=== PATIENT | male | born 1955 | race Hispanic/Latino ===

== ENCOUNTER → 2019-10-18 | Outpatient (CLI) | payer OTHER ==
[~2019-10-18] MED LIST: AEC81 PO; FERS325 PO; FOLI1TAB61 PO; INSLAN SQ; PREG100C PO; RANO10003 PO; RANO500T3 PO; ROSU10TA22 PO; SITA50TA PO
== END | disposition home or self-care (01) ==
LOC: SHCH 09:42
PROVIDERS: ATTEND Internal Medicine Cardiovascular Disease
DX: I73.9 Peripheral vascular disease, unspecified (principal)
CPT/HCPCS: 93925

== ENCOUNTER → 2021-04-08 | Outpatient (CLI) | payer MEDICARE | END | disposition home or self-care (01) | LOC: SHCH 08:52 | PROVIDERS: ATTEND Internal Medicine Cardiovascular Disease | DX: I08.3 Combined rheumatic disorders of mitral, aortic and tricuspid valves (principal); R55 Syncope and collapse; I25.10 Atherosclerotic heart disease of native coronary artery without angina pectoris; I10 Essential (primary) hypertension; E78.5 Hyperlipidemia, unspecified; Z83.3 Family history of diabetes mellitus | CPT/HCPCS: 93306; 93356 ==

== ENCOUNTER 2022-09-18 04:52 | Inpatient (IN) | payer MEDICARE, OTHER ==
[~2022-09-18] VITALS: Ht 167.6 cm; Wt 102.5 kg
[2022-09-18] MEDS ORDERED: DEXTROSE 10%-WATER 1,000 ML IV SCH (05:30)
[2022-09-18 05:36] LABS: BASOPHILS % (AUTO) 0.5 % (0.0-5.0); EOSINOPHILS % (AUTO) 4.6 % (0.0-8.0); HEMATOCRIT 35.8 % (42-54); LYMPHOCYTES % (AUTO) 9.2 % (21.0-51.0); MEAN CORPUSCULAR HEMOGLOBIN 32.1 pg (27.0-33.0); MEAN CORPUSCULAR HGB CONC 32.4 g/dL (32.0-36.0); MEAN CORPUSCULAR VOLUME 99.2 fL (79-99); MONOCYTES % (AUTO) 9.4 % (3.0-13.0); NEUTROPHILS % (AUTO) 75.3 % (40.0-77.0); PLATELET COUNT (AUTO) 215 K/uL (130-400); RED BLOOD CELL COUNT(AUTO) 3.61 MIL/uL (4.50-6.20); RED CELL DISTRIBUTION WIDTH 14.6 % (11.0-15.5); WHITE BLOOD COUNT (AUTO) 9.2 K/uL (4.8-10.8)
[2022-09-18 05:46] LABS: CREATININE 4.8 mg/dL (0.5-1.5); POTASSIUM 4.2 mmol/L (3.5-5.1)
[2022-09-18 05:52] LABS: ALBUMIN 3.7 g/dL (3.5-5.0); MAGNESIUM 2.2 mg/dL (1.80-2.40); TOTAL PROTEIN, SERUM 7.5 g/dL (6.0-8.3)
[2022-09-18] MEDS ORDERED: CYCLOBENZAPRINE HCL 10 MG TABLET PO ONE (06:00)
[2022-09-18] MEDS ORDERED: MORPHINE 2 MG SYG IV PRN (07:30)
[2022-09-18] MEDS ORDERED: MORPHINE 4 MG SYG IV PRN (07:30)
[2022-09-18] MEDS ORDERED: CLOPIDOGREL 300MG TAB PO ONE (07:30)
[2022-09-18] MEDS ORDERED: ONDANSETRON 4MG INJ IV PRN (07:42)
[2022-09-18] MEDS: FAMOTIDINE 20MG VIAL IV SCH ×2 (08:15→20:16)
[2022-09-18] MEDS: CLOPIDOGREL 75MG TAB PO SCH (08:16)
[2022-09-18] MEDS: NITROGLYCERIN 1GM OINT 1 INCH/1GM TD SCH ×2 (08:16→15:47)
[2022-09-18] MEDS ORDERED: METOPROLOL TARTRATE 25 MG TAB PO SCH (09:00)
[2022-09-18 10:06] LABS: HEMOGLOBIN A1C 7.5 % (4.0-6.0)
[2022-09-18 10:07] LABS: INR 1.04 (0.85-1.15); PROTHROMBIN TIME 11.3 SEC (9.6-11.6)
[2022-09-18 10:08] LABS: PARTIAL THROMBOPLASTIN TIME 26.3 SEC (26.3-35.5)
[2022-09-18 10:10] LABS: % IRON SATURATION 32.9 % (30-44)
[2022-09-18 10:26] LABS: THYROID STIMULATING HORMONE 1.58 uIU/mL (0.36-3.74)
[2022-09-18 10:32] LABS: RETICULOCYTE % (AUTO) 4.53 % (0.42-2.23)
[2022-09-18 12:58] VITALS: BP 151/72
[2022-09-18] MEDS ORDERED: METO-409 PO (13:14)
[2022-09-18] MEDS ORDERED: FURO40TA5 PO (13:14)
[2022-09-18] MEDS ORDERED: INSLAN SQ ×2 (13:14→17:06)
[2022-09-18] MEDS ORDERED: SITA25TA5 PO (13:14)
[2022-09-18] MEDS ORDERED: FENO145T26 PO (13:14)
[2022-09-18] MEDS ORDERED: LEVO50CA4 PO (13:14)
[2022-09-18 16:32] VITALS: BP 152/49
[2022-09-18 19:55] VITALS: BP 153/73
[2022-09-18] MEDS: METOPROLOL SUCCINATE 50 MG TAB.SR.24H PO SCH (20:16)
[2022-09-18] MEDS: INSULIN GLARGINE 100 UNITS/ML 10 ML VIAL SQ SCH (20:19)
[2022-09-18] MEDS ORDERED: INSULIN GLARGINE 100 UNITS/ML 10 ML VIAL SQ SCH (21:00)
[2022-09-18] MEDS ORDERED: FUROSEMIDE 40 MG TABLET PO SCH (21:00)
[2022-09-18 23:39] VITALS: BP 158/60
[2022-09-19] VITALS (13 sets, daily range): BP systolic 135–191; BP diastolic 48–89
[2022-09-19] MEDS: NITROGLYCERIN 1GM OINT 1 INCH/1GM TD SCH ×4 (00:05→23:14)
[2022-09-19 00:08] LABS: CREATINE KINASE, TOTAL 72 U/L (21-232); MYOGLOBIN 282 ng/mL (10-92)
[2022-09-19] MEDS: LEVOTHYROXINE 50 MCG TABLET PO SCH (06:48)
[2022-09-19] MEDS ORDERED: INSULIN HUMULIN R 100 UNIT/ML 3ML SQ SCH (07:30)
[2022-09-19] MEDS: FENOFIBRATE NANOCRYSTALLIZED 145 MG TAB PO SCH (08:51)
[2022-09-19] MEDS: FAMOTIDINE 20MG VIAL IV SCH ×2 (08:51→20:46)
[2022-09-19] MEDS: Vitamin B Complex/Vit C/Folic Acid PO SCH (08:51)
[2022-09-19] MEDS: CLOPIDOGREL 75MG TAB PO SCH (08:52)
[2022-09-19] MEDS: METOPROLOL SUCCINATE 50 MG TAB.SR.24H PO SCH ×2 (08:52→20:46)
[2022-09-19 10:13] LABS: BASOPHILS % (AUTO) 0.8 % (0.0-5.0); EOSINOPHILS % (AUTO) 9.1 % (0.0-8.0); HEMATOCRIT 33.1 % (42-54); LYMPHOCYTES % (AUTO) 17.2 % (21.0-51.0); MEAN CORPUSCULAR HEMOGLOBIN 32.2 pg (27.0-33.0); MEAN CORPUSCULAR HGB CONC 31.7 g/dL (32.0-36.0); MEAN CORPUSCULAR VOLUME 101.5 fL (79-99); MONOCYTES % (AUTO) 10.2 % (3.0-13.0); NEUTROPHILS % (AUTO) 62.3 % (40.0-77.0); PLATELET COUNT (AUTO) 232 K/uL (130-400); RED BLOOD CELL COUNT(AUTO) 3.26 MIL/uL (4.50-6.20); RED CELL DISTRIBUTION WIDTH 14.6 % (11.0-15.5); WHITE BLOOD COUNT (AUTO) 7.8 K/uL (4.8-10.8)
[2022-09-19 10:23] LABS: CREATININE 5.8 mg/dL (0.5-1.5); POTASSIUM 4.6 mmol/L (3.5-5.1)
[2022-09-19 10:27] LABS: ALBUMIN 3.1 g/dL (3.5-5.0); TOTAL PROTEIN, SERUM 6.6 g/dL (6.0-8.3)
[2022-09-19] MEDS: HEPARIN 5,000 UNIT VIAL SQ SCH ×2 (11:32→23:00)
[2022-09-19] MEDS: INSULIN HUMULIN R 100 UNIT/ML 3ML SQ SCH ×2 (16:10→20:53)
[2022-09-19 20:38] LABS: HEPATITIS B SURFACE ANTIGEN Reactive (Nonreactive)
[2022-09-19] MEDS: INSULIN GLARGINE 100 UNITS/ML 10 ML VIAL SQ SCH (20:53)
[2022-09-20] VITALS (14 sets, daily range): BP systolic 127–166; BP diastolic 49–74
[2022-09-20 03:26] LABS: BASOPHILS % (AUTO) 0.5 % (0.0-5.0); EOSINOPHILS % (AUTO) 9.1 % (0.0-8.0); HEMATOCRIT 30.7 % (42-54); LYMPHOCYTES % (AUTO) 22.3 % (21.0-51.0); MEAN CORPUSCULAR HEMOGLOBIN 32.3 pg (27.0-33.0); MEAN CORPUSCULAR HGB CONC 32.6 g/dL (32.0-36.0); MONOCYTES % (AUTO) 12.2 % (3.0-13.0); NEUTROPHILS % (AUTO) 55.4 % (40.0-77.0); PLATELET COUNT (AUTO) 222 K/uL (130-400); RED CELL DISTRIBUTION WIDTH 14.5 % (11.0-15.5); WHITE BLOOD COUNT (AUTO) 7.5 K/uL (4.8-10.8)
[2022-09-20 03:46] LABS: ALBUMIN 3.1 g/dL (3.5-5.0); CREATININE 4.2 mg/dL (0.5-1.5); MAGNESIUM 1.8 mg/dL (1.80-2.40); PHOSPHORUS 3.2 mg/dL (2.5-4.9); POTASSIUM 3.2 mmol/L (3.5-5.1); TOTAL PROTEIN, SERUM 6.6 g/dL (6.0-8.3)
[2022-09-20] MEDS: LEVOTHYROXINE 50 MCG TABLET PO SCH (05:44)
[2022-09-20] MEDS: INSULIN HUMULIN R 100 UNIT/ML 3ML SQ SCH ×6 (05:45→20:41)
[2022-09-20] MEDS: NITROGLYCERIN 1GM OINT 1 INCH/1GM TD SCH ×3 (05:45→23:38)
[2022-09-20] MEDS: CLOPIDOGREL 75MG TAB PO SCH (07:55)
[2022-09-20] MEDS: METOPROLOL SUCCINATE 50 MG TAB.SR.24H PO SCH ×2 (07:55→20:36)
[2022-09-20] MEDS: Vitamin B Complex/Vit C/Folic Acid PO SCH (07:55)
[2022-09-20] MEDS: FAMOTIDINE 20MG VIAL IV SCH ×2 (07:56→20:35)
[2022-09-20] MEDS: FENOFIBRATE NANOCRYSTALLIZED 145 MG TAB PO SCH (07:56)
[2022-09-20] MEDS: HEPARIN 5,000 UNIT VIAL SQ SCH ×2 (12:07→20:38)
[2022-09-20] MEDS ORDERED: HYDRALAZINE 25MG TABLET PO PRN (16:30)
[2022-09-20] MEDS ORDERED: INSULIN GLARGINE 100 UNITS/ML 10 ML VIAL SQ SCH (21:00)
[2022-09-21 03:16] VITALS: BP 146/58
[2022-09-21 03:43] LABS: HEMATOCRIT 30.6 % (42-54); MEAN CORPUSCULAR HEMOGLOBIN 32.4 pg (27.0-33.0); MEAN CORPUSCULAR VOLUME 98.1 fL (79-99); RED BLOOD CELL COUNT(AUTO) 3.12 MIL/uL (4.50-6.20); RED CELL DISTRIBUTION WIDTH 14.6 % (11.0-15.5); WHITE BLOOD COUNT (AUTO) 6.9 K/uL (4.8-10.8)
[2022-09-21 04:04] LABS: ALBUMIN 3.1 g/dL (3.5-5.0); CREATININE 5.5 mg/dL (0.5-1.5); MAGNESIUM 2.1 mg/dL (1.80-2.40); POTASSIUM 3.6 mmol/L (3.5-5.1); TOTAL PROTEIN, SERUM 6.5 g/dL (6.0-8.3)
[2022-09-21] MEDS: INSULIN HUMULIN R 100 UNIT/ML 3ML SQ SCH (05:18)
[2022-09-21] MEDS: LEVOTHYROXINE 50 MCG TABLET PO SCH (06:10)
[2022-09-21] MEDS: NITROGLYCERIN 1GM OINT 1 INCH/1GM TD SCH (06:11)
[2022-09-21] MEDS ORDERED: INSULIN HUMULIN R 100 UNIT/ML 3ML SQ SCH (07:30)
[2022-09-21 08:33] VITALS: BP 144/76
[2022-09-21] MEDS: FENOFIBRATE NANOCRYSTALLIZED 145 MG TAB PO SCH (08:40)
[2022-09-21] MEDS: METOPROLOL SUCCINATE 50 MG TAB.SR.24H PO SCH (08:40)
[2022-09-21] MEDS: CLOPIDOGREL 75MG TAB PO SCH (08:41)
[2022-09-21] MEDS: FAMOTIDINE 20MG VIAL IV SCH (08:41)
[2022-09-21] MEDS: Vitamin B Complex/Vit C/Folic Acid PO SCH (08:41)
[2022-09-21] MEDS ORDERED: INSLAN SQ (10:36)
== END 2022-09-21 11:38 | disposition home or self-care (01) | DRG 637 ==
LOC: EDH 04:52 → EDHIP 07:23 → 2AH 12:40
PROVIDERS: ADMIT Internal Medicine; ATTEND Internal Medicine
PROC: 5A1D70Z Performance of Urinary Filtration, Intermittent, Less than 6 Hours Per Day (ICD-10-PCS; principal; 2022-09-19)
DX: E11.649 Type 2 diabetes mellitus with hypoglycemia without coma (principal); I21.A1 Myocardial infarction type 2; I50.31 Acute diastolic (congestive) heart failure; Z68.41 Body mass index [BMI] 40.0-44.9, adult; E87.1 Hypo-osmolality and hyponatremia; I13.2 Hypertensive heart and chronic kidney disease with heart failure and with stage 5 chronic kidney disease, or end stage renal disease; E66.01 Morbid (severe) obesity due to excess calories; N18.6 End stage renal disease; E78.5 Hyperlipidemia, unspecified; E11.22 Type 2 diabetes mellitus with diabetic chronic kidney disease; D64.9 Anemia, unspecified; E03.9 Hypothyroidism, unspecified; I25.10 Atherosclerotic heart disease of native coronary artery without angina pectoris; I48.91 Unspecified atrial fibrillation; T38.3X5A Adverse effect of insulin and oral hypoglycemic [antidiabetic] drugs, initial encounter; Z79.02 Long term (current) use of antithrombotics/antiplatelets; Z79.84 Long term (current) use of oral hypoglycemic drugs; Z82.49 Family history of ischemic heart disease and other diseases of the circulatory system; Z79.4 Long term (current) use of insulin; Z83.3 Family history of diabetes mellitus; Z95.1 Presence of aortocoronary bypass graft; Z99.2 Dependence on renal dialysis; Y92.009 Unspecified place in unspecified non-institutional (private) residence as the place of occurrence of the external cause
CPT/HCPCS: 36415; 71045; 80053; 82550; 82728; 82746; 82948; 83036; 83540; 83550; 83690; 83735; 83874; 83880; 84100; 84443; 84484; 85025; 85027; 85045; 85610; 85730; 86704; 86706; 87340; 90935; 93005; 93306; 93356; 94760; 96360; 99291; G0378; J1644; J1815; J3490

== ENCOUNTER → 2022-11-04 | Outpatient (CLI) | payer OTHER ==
[~2022-11-04] MED LIST changes: +FENO145T26 PO; +FURO40TA5 PO; +LEVO50CA4 PO; +METO-409 PO; -PREG100C PO; -RANO10003 PO; -RANO500T3 PO; +REGADENOSON 0.4 MG/5 ML PF SYG IVP SCH; -SITA50TA PO
== END | disposition home or self-care (01) ==
LOC: SHCH 09:22
PROVIDERS: ATTEND Internal Medicine Cardiovascular Disease
DX: I25.10 Atherosclerotic heart disease of native coronary artery without angina pectoris (principal); Z95.1 Presence of aortocoronary bypass graft
CPT/HCPCS: 78452; 96374; 93017; J2785; A9500 ×2

== ENCOUNTER 2023-01-27 08:50 | Day surgery (SDC) | payer OTHER ==
[2023-01-22 09:11] LABS: BASOPHILS % (AUTO) 0.6 % (0.0-5.0); EOSINOPHILS % (AUTO) 9.2 % (0.0-8.0); HEMATOCRIT 35.7 % (42-54); LYMPHOCYTES % (AUTO) 19.8 % (21.0-51.0); MEAN CORPUSCULAR HEMOGLOBIN 32.5 pg (27.0-33.0); MEAN CORPUSCULAR HGB CONC 31.9 g/dL (32.0-36.0); MEAN CORPUSCULAR VOLUME 101.7 fL (79-99); MONOCYTES % (AUTO) 9.3 % (3.0-13.0); NEUTROPHILS % (AUTO) 60.9 % (40.0-77.0); PLATELET COUNT (AUTO) 256 K/uL (130-400); RED BLOOD CELL COUNT(AUTO) 3.51 MIL/uL (4.50-6.20); RED CELL DISTRIBUTION WIDTH 13.2 % (11.0-15.5); WHITE BLOOD COUNT (AUTO) 8.8 K/uL (4.8-10.8)
[2023-01-22 09:24] LABS: INR 1.03 (0.85-1.15); PROTHROMBIN TIME 11.2 SEC (9.6-11.6)
[2023-01-22 09:25] LABS: PARTIAL THROMBOPLASTIN TIME 28.7 SEC (26.3-35.5)
[2023-01-22 09:34] LABS: CREATININE 5.3 mg/dL (0.5-1.5); POTASSIUM 4.7 mmol/L (3.5-5.1)
[2023-01-22 09:41] LABS: B-TYPE NATRIURETIC PEPTIDE 1000 pg/mL (0-100)
[2023-01-22 09:52] VITALS: BP 200/87
[~2023-01-27] VITALS: Ht 167.6 cm; Wt 102.6 kg
[2023-01-27] VITALS (10 sets, daily range): BP systolic 155–179; BP diastolic 61–78
[~2023-01-27 08:50] MED LIST changes: +CHOL100046 PO; -FERS325 PO; -FOLI1TAB61 PO; +FURO80TA3 PO; +LINA5TAB PO; -REGADENOSON 0.4 MG/5 ML PF SYG IVP SCH; -ROSU10TA22 PO; +SEMA0.258 SQ; +VITA-395 PO
[2023-01-27] MEDS ORDERED: 0.9%NACL 1000ML 1,000 ML IV ONE (09:11)
[2023-01-27] MEDS ORDERED: LIDOCAINE HCL 1% MDV 50ML VIAL ONE (09:56)
[2023-01-27] MEDS ORDERED: IOHEXOL-350 75 ML VIAL IV ONE ×2 (09:57→10:40)
[2023-01-27] MEDS ORDERED: MIDAZOLAM HCL 1 MG/ML 2ML VIAL ONE (09:57)
[2023-01-27] MEDS ORDERED: IOHEXOL-350 50ML VIAL IV ONE (10:26)
[2023-01-27] MEDS ORDERED: DEXTROSE 50%-WATER 50 ML DISP.SYRIN IV PRN (11:30)
[2023-01-27] MEDS ORDERED: GLUCAGON 1MG KIT 1 MG ML IM PRN (11:30)
== END 2023-01-27 14:20 | disposition home or self-care (01) ==
LOC: DAH 08:50
PROVIDERS: ATTEND Internal Medicine Cardiovascular Disease
DX: I25.119 Atherosclerotic heart disease of native coronary artery with unspecified angina pectoris (principal); I25.82 Chronic total occlusion of coronary artery; E11.22 Type 2 diabetes mellitus with diabetic chronic kidney disease; I13.2 Hypertensive heart and chronic kidney disease with heart failure and with stage 5 chronic kidney disease, or end stage renal disease; N18.6 End stage renal disease; I50.22 Chronic systolic (congestive) heart failure; E78.5 Hyperlipidemia, unspecified; E66.9 Obesity, unspecified; D64.9 Anemia, unspecified; Z79.01 Long term (current) use of anticoagulants; Z79.899 Other long term (current) drug therapy; Z95.1 Presence of aortocoronary bypass graft; Z86.010 Personal history of colon polyps; Z82.49 Family history of ischemic heart disease and other diseases of the circulatory system; Z79.4 Long term (current) use of insulin; Z79.82 Long term (current) use of aspirin; Z99.2 Dependence on renal dialysis; Z68.34 Body mass index [BMI] 34.0-34.9, adult
CPT/HCPCS: 80048; 83880; 85025; 85610; 85730; 71045; 93005; 93459; 82948 ×2; C1894; C1760; J7030; J2250; J1644; J3490; Q9967 ×2; A4215; A4222; A4221; A4663; A4216; A4606; Q9965; A4223 ×3; 99156; 99157

== ENCOUNTER 2023-06-01 04:39 | Inpatient (IN) | payer OTHER ==
[2023-06-01] VITALS (15 sets, daily range): BP systolic 133–158; BP diastolic 40–76; PULSE 72–76; RESP 15–20; TEMP 97.9–98
[~2023-06-01] VITALS: Ht 167.6 cm; Wt 100.6 kg
[2023-06-01 05:20] LABS: BASOPHILS # (AUTO) 0.05 K/uL (0.00-0.20); BASOPHILS % (AUTO) 0.6 % (0.0-5.0); EOSINOPHILS # (AUTO) 0.46 K/uL (0.00-0.70); EOSINOPHILS % (AUTO) 5.4 % (0.0-8.0); HEMATOCRIT 31.5 % (42-54); IMMATURE GRANULOCYTE ABSOLUTE 0.06 K/uL (0-1); LYMPHOCYTES # (AUTO) 1.4 K/uL (1.0-4.8); LYMPHOCYTES % (AUTO) 16.6 % (21.0-51.0); MEAN CORPUSCULAR HEMOGLOBIN 33.4 pg (27.0-33.0); MEAN CORPUSCULAR HGB CONC 32.7 g/dL (32.0-36.0); MEAN CORPUSCULAR VOLUME 102.3 fL (79-99); MONOCYTES # (AUTO) 0.8 K/uL (0.1-1.0); MONOCYTES % (AUTO) 9.2 % (3.0-13.0); NEUTROPHILS # (AUTO) 5.7 K/uL (1.8-7.7); NEUTROPHILS % (AUTO) 67.5 % (40.0-77.0); PLATELET COUNT (AUTO) 223 K/uL (130-400); RED BLOOD CELL COUNT(AUTO) 3.08 MIL/uL (4.50-6.20); RED CELL DISTRIBUTION WIDTH 13.5 % (11.0-15.5); WHITE BLOOD COUNT (AUTO) 8.5 K/uL (4.8-10.8)
[2023-06-01 05:38] LABS: ALBUMIN 3.7 g/dL (3.5-5.0); BILIRUBIN,TOTAL 0.7 mg/dL (0.2-1.0); POTASSIUM 5.4 mmol/L (3.5-5.1); TOTAL PROTEIN, SERUM 7.4 g/dL (6.0-8.3)
[2023-06-01 05:43] LABS: CREATININE 8.8 mg/dL (0.5-1.5)
[2023-06-01 05:50] LABS: APPEARANCE,URINE CLEAR (CLEAR); BILIRUBIN,URINE NEGATIVE (NEGATIVE); COLOR,URINE LIGHT-YELLOW (YELLOW); GLUCOSE, URINE (UA) 70 mg/dL (NEGATIVE); KETONES,URINE NEGATIVE (NEGATIVE); LEUKOCYTE ESTERASE ,URINE NEGATIVE Leu/uL (NEGATIVE); NITRATE,URINE NEGATIVE (NEGATIVE); OCCULT BLOOD,URINE SMALL (NEGATIVE); PROTEIN,URINE 300 mg/dL (NEGATIVE); UROBILINOGEN,URINE 0.2 mg/dL (0.2-1.0)
[2023-06-01 05:55] LABS: ADD UA MICROSCOPIC YES
[2023-06-01 05:56] LABS: BACTERIA,URINE RARE /HPF (None Seen); RBC,URINE 0-1 /HPF (0-1); SQUAMOUS EPITHELIAL CELL,UR RARE /HPF (0-2); WBC,URINE 0-1 /HPF (0-1)
[2023-06-01] MEDS ORDERED: ONDANSETRON 4MG INJ IVP ONE (06:00)
[2023-06-01] MEDS ORDERED: MORPHINE 4 MG SYG IVP ONE (06:00)
[2023-06-01] MEDS ORDERED: ZOSYN 3.375GM+NS 50ML 50 ML IVPB ONE (06:16)
[2023-06-01] MEDS ORDERED: ZOSYN 3.375GM +NS 50ML IVPB ONE (06:30)
[2023-06-01] MEDS ORDERED: ACETAMINOPHEN 325 MG TAB PO PRN ×2 (07:00)
[2023-06-01] MEDS ORDERED: ONDANSETRON 4MG INJ IV PRN (07:00)
[2023-06-01] MEDS: FAMOTIDINE 20MG VIAL IV SCH (08:49)
[2023-06-01] MEDS ORDERED: MAGNESIUM 2GM PREMIX 50ML 50 ML IV PRN (09:00)
[2023-06-01] MEDS ORDERED: GLUCAGON 1MG KIT 1 MG ML IM PRN ×2 (09:00→14:00)
[2023-06-01] MEDS: INSULIN HUMULIN R 100 UNIT/ML 3ML SQ SCH ×3 (11:30→23:00)
[2023-06-01] MEDS: DEXTROSE 50%-WATER 50 ML DISP.SYRIN IV PRN ×2 (11:39→16:26)
[2023-06-01] MEDS ORDERED: ZOSYN 3.375GM+NS 50ML 50 ML IV SCH (13:00)
[2023-06-01 13:25] LABS: ALBUMIN 3.5 g/dL (3.5-5.0); BILIRUBIN,DIRECT 0.3 mg/dL (0.0-0.3); BILIRUBIN,TOTAL 0.7 mg/dL (0.2-1.0)
[2023-06-01] MEDS ORDERED: DEXTROSE 50%-WATER 50 ML DISP.SYRIN IV PRN (14:00)
[2023-06-01] MEDS ORDERED: HYDROMORPHONE 0.5 MG SYG (0.5MG/0.5ML) IVP PRN (14:30)
[2023-06-01] MEDS ORDERED: INSULIN HUMULIN R 100 UNIT/ML 3ML SQ SCH (16:30)
[2023-06-01] MEDS: ZOSYN 3.375GM+NS 50ML 50 ML IVPB SCH (23:00)
[2023-06-01 23:12] LABS: HEPATITIS B SURFACE ANTIGEN Non-Reactive (Nonreactive)
[2023-06-01] MEDS ORDERED: LOPERAMIDE HCL 2 MG CAP PO ONE (23:58)
[2023-06-01] MEDS ORDERED: LOPERAMIDE 1 MG/7.5 ML UDCUP PO STA (23:59)
[2023-06-02] VITALS (8 sets, daily range): BP systolic 132–151; BP diastolic 40–76; PULSE 66–82; RESP 18–20; O2SAT 94–96
[2023-06-02] MEDS ORDERED: ASPI-1197 PO (04:51)
[2023-06-02] MEDS ORDERED: METO-409 PO (04:51)
[2023-06-02] MEDS ORDERED: ROSU40TA21 PO (04:51)
[2023-06-02] MEDS ORDERED: LISI2.5T13 PO (04:51)
[2023-06-02] MEDS ORDERED: FURO40SO PO (04:51)
[2023-06-02] MEDS ORDERED: SEMA0.258 SQ (04:51)
[2023-06-02] MEDS ORDERED: INSLAN SQ (04:51)
[2023-06-02] MEDS ORDERED: FURO80TA3 PO (04:51)
[2023-06-02] MEDS ORDERED: FENO145T26 PO (04:51)
[2023-06-02] MEDS ORDERED: [UNRECOGNIZED DRUG - CODE] PO (04:51)
[2023-06-02] MEDS ORDERED: SUCR500T PO (04:51)
[2023-06-02] MEDS ORDERED: MONT-39 PO (04:51)
[2023-06-02] MEDS ORDERED: CINA30TA5 PO (04:51)
[2023-06-02] MEDS ORDERED: CHOL200012 PO (04:51)
[2023-06-02] MEDS ORDERED: LEVO50CA4 PO (04:51)
[2023-06-02] MEDS: ZOSYN 3.375GM+NS 50ML 50 ML IVPB SCH ×2 (05:44→19:20)
[2023-06-02] MEDS: INSULIN HUMULIN R 100 UNIT/ML 3ML SQ SCH ×4 (05:45→20:22)
[2023-06-02 06:18] LABS: BASOPHILS # (AUTO) 0.04 K/uL (0.00-0.20); BASOPHILS % (AUTO) 0.7 % (0.0-5.0); EOSINOPHILS # (AUTO) 0.29 K/uL (0.00-0.70); EOSINOPHILS % (AUTO) 5.2 % (0.0-8.0); HEMATOCRIT 28.3 % (42-54); IMMATURE GRANULOCYTE ABSOLUTE 0.02 K/uL (0-1); LYMPHOCYTES # (AUTO) 0.7 K/uL (1.0-4.8); LYMPHOCYTES % (AUTO) 12.6 % (21.0-51.0); MEAN CORPUSCULAR HEMOGLOBIN 33.8 pg (27.0-33.0); MEAN CORPUSCULAR HGB CONC 33.2 g/dL (32.0-36.0); MEAN CORPUSCULAR VOLUME 101.8 fL (79-99); MONOCYTES # (AUTO) 0.6 K/uL (0.1-1.0); MONOCYTES % (AUTO) 10.2 % (3.0-13.0); NEUTROPHILS % (AUTO) 70.9 % (40.0-77.0); PLATELET COUNT (AUTO) 195 K/uL (130-400); RED BLOOD CELL COUNT(AUTO) 2.78 MIL/uL (4.50-6.20); RED CELL DISTRIBUTION WIDTH 13.4 % (11.0-15.5); WHITE BLOOD COUNT (AUTO) 5.6 K/uL (4.8-10.8)
[2023-06-02 06:31] LABS: ALBUMIN 3.2 g/dL (3.5-5.0); BILIRUBIN,TOTAL 0.8 mg/dL (0.2-1.0); CREATININE 6.3 mg/dL (0.5-1.5); MAGNESIUM 1.9 mg/dL (1.80-2.40); PHOSPHORUS 5.5 mg/dL (2.5-4.9); POTASSIUM 3.9 mmol/L (3.5-5.1); TOTAL PROTEIN, SERUM 6.5 g/dL (6.0-8.3)
[2023-06-03] VITALS (20 sets, daily range): BP systolic 118–170; BP diastolic 56–98; PULSE 73–85; RESP 16–20; TEMP 97.8–97.9; O2SAT 95
[2023-06-03 05:07] LABS: BASOPHILS # (AUTO) 0.03 K/uL (0.00-0.20); BASOPHILS % (AUTO) 0.6 % (0.0-5.0); EOSINOPHILS # (AUTO) 0.44 K/uL (0.00-0.70); EOSINOPHILS % (AUTO) 8.1 % (0.0-8.0); HEMATOCRIT 28.7 % (42-54); IMMATURE GRANULOCYTE ABSOLUTE 0.03 K/uL (0-1); LYMPHOCYTES # (AUTO) 1.1 K/uL (1.0-4.8); LYMPHOCYTES % (AUTO) 19.9 % (21.0-51.0); MEAN CORPUSCULAR HEMOGLOBIN 33.6 pg (27.0-33.0); MEAN CORPUSCULAR HGB CONC 32.8 g/dL (32.0-36.0); MEAN CORPUSCULAR VOLUME 102.5 fL (79-99); MONOCYTES # (AUTO) 0.7 K/uL (0.1-1.0); MONOCYTES % (AUTO) 12.9 % (3.0-13.0); NEUTROPHILS # (AUTO) 3.2 K/uL (1.8-7.7); NEUTROPHILS % (AUTO) 57.9 % (40.0-77.0); PLATELET COUNT (AUTO) 186 K/uL (130-400); RED CELL DISTRIBUTION WIDTH 13.2 % (11.0-15.5); WHITE BLOOD COUNT (AUTO) 5.4 K/uL (4.8-10.8)
[2023-06-03] MEDS: INSULIN HUMULIN R 100 UNIT/ML 3ML SQ SCH ×3 (05:20→16:30)
[2023-06-03 05:27] LABS: BILIRUBIN,TOTAL 0.7 mg/dL (0.2-1.0); CREATININE 7.7 mg/dL (0.5-1.5); POTASSIUM 4.1 mmol/L (3.5-5.1); TOTAL PROTEIN, SERUM 6.4 g/dL (6.0-8.3)
[2023-06-03] MEDS: ZOSYN 3.375GM+NS 50ML 50 ML IVPB SCH (06:03)
[2023-06-03] MEDS: FAMOTIDINE 20MG VIAL IV SCH (08:17)
[2023-06-03] MEDS ORDERED: CHOL200012 PO (11:30)
[2023-06-03] MEDS ORDERED: LISINOPRIL 2.5 MG TABLET PO STA (17:06)
[2023-06-03] MEDS ORDERED: METOPROLOL SUCCINATE 50 MG TAB.SR.24H PO STA (17:06)
[2023-06-03] MEDS ORDERED: MONTELUKAST SODIUM 10 MG TAB PO SCH (21:00)
[2023-06-03] MEDS ORDERED: NON-FORMULARY MEDICATION 1 EACH (Rosuvastatin Calcium 40 MG) PO SCH (21:00)
[2023-06-03] MEDS ORDERED: ATORVASTATIN 40 MG TABLET PO SCH (21:00)
[2023-06-04] MEDS ORDERED: CHOLECALCIFEROL 25 MCG PO SCH (09:00)
[2023-06-04] MEDS ORDERED: CINACALCET 30 MG TAB PO SCH (09:00)
[2023-06-04] MEDS ORDERED: METOPROLOL SUCCINATE 50 MG TAB.SR.24H PO SCH (09:00)
[2023-06-04] MEDS ORDERED: LISINOPRIL 2.5 MG TABLET PO SCH (09:00)
[2023-06-04] MEDS ORDERED: FENOFIBRATE NANOCRYSTALLIZED 145 MG TAB PO SCH (09:00)
[2023-06-04] MEDS ORDERED: VITAMIN E 180 MG PO SCH (09:00)
[2023-06-04] MEDS ORDERED: NON-FORMULARY MEDICATION 1 EACH (Metoprolol Succinate 100 MG) PO SCH (09:00)
[2023-06-04] MEDS ORDERED: FUROSEMIDE 80 MG TABLET PO SCH (09:00)
[2023-06-04] MEDS ORDERED: ASPIRIN 81MG CHEW TAB PO SCH (09:00)
== END 2023-06-03 19:00 | disposition home or self-care (01) | DRG 444 ==
LOC: EDH 04:39 → EDHIP 06:43 → 3DH 06-02 03:45
PROVIDERS: ADMIT Hospitalist; ATTEND Hospitalist
PROC: 5A1D70Z Performance of Urinary Filtration, Intermittent, Less than 6 Hours Per Day (ICD-10-PCS; principal; 2023-06-01)
PROC: 5A1D70Z Performance of Urinary Filtration, Intermittent, Less than 6 Hours Per Day (ICD-10-PCS; 2023-06-03)
DX: K80.18 Calculus of gallbladder with other cholecystitis without obstruction (principal); K85.90 Acute pancreatitis without necrosis or infection, unspecified; N18.6 End stage renal disease; I12.0 Hypertensive chronic kidney disease with stage 5 chronic kidney disease or end stage renal disease; E11.22 Type 2 diabetes mellitus with diabetic chronic kidney disease; D64.9 Anemia, unspecified; E87.5 Hyperkalemia; I25.10 Atherosclerotic heart disease of native coronary artery without angina pectoris; E78.00 Pure hypercholesterolemia, unspecified; E87.8 Other disorders of electrolyte and fluid balance, not elsewhere classified; Z82.49 Family history of ischemic heart disease and other diseases of the circulatory system; Z83.3 Family history of diabetes mellitus; Z89.022 Acquired absence of left finger(s); Z95.1 Presence of aortocoronary bypass graft; Z99.2 Dependence on renal dialysis
CPT/HCPCS: 36415; 74150; 76705; 78226; 80053; 80076; 81001; 82550; 82948; 83690; 83735; 83874; 84100; 84484; 85025; 86704; 86706; 87340; 90935; 93005; 96365; 96366; A9537; G0378; J1610; J2270; J2405; J2543; J3490; J7070

== ENCOUNTER 2023-07-16 12:41 | Emergency (ER) | payer OTHER ==
[~2023-07-16] VITALS: Ht 167.6 cm; Wt 103.4 kg
[~2023-07-16 12:41] MED LIST changes: -AEC81 PO; +ASPI-1197 PO; -CHOL100046 PO; +CINA30TA5 PO; +FURO40SO PO; -FURO40TA5 PO; -LINA5TAB PO; +LISI2.5T13 PO; +MONT-39 PO; +ROSU40TA21 PO; +SUCR500T PO; -VITA-395 PO; +[UNRECOGNIZED DRUG - CODE] PO
[2023-07-16 13:24] VITALS: BP 144/74; PULSE 79; RESP 16
[2023-07-16] MEDS ORDERED: CEPH500B PO (14:35)
== END 2023-07-16 15:11 | disposition home or self-care (01) ==
LOC: EDH 12:41
DX: S61.303A Unspecified open wound of left middle finger with damage to nail, initial encounter (principal); E11.9 Type 2 diabetes mellitus without complications; E78.00 Pure hypercholesterolemia, unspecified; I10 Essential (primary) hypertension; Z79.82 Long term (current) use of aspirin; Z79.890 Hormone replacement therapy; Z79.899 Other long term (current) drug therapy; W18.31XA Fall on same level due to stepping on an object, initial encounter; Y93.89 Activity, other specified; Y92.89 Other specified places as the place of occurrence of the external cause; Y99.8 Other external cause status

== ENCOUNTER 2024-06-23 07:23 | Emergency (ER) | payer OTHER ==
[~2024-06-23] VITALS: Ht 167.6 cm; Wt 95.3 kg
[2024-06-23 07:25] VITALS: TEMP 97.8
[2024-06-23] MEDS: acetaMINOPHEN 325 MG/10.15ML UDCUP PO ONE (08:52)
[2024-06-23 09:42] VITALS: BP 124/32; PULSE 66; RESP 17; O2SAT 100
== END 2024-06-23 09:43 | disposition home or self-care (01) ==
LOC: EDH 07:23
DX: S40.011A Contusion of right shoulder, initial encounter (principal); E11.9 Type 2 diabetes mellitus without complications; E78.00 Pure hypercholesterolemia, unspecified; I10 Essential (primary) hypertension; Z98.890 Other specified postprocedural states; Z89.022 Acquired absence of left finger(s); W01.0XXA Fall on same level from slipping, tripping and stumbling without subsequent striking against object, initial encounter; Y93.89 Activity, other specified; Y92.89 Other specified places as the place of occurrence of the external cause; Y99.8 Other external cause status
CPT/HCPCS: 73030; 73060

== ENCOUNTER 2024-09-12 09:00 | Inpatient (IN) | payer OTHER ==
[~2024-09-12] VITALS: Ht 172.7 cm; Wt 92.2 kg
--- NOTE | 2024-09-12 09:28 | EKG ---
[facility] Test Date: 2024-09-12 Test Time: 09:25:09 Pat Name: BEN LUQUE Department: EDH Room: ED Gender: M Medical Practice Assistant: [id number] : 1955 Requested By: MICHAEL SAHU Order Number: [id number] Reading MD: Maximilian Peck Measurements Intervals [place] Rate: 104 P: 41 ID: [id number] QRS: 101 QRSD: 100 T: -88 QT: 310 QTc: 407 Interpretive Statements Sinus tachycardia Right axis deviation Repol abnrm suggests ischemia, lateral leads Compared to ECG 09/01/2023 23:05:52 Right-axis deviation now present Early repolarization now present Possible ischemia now present Sinus rhythm no longer present Right bundle-branch block no longer present Electronically Signed On 09-12-2024 22:03:12 SWIMMING [employer]OL SERVIC[employer] by Maximilian Peck Please click the below link to view image of tracing.
--- NOTE | 2024-09-12 09:32 | ERN ---
General Chief Complaint: Abdominal Pain Stated Complaint: ABD PAIN, CHILLS Time Seen by MD: 09:02 Time Seen by Midlevel: 09:02 Source: patient History of Present Illness Initial Comments This is a 69-year-old male with a past medical history of end-stage renal disease on hemodialysis presenting to the emergency department with diffuse abdominal pain that started prior to arrival. Patient is on a Thursday dialysis schedule and is followed by [facility]. He has a Lava in place. He reports having 3 hours of his dialysis performed today. He normally gets 3 hours and 45 minutes. Denies any nausea, vomiting, or any other symptoms at this time. Allergies: Coded Allergies: No Known Drug Allergies (Unverified Allergy, Unknown, 06/01/15) Home Meds No Active Prescriptions or Reported Meds Past Medical History Past Medical History: Diabetes-Type II, High Cholesterol, Hypertension, Renal Failure Past Surgical History: LAVA Surgical History Other: , KNEE SX, LEFT 2ND FINGER PARTIAL AMPUTATIO Family History Family History: DM, HTN Social History Social History: Negative, Lives with family ROS Dictation CONSTITUTIONAL: Negative except for HPI HEAD/FACE: Negative except for HPI EENT: Negative except for HPI RESPIRATORY: Negative except for HPI GASTROINTESTINAL/ABDOMINAL: Negative except for HPI GENITOURINARY: Negative except for HPI MUSCULOSKELETAL: Negative except for HPI INTEGUMENTARY: Negative except for HPI NEUROLOGICAL/PSYCH: Negative except for HPI HEMATOLOGIC/LYMPHATIC: Negative except for HPI All Systems Negative, Except as noted above. 13 point review of systems assessed and all negative except for above. Physical Exam Physical Exam Dictation Vital Signs reviewed General Appearance: Alert, oriented x 3, ill-appearing Head and Face: non-traumatic. Eyes: PERRL, pink conjunctivas, eyelid no trauma, anterior chamber with arcus senilis. Ears: Pinnas intact and no signs of trauma or erythema ear canals clear and no discharge TM no erythema Nose: No discharge, no bleeding. Oropharynx: Mouth normal, tongue pink, pharynx clear,no erythema, tonsils no exudates, no abscesses noted, mucous m embrane moist Neck: Supple, non-tender, no thyromegaly, no masses, no JVD, no bruits Breast:Deferred Chest:No tenderness, no crepitus, no paradoxical movement, no retractions Lungs:Clear, well-ventilated, symmetric, no rales, no wheezing, no rhonchi, no stridor, good breath sounds bilaterally Heart: Regular rate, regular rhythm, no murmur, no gallops Vascular: no peripheral edema, Abdomen: Soft, positive bowel sounds, nondistended, no guarding, Diffuse abdominal tenderness, no rebound, no masses no hepatomegaly, no splenomegaly, no Caputo's sign, no hernias. Rectal: Deferred Genital: Deferred Neurological: Normal speech, motor function intact, sensory function intact Musculoskeletal: Neck nontender, full range of motion, back nontender, full range of motion, Extremities: nontender, full range of motion Skin: Color pink, dry, no turgor, no rash, no lacerations, no abrasions, no contusions. Lymphatic: Deferred Results Laboratory and Microbiology Lab and Micro Result Laboratory Tests Test 09/12/24 09:30 White Blood Count 6.1 K/uL (4.8-10.8) Red Blood Count 3.72 MIL/uL (4.50-6.20) L Hemoglobin 12.1 g/dL (14.0-18.0) L Hematocrit 36.8 % (42-54) L Mean Corpuscular Volume 98.9 fL (79-99) Mean Corpuscular Hemoglobin 32.5 pg (27.0-33.0) Mean Corpuscular Hemoglobin Concent 32.9 g/dL (32.0-36.0) Red Cell Distribution Width 14.7 % (11.0-15.5) Platelet Count 333 K/uL (130-400) Mean Platelet Volume 10.0 fL (7.5-10.5) Immature Granulocyte % (Auto) 0.3 % (0-1) Neutrophils (%) (Auto) 67.8 % (40.0-77.0) Lymphocytes (%) (Auto) 24.3 % (21.0-51.0) Monocytes (%) (Auto) 6.5 % (3.0-13.0) Eosinophils (%) (Auto) 0.8 % (0.0-8.0) Basophils (%) (Auto) 0.3 % (0.0-5.0) Neutrophils # (Auto) 4.1 K/uL (1.8-7.7) Lymphocytes # (Auto) 1.5 K/uL (1.0-4.8) Monocytes # (Auto) 0.4 K/uL (0.1-1.0) Eosinophils # (Auto) 0.05 K/uL (0.00-0.70) Basophils # (Auto) 0.02 K/uL (0.00-0.20) Absolute Immature Granulocyte (auto 0.02 K/uL (0-1) Nucleated Red Blood Cells 0.0 % (0.0-0.19) Prothrombin Time 13.2 SEC (9.6-11.6) H Prothromb Time International Ratio 1.20 (0.85-1.15) H Activated Partial Thromboplast Time 28.6 SEC (26.3-35.5) Sodium Level 138 mmol/L (136-145) Potassium Level 4.7 mmol/L (3.5-5.1) Chloride Level 97 mmol/L (101-111) L Carbon Dioxide Level 31 mmol/L (21-32) Blood Urea Nitrogen 41 mg/dL (7-18) H Creatinine 6.3 mg/dL (0.5-1.3) H Glomerular Filtration Rate Calc 9 mL/min (>90) Random Glucose 55 mg/dL (70-105) L Lactic Acid Level 4.6 mmol/L (0.8-2.5) H Total Calcium 10.1 mg/dL (8.5-10.1) Total Bilirubin 1.9 mg/dL (0.2-1.0) H Direct Bilirubin 0.9 mg/dL (0.0-0.3) H Aspartate Amino Transf (AST/SGOT) 132 U/L (10-37) H Alanine Aminotransferase (ALT/SGPT) 71 U/L (12-78) Alkaline Phosphatase 104 U/L (50-136) Troponin I High Sensitivity 110 ng/L (4-75) *H Total Protein 8.3 g/dL (6.0-8.3) Albumin 3.1 g/dL (3.5-5.0) L Lipase 41 U/L (16-77) Procalcitonin 1.62 ng/mL (0.05-0.5) H Labs Reviewed?: Yes MDM MDM: Differential diagnosis: Acute cholecystitis, pancreatitis, small-bowel obstruction, ileus Rationale: Tests considered and ordered secondary to shared decision making include: Previous outside records reviewed: Old ER visits. Risk of complication and/or morbidity or mortality of patient management: None Medications-Per medication reconciliation Need for hospitalization: Patient does meet criteria for hospitalization. Need for emergency major/minor surgery: No There are no social concerns with this patient. Prescription drug management Prescriptions will include symptomatic care Patient's prior external medical records from other ER visits were reviewed by me as indicated. Prior testing and results from previous visits were reviewed. Prior tests were taken into account with medical decision making and resource utilization, independent historian/historians were used to obtain complete medical history. I independently interpreted the test that were performed, results were reviewed by me and considered findings on radiology if ordered. Medical management and examination interpretation discussions were had by me with other qualified healthcare professionals as indicated for the patient's care. ED Course Orders Procedure Category Date Status Time 12 Lead Ekg Tracing- EKG 09/12/24 Complete Technical 09:14 Cbc With Differential LAB 09/12/24 Complete 09:14 Basic Metabolic Panel LAB 09/12/24 Complete 09:14 Hepatic Function Panel LAB 09/12/24 Complete 09:14 Lipase LAB 09/12/24 Complete 09:14 Lactic Acid LAB 09/12/24 Complete 09:14 Procalcitonin LAB 09/12/24 Complete 09:14 Pt And Ptt LAB 09/12/24 Complete 09:14 Troponin I High LAB 09/12/24 Complete Sensitivity 09:14 Urinalysis LAB 09/12/24 Logged W/Microscopic 09:14 Chest 1vw RAD 09/12/24 Resulted 09:14 Ondansetron 4mg Inj PHA 09/12/24 Complete (Zofran 4mg Inj) 09:30 Morphine 2mg Syg PHA 09/12/24 Complete (Morphine 2mg Syg) 09:30 Famotidine 20mg Vial PHA 09/12/24 Complete (Pepcid 20mg Vial) 09:30 Ct Abdomen/Pelvis W/O CT 09/12/24 Resulted Contrast 09:22 0.9% Nacl 500ml PHA 09/12/24 Complete Iv.Soln (Ns 500ml 10:30 12 Lead Ekg Tracing- EKG 09/12/24 Complete Technical 10:41 Troponin I High LAB 09/12/24 Complete Sensitivity 10:41 Zosyn 3.375gm+Ns 50ml PHA 09/12/24 Complete (Zosyn 3.375gm+Ns 11:00 Arterial Blood Gas RT 09/12/24 Transmitted 12:00 Ammonia LAB 09/12/24 Complete 12:01 Arterial Blood Gas + RT 09/12/24 Transmitted 12:03 Ct Head/Brain W/O CT 09/12/24 Resulted Contrast 12:05 Initiate DERIK 09/12/24 In Process Hyperglycemia Protoco 12:16 Insulin Regular, PHA 09/12/24 In Process Human 3ml (Humulin R 16:30 Initiate Hypoglycemia DERIK 09/12/24 In Process Protocol 12:16 Dextrose 50%-Water PHA 09/12/24 In Process (D50w) 12:30 Glucagon 1mg Kit PHA 09/12/24 In Process (Glucagon 1mg Kit) 12:30 Magnesium 2gm Premix PHA 09/12/24 In Process 50ml (Magnesium 2gm 12:30 Ammonia LAB 09/13/24 Verified 04:00 B-Type Natriuretic LAB 09/13/24 Verified Peptide 04:00 Cbc With Differential LAB 09/13/24 Verified 04:00 Comprehensive LAB 09/13/24 Verified Metabolic Panel 04:00 Creatine Kinase, Total LAB 09/13/24 Verified 04:00 Hemoglobin A1c LAB 09/13/24 Verified 04:00 Hepatic Function Panel LAB 09/13/24 Verified 04:00 Influenza Type A & B, LAB 09/12/24 Complete Rapid 12:16 Lactic Acid LAB 09/13/24 Verified 04:00 Magnesium LAB 09/13/24 Verified 02:00 Procalcitonin LAB 09/13/24 Verified 04:00 Current Medications Medications (Trade) Dose Ordered Sig/Elver Route PRN Reason Start Time Stop Time Status Last Admin Dose Admin Famotidine (Pepcid 20mg Vial) 20 mg ONCE ONCE IV 09/12/24 09:30 09/12/24 09:31 DC 09/12/24 09:44 Morphine Sulfate (morPHINE 2MG SYG) 2 mg ONCE ONCE IVP 09/12/24 09:30 09/12/24 09:31 DC 09/12/24 09:45 Ondansetron HCl (zoFRAN 4MG INJ) 4 mg ONCE ONCE IVP 09/12/24 09:30 09/12/24 09:31 DC 09/12/24 09:44 Piperacillin Sod/ Tazobactam Sod (Zosyn 3.375gm+NS 50ml) 3.375 gm ONCE ONCE IV 09/12/24 11:00 09/12/24 11:04 DC 09/12/24 11:33 Sodium Chloride 500 ml @ 0 mls/hr ONCE ONCE IV 09/12/24 10:30 09/12/24 10:31 DC 09/12/24 10:26 Vital Signs Date Time Temp Pulse Resp B/P (MAP) Pulse Ox O2 Delivery O2 Flow Rate FiO2 09/12/24 11:30 94 20 120/54 94 Room Air* 0 21 09/12/24 10:00 98.1 104 20 138/57 96 Room Air* 0 21 09/12/24 09:10 98.1 104 20 134/71 96 Room Air* 0 21 09/12/24 09:02 98.1 104 18 134/71 96 Room Air 0 DX & DISP Disposition: Inpatient Departure Impression: Primary Impression: Small bowel obstruction Additional Impressions: Elevated troponin, Hypoglycemia, End-stage renal disease on hemodialysis Condition: Stable Scripts No Active Prescriptions or Reported Meds Referrals: LARRY MORENO (PCP) I have reviewed the case, and I agree with, Diagnosis and Plan I performed the substantive portion of the visit. I have reviewed and personally made and approve the management plan that is documented in the note by myself or the CARLI. I acknowledge for responsibility for the patient's management plan. MARK PARHAM Sep 12, 2024 09:32
[2024-09-12] MEDS: FAMOTIDINE 20MG VIAL IV ONE (09:44)
[2024-09-12] MEDS: ondanSETRON 4MG INJ IVP ONE (09:44)
[2024-09-12] MEDS: morPHINE 2 MG SYG IVP ONE ×3 (09:45→15:23)
[2024-09-12 10:00] LABS: BASOPHILS # (AUTO) 0.02 K/uL (0.00-0.20); BASOPHILS % (AUTO) 0.3 % (0.0-5.0); EOSINOPHILS # (AUTO) 0.05 K/uL (0.00-0.70); EOSINOPHILS % (AUTO) 0.8 % (0.0-8.0); HEMATOCRIT 36.8 % (42-54); IMMATURE GRANULOCYTE ABSOLUTE 0.02 K/uL (0-1); LYMPHOCYTES # (AUTO) 1.5 K/uL (1.0-4.8); LYMPHOCYTES % (AUTO) 24.3 % (21.0-51.0); MEAN CORPUSCULAR HEMOGLOBIN 32.5 pg (27.0-33.0); MEAN CORPUSCULAR HGB CONC 32.9 g/dL (32.0-36.0); MEAN CORPUSCULAR VOLUME 98.9 fL (79-99); MONOCYTES # (AUTO) 0.4 K/uL (0.1-1.0); MONOCYTES % (AUTO) 6.5 % (3.0-13.0); NEUTROPHILS # (AUTO) 4.1 K/uL (1.8-7.7); NEUTROPHILS % (AUTO) 67.8 % (40.0-77.0); PLATELET COUNT (AUTO) 333 K/uL (130-400); RED BLOOD CELL COUNT(AUTO) 3.72 MIL/uL (4.50-6.20); RED CELL DISTRIBUTION WIDTH 14.7 % (11.0-15.5); WHITE BLOOD COUNT (AUTO) 6.1 K/uL (4.8-10.8)
--- NOTE | 2024-09-12 10:00 | HMCIMG ---
CHEST 1VW HISTORY: Shortness of breath COMPARISON: 09/01/2023 FINDINGS: A frontal projection of the chest was obtained. Prominent interstitial markings are seen with possible superimposed infiltrates. Poststernotomy changes are seen. The heart is enlarged. Degenerative changes of the thoracolumbar spine are present. Degenerative changes are seen. No evidence of aortic calcification is seen. IMPRESSION: 1. Prominent interstitial markings are seen with possible superimposed infiltrates.
[2024-09-12 10:15] LABS: INR 1.2 (0.85-1.15); PROTHROMBIN TIME 13.2 SEC (9.6-11.6)
[2024-09-12 10:17] LABS: PARTIAL THROMBOPLASTIN TIME 28.6 SEC (26.3-35.5)
[2024-09-12 10:19] LABS: ALBUMIN 3.1 g/dL (3.5-5.0); BILIRUBIN,DIRECT 0.9 mg/dL (0.0-0.3); BILIRUBIN,TOTAL 1.9 mg/dL (0.2-1.0); CREATININE 6.3 mg/dL (0.5-1.3); POTASSIUM 4.7 mmol/L (3.5-5.1); TOTAL PROTEIN, SERUM 8.3 g/dL (6.0-8.3)
[2024-09-12] MEDS: 0.9% NACL 500ML IV.SOLN 500 ML IV ONE (10:26)
--- NOTE | 2024-09-12 10:32 | HMCIMG ---
CT ABDOMEN/PELVIS W/O CONTRAST HISTORY: Diffuse abdominal pain COMPARISON: 09/05/2023 TECHNIQUE: Multiple sequential axial images of the abdomen and pelvis were obtained from the dome of the diaphragm through symphysis pubis. Patient was not given contrast through intravenous route. Oral contrast was not given. FINDINGS: No pleural effusion is seen bilaterally. There is no evidence of parenchymal disease or pulmonary nodule of the visualized lower lungs. Degenerative changes of the thoracolumbar spine are present. The heart is borderline enlarged. Coronary arterial calcifications are seen. Liver measures 19 cm. Spleen measures 11 cm. Stomach is poorly distended. There is small bowel dilatation with fluid-filled may be related to enteritis. The liver, spleen, adrenal glands and pancreas are unremarkable. There is no evidence of hydronephrosis bilaterally. There are bilateral renal vascular calcifications with possible small renal pelvic stones. Bilateral renal atrophy is seen. Fecal material is seen in the colon. There is diverticulosis. There are normal size retroperitoneal and mesenteric lymph nodes. Tiny ascites is seen. Atherosclerotic changes are present. Pelvic sidewalls are symmetric bilaterally. Bladder is poorly distended. IMPRESSION: 1. Mild bowel dilatation with fluid-filled may be related to small bowel obstruction. Tiny ascites. Diverticulosis. CT was performed with one or more following dose reduction techniques: automated exposure control, adjustment of the mA and kv according to patient's size, or use of a iterative reconstruction technique.
[2024-09-12] MEDS: ZOSYN 3.375GM +NS 50ML IV ONE (11:33)
--- NOTE | 2024-09-12 11:59 | EKG ---
[facility] Test Date: 2024-09-12 Test Time: 11:55:46 Pat Name: BEN LUQUE Department: EDH Room: ED Gender: M Wound/Ostomy Clinical Nurse Specialist: [id number] : 1955 Requested By: MARK PARHAM Order Number: [id number] Reading MD: Maximilian Peck Measurements Intervals [place] Rate: 97 P: 37 DE: 209 QRS: 100 QRSD: 107 T: 263 QT: 393 QTc: 499 Interpretive Statements Sinus rhythm Borderline prolonged [place] interval Right axis deviation Repol abnrm, severe global ischemia (LM/MVD) Compared to ECG 09/12/2024 09:25:09 Sinus tachycardia no longer present Possible ischemia still present Electronically Signed On 09-12-2024 22:04:30 MC KAY STITCHER by Maximilian Peck Please click the below link to view image of tracing.
--- NOTE | 2024-09-12 12:00 | NUR ---
MARK AMADOR SPOKE TO IRV[facility] FOR GENERAL SURGERY CONSULT THEY WILL SEE PT
--- NOTE | 2024-09-12 12:04 | NUR ---
ARTEM GRAY CALLED FOR AN ABG
--- NOTE | 2024-09-12 12:27 | NUR ---
GLUCOSE 38MG/DL VIA ABG 50ML D50 12.5GMS IVP JUST GIVEN
[2024-09-12] MEDS ORDERED: guaiFENesin-DM 200/20MG 10ML PO PRN (12:30)
[2024-09-12] MEDS ORDERED: ZOLPidem TARTrate 5 MG TAB PO PRN (12:30)
[2024-09-12] MEDS ORDERED: ondanSETRON 4MG INJ IV PRN (12:30)
[2024-09-12] MEDS ORDERED: NITROGLYCERIN 0.4 MG SL TAB SL PRN (12:30)
[2024-09-12] MEDS ORDERED: GLUCAGON 1MG KIT 1 MG ML IM PRN (12:30)
[2024-09-12] MEDS ORDERED: MAGNESIUM 2GM PREMIX 50ML 50 ML IV PRN (12:30)
[2024-09-12] MEDS ORDERED: MAG/ALUM/SIMETH 30 ML UDCUP PO PRN (12:30)
[2024-09-12] MEDS ORDERED: hydrALAZine 20MG/ML VIAL IV PRN (12:30)
[2024-09-12] MEDS ORDERED: LACTULOSE 20 GM/30 ML UDCUP PO PRN (12:30)
[2024-09-12] MEDS ORDERED: FAMOTIDINE 20MG VIAL IV PRN (12:30)
--- NOTE | 2024-09-12 12:34 | HP ---
[facility] HISTORY AND PHYSICAL Date of Service: Sep 12, 2024 Time of Service: 12:25 PCP:Ruddy Mathews Admitting: Dr Chopra, Allergies: No Allergy Information Available, No Known Drug Allergies HISTORY OF PRESENT ILLNESS: [ Patient is 69 years old male with a past medical history of ESRD on dialysis, diabetes, hyperlipidemia, Coronary Artery Disease, hypertension, cholelit hiasis, CABG, appendectomy, who came to emergency department with the abdominal pain that is starting during dialysis. Patient is undergoing dialysis on Thursday and Thursday at [facility]. He had Lava in place. Patient was able to undergo 3 hours of dialysis were usually is about 3 hours and 45 minutes. But then patient is started to experience extreme abdominal pain and decided to come to emergency department for further evaluation.] Chest x-ray showed prominent interstitial markings with a possible superimposed infiltrate. CT abdomen/pelvis showed mild bowel dilation with fluid filled may be related to small bowel obstruction. Tiny ascites, diverticulosis. Surgeon was consulted as well we consulted senior datastage developer for ESRD dialysis. Per surgeon no NG tube at this moment. Patient received 500 cc bolus of fluids. Most recent vital signs temperature 98.1 pulse 94 respiration 20 blood pressure 120/54. Patient is on room air satting 94%. WBC 6.1 hemoglobin 12.1 hematocrit 36.8 platelets 333. Sodium 138 potassium 4.7 chloride 97 CO2 31 BUN 41 creatinine 6.3 GFR nine random glucose 55 lactic 4.6 bilirubin 1.9 direct bilirubin 0.9 troponin 110 positive procalcitonin 1.62 lipase 41 albumin 3.1. Patient will be admitted under hospitalist care for further evaluation and care. REVIEW OF SYSTEMS CONSTITUTIONAL: Denies fevers, chills, or night sweats. No unintentional weight loss reported. NEUROLOGICAL: Denies headache, amaurosis fugax, motor weakness, sensory deficit, vertigo/spinning sensation, gait abnormalities, or tremors. ENT: No hearing loss, otalgia, otorrhea, rhinitis, rhinorrhea, hoarseness, or sore throat. CARDIOVASCULAR: Denies any exertional angina, dyspnea on exertion, orthopnea, paroxysmal nocturnal dyspnea, palpitations, life-threatening arrhythmias, claudication. PULMONARY: Denies any shortness of breath, cough, phlegm/sputum, hemoptysis, pleuritic chest pain. SLEEP: Denies morning headaches, daytime somnolence or napping. Denies difficulty falling asleep, staying asleep, waking from sleep. Denies knowledge of snoring. GASTROINTESTINAL: Denies any type of dysphagia to either liquids or solids. Denies nausea, vomiting, pyrosis, early satiety, diarrhea, constipation, or changes in stool consistency or caliber. Denies coffee-ground emesis, hematemesis, hematochezia, or melanotic stools. Complains of persistent abdominal pain GENITOURINARY: Denies frequency, urgency, nocturia, hematuria or incontinence (Storage/Irritative symptoms.) Low urinary stream, straining to void, urinary intermittency or hesitancy, splitting of the voiding stream, terminal dribbling. ENDOCRINOLOGIC: Denies polyuria, polydipsia, polyphagia or heat/cold intolerances. HEMATOLOGIC: Denies thrombophilia/previous clots, or coagulopathy/bleeding disorders. ONCOLOGIC: Denies personal history of malignancy. DERMATOLOGIC: Denies rashes or pruritus. PSYCHIATRIC: Denies any suicidal or homicidal ideation. Denies hallucinations. PAST MEDICAL HISTORY: [ , hyperlipidemia, Coronary Artery Disease, hypertension, ESRD dialysis Thursday, cholelithiasis] PAST SURGICAL HISTORY: [ CABG six years ago, right knee cartilage replacement, appendicitis, cholecystectomy, left hand pointing finger amputation ] PAST SOCIAL HISTORY: [ Patient denies smoking. Patient denies drug illicit. Patient drinks occasi onally. ] FAMILY HISTORY: [ Patient lives at home with the family. Patient is independent. ] Coded Allergies: No Known Drug Allergies (Unverified Allergy, Unknown, 06/01/15) PHYSICAL EXAM GENERAL APPEARANCE: The patient is awake, alert, and oriented, in no acute cardiopulmonary distress. NEUROLOGICAL: Cranial nerves II-XII grossly intact. Motor is 5/5 in bilateral upper and lower extremities proximal to distal. No sensory deficits. HEENT: Face is symmetric. Pupils are equal and reactive. Extraocular movements are intact. NECK: Supple. No JVD. No thyromegaly. No submental, submandibular, pre- /postauricular, occipital or supraclavicular lymphadenopathy. CHEST: Normal chest expansion. No Telemetry. LUNGS: Absence of any rales, rhonchi or any wheezing. CARDIOVASCULAR: Regular. S1 and S2 normal. No appreciable rubs, murmurs or gallops. ABDOMEN: Soft, nontender, and nondistended. There is no rebound, voluntary guarding, or rigidity. : Deferred. No Palomares. EXTREMITIES: Non-edematous and not cyanotic. No clubbing. Good capillary refill. SKIN: No skin breakdown. Vital Sign (Last 24 Hours) 09/12/24 09/12/24 10:00 11:30 Temp 98.1 Pulse 94 Resp 20 B/P (MAP) 120/54 Pulse Ox 94 O2 Delivery Room Air* O2 Flow Rate 0 FiO2 21 LABS: Laboratory: Test 09/12/24 12:20 09/12/24 09:30 Range/Units Blood Gas Specimen Type Arterial Arterial Blood pH 7.466 H 7.350-7.450 Arterial Blood Partial Pressure CO2 37 35-48 mmHg Arterial Blood Partial Pressure O2 < 45.0 *L 83.0-108.0 mmHg Arterial Blood HCO3 25.8 21.0-28.0 mmol/L Arterial Blood Oxygen Saturation 72.1 L 94.0-98.0 % Arterial Blood Base Excess 2.2 -2.0-3.0 mmol/L Hemoglobin (Blood Gas) 11.7 L 13.5-17.5 g/dL Sodium (Blood Gas) 135 L 136-145 MMOL/L Bedside Potassium (Blood Gas) 3.5 3.4-4.5 MMOL/L Bedside Chloride (Blood Gas) 98 98-107 MMOL/L Bedside Glucose (Blood Gas) 36 *L 65-95 MG/DL Bedside Ionized Calcium (Blood Gas) 1.12 L 1.15-1.33 MMOL/L Bedside Lactic Acid (Blood Gas) 1.47 H 0.36-0.75 MMOL/L Blood Gas Temperature 37.0 35.5-37.0 CELSIUS Blood Gas Vent Mode RA ROOM AIR FiO2 21.0 % Blood Gas Specimen Comment RB,DIONE,ORGAN TEACHER White Blood Count 6.1 4.8-10.8 K/uL Red Blood Count 3.72 L 4.50-6.20 MIL/uL Hemoglobin 12.1 L 14.0-18.0 g/dL Hematocrit 36.8 L 42-54 % Mean Corpuscular Volume 98.9 79-99 fL Mean Corpuscular Hemoglobin 32.5 27.0-33.0 pg Mean Corpuscular Hemoglobin Concent 32.9 32.0-36.0 g/dL Red Cell Distribution Width 14.7 11.0-15.5 % Platelet Count 333 130-400 K/uL Mean Platelet Volume 10.0 7.5-10.5 fL Immature Granulocyte % (Auto) 0.3 0-1 % Neutrophils (%) (Auto) 67.8 40.0-77.0 % Lymphocytes (%) (Auto) 24.3 21.0-51.0 % Monocytes (%) (Auto) 6.5 3.0-13.0 % Eosinophils (%) (Auto) 0.8 0.0-8.0 % Basophils (%) (Auto) 0.3 0.0-5.0 % Neutrophils # (Auto) 4.1 1.8-7.7 K/uL Lymphocytes # (Auto) 1.5 1.0-4.8 K/uL Monocytes # (Auto) 0.4 0.1-1.0 K/uL Eosinophils # (Auto) 0.05 0.00-0.70 K/uL Basophils # (Auto) 0.02 0.00-0.20 K/uL Absolute Immature Granulocyte (auto 0.02 0-1 K/uL Nucleated Red Blood Cells 0.0 0.0-0.19 % Prothrombin Time 13.2 H 9.6-11.6 SEC Prothromb Time International Ratio 1.20 H 0.85-1.15 Activated Partial Thromboplast Time 28.6 26.3-35.5 SEC Sodium Level 138 136-145 mmol/L Potassium Level 4.7 3.5-5.1 mmol/L Chloride Level 97 L 101-111 mmol/L Carbon Dioxide Level 31 21-32 mmol/L Blood Urea Nitrogen 41 H 7-18 mg/dL Creatinine 6.3 H 0.5-1.3 mg/dL Glomerular Filtration Rate Calc 9 >90 mL/min Random Glucose 55 L 70-105 mg/dL Lactic Acid Level 4.6 H 0.8-2.5 mmol/L Total Calcium 10.1 8.5-10.1 mg/dL Total Bilirubin 1.9 H 0.2-1.0 mg/dL Direct Bilirubin 0.9 H 0.0-0.3 mg/dL Aspartate Amino Transf (AST/SGOT) 132 H 10-37 U/L Alanine Aminotransferase (ALT/SGPT) 71 12-78 U/L Alkaline Phosphatase 104 50-136 U/L Troponin I High Sensitivity 110 *H 4-75 ng/L Total Protein 8.3 6.0-8.3 g/dL Albumin 3.1 L 3.5-5.0 g/dL Lipase 41 16-77 U/L Procalcitonin 1.62 H 0.05-0.5 ng/mL DIAGNOSTICS / RADIOLOGY: [ ] ASSESSMENT: [ Small-bowel obstruction versus ileus per CT abdomen/pelvis 09/12/2024 POA ESRD on dialysis Thursday needing dialysis POA Uncontrolled diabetes mellitus type 2 with hyper and hypoglycemia POA Hyperlipidemia POA Coronary artery disease s/p CABG six years ago POA Uncontrolled hypertension POA Multifactorial anemia POA Lactic acidosis 4.6 POA Hyperbilirubinemia 1.9 POA Hyper troponinemia 110 POA History of cholelithiasis POA History of appendectomy ] History of appendectomy History of right knee cartilage surgery History of left hand pointing finger amputation Current alcohol drinking occasionally PLAN: [Admit to: Medical-surgical floor Consults: Surgeon, senior datastage developer Antibiotics: Zosyn Tests: NEURO: Minimize central acting medications as possible. Fall Precautions. Well lighted room through the day and minimize interruptions through the night to prevent acute delirium. PULMONARY: Supplemental 02 as needed BiPAP as necessary, for respiratory distress Titrate Fio2 to keep Spo2 > or = 90% DuoNebs and CPT as needed IS hourly while awake for pulmonary hygiene Out of bed to chair as tolerated VAP Bundle Maintain aspiration precautions at all times CARDIOVASCULAR: Follow hemodynamics. Vital signs per facility protocol GI & NUTRITION: Continue nutritional support Aspirations precautions Prokinetic agents and laxatives as needed KIDNEYS & ELECTROLYTES: Strict monitoring of intake and output Daily weights Avoid nephrotoxic agents Monitor electrolytes and replace as needed Goal urine output of 30mL/hr or 0.5mL/kg/hr Medications to be dosed according to renal function. Avoid contrast if possible ENDOCRINE: Maintain blood glucose between 100-180 at all times. Insulin sliding scale for blood glucose management Hypoglycemia and hyperglycemia protocol in place INFECTIOUS DISEASE: Trend temperature, WBC and procalcitonin level Follow cultures, deescalate antibiotics as soon as possible. Panculture if new onset fever HEMATOLOGY & COAGULATION: Monitor H&H. Keep Hgb > 7 Transfuse 1 unit of PRBC for Hgb < 7 Transfuse 1 pack of platelets of platelets < 20, 000 Watch for any signs and symptoms of bleeding SKIN: Pressure ulcer prevention per facility protocol Specialty mattress as needed Treatment plan discussed with patient and family at the bedside Medications to be reconciled once obtained by patient and/or family and available to be reconciled in computer p.r.n. medication for pain nausea and vomiting Questions were answered We will continue to monitor the patient closely [employer] for disposition Rehab: PT/OT GI: PPI DVT: SCD's Code Status: Full Resuscitation Disposition: TBD Prognosis: Guarded ] ADVANCED CARE PLANNING 1. Which of the following were discussed? Hospice Care - Yes / No Therapeutic options - Yes / No Advance Directives - Yes / No Other discussions - 2. Discussed with who? Patient 3. Voluntary nature of this service was explained to the patient? Yes / No 4. Amount of time spent - __ more than 35 minutes 5. Reviewed by Physician? (if this service was performed by NPP) Yes / No ATTESTATION BY PHYSICIAN I have seen and examined the patient. I reviewed the documentation, medical decision making, and treatment plan as noted by the mid-level provider above. I agree with the findings and plan of care. JOSE CHOPRA MD, [facility] Sep 12, 2024 12:34
[2024-09-12] MEDS: DEXTROSE 50%-WATER 50 ML DISP.SYRIN IV ONE ×3 (12:44→12:45)
[2024-09-12 12:54] LABS: ABG BASE EXCESS 2.4 mmol/L (-2.0-3.0); ABG HCO3 26.5 mmol/L (21.0-28.0); ABG OXYGEN SATURATION 90.3 % (94.0-98.0); ABG PCO2 39 mmHg (35-48); ABG PH 7.446 (7.350-7.450); CARBON MONOXIDE 0.8 % (0.5-1.5); HHb 9.6; PO2, ARTERIAL BG 61.2 mmHg (83.0-108.0); VENT MODE, BG RA (ROOM AIR)
--- NOTE | 2024-09-12 12:54 | HMCIMG ---
CT HEAD/BRAIN W/O CONTRAST HISTORY: Altered mental status COMPARISON: None TECHNIQUE: Multiple sequential axial images of the head were obtained from the base of the skull through vertex. Patient was not given contrast through intravenous route. FINDINGS: The ventricles and extraventricular CSF spaces are dilated consistent with cerebral atrophy. Nonspecific white matter changes seen. There is atherosclerosis. There is no midline shift, mass effect or herniation. No acute intracranial bleed is seen. Visualized portion of the paranasal sinuses are grossly within normal limits. IMPRESSION: 1. No acute intracranial bleed is seen. CT was performed with one or more following dose reduction techniques: automated exposure control, adjustment of the mA and kv according to patient's size, or use of a iterative reconstruction technique.
[2024-09-12] MEDS ORDERED: ZOSYN 3.375GM+NS 50ML 50 ML IV SCH (13:00)
[2024-09-12 13:48] LABS: INFLUENZA TYPE A Negative For Type A (NEGATIVE); INFLUENZA TYPE B Negative For Type B (NEGATIVE)
--- NOTE | 2024-09-12 14:20 | NUR ---
DR CHOPRA AT BEDSIDE
--- NOTE | 2024-09-12 14:40 | NUR ---
DR MUNSON AT BEDSIDE NEW ORDERS RECIEVED. DIALYSIS THURSDAY
--- NOTE | 2024-09-12 15:04 | CONS ---
NEPHROLOGY CONSULTATION NOTE Date/Time Patient Seen: Sep 12, 2024 1440 Reason for Consultation: Abdominal pain, end-stage renal disease, small-bowel obstruction HISTORY OF PRESENT ILLNESS: This is a 68-year-old male with a past medical history of end-stage renal disease on hemodialysis Thursday, diabetes mellitus type 2, hypertension, hyperlipidemia, coronary artery disease, anemia. Patient presented to emergency room with complaints of abdominal pain Chest x-ray showed prominent interstitial markings with a possible superimposed infiltrate CT of the abdomen/pelvis showed mild bowel dilation with fluid filled may be related to small-bowel obstruction. Surgery has been consulted, pending recommendations Dialysis was done earlier this morning. He was seen in the emergency room, in no acute distress Family at the bedside Prognosis remains guarded REVIEW OF SYSTEMS: GENERAL: Positive for abdominal pain NEUROLOGIC: Negative for any blurry vision, blind spots, double vision, facial asymmetry, dysphagia, dysarthria, hemiparesis, hemisensory deficits, vertigo, ataxia. HEENT: Negative for any head trauma, neck trauma, neck stiffness, photophobia, phonophobia, sinusitis, rhinitis. CARDIAC: Negative for any chest pain, dyspnea on exertion, paroxysmal nocturnal dyspnea, peripheral edema. PULMONARY: Negative for any shortness of breath, wheezing, COPD, or TB exposure. GASTROINTESTINAL: Negative for any abdominal pain, nausea, vomiting, bright red blood per rectum, melena. GENITOURINARY: Negative for any dysuria, hematuria, incontinence. INTEGUMENTARY: Negative for any rashes, cuts, insect bites. RHEUMATOLOGIC: Negative for any joint pains, photosensitive rashes, history of vasculitis or kidney problems. HEMATOLOGIC: Negative for any abnormal bruising, frequent infections or bleeding. PAST MEDICAL HISTORY: End-stage renal disease Diabetes mellitus type 2 Hypertension Hyperlipidemia Coronary artery disease Anemia PAST SURGICAL HISTORY: CABG Left knee surgery Left upper AV access Left second toe finger partial amputation PAST SOCIAL HISTORY: Denies the use of alcohol, tobacco, or illicit drugs PHYSICAL EXAM: GENERAL: Alert and oriented x 3. No acute distress. Well-nourished. EYES: EOMI. Anicteric. HENT: Moist mucous membranes. No scleral icterus. No cervical lymphadenopathy. LUNGS: Clear to auscultation bilaterally. No accessory muscle use. CARDIOVASCULAR: Regular rate and rhythm. No murmur. No JVD. ABDOMEN: Soft, non-tender and non-distended. No palpable masses. EXTREMITIES: No edema. Non-tender. SKIN: No rashes or lesions. Warm. NEUROLOGIC: No focal neurological deficits. CN II-XII grossly intact, but not individually tested. PSYCHIATRIC: Cooperative. Appropriate mood and affect. MEDICATIONS: [ ] Current Medications Medications (Trade) Dose Ordered Sig/Elver Route PRN Reason Start Time Stop Time Status Last Admin Dose Admin Acetaminophen (TYLenol 325MG TAB) 650 mg Q4H PRN PO MILD PAIN (1-3) 09/12/24 12:30 10/12/24 12:29 Acetaminophen (TYLenol 325MG TAB) 650 mg Q6H PRN PO TEMPERATURE GREATER THAN 101.5 09/12/24 12:30 10/12/24 12:29 Al Hydroxide/Mg Hydroxide (MAALox PLUS 30ML) 30 ml Q6H PRN PO INDIGESTION 09/12/24 12:30 10/12/24 12:29 Dextrose (D50w) 50 ml AD PRN IV HYPOGLYCEMIA PROTOCOL 09/12/24 12:30 10/12/24 12:29 Diphenhydramine HCl (BENAdryl INJ) 25 mg Q6H PRN IV SEVERE ITCHING/RASH 09/12/24 12:30 10/12/24 12:29 Famotidine (Pepcid 20mg Vial) 20 mg BID PRN IV NAUSEA/VOMITING 09/12/24 12:30 09/12/24 12:44 DC Famotidine (Pepcid 20mg Vial) 20 mg Q48H IV 09/12/24 21:00 10/12/24 20:59 Glucagon (Glucagon 1mg Kit) 1 mg AD PRN IM HYPOGLYCEMIA PROTOCOL 09/12/24 12:30 10/12/24 12:29 Guaifenesin/ Dextromethorphan (RobiTUSSin DM 200/20MG 10ML) 10 ml Q4H PRN PO COUGH 09/12/24 12:30 10/12/24 12:29 Heparin Sodium (Porcine) (HEParin 5,000 UNIT VIAL) 5,000 unit BID SQ 09/12/24 21:00 10/12/24 20:59 Hydralazine HCl (APRESOLine 20MG INJ) 10 mg Q6H PRN IV For:SBP above 160;DBP above 90 09/12/24 12:30 10/12/24 12:29 Insulin Human Regular (humuLIN R 100 UNIT/ML 3ML) INSULIN SLIDING SCAL... ACHS SQ 09/12/24 16:30 10/12/24 16:29 Lactulose (Constulose 20gm/ 30ml Udcup) 20 gm BID PRN PO CONSTIPATION 09/12/24 12:30 10/12/24 12:29 Magnesium Sulfate 50 ml @ 0 mls/hr PROTOCOL PRN IV other 09/12/24 12:30 10/12/24 12:29 Nitroglycerin (Nitrostat) 0.4 mg PROTOCOL PRN SL CHEST PAIN 09/12/24 12:30 10/12/24 12:29 Ondansetron HCl (zoFRAN 4MG INJ) 4 mg Q6H PRN IV NAUSEA/VOMITING 09/12/24 12:30 10/12/24 12:29 Piperacillin Sod/ Tazobactam Sod 50 ml @ 12.5 mls/hr Q12H IV 09/12/24 13:00 09/12/24 12:48 DC Piperacillin Sod/ Tazobactam Sod 50 ml @ 12.5 mls/hr Q12H IV 09/12/24 23:30 09/22/24 23:29 Zolpidem Tartrate (AmbIEN) 5 mg HS PRN PO INSOMNIA 09/12/24 12:30 10/12/24 12:29 Vital Signs (last 8hr) Date Time Temp Pulse Resp B/P (MAP) Pulse Ox O2 Delivery O2 Flow Rate FiO2 09/12/24 11:30 94 20 120/54 94 Room Air* 0 21 09/12/24 10:00 98.1 104 20 138/57 96 Room Air* 0 21 09/12/24 09:10 98.1 104 20 134/71 96 Room Air* 0 21 09/12/24 09:02 98.1 104 18 134/71 96 Room Air 0 DIAGNOSTICS / RADIOLOGY: REASON: Altered mental status ORDERING PHYSICIAN: MICHAEL SAHU MD PROCEDURE: HEAD WO - CT HEAD/BRAIN W/O CONTRAST CT HEAD/BRAIN W/O CONTRAST HISTORY: Altered mental status COMPARISON: None TECHNIQUE: Multiple sequential axial images of the head were obtained from the base of the skull through vertex. Patient was not given contrast through intravenous route. FINDINGS: The ventricles and extraventricular CSF spaces are dilated consistent with cerebral atrophy. Nonspecific white matter changes seen. There is atherosclerosis. There is no midline shift, mass effect or herniation. No acute intracranial bleed is seen. Visualized portion of the paranasal sinuses are grossly within normal limits. IMPRESSION: 1. No acute intracranial bleed is seen. CT was performed with one or more following dose reduction techniques: automated exposure control, adjustment of the mA and kv according to patient's size, or use of a iterative reconstruction technique. DICTATED BY: LUIS ROBERTS MD DATE: 09/12/24 1251 REASON: diffused abd pain ORDERING PHYSICIAN: MARK PARHAM PROCEDURE: ABD PEL WO - CT ABDOMEN/PELVIS W/O CONTRAST CT ABDOMEN/PELVIS W/O CONTRAST HISTORY: Diffuse abdominal pain COMPARISON: 09/05/2023 TECHNIQUE: Multiple sequential axial images of the abdomen and pelvis were obtained from the dome of the diaphragm through symphysis pubis. Patient was not given contrast through intravenous route. Oral contrast was not given. FINDINGS: No pleural effusion is seen bilaterally. There is no evidence of parenchymal disease or pulmonary nodule of the visualized lower lungs. Degenerative changes of the thoracolumbar spine are present. The heart is borderline enlarged. Coronary arterial calcifications are seen. Liver measures 19 cm. Spleen measures 11 cm. Stomach is poorly distended. There is small bowel dilatation with fluid-filled may be related to enteritis. The liver, spleen, adrenal glands and pancreas are unremarkable. There is no evidence of hydronephrosis bilaterally. There are bilateral renal vascular calcifications with possible small renal pelvic stones. Bilateral renal atrophy is seen. Fecal material is seen in the colon. There is diverticulosis. There are normal size retroperitoneal and mesenteric lymph nodes. Tiny ascites is seen. Atherosclerotic changes are present. Pelvic sidewalls are symmetric bilaterally. Bladder is poorly distended. IMPRESSION: 1. Mild bowel dilatation with fluid-filled may be related to small bowel obstruction. Tiny ascites. Diverticulosis. CT was performed with one or more following dose reduction techniques: automated exposure control, adjustment of the mA and kv according to patient's size, or use of a iterative reconstruction technique. DICTATED BY: LUIS ROBERTS MD DATE: 09/12/24 1026 REASON: Shortness of breath ORDERING PHYSICIAN: MICHAEL SAHU MD PROCEDURE: CXR1VW - CHEST 1VW CHEST 1VW HISTORY: Shortness of breath COMPARISON: 09/01/2023 FINDINGS: A frontal projection of the chest was obtained. Prominent interstitial markings are seen with possible superimposed infiltrates. Poststernotomy changes are seen. The heart is enlarged. Degenerative changes of the thoracolumbar spine are present. Degenerative changes are seen. No evidence of aortic calcification is seen. IMPRESSION: 1. Prominent interstitial markings are seen with possible superimposed infiltrates. DICTATED BY: LUIS ROBERTS MD DATE: 09/12/24 0957 LABORATORY: [ ] Hematology Labs: Test 09/12/24 09:30 Range/Units White Blood Count 6.1 4.8-10.8 K/uL Red Blood Count 3.72 L 4.50-6.20 MIL/uL Hemoglobin 12.1 L 14.0-18.0 g/dL Hematocrit 36.8 L 42-54 % Mean Corpuscular Volume 98.9 79-99 fL Mean Corpuscular Hemoglobin 32.5 27.0-33.0 pg Mean Corpuscular Hemoglobin Concent 32.9 32.0-36.0 g/dL Red Cell Distribution Width 14.7 11.0-15.5 % Platelet Count 333 130-400 K/uL Mean Platelet Volume 10.0 7.5-10.5 fL Immature Granulocyte % (Auto) 0.3 0-1 % Neutrophils (%) (Auto) 67.8 40.0-77.0 % Lymphocytes (%) (Auto) 24.3 21.0-51.0 % Monocytes (%) (Auto) 6.5 3.0-13.0 % Eosinophils (%) (Auto) 0.8 0.0-8.0 % Basophils (%) (Auto) 0.3 0.0-5.0 % Neutrophils # (Auto) 4.1 1.8-7.7 K/uL Lymphocytes # (Auto) 1.5 1.0-4.8 K/uL Monocytes # (Auto) 0.4 0.1-1.0 K/uL Eosinophils # (Auto) 0.05 0.00-0.70 K/uL Basophils # (Auto) 0.02 0.00-0.20 K/uL Absolute Immature Granulocyte (auto 0.02 0-1 K/uL Nucleated Red Blood Cells 0.0 0.0-0.19 % Chemistry Labs: Test 09/12/24 12:54 09/12/24 12:30 09/12/24 09:30 Range/Units Whole Blood Glucose 104 70-110 MG/DL Ammonia 26 11-32 umol/L Troponin I High Sensitivity 138 *H 4-75 ng/L Sodium Level 138 136-145 mmol/L Potassium Level 4.7 3.5-5.1 mmol/L Chloride Level 97 L 101-111 mmol/L Carbon Dioxide Level 31 21-32 mmol/L Blood Urea Nitrogen 41 H 7-18 mg/dL Creatinine 6.3 H 0.5-1.3 mg/dL Glomerular Filtration Rate Calc 9 >90 mL/min Random Glucose 55 L 70-105 mg/dL Lactic Acid Level 4.6 H 0.8-2.5 mmol/L Total Calcium 10.1 8.5-10.1 mg/dL Total Bilirubin 1.9 H 0.2-1.0 mg/dL Direct Bilirubin 0.9 H 0.0-0.3 mg/dL Aspartate Amino Transf (AST/SGOT) 132 H 10-37 U/L Alanine Aminotransferase (ALT/SGPT) 71 12-78 U/L Alkaline Phosphatase 104 50-136 U/L Total Protein 8.3 6.0-8.3 g/dL Albumin 3.1 L 3.5-5.0 g/dL Lipase 41 16-77 U/L Procalcitonin 1.62 H 0.05-0.5 ng/mL Coagulation Labs: Test 09/12/24 09:30 Range/Units Prothrombin Time 13.2 H 9.6-11.6 SEC Prothromb Time International Ratio 1.20 H 0.85-1.15 Activated Partial Thromboplast Time 28.6 26.3-35.5 SEC ASSESSMENT: End-stage renal disease Anemia Abdominal pain Small-bowel obstruction versus ileus HFpEF LVEF 45 to 50% Uncontrolled Diabetes mellitus Hyperlipidemia Coronary artery disease Anemia PLAN: Labs and Diagnostics/ Radiology personally reviewed and interpreted by myself and supervising physician We have reviewed dialysis and external records in detail Continue dialysis schedule Thursday Please list home medications Pending further surgery recommendations Do not give IV fluids 1.5 L fluid restriction Continue to monitor H&H Epogen on dialysis days, as needed Continue with frequent monitoring of renal function, anemia, and electrolytes Order CBC, BMP, and electrolytes in the morning May use Dilaudid 0.5 mg IV every 6 hours as needed for severe pain Monitor blood pressure adjust medication doses as needed Maintain normotensive state Strict intake, output, and daily weight should be monitored Please renally adjust medications. Avoid nephrotoxics and nonsteroidal drugs. We will continue to monitor the patient closely We have discussed with the other team physicians in detail about the care plan Thank you for allowing us to participate in the care of this patient ATTESTATION BY PHYSICIAN I have seen and examined the patient. I reviewed the documentation, medical decision making, and treatment plan as noted by the mid-level provider above. I agree with the findings and plan of care. MICHELLE MUNSON MD, [facility] Sep 12, 2024 15:04
--- NOTE | 2024-09-12 15:12 | HMCIMG ---
CHEST 1VW HISTORY: Flu symptoms COMPARISON: None FINDINGS: A frontal projection of the chest was obtained. Mild bilateral pulmonary infiltrates are seen may be related to mild pulmonary vascular congestion with possible superimposed pneumonitis. Poststernotomy changes are seen. The heart is enlarged. Degenerative changes of the thoracolumbar spine are present. Aortic calcifications are seen. IMPRESSION: 1. Mild bilateral pulmonary infiltrates are seen may be related to mild pulmonary vascular congestion with possible superimposed pneumonitis.
--- NOTE | 2024-09-12 15:24 | NUR ---
EMMANUEL FROM GENERAL SURGERY AT BEDSIDE
--- NOTE | 2024-09-12 15:29 | NUR ---
EMMANUEL SENIOR ADMINISTRATIVE SUPPORT KEEP PT NPO NO SURGERY NEEDED AT THIS TIME
[2024-09-12] MEDS ORDERED: ketOROlac 15MG/ML VIAL (15MG/ML) IV PRN (15:30)
--- NOTE | 2024-09-12 15:45 | NUR ---
ARCENIO BIANCHI DENTISTRY TEACHER AT BEDSIDE CARDIOLOGY CONSULT
--- NOTE | 2024-09-12 16:14 | CONS ---
CONSULT NOTE: Consulting physician: Dr. Harden Consulting service: General surgery Reason for consultation: sbo vs ileus History of present illness: This is a 69-year-old male with a medical history listed below that has been consulted to surgery after presenting to the hospital with the abdominal pain that began hours before presentation to the hospital. Patient with significant surgical history most notably open heart surgery as well as cholecystectomy. Patient's however reporting significant episodes of diarrhea. Patient reports multiple months with on and off diarrhea bouts. Patient's abdomen nontender today nondistended and soft. WBCs initial imaging performed noting mid bowel dilatation with fluid-filled bowel which could be related to small bowel obstruction. Patient otherwise stable. No nausea or vomiting reported. Medical history: , hyperlipidemia, Coronary Artery Disease, hypertension, ESRD dialysis Thursday, cholelithiasis PAST SURGICAL HISTORY: CABG six years ago, right knee cartilage replacement, appendicitis, cholecystectomy, left hand pointing finger amputation PAST SOCIAL HISTORY: Patient denies smoking. Patient denies drug illicit. Patient drinks occasionally. FAMILY HISTORY: Patient lives at home with the family. Patient is independent. Coded Allergies: No Known Drug Allergies (Unverified Allergy, Unknown, 06/01/15) Review of systems: General: No Fever, No Chills, No Night Sweats, No Fatigue, No Malaise, No Appetite, No Other HEENT: No Head Aches, No Visual Changes, No Eye Pain, No Ear Pain, No Dysphasia, No Sinus Congestion, No Post Nasal Drip, No Sore Throat, No Other Pulmonary: No Dyspnea, No Cough, No Pleuritic Chest Pain, No Other Cardiovascular: No: Chest Pain, Palpitations, Orthopnea, Paroxysmal No Dyspnea, Edema, Lt Headedness, Other Gastrointestinal: No: Nausea, Vomiting, Diarrhea, Constipation, Melena, Hematochezia, Other Genitourinary: No Dysuria, No Frequency, No Incontinence, No Hematuria, No Retention, No Other Musculoskeletal: No: other, neck pain, shoulder pain, arm pain, back pain, hand pain, leg pain, foot pain Skin: No Urticaria, No Rash, No Other Neurological: No: Weakness, Numbness, Incoordination, Change in speech, Confusion, Seizures, Other Physical exam: General: Awake alert and oriented Heart: Regular rate and rhythm} Lungs: Clear to auscultation no distress Abdomen: [Soft, nontender, nondistended Assessment: This is a 69-year-old male with concerns of small bowel obstruction versus ileus Plan:\ Patient to remain NPO Plan will be for KUB today and one in the morning Continue with conservative management If patient continues to have diarrhea consider possible C diff cultures Doctor Omayra to be updated in patient's status and surgical team to follow patient closely. Thank you EMMANUEL DODSON Jr. Sep 12, 2024 16:14
--- NOTE | 2024-09-12 16:24 | HMCSR ---
APPROVED REPORT EXAM: Two-dimensional and M-mode echocardiogram with Doppler and color Doppler. INDICATION ICD: Congestive heart failure 2D Dimensions RVDd6.1 cmLVEF(%)52.4 (>50%)LVED Vol(simp.)238.0 mL IVSd1.0 (0.7-1.1cm)FS(%)27 %LVES Vol(simp.)165.0 mL LVDd6.2 (3.8-5.6cm)LA (2D)5.7 (1.6-4.0cm)LVEF(%, simp.)31 % PWd1.1 (0.7-1.1cm)Ao Root(2D)3.4 (2.0-3.7cm)LA ESV INDEX (4CH)79.50 mL/m2 IVSs1.3 cmLVOT diam2.9 (1.8-2.4cm)LA ESV INDEX (2CH)53.70 mL/m2 LVDs4.5 (2.5-4.0cm)LA ESV INDEX (BP)68.80 mL/m2 PWs2.1 cm M-Mode Dimensions EPSS1.7 cm LA (MM)5.5 (1.6-4.0cm) Ao Root(MM)3.5 (2.0-3.7cm) Aortic Valve AoV VTI0.6 mAo Mean GR19.0 mmHgLVOT VTI0.15 m YESENIA (VMAX)1.6 cm2AVA (VTI) 1.6 cm2 Mitral Valve MV E Uzll239.3 cm/sDECEL Tfsr813 ms MV A Vmax64.0 cm/sP 1/2 T72 ms E/A ratio1.6MVA (PHT)3.1 cm2 MR Max PG103 mmHg TDI E/E' Skfqil44.5E/E' Lateral9.5 Medial E' Peak V5.10 cm/sLateral E' Peak V11.00 cm/s Tricuspid Valve TR Vmax3.2 m/sRAP (EST) 8 obUkDIIK98.9 mmHg TR Peak GR40.9 mmHg Left Ventricle The left ventricle is moderately dilated. Global hypokinesia. Mild concentric left ventricular hypert rophy.. LVEF is 31%. The left ventricular diastolic function is indeterminate. Right Ventricle The right ventricle is severely dilated. Right ventricular systolic function is severely reduced. Atria The left atrium is severely dilated. The right atrium is severely dilated. Aortic Valve Aortic valve is trileaflet.The aortic valve is mildly thickened. No aortic regurgitation is present. There is mild aortic valvular stenosis. Calculated aortic valve area is 1.6 cm2 with maximum pressure gradient of 30 mmHg and mean pressure gradient of 19 mmHg. Mitral Valve The mitral valve is mildly thickened. There is mild mitral valve regurgitation noted. There is no devyn ral valve stenosis. Tricuspid Valve The tricuspid valve is normal in structure. There is mild tricuspid valve regurgitation noted. RVSP 4 9mmHg. Pulmonic Valve The pulmonary valve is normal in structure. There is no pulmonic valvular regurgitation. Great Vessels The aortic root is normal in size. IVC is not visualized. Pericardium There is no pericardial effusion. Other Information Quality : Adequate Conclusion LVEF is 31%. Global hypokinesia. The left ventricle is moderately dilated. The right ventricle is severely dilated. Right ventricular systolic function is severely reduced. The left atrium is severely dilated. The right atrium is severely dilated. There is mild aortic valvular stenosis. Calculated aortic valve area is 1.6 cm2 with maximum pressure gradient of 30 mmHg and mean pressure g radient of 19 mmHg. There is mild tricuspid valve regurgitation noted. RVSP 49mmHg.
[2024-09-12] MEDS: INSULIN humuLIN R 100 UNIT/ML 3ML SQ SCH (16:30)
--- NOTE | 2024-09-12 16:38 | HMCIMG ---
ABD 1VW HISTORY: Small bowel obstruction COMPARISON: None FINDINGS: A frontal projection of the abdomen was obtained. Small bowel dilatation is seen. Fecal material is seen in the colon. Degenerative changes of the thoracolumbar spine are noted. IMPRESSION: 1. Small bowel dilatation is seen.
--- NOTE | 2024-09-12 17:02 | CONS ---
[facility] CARDIOLOGY CONSULTATION REPORT Cardiology consultation note dictated for Chapin Lee MD Primary laborer syrup machine: Desire Madison MD Date Patient Seen: Sep 12, 2024 Requesting Physician: Hussain Harden MD Reason for Consultation: Elevated troponin History of Present Illness: This is a 69-year-old male with a past medical history of hypertension, hyperlipidemia, diabetes mellitus type 2, end-stage renal disease on chronic HD on MWF, anemia of chronic disease, CAD s/p CABG x 4 (SCHULZ-LAD, SVG-D1, SVG-OM2, and SVG-PDA) 07/13/[address] Ojeda, 2D echo on 09/02/2023 with an EF 45- 50%, grade II diastolic dysfunction, severely dilated right and left atrium, moderate aortic stenosis, peak gradient of 42 mmHg, mean pressure gradient of 20 mmHg, Lexiscan stress test 11/04/2022 demonstrated global hypokinesis, fixed infero-apical defect, partially reversible anterior wall defect, with an EF of 35%, LHC/coronary angiogram on 01/27/2023 demonstrated a patent SCHULZ graft to the LAD, patent SVG-D1, patent SVG-OM2, occluded SVG- to the distal RCA with 70% proximal stenosis and a total occlusion of the distal vessel and the left main coronary artery was totally occluded in the distal portion which was medically managed who presented to the ED with complaints of severe abdominal discomfort during dialysis which ended [address] of the abdomen demonstrated a small bowel obstruction. Per nursing staff, no plans for surgery at this time, pending surgical consult note to verify. Cardiology has been consulted for elevated troponin. Troponin of 110 and 130. EKG on admission demonstrated sinus tachycardia with a heart rate of 104bpm, with ST depressions in the lateral leads, artifact noted. Follow up EKG demonstrating normal sinus rhythm with a heart rate of 97 beats per minute, and severe global ischemia. Echocardiogram is pending. The patient denies chest pain, chest pressure, palpitations, dizziness, shortness of breath, or diaphoresis. The patient admits to abdominal bloating, vomiting, dyspnea on exertion, PND and BLE edema for 3 days. Past Medical History: As per HPI and summarized below Past Surgical History: CAD s/p CABG x 4 (SCHULZ-LAD, SVG-D1, SVG-OM2, and SVG-PDA) 07/13/[address] Ojeda Left upper arm AV fistula Family History: The patient's father had a history of heart disease. Social History: The patient lives with his . Habits: The patient denies alcohol, tobacco, or illicit drug use. Home Meds: Medication reconciliation is pending. Current Meds: Current Medications Medications Dose Ordered Sig/Elver Start Time Stop Time Status Last Admin Insulin Human Regular INSULIN SLIDING SCAL... ACHS 09/12/24 16:30 10/12/24 16:29 Dextrose 50 ml AD PRN 09/12/24 12:30 10/12/24 12:29 Glucagon 1 mg AD PRN 09/12/24 12:30 10/12/24 12:29 Magnesium Sulfate 50 ml @ 0 mls/hr PROTOCOL PRN 09/12/24 12:30 10/12/24 12:29 Diphenhydramine HCl 25 mg Q6H PRN 09/12/24 12:30 10/12/24 12:29 Acetaminophen 650 mg Q6H PRN 09/12/24 12:30 10/12/24 12:29 Acetaminophen 650 mg Q4H PRN 09/12/24 12:30 10/12/24 12:29 Ondansetron HCl 4 mg Q6H PRN 09/12/24 12:30 10/12/24 12:29 Zolpidem Tartrate 5 mg HS PRN 09/12/24 12:30 10/12/24 12:29 Al Hydroxide/Mg Hydroxide 30 ml Q6H PRN 09/12/24 12:30 10/12/24 12:29 Lactulose 20 gm BID PRN 09/12/24 12:30 10/12/24 12:29 Nitroglycerin 0.4 mg PROTOCOL PRN 09/12/24 12:30 10/12/24 12:29 Guaifenesin/ Dextromethorphan 10 ml Q4H PRN 09/12/24 12:30 10/12/24 12:29 Heparin Sodium (Porcine) 5,000 unit BID 09/12/24 21:00 10/12/24 20:59 Hydralazine HCl 10 mg Q6H PRN 09/12/24 12:30 10/12/24 12:29 Famotidine 20 mg Q48H 09/12/24 21:00 10/12/24 20:59 Piperacillin Sod/ Tazobactam Sod 50 ml @ 12.5 mls/hr Q12H 09/12/24 23:30 09/22/24 23:29 Ketorolac Tromethamine 15 mg Q8H PRN 09/12/24 15:30 09/17/24 15:29 Acetaminophen/ Hydrocodone Bitart 1 tab Q6H PRN 09/12/24 15:30 09/17/24 15:29 Morphine Sulfate 1 mg Q6H PRN 09/12/24 15:30 09/19/24 15:29 Review of Systems: CONST: No fever, fatigue, or weight changes. EYES: No recent vision problems. ENT: No congestion, ear pain, or sore throat. C/V: No chest pain, palpitations, or edema. RESP: No cough, congestion or wheezing. Admits to dyspnea on exertion. GI: Admits to vomiting, abdominal distention, and abdominal pain. : No incontinence or dysuria. SKIN: No rash. NEURO: No headache, focal numbness or weakness, dizziness, or seizures. PSYCH: No depression or anxiety. HEME: No abnormal bruising or bleeding. LYMPH: No swollen glands. Physical Examination: GENERAL: No acute distress. HEAD: Normal with no signs of head trauma. EYES: PERRLA, EOMI, conjunctiva and sclera normal. ENT: Hearing grossly intact, normal oropharynx. NECK: Supple without JVD. There is no tenderness, lymphadenopathy, or masses. No thyromegaly. Normal carotid upstrokes without bruits. LUNGS: Clear breath sounds bilaterally. No wheezes, or rhonchi. HEART: Normal rate and rhythm. Normal S1 and S2 without murmurs, gallop or rub. VASC: Bilateral lower extremities with 3+ pitting edema. ABD: Bowel sounds normal, soft, nontender, no masses, no organomegaly. No audible bruits. : Not examined LYMPH: No lymphadenopathy noted. EXT: No clubbing, cyanosis or edema. The upper AV fistula positive for bruit and thrill. SKIN: No rashes or lesions noted. NEURO: Awake, alert, and oriented x3. No focal sensory or strength deficits noted. Vital Signs (last 8hr) Date Time Temp Pulse Resp B/P (MAP) Pulse Ox O2 Delivery O2 Flow Rate FiO2 09/12/24 11:30 94 20 120/54 94 Room Air* 0 21 09/12/24 10:00 98.1 104 20 138/57 96 Room Air* 0 21 09/12/24 09:10 98.1 104 20 134/71 96 Room Air* 0 21 09/12/24 09:02 98.1 104 18 134/71 96 Room Air 0 Laboratory: Hematology Labs: Test 09/12/24 09:30 Range/Units White Blood Count 6.1 4.8-10.8 K/uL Red Blood Count 3.72 L 4.50-6.20 MIL/uL Hemoglobin 12.1 L 14.0-18.0 g/dL Hematocrit 36.8 L 42-54 % Mean Corpuscular Volume 98.9 79-99 fL Mean Corpuscular Hemoglobin 32.5 27.0-33.0 pg Mean Corpuscular Hemoglobin Concent 32.9 32.0-36.0 g/dL Red Cell Distribution Width 14.7 11.0-15.5 % Platelet Count 333 130-400 K/uL Mean Platelet Volume 10.0 7.5-10.5 fL Immature Granulocyte % (Auto) 0.3 0-1 % Neutrophils (%) (Auto) 67.8 40.0-77.0 % Lymphocytes (%) (Auto) 24.3 21.0-51.0 % Monocytes (%) (Auto) 6.5 3.0-13.0 % Eosinophils (%) (Auto) 0.8 0.0-8.0 % Basophils (%) (Auto) 0.3 0.0-5.0 % Neutrophils # (Auto) 4.1 1.8-7.7 K/uL Lymphocytes # (Auto) 1.5 1.0-4.8 K/uL Monocytes # (Auto) 0.4 0.1-1.0 K/uL Eosinophils # (Auto) 0.05 0.00-0.70 K/uL Basophils # (Auto) 0.02 0.00-0.20 K/uL Absolute Immature Granulocyte (auto 0.02 0-1 K/uL Nucleated Red Blood Cells 0.0 0.0-0.19 % Chemistry Labs: Test 09/12/24 15:09 09/12/24 12:54 09/12/24 12:30 09/12/24 09:30 Range/Units Lactic Acid Level 1.7 0.8-2.5 mmol/L Whole Blood Glucose 104 70-110 MG/DL Ammonia 26 11-32 umol/L Troponin I High Sensitivity 138 *H 4-75 ng/L Sodium Level 138 136-145 mmol/L Potassium Level 4.7 3.5-5.1 mmol/L Chloride Level 97 L 101-111 mmol/L Carbon Dioxide Level 31 21-32 mmol/L Blood Urea Nitrogen 41 H 7-18 mg/dL Creatinine 6.3 H 0.5-1.3 mg/dL Glomerular Filtration Rate Calc 9 >90 mL/min Random Glucose 55 L 70-105 mg/dL Total Calcium 10.1 8.5-10.1 mg/dL Total Bilirubin 1.9 H 0.2-1.0 mg/dL Direct Bilirubin 0.9 H 0.0-0.3 mg/dL Aspartate Amino Transf (AST/SGOT) 132 H 10-37 U/L Alanine Aminotransferase (ALT/SGPT) 71 12-78 U/L Alkaline Phosphatase 104 50-136 U/L Total Protein 8.3 6.0-8.3 g/dL Albumin 3.1 L 3.5-5.0 g/dL Lipase 41 16-77 U/L Procalcitonin 1.62 H 0.05-0.5 ng/mL Coagulation Labs: Test 09/12/24 09:30 Range/Units Prothrombin Time 13.2 H 9.6-11.6 SEC Prothromb Time International Ratio 1.20 H 0.85-1.15 Activated Partial Thromboplast Time 28.6 26.3-35.5 SEC Diagnostics / Radiology: Echocardiogram on 09/12/2024 Conclusion LVEF is 31%. Global hypokinesia. The left ventricle is moderately dilated. The right ventricle is severely dilated. Right ventricular systolic function is severely reduced. The left atrium is severely dilated. The right atrium is severely dilated. There is mild aortic valvular stenosis. Calculated aortic valve area is 1.6 cm2 with maximum pressure gradient of 30 mmHg and mean pressure gradient of 19 mmHg. There is mild tricuspid valve regurgitation noted. RVSP 49mmHg. Impression and Plan: Elevated troponin Small bowel obstruction Hypertension Hyperlipidemia Diabetes mellitus type 2 End-stage renal disease on chronic HD on MWF Anemia of chronic disease CAD s/p CABG x 4 (SCHULZ-LAD, SVG-D1, SVG-OM2, and SVG-PDA) 07/13/[address] Ojeda 2D echo on 09/02/2023 with an EF 45-50%, grade II diastolic dysfunction, severely dilated right and left atrium, moderate aortic stenosis, peak gradient of 42 mmHg, mean pressure gradient of 20 mmHg Lexiscan stress test 11/04/2022 demonstrated global hypokinesis, fixed infero- apical defect, partially reversible anterior wall defect, with an EF of 35% LHC/coronary angiogram on 01/27/2023 demonstrated a patent SCHULZ graft to the LAD, patent SVG-D1, patent SVG-OM2, occluded SVG- to the distal RCA with 70% proximal stenosis and a total occlusion of the distal vessel and the left main coronary artery was totally occluded in the distal portion Elevated troponin Troponin of 110 and 130 EKG on admission demonstrated sinus tachycardia with a heart rate of 104bpm, with ST depressions in the lateral leads, artifact noted Follow up EKG demonstrated normal sinus rhythm with a heart rate of 97 bpm with and severe global ischemia The patient denies chest pain, chest pressure, palpitations, dizziness, shortness of breath, or diaphoresis 2D Echocardiogram on 09/12/2024 demonstrated an LVEF of 31% with global hypokinesia, four chamber dilatation, mild aortic stenosis, aortic valve area is 1.6 cm2 with maximum pressure gradient of 30 mmHg and mean pressure gradient of 19 mmHg with a RVSP of 49mmHg. -The patient has moderate to severe chronic combined systolic and diastolic congestive heart failure. -There is evidence of new ischemia to the lateral and inferior leads likely from ischemia in the distribution of a collateralized occluded right coronary artery under conditions of biological stress. The best way to manage this is to control the patient's heart rate and blood pressure perioperative. If the patient will have surgery for his a small bowel obstruction, he is a high risk candidate for an intermediate non-cardiac procedure. We will defer to general surgery of when the patient would need to undergo surgery. ATTESTATION BY PHYSICIAN I have seen and examined the patient, reviewed the above documentation, participated in medical decision making, made necessary modifications, and agree with the treatment plan as documented by my mid-level provider above. MD ARIAS Costa [facility] Sep 12, 2024 17:02 MARQUEZ LEE MD Sep 12, 2024 21:59
[2024-09-12] MEDS: DEXTROSE 50%-WATER 50 ML DISP.SYRIN IV PRN (17:13)
--- NOTE | 2024-09-12 17:13 | NUR ---
BGL 50 HYPOGLYCEMIC PROTOCOL INITIATED
[2024-09-12 17:25] LABS: RAPID GROUP A STREP negative (NEGATIVE)
--- NOTE | 2024-09-12 17:53 | NUR ---
RECHECK BGL 121 PT IS AOX4
[2024-09-12 18:15] LABS: COVID19 (SARS ANTIGEN RAPID) PRESUMPTIVE NEGATIVE (NEGATIVE)
--- NOTE | 2024-09-12 18:56 | CONS ---
[facility] CONSULTATION NOTE Date Patient Seen: Sep 12, 2024 Time of Visit: 1999 Supervising Physician: [Dr. Josafat Weston ] Reason for Consultation: [Pulmo consult for PNA ] Primary Care Physician: [Dr. Ruddy Magana] Outpatient Specialists: [ ] Inpatient Consults: [Dr. Banuelos: nephro, Dr. Peck:cardio, Dr. Moore: surgery, BIS team: pulmo] PROBLEM LIST: Suspected sepsis 2/2 CAP-POA Community-acquired pneumonia-POA Acute hypoxic respiratory insufficiency requiring oxygen via NC-POA Ileus vs. SBO-POA NSTEMI, demand ischemia vs. cardiac etiology-POA Lactic acidosis-POA Hyperbilirubinemia-POA Hepatic transaminitis-POA Acute hypoglycemia-POA Systolic CHF, EF 31% per recent echo 09/12/2024, possible [id number]-[id number] ESRD with HD MWF CAD s/p CABG x4 Primary HTN HLD Diabetes mellitus Hypothyroidism GERD PLAN: -Titrate oxygen to keep sats >92% -PRN Duoneb for SOB/wheeze -Obtain baseline ABG -IV Zosyn and Doxycycline for antibiotic coverage -Pending blood CX -Obtain pneumo studies -IS q1H x 10 while awake -Obtain d-dimer, if significant, will obtain VQ scan to rule-out P.E. -Manage cough PRN -The rest of medical management per primary HPI: [Per hospitalist's H&P: "Patient is 69 years old male with a past medical history of ESRD on dialysis, diabetes, hyperlipidemia, Coronary Artery Disease, hypertension, cholelithiasis, CABG, appendectomy, who came to emergency department with the abdominal pain that is starting during dialysis. Patient is undergoing dialysis on Thursday and Thursday at [facility]. He had Lava in place. Patient was able to undergo 3 hours of dialysis were usually is about 3 hours and 45 minutes. But then patient is started to experience extreme abdominal pain and decided to come to emergency department for further evaluation. Chest x-ray showed prominent interstitial markings with a possible superimposed infiltrate. CT abdomen/pelvis showed mild bowel dilation with fluid filled may be related to small bowel obstruction. Tiny ascites, diverticulosis. Surgeon was consulted as well we consulted taxi driver for ESRD dialysis. Per surgeon no NG tube at this moment. Patient received 500 cc bolus of fluids." BIS team was consulted for pneumonia management. At the time of my assessment, patient is resting comfortably on the bed, A/Ox4 without resp distress and denies fever, cough, sore throat, dyspnea or N/V. According to the daughter, patient was "shaky" after his dialysis but without respiratory symptoms. Patient claims he was more concerned about the abdominal pain. Physical assessment reveals diminsihed lung sounds and tender abdomen on all 4 quadrants with hypoactive bowel sounds and without signs of ischemia or peritonitis. We will continue to follow along patient's response to treatment. On behalf of BIS team, thank you for the opportunity to participate on Mr. Nguyen's care. ] PAST MEDICAL HX: see above PAST SURGICAL HX: noncontributory SOCIAL HISTORY: No tobacco, ETOH, or illicit drug use Coded Allergies: No Known Drug Allergies (Unverified Allergy, Unknown, 06/01/15) REVIEW OF SYSTEMS: 12 point ROS reviewed with patient. Pertinent positives mentioned above. Otherwise negative. PHYSICAL EXAM: GENERAL: alert, weak, awake oriented x 3 HEENT: EOMI, Sclera non icteric, moist mucosa NECK: Supple, no JVD, trachea midline LUNGS: Diminished breath sounds bilaterally. No wheezes, rales or rhonchi HEART: Regular rate and rhythm. Normal S1 and S2, without murmurs ABD: Abdomen soft, diffuse tenderness, no signs of ischemia or peritonitis. Bowel sounds hypoactive EXT: No clubbing cyanosis or edema NEURO: Alert and oriented to person, follows commands Vital Signs (last 8hr) Date Time Temp Pulse Resp B/P (MAP) Pulse Ox O2 Delivery O2 Flow Rate FiO2 09/12/24 18:44 98.1 82 20 111/47 98 Nasal Cannula* 3 32 09/12/24 17:00 98.1 85 20 102/49 96 Nasal Cannula* 3 32 09/12/24 16:00 98.1 85 20 106/46 96 Nasal Cannula* 3 32 09/12/24 14:00 98.1 83 20 115/58 96 Nasal Cannula* 3 32 09/12/24 13:00 98.1 88 20 116/65 94 Nasal Cannula* 3 32 09/12/24 12:00 98.1 96 20 120/54 93 Nasal Cannula* 3 32 09/12/24 11:30 94 20 120/54 94 Room Air* 0 21 LABS: Hematology Labs: Test 09/12/24 09:30 Range/Units White Blood Count 6.1 4.8-10.8 K/uL Red Blood Count 3.72 L 4.50-6.20 MIL/uL Hemoglobin 12.1 L 14.0-18.0 g/dL Hematocrit 36.8 L 42-54 % Mean Corpuscular Volume 98.9 79-99 fL Mean Corpuscular Hemoglobin 32.5 27.0-33.0 pg Mean Corpuscular Hemoglobin Concent 32.9 32.0-36.0 g/dL Red Cell Distribution Width 14.7 11.0-15.5 % Platelet Count 333 130-400 K/uL Mean Platelet Volume 10.0 7.5-10.5 fL Immature Granulocyte % (Auto) 0.3 0-1 % Neutrophils (%) (Auto) 67.8 40.0-77.0 % Lymphocytes (%) (Auto) 24.3 21.0-51.0 % Monocytes (%) (Auto) 6.5 3.0-13.0 % Eosinophils (%) (Auto) 0.8 0.0-8.0 % Basophils (%) (Auto) 0.3 0.0-5.0 % Neutrophils # (Auto) 4.1 1.8-7.7 K/uL Lymphocytes # (Auto) 1.5 1.0-4.8 K/uL Monocytes # (Auto) 0.4 0.1-1.0 K/uL Eosinophils # (Auto) 0.05 0.00-0.70 K/uL Basophils # (Auto) 0.02 0.00-0.20 K/uL Absolute Immature Granulocyte (auto 0.02 0-1 K/uL Nucleated Red Blood Cells 0.0 0.0-0.19 % Chemistry Labs: Test 09/12/24 17:51 09/12/24 17:07 09/12/24 15:09 09/12/24 12:30 Range/Units Whole Blood Glucose 121 #H 70-110 MG/DL Bedside Glucose Comment Protocol Initiated Lactic Acid Level 1.7 0.8-2.5 mmol/L Ammonia 26 11-32 umol/L Troponin I High Sensitivity 138 *H 4-75 ng/L Test 09/12/24 09:30 Range/Units Sodium Level 138 136-145 mmol/L Potassium Level 4.7 3.5-5.1 mmol/L Chloride Level 97 L 101-111 mmol/L Carbon Dioxide Level 31 21-32 mmol/L Blood Urea Nitrogen 41 H 7-18 mg/dL Creatinine 6.3 H 0.5-1.3 mg/dL Glomerular Filtration Rate Calc 9 >90 mL/min Random Glucose 55 L 70-105 mg/dL Total Calcium 10.1 8.5-10.1 mg/dL Total Bilirubin 1.9 H 0.2-1.0 mg/dL Direct Bilirubin 0.9 H 0.0-0.3 mg/dL Aspartate Amino Transf (AST/SGOT) 132 H 10-37 U/L Alanine Aminotransferase (ALT/SGPT) 71 12-78 U/L Alkaline Phosphatase 104 50-136 U/L Total Protein 8.3 6.0-8.3 g/dL Albumin 3.1 L 3.5-5.0 g/dL Lipase 41 16-77 U/L Procalcitonin 1.62 H 0.05-0.5 ng/mL Coagulation Labs: Test 09/12/24 09:30 Range/Units Prothrombin Time 13.2 H 9.6-11.6 SEC Prothromb Time International Ratio 1.20 H 0.85-1.15 Activated Partial Thromboplast Time 28.6 26.3-35.5 SEC DIAGNOSTICS / RADIOLOGY RESULTS: [ ] PLAN NEURO: Minimize central acting medications as possible. Maintain fall precautions, adequate lighting during the day PULMONARY: Supplemental 02 as needed. Maintain aspiration precautions at all times CARDIOVASCULAR: Follow hemodynamics. Vital signs per facility protocol GI & NUTRITION: Continue with nutritional support. Continue stool softeners and laxatives as needed. KIDNEYS & ELECTROLYTES: Strict monitoring of intake, output and overall fluid balance. Avoid nephrotoxic medications to the extent possible. Medications to be dosed according to renal function. Monitor electrolytes and replace as needed ENDOCRINE: Maintain blood glucose between 100-180 at all times. Hypoglycemia protocol in place INFECTIOUS DISEASE: Trend temperature, WBC and procalcitonin level Follow cultures, deescalate antibiotics as soon as possible. Panculture if new onset fever ONCOLOGY/HEMATOLOGY/COAGULATION: Monitor for s/s of bleeding Monitor hemoglobin, coagulation studies as needed SKIN: Pressure ulcer prevention per facility protocol Specialty mattress ORTHO/REHAB: Continue PT/OT Prophylaxis: Continue GI and DVT prophylaxis Code Status: Full Resuscitation Disposition: TBD Other: Total patient care time: 35 minutes VLAD REBOLLAR Sep 12, 2024 18:56
--- NOTE | 2024-09-12 19:29 | NUR ---
HOSPITALIST PAGED FOR ELEVATED TROPONIN SUMMER HERNANDEZ NP MADE AWARE.
--- NOTE | 2024-09-12 20:00 | NUR ---
YONAS Arciniega BUSINESS CONTROL SPECIALIST AT BEDSIDE FOR PULMONOLOGY CONSULT
[2024-09-12] MEDS ORDERED: LEVO50CA4 PO (20:02)
[2024-09-12] MEDS ORDERED: FURO40TA5 PO ×2 (20:02)
[2024-09-12] MEDS ORDERED: ROSU40TA88 PO (20:02)
[2024-09-12] MEDS ORDERED: SACU1TAB PO (20:02)
[2024-09-12] MEDS ORDERED: FENO150C4 PO (20:02)
[2024-09-12] MEDS ORDERED: MONT-39 PO (20:02)
[2024-09-12] MEDS ORDERED: METO-409 PO (20:02)
[2024-09-12] MEDS ORDERED: FOLI0.8T22 PO (20:02)
--- NOTE | 2024-09-12 20:09 | NUR ---
DR LEE MADE AWARE OF TROPONIN TRENDING UP 1119, NO NEW ORDERS AT THIS TIME CALL IF ANY CLINICAL CHANGES.
[2024-09-12] MEDS: DOXYCYCLINE 100MG+NS 250ML 250 ML IV SCH (20:21)
[2024-09-12] MEDS: FAMOTIDINE 20MG VIAL IV SCH (20:22)
[2024-09-12] MEDS: HEParin 5,000 UNIT VIAL SQ SCH (20:23)
[2024-09-12] MEDS: acetaMINOPHEN 325 MG TAB PO PRN (20:28)
[2024-09-12] MEDS: morPHINE 2 MG SYG IVP PRN (20:46)
--- NOTE | 2024-09-12 21:47 | NUR ---
ASSUMING PATIENT CARE AT THIS TIME FROM NADEEN DOOLEY/ISIDRO
--- NOTE | 2024-09-12 21:52 | NUR ---
SPOKE WITH SUMMER JOHNSON FROM [facility], INFORMED PATIENT IS NPO AND UNABLE TO ADMINISTER PO MEDS SHE RECENTLY ORDERED. STATED TO ONLY GIVE THE [facility]IRIN SUPPOSITORY. NO NEW ORDERS GIVEN AT THIS TIME./ISIDRO
[2024-09-12] MEDS: ASPIRIN 300 MG SUPPOSITORY PR ONE (23:05)
--- NOTE | 2024-09-13 01:22 | NUR ---
REPORT GIVEN TO ALAYNA DECKER AT THIS TIME./ISIDRO
[2024-09-13 01:30] VITALS: PULSE 80; RESP 16; O2SAT 99
[2024-09-13] MEDS: ZOSYN 3.375GM+NS 50ML 50 ML IV SCH (02:10)
--- NOTE | 2024-09-13 02:15 | NUR ---
RT placing patient on cpap
--- NOTE | 2024-09-13 02:50 | NUR ---
Patient given Tylenol for abdominal pain 03/09
--- NOTE | 2024-09-13 03:08 | NUR ---
Marine Gould NP nofied of patient having abdominal pain. Medications ordered.
[2024-09-13] MEDS: DICYCLOMINE 20MG (10MG/ML) AMP IM ONE (03:18)
--- NOTE | 2024-09-13 03:25 | NUR ---
Patient removed cpap on his own, stated it drys him out too much. RT notified.
--- NOTE | 2024-09-13 04:00 | NUR ---
Abdominal pain has decreased
[2024-09-13 04:14] LABS: BASOPHILS # (AUTO) 0.04 K/uL (0.00-0.20); BASOPHILS % (AUTO) 0.3 % (0.0-5.0); EOSINOPHILS # (AUTO) 0.05 K/uL (0.00-0.70); EOSINOPHILS % (AUTO) 0.4 % (0.0-8.0); HEMATOCRIT 32.6 % (42-54); IMMATURE GRANULOCYTE ABSOLUTE 0.15 K/uL (0-1); LYMPHOCYTES # (AUTO) 0.5 K/uL (1.0-4.8); MEAN CORPUSCULAR HEMOGLOBIN 33.4 pg (27.0-33.0); MEAN CORPUSCULAR HGB CONC 33.4 g/dL (32.0-36.0); MONOCYTES # (AUTO) 0.9 K/uL (0.1-1.0); MONOCYTES % (AUTO) 7.4 % (3.0-13.0); NEUTROPHILS % (AUTO) 86.7 % (40.0-77.0); PLATELET COUNT (AUTO) 238 K/uL (130-400); RED BLOOD CELL COUNT(AUTO) 3.26 MIL/uL (4.50-6.20); RED CELL DISTRIBUTION WIDTH 14.8 % (11.0-15.5); WHITE BLOOD COUNT (AUTO) 12.6 K/uL (4.8-10.8)
[2024-09-13 04:37] LABS: WBC MORPHOLOGY CONSISTENT W/DIFF
[2024-09-13 04:40] LABS: ALANINE AMINOTRANSFERASE 50 U/L (12-78); ALBUMIN 2.3 g/dL (3.5-5.0); ASPARTATE AMINOTRANSFERASE 84 U/L (10-37); BILIRUBIN,DIRECT 1.3 mg/dL (0.0-0.3); BILIRUBIN,TOTAL 1.8 mg/dL (0.2-1.0); CARBON DIOXIDE 31 mmol/L (21-32); CHLORIDE 97 mmol/L (101-111); CREATINE KINASE, TOTAL 322 U/L (21-232); CREATININE 7.5 mg/dL (0.5-1.3); GLOMERULAR FILTR. RATE CALC 7 mL/min (>90); GLUCOSE,RANDOM 71 mg/dL (70-105); PHOSPHORUS 6.6 mg/dL (2.5-4.9); POTASSIUM 4.6 mmol/L (3.5-5.1); SODIUM SERUM 137 mmol/L (136-145); TOTAL PROTEIN, SERUM 6.9 g/dL (6.0-8.3); UREA NITROGEN, BLOOD 52 mg/dL (7-18)
[2024-09-13 04:48] LABS: AMMONIA < 10 umol/L (11-32)
[2024-09-13 05:11] LABS: HEMOGLOBIN A1C 5.1 % (4.0-6.0)
--- NOTE | 2024-09-13 06:34 | NUR ---
RAD NUCLEAR MEDICINE SPOKE TO NURSE ERWIN @ [id number] V/Q SCAN WILL BE DONE TODAY, AWAITING XENON DOSES FOR VENTILATION PORTION OF THE STUDY.
--- NOTE | 2024-09-13 07:14 | NUR ---
report given to Sola CATALAN
[2024-09-13 07:20] VITALS: PULSE 87; RESP 20; O2SAT 97
--- NOTE | 2024-09-13 08:14 | NUR ---
DCP: HOME Sw met with pt and daughter Citlali Nguyen [phone]. Daughter states that pt lives in duplex on her property. Pt lives independently at home alone. Pt able to complete ADLS, home management and meal prep on his own. Pt drives himself to dialysis treatments at [facility]. Pt has no in home care service. PCP is A Kevin and uses [facility] for rx. Daughter and pt deny dc needs and pt will return home at dc Addendum: 09/13/24 at 0817 by ISRAEL MACIAS Amended: Links added.
[2024-09-13] MEDS ORDERED: PoTASSium chloRIDE 20MEQ/100ML 100 ML IV PRN (08:30)
[2024-09-13] MEDS ORDERED: MAGNESIUM 2GM PREMIX 50ML 50 ML IV PRN (08:30)
--- NOTE | 2024-09-13 08:34 | PN ---
[facility] PROGRESS NOTE Date of Service: Sep 13, 2024 Time of Service: 08:20 SUBJECTIVE: [ ] PCP: Admission date: 09/12/24 chief complaints: abd pain This is a 69-year-old male was admitted on 09/12/2024 with chief complaints of abdominal pain ER workup was consistent with small-bowel obstruction. Patient remains bowel rest surgeon following at this time conservative management. Patient is seen and examined with attending reviewed chart. Primary nurse reports patient is running low blood sugars patient will be started on D10 slow rate. REVIEW OF SYSTEMS CONSTITUTIONAL: Denies fevers, chills, or night sweats. No unintentional weight loss reported. NEUROLOGICAL: Denies headache, amaurosis fugax, motor weakness, sensory deficit, vertigo/spinning sensation, gait abnormalities, or tremors. ENT: No hearing loss, otalgia, otorrhea, rhinitis, rhinorrhea, hoarseness, or sore throat. CARDIOVASCULAR: Denies any exertional angina, dyspnea on exertion, orthopnea, paroxysmal nocturnal dyspnea, palpitations, life-threatening arrhythmias, claudication. PULMONARY: Denies any shortness of breath, cough, phlegm/sputum, hemoptysis, pleuritic chest pain. SLEEP: Denies morning headaches, daytime somnolence or napping. Denies d ifficulty falling asleep, staying asleep, waking from sleep. Denies knowledge of snoring. GASTROINTESTINAL: Denies any type of dysphagia to either liquids or solids. Denies nausea, vomiting, pyrosis, early satiety, diarrhea, constipation, or changes in stool consistency or caliber. Denies coffee-ground emesis, hematemesis, hematochezia, or melanotic stools. Complains of persistent abdominal pain GENITOURINARY: Denies frequency, urgency, nocturia, hematuria or incontinence (Storage/Irritative symptoms.) Low urinary stream, straining to void, urinary intermittency or hesitancy, splitting of the voiding stream, terminal dribbling. ENDOCRINOLOGIC: Denies polyuria, polydipsia, polyphagia or heat/cold intolerances. HEMATOLOGIC: Denies thrombophilia/previous clots, or coagulopathy/bleeding disorders. ONCOLOGIC: Denies personal history of malignancy. DERMATOLOGIC: Denies rashes or pruritus. PSYCHIATRIC: Denies any suicidal or homicidal ideation. Denies hallucinations. PHYSICAL EXAM GENERAL APPEARANCE: The patient is awake, alert, and oriented, in no acute cardiopulmonary distress. NEUROLOGICAL: Cranial nerves II-XII grossly intact. Motor is 5/5 in bilateral upper and lower extremities proximal to distal. No sensory deficits. HEENT: Face is symmetric. Pupils are equal and reactive. Extraocular movements are intact. NECK: Supple. No JVD. No thyromegaly. No submental, submandibular, pre-/p ostauricular, occipital or supraclavicular lymphadenopathy. CHEST: Normal chest expansion. No Telemetry. LUNGS: Absence of any rales, rhonchi or any wheezing. CARDIOVASCULAR: Regular. S1 and S2 normal. No appreciable rubs, murmurs or gallops. ABDOMEN: Soft, nontender, and nondistended. There is no rebound, voluntary guarding, or rigidity. : Deferred. No Palomares. EXTREMITIES: Non-edematous and not cyanotic. No clubbing. Good capillary refill. SKIN: No skin breakdown. Vital Signs (last 8hr) Date Time Temp Pulse Resp B/P (MAP) Pulse Ox O2 Delivery O2 Flow Rate FiO2 09/13/24 07:20 87 20 N/Cannula Low lpm 2.0 09/13/24 04:14 98.4 73 20 107/46 93 Nasal Cannula* 2 28 09/13/24 01:30 80 16 40 LABS: Laboratory: Test 09/13/24 04:00 09/12/24 20:37 09/12/24 18:20 09/12/24 17:09 Range/Units White Blood Count 12.6 #H 4.8-10.8 K/uL Red Blood Count 3.26 L 4.50-6.20 MIL/uL Hemoglobin 10.9 L 14.0-18.0 g/dL Hematocrit 32.6 L 42-54 % Mean Corpuscular Volume 100.0 H 79-99 fL Mean Corpuscular Hemoglobin 33.4 H 27.0-33.0 pg Mean Corpuscular Hemoglobin Concent 33.4 32.0-36.0 g/dL Red Cell Distribution Width 14.8 11.0-15.5 % Platelet Count 238 # 130-400 K/uL Mean Platelet Volume 9.7 7.5-10.5 fL Immature Granulocyte % (Auto) 1.2 H 0-1 % Neutrophils (%) (Auto) 86.7 H 40.0-77.0 % Lymphocytes (%) (Auto) 4.0 L 21.0-51.0 % Monocytes (%) (Auto) 7.4 3.0-13.0 % Eosinophils (%) (Auto) 0.4 0.0-8.0 % Basophils (%) (Auto) 0.3 0.0-5.0 % Neutrophils # (Auto) 11.0 H 1.8-7.7 K/uL Lymphocytes # (Auto) 0.5 L 1.0-4.8 K/uL Monocytes # (Auto) 0.9 0.1-1.0 K/uL Eosinophils # (Auto) 0.05 0.00-0.70 K/uL Basophils # (Auto) 0.04 0.00-0.20 K/uL Absolute Immature Granulocyte (auto 0.15 0-1 K/uL Nucleated Red Blood Cells 0.0 0.0-0.19 % White Cell Morphology Comment CONSISTENT W/DIFF Sodium Level 137 136-145 mmol/L Potassium Level 4.6 3.5-5.1 mmol/L Chloride Level 97 L 101-111 mmol/L Carbon Dioxide Level 31 21-32 mmol/L Blood Urea Nitrogen 52 H 7-18 mg/dL Creatinine 7.5 H 0.5-1.3 mg/dL Glomerular Filtration Rate Calc 7 >90 mL/min Random Glucose 71 70-105 mg/dL Hemoglobin A1c 5.1 4.0-6.0 % Estimated Average Glucose (eAG) 100 70-126 mg/dL Lactic Acid Level 1.7 0.8-2.5 mmol/L Total Calcium 9.6 8.5-10.1 mg/dL Phosphorus Level 6.6 H 2.5-4.9 mg/dL Magnesium Level 1.90 1.80-2.40 mg/dL Total Bilirubin 1.8 H 0.2-1.0 mg/dL Direct Bilirubin 1.3 #H 0.0-0.3 mg/dL Aspartate Amino Transf (AST/SGOT) 84 H 10-37 U/L Alanine Aminotransferase (ALT/SGPT) 50 # 12-78 U/L Alkaline Phosphatase 59 # 50-136 U/L Ammonia < 10 #L 11-32 umol/L Total Creatine Kinase 322 H 21-232 U/L B-Type Natriuretic Peptide > 5000 H 0-100 pg/mL Total Protein 6.9 6.0-8.3 g/dL Albumin 2.3 #L 3.5-5.0 g/dL Procalcitonin 25.10 H 0.05-0.5 ng/mL D-Dimer Quantitative (PE/DVT) 6282 *H 0-500 ng/mL Whole Blood Glucose 77 70-110 MG/DL Troponin I High Sensitivity 1119.9 *H 4-75 ng/L SARS-CoV-2 Antigen (Rapid) PRESUMPTIVE NEGATIVE NEGATIVE Group A Streptococcus Rapid negative NEGATIVE Test 09/12/24 17:07 09/12/24 13:25 09/12/24 12:53 09/12/24 09:30 Range/Units Bedside Glucose Comment Protocol Initiated Influenza Type A Antigen Negative For Type A NEGATIVE Influenza Type B Antigen Negative For Type B NEGATIVE Blood Gas Specimen Type Arterial Arterial Blood pH 7.446 7.350-7.450 Arterial Blood Partial Pressure CO2 39 35-48 mmHg Arterial Blood Partial Pressure O2 61.2 L 83.0-108.0 mmHg Arterial Blood HCO3 26.5 21.0-28.0 mmol/L Arterial Blood Oxygen Saturation 90.3 L 94.0-98.0 % Arterial Blood Base Excess 2.4 -2.0-3.0 mmol/L Hemoglobin (Blood Gas) 11.3 L 13.5-17.5 g/dL Sodium (Blood Gas) 133 L 136-145 MMOL/L Bedside Potassium (Blood Gas) 3.5 3.4-4.5 MMOL/L Bedside Chloride (Blood Gas) 96 L 98-107 MMOL/L Bedside Glucose (Blood Gas) 107 H 65-95 MG/DL Bedside Ionized Calcium (Blood Gas) 1.17 1.15-1.33 MMOL/L Bedside Lactic Acid (Blood Gas) 1.60 H 0.36-0.75 MMOL/L Blood Gas Temperature 37.0 35.5-37.0 CELSIUS Blood Gas Vent Mode RA ROOM AIR FiO2 21.0 % Blood Gas Specimen Comment EDWARD CARRANZA RN Prothrombin Time 13.2 H 9.6-11.6 SEC Prothromb Time International Ratio 1.20 H 0.85-1.15 Activated Partial Thromboplast Time 28.6 26.3-35.5 SEC Lipase 41 16-77 U/L Current Medications Medications (Trade) Dose Ordered Sig/Elver Route PRN Reason Start Time Stop Time Status Last Admin Dose Admin Acetaminophen (TYLenol 325MG TAB) 650 mg Q4H PRN PO MILD PAIN (1-3) 09/12/24 12:30 10/12/24 12:29 09/13/24 02:50 650 MG Acetaminophen (TYLenol 325MG TAB) 650 mg Q6H PRN PO TEMPERATURE GREATER THAN 101.5 09/12/24 12:30 10/12/24 12:29 Acetaminophen/ Hydrocodone Bitart (NORco 5/325MG) 1 tab Q6H PRN PO MODERATE PAIN (4-6) 09/12/24 15:30 09/17/24 15:29 Al Hydroxide/Mg Hydroxide (MAALox PLUS 30ML) 30 ml Q6H PRN PO INDIGESTION 09/12/24 12:30 10/12/24 12:29 Benzonatate (Tessalon 100mg Caps) 100 mg Q8H PRN PO cough 09/12/24 19:00 10/12/24 18:59 Dextrose (D50w) 50 ml AD PRN IV HYPOGLYCEMIA PROTOCOL 09/12/24 12:30 10/12/24 12:29 09/12/24 17:13 50 ML Diphenhydramine HCl (BENAdryl INJ) 25 mg Q6H PRN IV SEVERE ITCHING/RASH 09/12/24 12:30 10/12/24 12:29 Doxycycline Hyclate 250 ml @ 125 mls/hr Q12H IV 09/12/24 19:00 09/22/24 18:59 09/12/24 20:21 125 MLS/HR Famotidine (Pepcid 20mg Vial) 20 mg BID PRN IV NAUSEA/VOMITING 09/12/24 12:30 09/12/24 12:44 DC Famotidine (Pepcid 20mg Vial) 20 mg Q48H IV 09/12/24 21:00 10/12/24 20:59 Glucagon (Glucagon 1mg Kit) 1 mg AD PRN IM HYPOGLYCEMIA PROTOCOL 09/12/24 12:30 10/12/24 12:29 Guaifenesin/ Dextromethorphan (RobiTUSSin DM 200/20MG 10ML) 10 ml Q4H PRN PO COUGH 09/12/24 12:30 10/12/24 12:29 Heparin Sodium (Porcine) (HEParin 5,000 UNIT VIAL) 5,000 unit BID SQ 09/12/24 21:00 10/12/24 20:59 09/12/24 20:23 5,000 UNIT Hydralazine HCl (APRESOLine 20MG INJ) 10 mg Q6H PRN IV For:SBP above 160;DBP above 90 09/12/24 12:30 10/12/24 12:29 Insulin Human Regular (humuLIN R 100 UNIT/ML 3ML) INSULIN SLIDING SCAL... ACHS SQ 09/12/24 16:30 10/12/24 16:29 Ketorolac Tromethamine (toRADol) 15 mg Q8H PRN IV MODERATE PAIN (4-6) 09/12/24 15:30 09/12/24 21:58 DC Lactulose (Constulose 20gm/ 30ml Udcup) 20 gm BID PRN PO CONSTIPATION 09/12/24 12:30 10/12/24 12:29 Magnesium Sulfate 50 ml @ 0 mls/hr PROTOCOL PRN IV other 09/12/24 12:30 10/12/24 12:29 Morphine Sulfate (morPHINE 2MG SYG) 1 mg Q6H PRN IVP SEVERE PAIN (7-10) 09/12/24 15:30 09/19/24 15:29 09/12/24 20:46 1 MG Nitroglycerin (Nitrostat) 0.4 mg PROTOCOL PRN SL CHEST PAIN 09/12/24 12:30 10/12/24 12:29 Ondansetron HCl (zoFRAN 4MG INJ) 4 mg Q6H PRN IV NAUSEA/VOMITING 09/12/24 12:30 10/12/24 12:29 Piperacillin Sod/ Tazobactam Sod 50 ml @ 12.5 mls/hr Q12H IV 09/12/24 13:00 09/12/24 12:48 DC Piperacillin Sod/ Tazobactam Sod 50 ml @ 12.5 mls/hr Q12H IV 09/12/24 23:30 09/22/24 23:29 09/13/24 02:10 12.5 MLS/HR Zolpidem Tartrate (AmbIEN) 5 mg HS PRN PO INSOMNIA 09/12/24 12:30 10/12/24 12:29 DIAGNOSTICS / RADIOLOGY: [ ] ASSESSMENT: [ Small-bowel obstruction versus ileus per CT abdomen/pelvis 09/12/2024 POA ESRD on dialysis Thursday needing dialysis POA Uncontrolled diabetes mellitus type 2 with hyper and hypoglycemia POA Hyperlipidemia POA Coronary artery disease s/p CABG six years ago POA Uncontrolled hypertension POA Multifactorial anemia POA Lactic acidosis 4.6 POA Hyperbilirubinemia 1.9 POA Hyper troponinemia POA acute on chroniic CHF EF 45/50% chronic combined systolic and diastolic congestive heart failure. History of cholelithiasis POA History of appendectomy ] History of appendectomy History of right knee cartilage surgery History of left hand pointing finger amputation Current alcohol drinking occasionally PLAN: [Admit to: Medical-surgical floor Consults: Surgeon, lamination assembler, lower in supervisor, and critical team Antibiotics: Zosyn IV every 12 hrs Remain NPO: bowel rest: KUB: noted ; continue with conservative management will follow surgery recommendations. IVF: heplock replace electrolytes to keep K+ 4.0 mag: > 2.0 ongoing surviallance continue with BINDER CASER 3x weekly: fluid restriction, strict I/O and daily weight Labs in am; cbc, cmp and Mag. further orders as per response to treatment. Code Status: Full Resuscitation Supervised emptying Dr. Chopra case discussed ATTESTATION BY PHYSICIAN I have seen and examined the patient. I reviewed the documentation, medical decision making, and treatment plan as noted by the mid-level provider above. I agree with the findings and plan of care. JOSE CHOPRA MD, ELIZABETH NP Sep 13, 2024 08:34
[2024-09-13] MEDS ORDERED: SODIUM CL 4MEQ/ML 30ML 154 MEQ in DEXTROSE 10%-WATER 961.5 ML IV SCH (11:00)
--- NOTE | 2024-09-13 11:14 | NUR ---
bedside bg [id number]
--- NOTE | 2024-09-13 11:17 | HMCIMG ---
US VENOUS DOPPLER BILATERAL REASON: RO DVT COMPARISON: None Technique: Bilateral venous doppler ultrasound was performed with spectral analysis and color flow imaging technique. FINDINGS: There is a normal appearance of the common femoral, deep femoral, the profunda femoris and popliteal veins. Proximal calf veins appear normal as well. There is normal response to compression and augmentation. There is no evidence of deep venous thrombosis. IMPRESSION: 1. No evidence of deep venous fibrosis in either lower extremity. 2. 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 ultrasound.
--- NOTE | 2024-09-13 11:19 | HMCIMG ---
ABD 1VW REASON: sbo FINDINGS: Single image of the abdomen was obtained. There are a few moderately dilated small bowel loops in the right upper quadrant. The small bowel loops in the mid abdomen and left lower quadrant are nearly gasless. The colon appears decompressed as well. IMPRESSION: 1. Moderately distended small bowel loops in the right upper quadrant which could represent obstruction.
[2024-09-13 11:56] LABS: MYCOPLASMA AB IGM NEGATIVE (NEGATIVE)
[2024-09-13] MEDS: DEXTROSE 10%-WATER 1,000 ML IV SCH (12:01)
--- NOTE | 2024-09-13 13:17 | PN ---
[facility] PROGRESS NOTE Date Patient Seen: Sep 13, 2024 Time of Visit: 13:17 Supervising Physician: Dr. Beba Grimaldo Primary Care Physician: [Dr. Ruddy Magana] Outpatient Specialists: [ ] Inpatient Consults: [Dr. Banuelos: nephro, Dr. Peck:cardio, Dr. Moore: surgery, [facility] team: pulmo] PROBLEM LIST: Suspected sepsis 2/2 CAP-POA Community-acquired pneumonia-POA Acute hypoxic respiratory insufficiency requiring oxygen via NC-POA Ileus vs. SBO-POA NSTEMI, demand ischemia vs. cardiac etiology-POA Lactic acidosis-POA Hyperbilirubinemia-POA Hepatic transaminitis-POA Acute hypoglycemia-POA Systolic CHF, EF 31% per recent echo 09/12/2024, possible pvb-[id number]-ALI ESRD with HD MWF CAD s/p CABG x4 Primary HTN HLD Diabetes mellitus Hypothyroidism GERD PLAN: -Titrate oxygen to keep sats >92% -PRN Duoneb for SOB/wheeze -Obtain baseline ABG -IV Zosyn and Doxycycline for antibiotic coverage -Pending blood CX -Obtain pneumo studies -IS q1H x 10 while awake -Obtain d-dimer, if significant, will obtain VQ scan to rule-out P.E. -Manage cough PRN -The rest of medical management per primary INTERVAL HISTORY: Patient evaluated at bedside in the ED, currently on Zosyn and doxycycline for suspected community-acquired pneumonia. Patient at this time is on 2 L nasal cannula, continuing with nebulizer treatments and pending blood cultures at this time. He is scheduled to receive hemodialysis tomorrow. Patient was requesting discontinuation of the breathing treatments as he states there what is actually causing his cough at this time, nursing staff advised that we will discontinue these for the time being. Patient endorses improvement from the time of his admission. Patient's white count is slightly increased at 12.6 today. Plan Continue Zosyn and doxycycline Plan for hemodialysis tomorrow Remain NPO for possible SBO versus ileus Follow blood cultures Discontinue nebulizer treatments Follow morning ABG REVIEW OF SYSTEMS: 12 point ROS reviewed with patient. Pertinent positives mentioned above. Otherwise negative. PHYSICAL EXAM: GENERAL: alert, weak, awake oriented x 3 HEENT: EOMI, Sclera non icteric, moist mucosa NECK: Supple, no JVD, trachea midline LUNGS: Diminished breath sounds bilaterally. No wheezes, rales or rhonchi HEART: Regular rate and rhythm. Normal S1 and S2, without murmurs ABD: Abdomen soft, diffuse tenderness, no signs of ischemia or peritonitis. Bowel sounds hypoactive EXT: No clubbing cyanosis or edema NEURO: Alert and oriented to person, follows commands Vital Signs (last 8hr) Date Time Temp Pulse Resp B/P (MAP) Pulse Ox O2 Delivery O2 Flow Rate FiO2 09/13/24 12:11 97.7 87 18 118/61 98 Nasal Cannula* 2 28 09/13/24 07:20 87 20 N/Cannula Low lpm 2.0 09/13/24 07:15 97.9 82 20 103/39 97 Nasal Cannula* 2 28 LABS: Hematology Labs: Test 09/13/24 04:00 Range/Units White Blood Count 12.6 #H 4.8-10.8 K/uL Red Blood Count 3.26 L 4.50-6.20 MIL/uL Hemoglobin 10.9 L 14.0-18.0 g/dL Hematocrit 32.6 L 42-54 % Mean Corpuscular Volume 100.0 H 79-99 fL Mean Corpuscular Hemoglobin 33.4 H 27.0-33.0 pg Mean Corpuscular Hemoglobin Concent 33.4 32.0-36.0 g/dL Red Cell Distribution Width 14.8 11.0-15.5 % Platelet Count 238 # 130-400 K/uL Mean Platelet Volume 9.7 7.5-10.5 fL Immature Granulocyte % (Auto) 1.2 H 0-1 % Neutrophils (%) (Auto) 86.7 H 40.0-77.0 % Lymphocytes (%) (Auto) 4.0 L 21.0-51.0 % Monocytes (%) (Auto) 7.4 3.0-13.0 % Eosinophils (%) (Auto) 0.4 0.0-8.0 % Basophils (%) (Auto) 0.3 0.0-5.0 % Neutrophils # (Auto) 11.0 H 1.8-7.7 K/uL Lymphocytes # (Auto) 0.5 L 1.0-4.8 K/uL Monocytes # (Auto) 0.9 0.1-1.0 K/uL Eosinophils # (Auto) 0.05 0.00-0.70 K/uL Basophils # (Auto) 0.04 0.00-0.20 K/uL Absolute Immature Granulocyte (auto 0.15 0-1 K/uL Nucleated Red Blood Cells 0.0 0.0-0.19 % White Cell Morphology Comment CONSISTENT W/DIFF Chemistry Labs: Test 09/13/24 11:12 09/13/24 04:00 09/12/24 18:20 09/12/24 17:07 Range/Units Whole Blood Glucose 89 70-110 MG/DL Sodium Level 137 136-145 mmol/L Potassium Level 4.6 3.5-5.1 mmol/L Chloride Level 97 L 101-111 mmol/L Carbon Dioxide Level 31 21-32 mmol/L Blood Urea Nitrogen 52 H 7-18 mg/dL Creatinine 7.5 H 0.5-1.3 mg/dL Glomerular Filtration Rate Calc 7 >90 mL/min Random Glucose 71 70-105 mg/dL Hemoglobin A1c 5.1 4.0-6.0 % Estimated Average Glucose (eAG) 100 70-126 mg/dL Lactic Acid Level 1.7 0.8-2.5 mmol/L Total Calcium 9.6 8.5-10.1 mg/dL Phosphorus Level 6.6 H 2.5-4.9 mg/dL Magnesium Level 1.90 1.80-2.40 mg/dL Total Bilirubin 1.8 H 0.2-1.0 mg/dL Direct Bilirubin 1.3 #H 0.0-0.3 mg/dL Aspartate Amino Transf (AST/SGOT) 84 H 10-37 U/L Alanine Aminotransferase (ALT/SGPT) 50 # 12-78 U/L Alkaline Phosphatase 59 # 50-136 U/L Ammonia < 10 #L 11-32 umol/L Total Creatine Kinase 322 H 21-232 U/L B-Type Natriuretic Peptide > 5000 H 0-100 pg/mL Total Protein 6.9 6.0-8.3 g/dL Albumin 2.3 #L 3.5-5.0 g/dL Procalcitonin 25.10 H 0.05-0.5 ng/mL Troponin I High Sensitivity 1119.9 *H 4-75 ng/L Bedside Glucose Comment Protocol Initiated Test 09/12/24 09:30 Range/Units Lipase 41 16-77 U/L Coagulation Labs: Test 1/13/25 20:37 09/12/24 09:30 Range/Units D-Dimer Quantitative (PE/DVT) 6282 *H 0-500 ng/mL Prothrombin Time 13.2 H 9.6-11.6 SEC Prothromb Time International Ratio 1.20 H 0.85-1.15 Activated Partial Thromboplast Time 28.6 26.3-35.5 SEC DIAGNOSTICS / RADIOLOGY RESULTS: [ ] PLAN NEURO: Minimize central acting medications as possible. Maintain fall precautions, adequate lighting during the day PULMONARY: Supplemental 02 as needed. Maintain aspiration precautions at all times CARDIOVASCULAR: Follow hemodynamics. Vital signs per facility protocol GI & NUTRITION: Continue with nutritional support. Continue stool softeners and laxatives as needed. KIDNEYS & ELECTROLYTES: Strict monitoring of intake, output and overall fluid balance. Avoid nephrotoxic medications to the extent possible. Medications to be dosed according to renal function. Monitor electrolytes and replace as needed ENDOCRINE: Maintain blood glucose between 100-180 at all times. Hypoglycemia protocol in place INFECTIOUS DISEASE: Trend temperature, WBC and procalcitonin level Follow cultures, deescalate antibiotics as soon as possible. Panculture if new onset fever ONCOLOGY/HEMATOLOGY/COAGULATION: Monitor for s/s of bleeding Monitor hemoglobin, coagulation studies as needed SKIN: Pressure ulcer prevention per facility protocol Specialty mattress ORTHO/REHAB: Continue PT/OT Prophylaxis: Continue GI and DVT prophylaxis Code Status: Full Resuscitation Disposition: TBD Other: Total patient care time: 35 minutes ALEXANDR CONCEPCION Sep 13, 2024 13:17
--- NOTE | 2024-09-13 13:44 | NUR ---
TANNA FERNANDEZ AT BEDSIDE
--- NOTE | 2024-09-13 14:26 | NUR ---
DR. LINN AT PTS BEDSIDE
--- NOTE | 2024-09-13 14:30 | PN ---
GENERAL SURGERY PROGRESS NOTE Date/Time Patient Seen: 09/13/2024 4118 Problem List: Enteritis Ileus Chronic renal failure Abdominal pain Interval History: Patient reports that he continues to have lower abdominal pain. He has not had any bowel movements since yesterday. He is also not passing any flatus. He was given a suppository last night which did not help. He has had no nausea or vomiting. Current Medications Medications (Trade) Dose Ordered Sig/Elver Route Start Time Stop Time Status Last Admin Dose Admin Dextrose 1,000 ml @ 20 mls/hr Q24H IV 09/13/24 11:30 10/13/24 11:29 09/13/24 12:01 20 MLS/HR Doxycycline Hyclate 250 ml @ 125 mls/hr Q12H IV 09/12/24 19:00 09/22/24 18:59 09/13/24 09:27 125 MLS/HR Famotidine (Pepcid 20mg Vial) 20 mg Q48H IV 09/12/24 21:00 10/12/24 20:59 Heparin Sodium (Porcine) (HEParin 5,000 UNIT VIAL) 5,000 unit BID SQ 09/12/24 21:00 10/12/24 20:59 09/13/24 09:28 5,000 UNIT Insulin Human Regular (humuLIN R 100 UNIT/ML 3ML) INSULIN SLIDING SCAL... ACHS SQ 09/12/24 16:30 10/12/24 16:29 Magnesium Sulfate 50 ml @ 0 mls/hr PROTOCOL IV 09/13/24 08:30 10/13/24 08:29 Piperacillin Sod/ Tazobactam Sod 50 ml @ 12.5 mls/hr Q12H IV 09/12/24 13:00 09/12/24 12:48 DC Piperacillin Sod/ Tazobactam Sod 50 ml @ 12.5 mls/hr Q12H IV 09/12/24 23:30 09/22/24 23:29 09/13/24 13:50 12.5 MLS/HR Sodium Chloride 154 meq/Dextrose 1,000 ml @ 20 mls/hr Q24H IV 09/13/24 11:00 09/13/24 10:44 DC Physical Examination: GENERAL: No acute distress. HEAD: Normal with no signs of head trauma. LUNGS: Respirations nonlabored HEART: Regular rate and rhythm ABD: Soft, distended, mildly tender worse in the lower quadrants, no rebound, no guarding : Not examined EXT: No clubbing, cyanosis or edema. SKIN: No rashes or lesions noted. NEURO: Awake, alert, and oriented x3. No focal sensory or strength deficits noted. Vital Signs (last 8hr) Date Time Temp Pulse Resp B/P (MAP) Pulse Ox O2 Delivery O2 Flow Rate FiO2 09/13/24 12:11 97.7 87 18 118/61 98 Nasal Cannula* 2 28 09/13/24 07:20 87 20 N/Cannula Low lpm 2.0 09/13/24 07:15 97.9 82 20 103/39 97 Nasal Cannula* 2 28 Laboratory: Hematology Labs: Test 09/13/24 04:00 Range/Units White Blood Count 12.6 #H 4.8-10.8 K/uL Red Blood Count 3.26 L 4.50-6.20 MIL/uL Hemoglobin 10.9 L 14.0-18.0 g/dL Hematocrit 32.6 L 42-54 % Mean Corpuscular Volume 100.0 H 79-99 fL Mean Corpuscular Hemoglobin 33.4 H 27.0-33.0 pg Mean Corpuscular Hemoglobin Concent 33.4 32.0-36.0 g/dL Red Cell Distribution Width 14.8 11.0-15.5 % Platelet Count 238 # 130-400 K/uL Mean Platelet Volume 9.7 7.5-10.5 fL Immature Granulocyte % (Auto) 1.2 H 0-1 % Neutrophils (%) (Auto) 86.7 H 40.0-77.0 % Lymphocytes (%) (Auto) 4.0 L 21.0-51.0 % Monocytes (%) (Auto) 7.4 3.0-13.0 % Eosinophils (%) (Auto) 0.4 0.0-8.0 % Basophils (%) (Auto) 0.3 0.0-5.0 % Neutrophils # (Auto) 11.0 H 1.8-7.7 K/uL Lymphocytes # (Auto) 0.5 L 1.0-4.8 K/uL Monocytes # (Auto) 0.9 0.1-1.0 K/uL Eosinophils # (Auto) 0.05 0.00-0.70 K/uL Basophils # (Auto) 0.04 0.00-0.20 K/uL Absolute Immature Granulocyte (auto 0.15 0-1 K/uL Nucleated Red Blood Cells 0.0 0.0-0.19 % White Cell Morphology Comment CONSISTENT W/DIFF Chemistry Labs: Test 09/13/24 13:41 09/13/24 04:00 09/12/24 18:20 09/12/24 17:07 Range/Units Whole Blood Glucose 87 70-110 MG/DL Sodium Level 137 136-145 mmol/L Potassium Level 4.6 3.5-5.1 mmol/L Chloride Level 97 L 101-111 mmol/L Carbon Dioxide Level 31 21-32 mmol/L Blood Urea Nitrogen 52 H 7-18 mg/dL Creatinine 7.5 H 0.5-1.3 mg/dL Glomerular Filtration Rate Calc 7 >90 mL/min Random Glucose 71 70-105 mg/dL Hemoglobin A1c 5.1 4.0-6.0 % Estimated Average Glucose (eAG) 100 70-126 mg/dL Lactic Acid Level 1.7 0.8-2.5 mmol/L Total Calcium 9.6 8.5-10.1 mg/dL Phosphorus Level 6.6 H 2.5-4.9 mg/dL Magnesium Level 1.90 1.80-2.40 mg/dL Total Bilirubin 1.8 H 0.2-1.0 mg/dL Direct Bilirubin 1.3 #H 0.0-0.3 mg/dL Aspartate Amino Transf (AST/SGOT) 84 H 10-37 U/L Alanine Aminotransferase (ALT/SGPT) 50 # 12-78 U/L Alkaline Phosphatase 59 # 50-136 U/L Ammonia < 10 #L 11-32 umol/L Total Creatine Kinase 322 H 21-232 U/L B-Type Natriuretic Peptide > 5000 H 0-100 pg/mL Total Protein 6.9 6.0-8.3 g/dL Albumin 2.3 #L 3.5-5.0 g/dL Procalcitonin 25.10 H 0.05-0.5 ng/mL Troponin I High Sensitivity 1119.9 *H 4-75 ng/L Bedside Glucose Comment Protocol Initiated Test 09/12/24 09:30 Range/Units Lipase 41 16-77 U/L Coagulation Labs: Test 09/12/24 20:37 09/12/24 09:30 Range/Units D-Dimer Quantitative (PE/DVT) 6282 *H 0-500 ng/mL Prothrombin Time 13.2 H 9.6-11.6 SEC Prothromb Time International Ratio 1.20 H 0.85-1.15 Activated Partial Thromboplast Time 28.6 26.3-35.5 SEC Diagnostics / Radiology: PATIENT: BEN LUQUE MR#: [id number] : 1955 SEX: M AGE: 69 LOCATION: [facility] ORDER 2300 STATUS: ADM IN REPORT#: [id number] SERVICE 0600 REASON: sbo ORDERING PHYSICIAN: EMMANUEL DODSON Jr. PROCEDURE: ABD 1VW - ABD 1VW ABD 1VW REASON: sbo FINDINGS: Single image of the abdomen was obtained. There are a few moderately dilated small bowel loops in the right upper quadrant. The small bowel loops in the mid abdomen and left lower quadrant are nearly gasless. The colon appears decompressed as well. IMPRESSION: 1. Moderately distended small bowel loops in the right upper quadrant which could represent obstruction. DICTATED BY: FELIPA DAI MD DATE: 09/13/241114 ELECTRONICALLY SIGNED BY: FELIPA DAI MD DATE: 09/13/241118 Impression and Plan: This is a 69-year-old male with diffuse abdominal pain most likely due to enteritis or ileus. I recommend continued nonoperative management with bowel rest. I recommend NG tube placement as this may give patient has some symptomatic relief. Continue with IV fluid resuscitation as possible given patient's renal failure status. Encourage ambulation. Encourage incentive spirometry. Surgery will follow up. VLAD BRYAN DO Sep 13, 2024 14:30
--- NOTE | 2024-09-13 15:30 | HMCIMG ---
NM PULMONARY/LUNG VQ SCAN REASON: DDIMER COMPARISON: None TECHNIQUE: Ventilation images are obtained with inhalation 6.6 degrees seen on 133, perfusion images are obtained with injection of 5 mCi technetium 99m AA. FINDINGS: There is normal-appearing pulmonary perfusion. There are no focal or wedge shaped defects to suggest pulmonary embolism. Ablation images appear unremarkable as well without focal defect and no evidence of air trapping. IMPRESSION: 1. Normal ventilation/perfusion lung scan, no evidence of pulmonary embolism.
--- NOTE | 2024-09-13 18:08 | NUR ---
DR. LEE AT BEDSIDE
--- NOTE | 2024-09-13 18:12 | PN ---
Non-STEMI Acute on chronic systolic and diastolic heart failure exacerbated by non-STEMI Small bowel obstruction Hypertension Hyperlipidemia Diabetes mellitus type 2 End-stage renal disease on chronic HD on MWF Anemia of chronic disease CAD s/p CABG x 4 (SCHULZ-LAD, SVG-D1, SVG-OM2, and SVG-PDA) 07/13/[address] Ojeda 2D echo on 09/02/2023 with an EF 45-50%, grade II diastolic dysfunction, severely dilated right and left atrium, moderate aortic stenosis, peak gradient of 42 mmHg, mean pressure gradient of 20 mmHg Lexiscan stress test 11/04/2022 demonstrated global hypokinesis, fixed infero- apical defect, partially reversible anterior wall defect, with an EF of 35% LHC/coronary angiogram on 01/27/2023 demonstrated a patent SCHULZ graft to the LAD, patent SVG-D1, patent SVG-OM2, occluded SVG- to the distal RCA with 70% proximal stenosis and a total occlusion of the distal vessel and the left main coronary artery was totally occluded in the distal portion Patient offers no symptomatic complaints today. He denies shortness of breath or chest pain or chest pressure. His back pain is gone. His abdominal pain has also passed and his abdomen is soft. No rales, normal S1 and S2, nondistended abdomen with no abdominal tenderness and normal bowel sounds. Impression: Patient has suffered a myocardial infarct complicated by heart failure and does require careful evaluation and follow up when stable, but for now thankfully both cardiac and GI issues are stabilizing. Plan: Careful observation. He may eventually require catheterization. Vitals/Labs Vital Signs Date Time Temp Pulse Resp B/P (MAP) Pulse Ox O2 Delivery O2 Flow Rate FiO2 09/13/24 15:00 97.7 87 18 132/65 96 Nasal Cannula* 2.0 N/A Laboratory Tests 09/13/24 04:00 Medications Current Medications Ondansetron HCl 4 mg ONCE ONCE IVP Last administered on 09/12/24at 09:44; Start 09/12/24 at 09:30; Stop 09/12/24 at 09:31; Status DC Morphine Sulfate 2 mg ONCE ONCE IVP Last administered on 09/12/24at 09:45; Start 09/12/24 at 09:30; Stop 09/12/24 at 09:31; Status DC Famotidine 20 mg ONCE ONCE IV Last administered on 09/12/24at 09:44; Start 09/12/24 at 09:30; Stop 09/12/24 at 09:31; Status DC Sodium Chloride 500 ml @ 0 mls/hr ONCE ONCE IV Last administered on 09/12/24at 10:26; Start 09/12/24 at 10:30; Stop 09/12/24 at 10:31; Status DC Piperacillin Sod/ Tazobactam Sod 3.375 gm ONCE ONCE IV Last administered on 09/12/24at 11:33; Start 09/12/24 at 11:00; Stop 09/12/24 at 11:04; Status DC Insulin Human Regular INSULIN SLIDING SCAL... ACHS SQ; Start 09/12/24 at 16:30; Stop 10/12/24 at 16:29 Dextrose 50 ml AD PRN IV Last administered on 09/13/24at 10:29; Start 09/12/24 at 12:30; Stop 10/12/24 at 12:29 Glucagon 1 mg AD PRN IM; Start 09/12/24 at 12:30; Stop 10/12/24 at 12:29 Magnesium Sulfate 50 ml @ 0 mls/hr PROTOCOL PRN IV; Start 09/12/24 at 12:30; Stop 09/13/24 at 08:36; Status DC Diphenhydramine HCl 25 mg Q6H PRN IV; Start 09/12/24 at 12:30; Stop 10/12/24 at 12:29 Acetaminophen 650 mg Q6H PRN PO; Start 09/12/24 at 12:30; Stop 10/12/24 at 12:29 Acetaminophen 650 mg Q4H PRN PO Last administered on 09/13/24at 02:50; Start 09/12/24 at 12:30; Stop 10/12/24 at 12:29 Ondansetron HCl 4 mg Q6H PRN IV; Start 09/12/24 at 12:30; Stop 10/12/24 at 12:29 Zolpidem Tartrate 5 mg HS PRN PO; Start 09/12/24 at 12:30; Stop 10/12/24 at 12:29 Al Hydroxide/Mg Hydroxide 30 ml Q6H PRN PO; Start 09/12/24 at 12:30; Stop 10/12/24 at 12:29 Lactulose 20 gm BID PRN PO; Start 09/12/24 at 12:30; Stop 10/12/24 at 12:29 Nitroglycerin 0.4 mg PROTOCOL PRN SL; Start 09/12/24 at 12:30; Stop 10/12/24 at 12:29 Guaifenesin/ Dextromethorphan 10 ml Q4H PRN PO; Start 09/12/24 at 12:30; Stop 10/12/24 at 12:29 Famotidine 20 mg BID PRN IV; Start 09/12/24 at 12:30; Stop 09/12/24 at 12:44; Status DC Heparin Sodium (Porcine) 5,000 unit BID SQ Last administered on 09/13/24at 09:28; Start 09/12/24 at 21:00; Stop 10/12/24 at 20:59 Piperacillin Sod/ Tazobactam Sod 50 ml @ 12.5 mls/hr Q12H IV; Start 09/12/24 at 13:00; Stop 09/12/24 at 12:48; Status DC Hydralazine HCl 10 mg Q6H PRN IV; Start 09/12/24 at 12:30; Stop 10/12/24 at 12:29 Famotidine 20 mg Q48H IV; Start 09/12/24 at 21:00; Stop 10/12/24 at 20:59 Dextrose 50 ml ONCE ONCE IV Last administered on 09/12/24at 12:44; Start 09/12/24 at 12:30; Stop 09/12/24 at 12:42; Status DC Dextrose 50 ml STK-MED ONCE IV; Start 09/12/24 at 12:25; Stop 09/12/24 at 12:25; Status DC Dextrose 50 ml ONCE ONCE IV; Start 09/12/24 at 13:00; Stop 09/12/24 at 13:01; Status DC Piperacillin Sod/ Tazobactam Sod 50 ml @ 12.5 mls/hr Q12H IV Last administered on 09/13/24at 13:50; Start 09/12/24 at 23:30; Stop 09/22/24 at 23:29 Morphine Sulfate 2 mg ONCE ONCE IVP Last administered on 09/12/24at 14:06; Start 09/12/24 at 14:00; Stop 09/12/24 at 14:01; Status DC Morphine Sulfate 2 mg ONCE ONCE IVP Last administered on 09/12/24at 15:23; Start 09/12/24 at 14:00; Stop 09/12/24 at 14:01; Status DC Ketorolac Tromethamine 15 mg Q8H PRN IV; Start 09/12/24 at 15:30; Stop 09/12/24 at 21:58; Status DC Acetaminophen/ Hydrocodone Bitart 1 tab Q6H PRN PO; Start 09/12/24 at 15:30; Stop 09/17/24 at 15:29 Morphine Sulfate 1 mg Q6H PRN IVP Last administered on 09/13/24at 11:57; Start 09/12/24 at 15:30; Stop 09/19/24 at 15:29 Doxycycline Hyclate 250 ml @ 125 mls/hr Q12H IV Last administered on 09/13/24at 09:27; Start 09/12/24 at 19:00; Stop 09/22/24 at 18:59 Benzonatate 100 mg Q8H PRN PO; Start 09/12/24 at 19:00; Stop 10/12/24 at 18:59 Aspirin 300 mg ONCE ONCE MD Last administered on 09/12/24at 23:05; Start 09/12/24 at 22:00; Stop 09/12/24 at 22:01; Status DC Dicyclomine HCl 20 mg ONCE ONCE IM Last administered on 09/13/24at 03:18; Start 09/13/24 at 03:30; Stop 09/13/24 at 03:31; Status DC Magnesium Sulfate 50 ml @ 0 mls/hr PROTOCOL IV; Start 09/13/24 at 08:30; Stop 10/13/24 at 08:29 Potassium Chloride 100 ml @ 50 mls/hr AD PRN IV; Start 09/13/24 at 08:30; Stop 10/13/24 at 08:29 Magnesium Sulfate 50 ml @ 0 mls/hr PROTOCOL PRN IV; Start 09/13/24 at 08:30; Stop 09/13/24 at 08:37; Status DC Sodium Chloride 154 meq/Dextrose 1,000 ml @ 20 mls/hr Q24H IV; Start 09/13/24 at 11:00; Stop 09/13/24 at 10:44; Status DC Dextrose 1,000 ml @ 20 mls/hr Q24H IV Last administered on 09/13/24at 12:01; Start 09/13/24 at 11:30; Stop 10/13/24 at 11:29 MARQUEZ LEE MD Sep 13, 2024 18:12
[2024-09-13] MEDS ORDERED: PHARMACY COMMUNICATION MISC SCH (20:30)
[2024-09-13 20:40] VITALS: PULSE 89; RESP 20; O2SAT 96
[2024-09-13 20:41] VITALS: PULSE 89; RESP 18; O2SAT 96
--- NOTE | 2024-09-13 20:53 | NUR ---
DUDLEY LUQUE (DAUGHTER) [facility] [phone]
--- NOTE | 2024-09-13 21:21 | PN ---
SUBJECTIVE: This patient has renal failure, anemia, small-bowel obstruction versus ileus in a patient who has underlying multiple other comorbidities. The patient continues to do poorly. He is planned for dialysis. He has been short of breath. He has underlying diastolic and systolic heart failure, previous MO. The patient has hyperlipidemia, diabetes, end-stage renal disease, hypertension, peripheral vascular disease, coronary artery disease, previous CABG and low ejection fraction. All the other systemic review is unchanged. No other associated finding. No other aggravating or relieving factors. All the other systemic review is unchanged. REVIEW OF SYSTEMS: GENERAL: Short of breath. No fever, chills or rigors. No abdominal distention. HEENT: With no headache, oral ulcers, sore throat or difficulty swallowing. RESPIRATORY: With no cough, expectoration, hemoptysis, or pleuritic pain. CARDIOVASCULAR: No orthopnea or PND. GASTROINTESTINAL: As above with small-bowel obstruction. GENITOURINARY: Negative for dysuria or hematuria. DERMATOLOGICAL: No rashes, pruritus or skin lesion. PHYSICAL EXAMINATION: VITAL SIGNS: Blood pressure 132/65, pulse 87, respiratory rate is 18, afebrile. HEENT: Head is atraumatic, normocephalic. Pupils are round and reactive. Sclerae anicteric. Conjunctivae not pale. Oral mucosa is not dry. NECK: Without masses or bruits. Thyroid is palpable. Neck has no bruits. CHEST: Shows equal to thoracic percussion note being resonant in all areas. CARDIAC: Regular rhythm. No rub. No S3 or S4. No parasternal heave. ABDOMEN: No guarding or tenderness. Bowel sounds are normoactive. No free fluid. LABORATORY DATA: Labs have been reviewed. Hemoglobin is 10.9, white cell count 12.6. BUN of 52, creatinine 7.5. Old records reviewed. Imaging studies and serologies reviewed. PROBLEMS: Renal failure, anemia, small-bowel obstruction, coronary artery disease, cardiomyopathy, coronary artery bypass graft before. The patient has end-stage renal disease, ascites, ileus, possible obstruction. PLAN: * Follow up by the surgical team. * Continue followup on electrolytes. * Dialysis planned for tomorrow. * IV Dilaudid for pain 0.5 every 6 hours. * X-rays, labs and imaging studies are personally reviewed and interpreted. * The patient is on broad-spectrum antibiotic coverage and doses to be adjusted. Oxygen level to keep oxygen saturation high, as needed midodrine. * Intake, output, weight, electrolytes will be monitored. * Anemia will be monitored. * Old records, dialysis records and external records were reviewed in detail. Condition is critical and guarded. I have discussed with other team members. Thank you for this patient. TID: [id number] RECEIPT: [id number]
[2024-09-13 23:00] VITALS: O2SAT 92
[2024-09-13 23:05] VITALS: BP 132/69; PULSE 75; RESP 18; TEMP 98.4
--- NOTE | 2024-09-13 23:47 | CONS ---
INFECTIOUS DISEASE CONSULTATION DATE OF SERVICE: 09/13/2024 REQUESTING PHYSICIAN: Hussain Harden MD REASON FOR CONSULTATION: Sepsis. HISTORY OF PRESENT ILLNESS: This is a 69-year-old male with history of morbid obesity, hypertension, ESRD on dialysis, who presented to hospital with abdominal pain. The patient's pain localized to the periumbilical area. The patient also complained of some chills, some cough. X-ray has been done, which showed the patient to have bilateral infiltrates. Also, CT of the abdomen shows small bowel dilatation. The patient states that he has not had bowel movement in about 4 days. NG tube has been placed for small bowel obstruction. Troponin also found to be elevated. The patient is tachycardic, bradycardic with elevated WBC. Procalcitonin came back positive of 25,000. The patient has been started on Zosyn. PAST MEDICAL HISTORY: * ESRD, on dialysis. * Diabetes mellitus. * Dyslipidemia. * CAD. PAST SURGICAL HISTORY: * CABG. * Appendectomy. * AV fistula surgery. * Cardiac catheterization. * Left second finger partial amputation. ALLERGIES: No known drug allergy. CURRENT MEDICATIONS: Reviewed. SOCIAL HISTORY: Lives with . No alcohol, tobacco or illicit drug use. FAMILY HISTORY: Positive for diabetes mellitus. REVIEW OF SYSTEMS: CONSTITUTIONAL: Positive for fever and chills and weakness. No weight loss. EYES: No eye pain, no photophobia or diplopia. HENT: No sore throat, no rhinorrhea or earache. NECK: No neck pain. RESPIRATORY: Positive for cough. No hemoptysis or pleuritic pain. CARDIOVASCULAR: . GASTROINTESTINAL: Positive for abdominal pain and constipation. GENITOURINARY: The patient is on dialysis. No hematuria. CENTRAL NERVOUS SYSTEM: No headache, dyspnea, or slurred speech. PSYCHIATRY: No depression. No suicidal ideation. MUSCULOSKELETAL: No joint pain or joint swelling. PHYSICAL EXAMINATION: GENERAL: Elderly male, awake. VITAL SIGNS: Temperature 37.7, pulse 87, respiratory rate 18, BP 118/61. EYES: No icterus. Pupils equal and reactive. HENT: No oral thrush seen. Moist oral mucosa. NECK: Supple, no JVD or thyromegaly. LUNGS: Good air entry. No rales, no rhonchi. CARDIOVASCULAR: S1, S2 regular. No murmurs heard. ABDOMEN: Obese, soft, . Bowel sound is hypoactive. CENTRAL NERVOUS SYSTEM: Awake, alert and oriented x 3. No focal deficits. SKIN: No rashes, no itchiness. LYMPHATIC: No peripheral lymphadenopathy. BACK: No deformity, no pressure ulcer. LABORATORY DATA: Troponin 1119. Procalcitonin 25.10. Sodium 137, potassium 4.6. BUN 53, creatinine 7.5. WBC 12.6, hemoglobin 10.9, platelet count 138. Influenza antigen negative. COVID PCR is negative. RADIOLOGY: CT of the abdomen shows small bowel dilatation, possible small bowel obstruction. Chest x-ray showed bilateral infiltrates. A 2D echocardiogram shows EF of 30% with global hypokinesis. ASSESSMENT: A 69-year-old male presented with fever, chills and weakness. CURRENT PROBLEMS: Include: * Gram-negative sepsis. * Multifocal pneumonia. * Elevated troponin, possible NSTEMI. * Small bowel obstruction. * End-stage renal disease, on dialysis. * Anemia. * Obesity. PLAN: * Continue NG tube . * Follow up cultures. * Continue with Zosyn. * Continue pain management. * Continue doxycycline. * Continue dialysis. * Monitor electrolytes. * The patient will be followed up closely. Thank you for allowing me to participate in the care of this patient. TID: [id number] RECEIPT: [id number]
[2024-09-14] VITALS (24 sets, daily range): BP systolic 99–128; BP diastolic 46–66; PULSE 80–95; RESP 16–20; TEMP 97.5–98.8; O2SAT 93–99
[2024-09-14 04:03] LABS: BASOPHILS # (AUTO) 0.04 K/uL (0.00-0.20); BASOPHILS % (AUTO) 0.3 % (0.0-5.0); EOSINOPHILS # (AUTO) 0.16 K/uL (0.00-0.70); EOSINOPHILS % (AUTO) 1.1 % (0.0-8.0); HEMATOCRIT 32.6 % (42-54); LYMPHOCYTES # (AUTO) 0.6 K/uL (1.0-4.8); LYMPHOCYTES % (AUTO) 4.1 % (21.0-51.0); MEAN CORPUSCULAR HEMOGLOBIN 33.1 pg (27.0-33.0); MEAN CORPUSCULAR HGB CONC 32.8 g/dL (32.0-36.0); MEAN CORPUSCULAR VOLUME 100.9 fL (79-99); MONOCYTES # (AUTO) 0.9 K/uL (0.1-1.0); MONOCYTES % (AUTO) 6.3 % (3.0-13.0); NEUTROPHILS # (AUTO) 12.5 K/uL (1.8-7.7); NEUTROPHILS % (AUTO) 87.5 % (40.0-77.0); PLATELET COUNT (AUTO) 264 K/uL (130-400); RED BLOOD CELL COUNT(AUTO) 3.23 MIL/uL (4.50-6.20); RED CELL DISTRIBUTION WIDTH 14.9 % (11.0-15.5); WHITE BLOOD COUNT (AUTO) 14.2 K/uL (4.8-10.8)
[2024-09-14 04:32] LABS: ALBUMIN 1.9 g/dL (3.5-5.0); BILIRUBIN,TOTAL 1.5 mg/dL (0.2-1.0); MAGNESIUM 2.1 mg/dL (1.80-2.40); PHOSPHORUS 8.3 mg/dL (2.5-4.9); TOTAL PROTEIN, SERUM 6.3 g/dL (6.0-8.3)
[2024-09-14 04:35] LABS: CREATININE 8.6 mg/dL (0.5-1.3)
[2024-09-14 04:36] LABS: ABG BASE EXCESS 2.2 mmol/L (-2.0-3.0); ABG HCO3 27.4 mmol/L (21.0-28.0); ABG OXYGEN SATURATION 95.6 % (94.0-98.0); ABG PCO2 45 mmHg (35-48); ABG PH 7.406 (7.350-7.450); PO2, ARTERIAL BG 78.3 mmHg (83.0-108.0)
--- NOTE | 2024-09-14 08:14 | PN ---
[facility] CARDIOLOGY PROGRESS NOTE Date Patient Seen: Sep 14, 2024 Time of Visit: 07:58 Problem List: Non-STEMI Acute on chronic systolic and diastolic heart failure exacerbated by non-STEMI Small bowel obstruction Hypertension Hyperlipidemia Diabetes mellitus type 2 End-stage renal disease on chronic HD on MWF Anemia of chronic disease CAD s/p CABG x 4 (SCHULZ-LAD, SVG-D1, SVG-OM2, and SVG-PDA) 07/13/[address] Ojeda 2D echo on 09/02/2023 with an EF 45-50%, grade II diastolic dysfunction, severely dilated right and left atrium, moderate aortic stenosis, peak gradient of 42 mmHg, mean pressure gradient of 20 mmHg Lexiscan stress test 11/04/2022 demonstrated global hypokinesis, fixed infero- apical defect, partially reversible anterior wall defect, with an EF of 35% LHC/coronary angiogram on 01/27/2023 demonstrated a patent SCHULZ graft to the LAD, patent SVG-D1, patent SVG-OM2, occluded SVG- to the distal RCA with 70% proximal stenosis and a total occlusion of the distal vessel and the left main coronary artery was totally occluded in the distal portion Interval History: Pt is evaluated in his room, complains of continued hiccups, lower abd pain, some clear phlegm production and denies chest pain, pressure or epigastric discomfort. Pt's edema is improved per his report. He states that he developed the severe lower abd pain with HD and they had to stop early. He was transferred to the hospital and found to have a bump in the troponin levels and some ST depression consistent with NSTEMI likely secondary to hypoperfusion and underlying disease. Pt has NGT in place, minimal output. He reports passing gas but no BM. He states the surgeon is planning on management with the tube not invasive intervention at this time. Pt has no fever but WBC was increased to 14 this morning from 12 yesterday. h/h stable, bili mildly elevated at 1.5. He is able to converse alert, no distress. He states that his blood sugar was dysregulated yesterday and made him feel very weak. Pt remains NPO with NGT to LI suction. Physical Examination: GENERAL: [No acute distress.] HEAD: [Normal with no signs of head trauma.] EYES: [PERRLA, EOMI, conjunctiva and sclera normal.] ENT: [Hearing grossly intact, normal oropharynx.] NECK: [Supple without JVD. There is no tenderness, lymphadenopathy, or masses. No thyromegaly. Normal carotid upstrokes without bruits.] LUNGS: [Clear breath sounds bilaterally. Diminished to bases. HEART: [Normal rate and rhythm. Normal S1 and pronounced S2 with 2/6 LSB murmur, gallop or rub.] VASC: [Peripheral pulses +2 bilaterally.] ABD:, obese, soft, tender to lower abd, hypoactive bowel sounds, no masses, no organomegaly. No audible bruits.] : [Not examined] LYMPH: [No lymphadenopathy noted.] EXT: [No clubbing, cyanosis or edema.] SKIN: Redness to heels, No rashes or lesions noted.] NEURO: [Awake, alert, and oriented x3. No focal sensory or strength deficits noted.] Laboratory: [ ] Hematology Labs: Test 09/14/24 03:36 09/13/24 04:00 Range/Units White Blood Count 14.2 H 4.8-10.8 K/uL Red Blood Count 3.23 L 4.50-6.20 MIL/uL Hemoglobin 10.7 L 14.0-18.0 g/dL Hematocrit 32.6 L 42-54 % Mean Corpuscular Volume 100.9 H 79-99 fL Mean Corpuscular Hemoglobin 33.1 H 27.0-33.0 pg Mean Corpuscular Hemoglobin Concent 32.8 32.0-36.0 g/dL Red Cell Distribution Width 14.9 11.0-15.5 % Platelet Count 264 130-400 K/uL Mean Platelet Volume 9.8 7.5-10.5 fL Immature Granulocyte % (Auto) 0.7 0-1 % Neutrophils (%) (Auto) 87.5 H 40.0-77.0 % Lymphocytes (%) (Auto) 4.1 L 21.0-51.0 % Monocytes (%) (Auto) 6.3 3.0-13.0 % Eosinophils (%) (Auto) 1.1 0.0-8.0 % Basophils (%) (Auto) 0.3 0.0-5.0 % Neutrophils # (Auto) 12.5 H 1.8-7.7 K/uL Lymphocytes # (Auto) 0.6 L 1.0-4.8 K/uL Monocytes # (Auto) 0.9 0.1-1.0 K/uL Eosinophils # (Auto) 0.16 0.00-0.70 K/uL Basophils # (Auto) 0.04 0.00-0.20 K/uL Absolute Immature Granulocyte (auto 0.10 0-1 K/uL Nucleated Red Blood Cells 0.0 0.0-0.19 % White Cell Morphology Comment CONSISTENT W/DIFF Chemistry Labs: Test 09/14/24 03:36 09/13/24 20:24 09/13/24 04:00 09/12/24 18:20 Range/Units Sodium Level 137 136-145 mmol/L Potassium Level 5.0 3.5-5.1 mmol/L Chloride Level 98 L 101-111 mmol/L Carbon Dioxide Level 25 21-32 mmol/L Blood Urea Nitrogen 68 H 7-18 mg/dL Creatinine 8.6 *H 0.5-1.3 mg/dL Glomerular Filtration Rate Calc 6 >90 mL/min Random Glucose 85 70-105 mg/dL Total Calcium 10.1 8.5-10.1 mg/dL Phosphorus Level 8.3 H 2.5-4.9 mg/dL Magnesium Level 2.10 1.80-2.40 mg/dL Total Bilirubin 1.5 H 0.2-1.0 mg/dL Aspartate Amino Transf (AST/SGOT) 81 H 10-37 U/L Alanine Aminotransferase (ALT/SGPT) 50 12-78 U/L Alkaline Phosphatase 56 50-136 U/L Total Protein 6.3 6.0-8.3 g/dL Albumin 1.9 L 3.5-5.0 g/dL Whole Blood Glucose 99 70-110 MG/DL Hemoglobin A1c 5.1 4.0-6.0 % Estimated Average Glucose (eAG) 100 70-126 mg/dL Lactic Acid Level 1.7 0.8-2.5 mmol/L Direct Bilirubin 1.3 #H 0.0-0.3 mg/dL Ammonia < 10 #L 11-32 umol/L Total Creatine Kinase 322 H 21-232 U/L B-Type Natriuretic Peptide > 5000 H 0-100 pg/mL Procalcitonin 25.10 H 0.05-0.5 ng/mL Troponin I High Sensitivity 1119.9 *H 4-75 ng/L Test 09/12/24 17:07 09/12/24 09:30 Range/Units Bedside Glucose Comment Protocol Initiated Lipase 41 16-77 U/L Coagulation Labs: Test 09/12/24 20:37 09/12/24 09:30 Range/Units D-Dimer Quantitative (PE/DVT) 6282 *H 0-500 ng/mL Prothrombin Time 13.2 H 9.6-11.6 SEC Prothromb Time International Ratio 1.20 H 0.85-1.15 Activated Partial Thromboplast Time 28.6 26.3-35.5 SEC Diagnostics / Radiology: PATIENT: BEN LUQUE MR#: [id number] : 1955 SEX: M AGE: 69 LOCATION: [facility] ORDER [id number] STATUS: ADM IN REPORT#: [id number] SERVICE [id number] REASON: chf ORDERING PHYSICIAN: PRAKASH HAMPTON PROCEDURE: ECHO CMP - ECHO 2-D COMPLETE APPROVED REPORT EXAM: Two-dimensional and M-mode echocardiogram with Doppler and color Doppler. INDICATION ICD: Congestive heart failure 2D Dimensions RVDd 6.1 cm LVEF(%) 52.4 (>50%) LVED Vol(simp.) 238.0 mL IVSd 1.0 (0.7-1.1cm) FS(%) 27 % LVES Vol(simp.) 165.0 mL LVDd 6.2 (3.8-5.6cm) LA (2D) 5.7 (1.6-4.0cm) LVEF(%, simp.) 31 % PWd 1.1 (0.7-1.1cm) Ao Root(2D) 3.4 (2.0-3.7cm) LA ESV INDEX (4CH) 79.50 mL/m2 IVSs 1.3 cm LVOT diam 2.9 (1.8-2.4cm) LA ESV INDEX (2CH) 53.70 mL/m2 LVDs 4.5 (2.5-4.0cm) LA ESV INDEX (BP) 68.80 mL/m2 PWs 2.1 cm M-Mode Dimensions EPSS 1.7 cm LA (MM) 5.5 (1.6-4.0cm) Ao Root(MM) 3.5 (2.0-3.7cm) Aortic Valve AoV VTI 0.6 m Ao Mean GR 19.0 mmHg LVOT VTI 0.15 m YESENIA (VMAX) 1.6 cm2 YESENIA (VTI) 1.6 cm2 Mitral Valve MV E Vmax 104.3 cm/s DECEL Time 137 ms MV A Vmax 64.0 cm/s P 1/2 T 72 ms E/A ratio 1.6 MVA (PHT) 3.1 cm2 MR Max PG 103 mmHg TDI E/E' Medial 20.5 E/E' Lateral 9.5 Medial E' Peak V 5.10 cm/s Lateral E' Peak V 11.00 cm/s Tricuspid Valve TR Vmax 3.2 m/s RAP (EST) 8 mmHg RVSP 48.9 mmHg TR Peak GR 40.9 mmHg Left Ventricle The left ventricle is moderately dilated. Global hypokinesia. Mild concentric left ventricular hypertrophy.. LVEF is 31%. The left ventricular diastolic function is indeterminate. Right Ventricle The right ventricle is severely dilated. Right ventricular systolic function is severely reduced. Atria The left atrium is severely dilated. The right atrium is severely dilated. Aortic Valve Aortic valve is trileaflet.The aortic valve is mildly thickened. No aortic regur gitation is present. There is mild aortic valvular stenosis. Calculated aortic valve area is 1.6 cm2 with maximum pressure gradient of 30 mmHg and mean pressure gradient of 19 mmHg. Mitral Valve The mitral valve is mildly thickened. There is mild mitral valve regurgitation noted. There is no mitral valve stenosis. Tricuspid Valve The tricuspid valve is normal in structure. There is mild tricuspid valve regurgitation noted. RVSP 49mmHg. Pulmonic Valve The pulmonary valve is normal in structure. There is no pulmonic valvular regurgitation. Great Vessels The aortic root is normal in size. IVC is not visualized. Pericardium There is no pericardial effusion. Other Information Quality : Adequate Conclusion LVEF is 31%. Global hypokinesia. The left ventricle is moderately dilated. The right ventricle is severely dilated. Right ventricular systolic function is severely reduced. The left atrium is severely dilated. The right atrium is severely dilated. There is mild aortic valvular stenosis. Calculated aortic valve area is 1.6 cm2 with maximum pressure gradient of 30 mmHg and mean pressure gradient of 19 mmHg. There is mild tricuspid valve regurgitation noted. RVSP 49mmHg. DICTATED BY: MARQUEZ LEE MD DATE: 09/12/24 133 ELECTRONICALLY SIGNED BY: MARQUEZ LEE MD DATE: 09/12/24 9066 Impression and Plan: Continue with conservative management for now, no plans for invasive intervention from cardiac standpoint Pt remains NPO initiate asa CT daily until able to take po, continue heparin sq If BP requires, use metoprolol IV 2.5 mg q6hr Stop hydralazine DALLAS LEWIS AGACNCora Sep 14, 2024 08:14
[2024-09-14] MEDS ORDERED: metoPROLOL tartRATE 1 MG/ML 5ML VIAL IV PRN (08:30)
[2024-09-14] MEDS: ASPIRIN 300 MG SUPPOSITORY PR SCH (10:00)
--- NOTE | 2024-09-14 10:17 | PN ---
[facility] PROGRESS NOTE Date of Service: Sep 14, 2024 Time of Service: 10:13 SUBJECTIVE: [ ] PCP: Admission date: 09/12/24 chief complaints: abd pain This is a 69-year-old male was admitted on 09/12/2024 with chief complaints of abdominal pain ER workup was consistent with small-bowel obstruction. Patient remains bowel rest surgeon following at this time conservative management. Patient is seen and examined with attending reviewed chart. Primary nurse reports patient is running low blood sugars patient will be started on D10 slow rate. 09/14 the patient has been seen and examined, no acute events overnight, patient comfortably in bed, alert oriented x3, following commands, BP 134/66, afebrile, saturating 99% on 1 L via nasal cannula, patient with the NG tube connected to intermittent suction, feels less abdominal distention, getting good pain control with current medical management, he is passing gas. V/Q scan negative for PE, Doppler of the lower extremities negative for DVT, discussed with the patient, last KUB 09/13/2024 moderately distended small bowel loops in the right upper quadrant which could represent obstruction. Patient will remain NPO, continue broad-spectrum IV antibiotics, continue to follow surgical input and recommendations. The patient also with Gram-negative sepsis, continue to follow results of septic workup, infectious disease consultation requested, input noted and appreciated. Echocardiogram with LVEF 31% with a global hypokinesia, cardiology input noted and appreciated, continue medical management, patient may eventually require cardiac catheterization. REVIEW OF SYSTEMS CONSTITUTIONAL: Denies fevers, chills, or night sweats. No unintentional weight loss reported. NEUROLOGICAL: Denies headache, amaurosis fugax, motor weakness, sensory deficit, vertigo/spinning sensation, gait abnormalities, or tremors. ENT: No hearing loss, otalgia, otorrhea, rhinitis, rhinorrhea, hoarseness, or sore throat. CARDIOVASCULAR: Denies any exertional angina, dyspnea on exertion, orthopnea, paroxysmal nocturnal dyspnea, palpitations, life-threatening arrhythmias, claudication. PULMONARY: Denies any shortness of breath, cough, phlegm/sputum, hemoptysis, pleuritic chest pain. SLEEP: Denies morning headaches, daytime somnolence or napping. Denies difficulty falling asleep, staying asleep, waking from sleep. Denies knowledge of snoring. GASTROINTESTINAL: Denies any type of dysphagia to either liquids or solids. Denies nausea, vomiting, pyrosis, early satiety, diarrhea, constipation, or changes in stool consistency or caliber. Denies coffee-ground emesis, hematemesis, hematochezia, or melanotic stools. Complains of persistent abdominal pain GENITOURINARY: Denies frequency, urgency, nocturia, hematuria or incontinence (Storage/Irritative symptoms.) Low urinary stream, straining to void, urinary intermittency or hesitancy, splitting of the voiding stream, terminal dribbling. ENDOCRINOLOGIC: Denies polyuria, polydipsia, polyphagia or heat/cold intolerances. HEMATOLOGIC: Denies thrombophilia/previous clots, or coagulopathy/bleeding disorders. ONCOLOGIC: Denies personal history of malignancy. DERMATOLOGIC: Denies rashes or pruritus. PSYCHIATRIC: Denies any suicidal or homicidal ideation. Denies hallucinations. PHYSICAL EXAM GENERAL APPEARANCE: The patient is awake, alert, and oriented, in no acute cardiopulmonary distress. NEUROLOGICAL: Cranial nerves II-XII grossly intact. Motor is 5/5 in bilateral upper and lower extremities proximal to distal. No sensory deficits. HEENT: Face is symmetric. Pupils are equal and reactive. Extraocular movements are intact. NECK: Supple. No JVD. No thyromegaly. No submental, submandibular, pre- /postauricular, occipital or supraclavicular lymphadenopathy. CHEST: Normal chest expansion. No Telemetry. LUNGS: Absence of any rales, rhonchi or any wheezing. CARDIOVASCULAR: Regular. S1 and S2 normal. No appreciable rubs, murmurs or gallops. ABDOMEN: Soft, nontender, and nondistended. There is no rebound, voluntary guarding, or rigidity. : Deferred. No Palomares. EXTREMITIES: Non-edematous and not cyanotic. No clubbing. Good capillary refill. SKIN: No skin breakdown. Vital Signs (last 8hr) Date Time Temp Pulse Resp B/P (MAP) Pulse Ox O2 Delivery O2 Flow Rate FiO2 09/14/24 08:15 97.5 82 16 124/66 99 Nasal Cannula 1.0 09/14/24 08:06 82 20 N/Cannula Low lpm 2.0 28 09/14/24 04:30 98.4 82 18 116/62 99 Nasal Cannula LABS: Laboratory: Test 09/14/24 04:34 09/14/24 03:36 09/13/24 20:24 09/13/24 04:00 Range/Units Blood Gas Specimen Type Arterial Arterial Blood pH 7.406 7.350-7.450 Arterial Blood Partial Pressure CO2 45 35-48 mmHg Arterial Blood Partial Pressure O2 78.3 L 83.0-108.0 mmHg Arterial Blood HCO3 27.4 21.0-28.0 mmol/L Arterial Blood Oxygen Saturation 95.6 94.0-98.0 % Arterial Blood Base Excess 2.2 -2.0-3.0 mmol/L Blood Gas Temperature 37.0 35.5-37.0 CELSIUS Blood Gas Flow-by 1.00 0.00-15.00 L/min Blood Gas Vent Mode NC,24 ROOM AIR FiO2 24.0 % Blood Gas Specimen Comment JUNG,ALAYNA COREA White Blood Count 14.2 H 4.8-10.8 K/uL Red Blood Count 3.23 L 4.50-6.20 MIL/uL Hemoglobin 10.7 L 14.0-18.0 g/dL Hematocrit 32.6 L 42-54 % Mean Corpuscular Volume 100.9 H 79-99 fL Mean Corpuscular Hemoglobin 33.1 H 27.0-33.0 pg Mean Corpuscular Hemoglobin Concent 32.8 32.0-36.0 g/dL Red Cell Distribution Width 14.9 11.0-15.5 % Platelet Count 264 130-400 K/uL Mean Platelet Volume 9.8 7.5-10.5 fL Immature Granulocyte % (Auto) 0.7 0-1 % Neutrophils (%) (Auto) 87.5 H 40.0-77.0 % Lymphocytes (%) (Auto) 4.1 L 21.0-51.0 % Monocytes (%) (Auto) 6.3 3.0-13.0 % Eosinophils (%) (Auto) 1.1 0.0-8.0 % Basophils (%) (Auto) 0.3 0.0-5.0 % Neutrophils # (Auto) 12.5 H 1.8-7.7 K/uL Lymphocytes # (Auto) 0.6 L 1.0-4.8 K/uL Monocytes # (Auto) 0.9 0.1-1.0 K/uL Eosinophils # (Auto) 0.16 0.00-0.70 K/uL Basophils # (Auto) 0.04 0.00-0.20 K/uL Absolute Immature Granulocyte (auto 0.10 0-1 K/uL Nucleated Red Blood Cells 0.0 0.0-0.19 % Sodium Level 137 136-145 mmol/L Potassium Level 5.0 3.5-5.1 mmol/L Chloride Level 98 L 101-111 mmol/L Carbon Dioxide Level 25 21-32 mmol/L Blood Urea Nitrogen 68 H 7-18 mg/dL Creatinine 8.6 *H 0.5-1.3 mg/dL Glomerular Filtration Rate Calc 6 >90 mL/min Random Glucose 85 70-105 mg/dL Total Calcium 10.1 8.5-10.1 mg/dL Phosphorus Level 8.3 H 2.5-4.9 mg/dL Magnesium Level 2.10 1.80-2.40 mg/dL Total Bilirubin 1.5 H 0.2-1.0 mg/dL Aspartate Amino Transf (AST/SGOT) 81 H 10-37 U/L Alanine Aminotransferase (ALT/SGPT) 50 12-78 U/L Alkaline Phosphatase 56 50-136 U/L Total Protein 6.3 6.0-8.3 g/dL Albumin 1.9 L 3.5-5.0 g/dL Whole Blood Glucose 99 70-110 MG/DL White Cell Morphology Comment CONSISTENT W/DIFF Hemoglobin A1c 5.1 4.0-6.0 % Estimated Average Glucose (eAG) 100 70-126 mg/dL Lactic Acid Level 1.7 0.8-2.5 mmol/L Direct Bilirubin 1.3 #H 0.0-0.3 mg/dL Ammonia < 10 #L 11-32 umol/L Total Creatine Kinase 322 H 21-232 U/L B-Type Natriuretic Peptide > 5000 H 0-100 pg/mL Procalcitonin 25.10 H 0.05-0.5 ng/mL Test 09/12/24 20:37 09/12/24 18:20 09/12/24 17:09 09/12/24 17:07 Range/Units D-Dimer Quantitative (PE/DVT) 6282 *H 0-500 ng/mL Mycoplasma pneumoniae IgM Antibody NEGATIVE NEGATIVE Troponin I High Sensitivity 1119.9 *H 4-75 ng/L SARS-CoV-2 Antigen (Rapid) PRESUMPTIVE NEGATIVE NEGATIVE Group A Streptococcus Rapid negative NEGATIVE Bedside Glucose Comment Protocol Initiated Test 09/12/24 13:25 09/12/24 12:53 Range/Units Influenza Type A Antigen Negative For Type A NEGATIVE Influenza Type B Antigen Negative For Type B NEGATIVE Hemoglobin (Blood Gas) 11.3 L 13.5-17.5 g/dL Sodium (Blood Gas) 133 L 136-145 MMOL/L Bedside Potassium (Blood Gas) 3.5 3.4-4.5 MMOL/L Bedside Chloride (Blood Gas) 96 L 98-107 MMOL/L Bedside Glucose (Blood Gas) 107 H 65-95 MG/DL Bedside Ionized Calcium (Blood Gas) 1.17 1.15-1.33 MMOL/L Bedside Lactic Acid (Blood Gas) 1.60 H 0.36-0.75 MMOL/L Current Medications Medications (Trade) Dose Ordered Sig/Elver Route PRN Reason Start Time Stop Time Status Last Admin Dose Admin Acetaminophen (TYLenol 325MG TAB) 650 mg Q4H PRN PO MILD PAIN (1-3) 09/12/24 12:30 10/12/24 12:29 09/13/24 02:50 650 MG Acetaminophen (TYLenol 325MG TAB) 650 mg Q6H PRN PO TEMPERATURE GREATER THAN 101.5 09/12/24 12:30 10/12/24 12:29 Acetaminophen/ Hydrocodone Bitart (NORco 5/325MG) 1 tab Q6H PRN PO MODERATE PAIN (4-6) 09/12/24 15:30 09/17/24 15:29 Al Hydroxide/Mg Hydroxide (MAALox PLUS 30ML) 30 ml Q6H PRN PO INDIGESTION 09/12/24 12:30 10/12/24 12:29 Aspirin (Aspirin 300mg Supp) 150 mg DAILY CO 09/14/24 09:00 10/14/24 08:59 09/14/24 10:00 150 MG Benzonatate (Tessalon 100mg Caps) 100 mg Q8H PRN PO cough 09/12/24 19:00 10/12/24 18:59 Dextrose 1,000 ml @ 20 mls/hr Q24H IV 09/13/24 11:30 10/13/24 11:29 09/13/24 12:01 20 MLS/HR Dextrose (D50w) 50 ml AD PRN IV HYPOGLYCEMIA PROTOCOL 09/12/24 12:30 10/12/24 12:29 09/13/24 10:29 50 ML Diphenhydramine HCl (BENAdryl INJ) 25 mg Q6H PRN IV SEVERE ITCHING/RASH 09/12/24 12:30 10/12/24 12:29 Doxycycline Hyclate 250 ml @ 125 mls/hr Q12H IV 09/12/24 19:00 09/22/24 18:59 09/14/24 06:12 125 MLS/HR Famotidine (Pepcid 20mg Vial) 20 mg BID PRN IV NAUSEA/VOMITING 09/12/24 12:30 09/12/24 12:44 DC Famotidine (Pepcid 20mg Vial) 20 mg Q48H IV 09/12/24 21:00 10/12/24 20:59 Glucagon (Glucagon 1mg Kit) 1 mg AD PRN IM HYPOGLYCEMIA PROTOCOL 09/12/24 12:30 10/12/24 12:29 Guaifenesin/ Dextromethorphan (RobiTUSSin DM 200/20MG 10ML) 10 ml Q4H PRN PO COUGH 09/12/24 12:30 10/12/24 12:29 Heparin Sodium (Porcine) (HEParin 5,000 UNIT VIAL) 5,000 unit BID SQ 09/12/24 21:00 10/12/24 20:59 09/14/24 10:00 5,000 UNIT Hydralazine HCl (APRESOLine 20MG INJ) 10 mg Q6H PRN IV For:SBP above 160;DBP above 90 09/12/24 12:30 09/14/24 08:11 DC Insulin Human Regular (humuLIN R 100 UNIT/ML 3ML) INSULIN SLIDING SCAL... ACHS SQ 09/12/24 16:30 10/12/24 16:29 Ketorolac Tromethamine (toRADol) 15 mg Q8H PRN IV MODERATE PAIN (4-6) 09/12/24 15:30 09/12/24 21:58 DC Lactulose (Constulose 20gm/ 30ml Udcup) 20 gm BID PRN PO CONSTIPATION 09/12/24 12:30 10/12/24 12:29 Magnesium Sulfate 50 ml @ 0 mls/hr PROTOCOL IV 09/13/24 08:30 10/13/24 08:29 Magnesium Sulfate 50 ml @ 0 mls/hr PROTOCOL PRN IV other 09/12/24 12:30 09/13/24 08:36 DC Magnesium Sulfate 50 ml @ 0 mls/hr PROTOCOL PRN IV low mag levl 09/13/24 08:30 09/13/24 08:37 DC Metoprolol Tartrate (loprESSOR) 2.5 mg Q6H PRN IV blood pressure 09/14/24 08:30 10/14/24 08:29 Morphine Sulfate (morPHINE 2MG SYG) 1 mg Q6H PRN IVP SEVERE PAIN (7-10) 09/12/24 15:30 09/19/24 15:29 09/13/24 20:16 1 MG Nitroglycerin (Nitrostat) 0.4 mg PROTOCOL PRN SL CHEST PAIN 09/12/24 12:30 10/12/24 12:29 Ondansetron HCl (zoFRAN 4MG INJ) 4 mg Q6H PRN IV NAUSEA/VOMITING 09/12/24 12:30 10/12/24 12:29 Pharmacy Profile Note (Pharmacy Communication) 1 each AD MISC 09/13/24 20:30 09/20/24 20:29 Piperacillin Sod/ Tazobactam Sod 50 ml @ 12.5 mls/hr Q12H IV 09/12/24 13:00 09/12/24 12:48 DC Piperacillin Sod/ Tazobactam Sod 50 ml @ 12.5 mls/hr Q12H IV 09/12/24 23:30 09/22/24 23:29 09/13/24 23:20 12.5 MLS/HR Potassium Chloride 100 ml @ 50 mls/hr AD PRN IV POTASSIUM PROTOCOL 09/13/24 08:30 10/13/24 08:29 Sodium Chloride 154 meq/Dextrose 1,000 ml @ 20 mls/hr Q24H IV 09/13/24 11:00 09/13/24 10:44 DC Zolpidem Tartrate (AmbIEN) 5 mg HS PRN PO INSOMNIA 09/12/24 12:30 10/12/24 12:29 DIAGNOSTICS / RADIOLOGY: [ ] ABD 1VW REASON: sbo FINDINGS: Single image of the abdomen was obtained. There are a few moderately dilated small bowel loops in the right upper quadrant. The small bowel loops in the mid abdomen and left lower quadrant are nearly gasless. The colon appears decompressed as well. IMPRESSION: 1. Moderately distended small bowel loops in the right upper quadrant which could represent obstruction. ASSESSMENT: [ Small-bowel obstruction versus ileus per CT abdomen/pelvis 09/12/2024 POA ESRD on dialysis Thursday needing dialysis POA Uncontrolled diabetes mellitus type 2 with hyper and hypoglycemia POA Hyperlipidemia POA Coronary artery disease s/p CABG six years ago POA Uncontrolled hypertension POA Multifactorial anemia POA Lactic acidosis 4.6 POA Hyperbilirubinemia 1.9 POA Hyper troponinemia POA acute on chroniic CHF EF 45/50% chronic combined systolic and diastolic congestive heart failure. History of cholelithiasis POA History of appendectomy ] History of appendectomy History of right knee cartilage surgery History of left hand pointing finger amputation Current alcohol drinking occasionally PLAN: Patient remains admitted to the PCU Patient remains NPO Continue the patient with the NG tube connected to intermittent suction Continue broad-spectrum IV antibiotics Continue to follow results of septic workup Continue to follow infectious disease input recommendation Continue to follow surgical input recommendation Continue hemodialysis per medical health researcher recommendations Replace electrolytes IV per protocol CBC in a.m. transfuse as needed Follow a.m. labs GI and DVT prophylaxis Disposition: Pending improvement in clinical condition. Plan of action discussed, all questions answered, agreed and understood the information provided. Total PCU time spent greater than 30 minutes. JOSE CHOPRA MD Sep 14, 2024 10:17
--- NOTE | 2024-09-14 11:30 | NUR ---
Order received and spoke to nurse, Lissy. Patient is still in significant pain with SBO and NG tube in place. Hold PT today due to medical instability.
[2024-09-14] MEDS: 0.9%NACL 1000ML 1,000 ML IV SCH (11:56)
--- NOTE | 2024-09-14 12:25 | PN ---
INFECTIOUS DISEASE PROGRESS NOTE Date of Service: Sep 14, 2024 SUBJECTIVE: This is a 69-year-old male patient who was admitted to the hospital with chief complaint of abdominal pain. A CT of the abdomen and pelvis done on admission showed Mild bowel dilatation with fluid-filled may be related to small bowel obstruction and a done yesterday Moderately distended small bowel loops in the right upper quadrant which could represent obstruction. General surgery has been consulted and following patient. Patient was started on an NG tube to to low intermittent suction to decompress. A chest x-ray showed mild bilateral pulmonary infiltrates. Patient was seen and examined at bedside in room 230. Patient was being dialyzed during our visit. WBC is still slightly elevated at 14.2 but patient is afebrile, temperature is 98.1. We will continue to follow up on the culture results. Patient continues on vancomycin, Zosyn and doxycycline. We will continue to follow patient's care. PHYSICAL EXAM EYES: Anicteric. Pupils equal and reactive. HENT: No oral thrush seen, moist Oral mucosa. NG tube to low intermittent suction. NECK: Supple, no JVD or thyromegaly. LUNGS: Good air entry. No rales, no rhonchi. CARDIOVASCULAR: S1, S2 regular. No murmur heard. ABDOMEN: Soft, bowel sounds present, no organomegaly. Tender CENTRAL NERVOUS SYSTEM: Awake, alert, oriented x 3. SKIN: No rashes, no swelling. LYMPHATICS: No peripheral lymphadenopathy MUSCULOSKELETAL: No joint swelling, erythema or tenderness. EXTREMITIES: No cyanosis or clubbing BACK: No deformity, no pressure ulcer. GENITOURINARY: No dysuria or hematuria. Vital Sign (Last 12 Hours) 09/14/24 09/14/24 09/14/24 09/14/24 04:30 08:00 08:06 08:15 Temp 98.4 97.5 Pulse 82 82 82 Resp 18 20 16 B/P (MAP) 116/62 124/66 Pulse Ox 99 99 99 O2 Delivery Nasal Cannula Nasal Cannula* N/Cannula Low lpm Nasal Cannula O2 Flow Rate 1 2.0 1.0 FiO2 24 28 09/14/24 12:17 Temp 98.1 Pulse 80 Resp 16 B/P (MAP) 128/56 Pulse Ox 98 O2 Delivery Nasal Cannula O2 Flow Rate 1.0 Intake & Output (last 24hrs) 1/14/25 1/14/25 1/15/25 15:00 23:00 07:00 Intake Total 32.5 ml 302.5 ml Balance 32.5 ml 302.5 ml LABS: Laboratory: Test 09/14/24 11:55 09/14/24 04:34 09/14/24 03:36 09/13/24 04:00 Range/Units Whole Blood Glucose 86 70-110 MG/DL Blood Gas Specimen Type Arterial Arterial Blood pH 7.406 7.350-7.450 Arterial Blood Partial Pressure CO2 45 35-48 mmHg Arterial Blood Partial Pressure O2 78.3 L 83.0-108.0 mmHg Arterial Blood HCO3 27.4 21.0-28.0 mmol/L Arterial Blood Oxygen Saturation 95.6 94.0-98.0 % Arterial Blood Base Excess 2.2 -2.0-3.0 mmol/L Blood Gas Temperature 37.0 35.5-37.0 CELSIUS Blood Gas Flow-by 1.00 0.00-15.00 L/min Blood Gas Vent Mode NC,24 ROOM AIR FiO2 24.0 % Blood Gas Specimen Comment JUNG,RN NAHOMY White Blood Count 14.2 H 4.8-10.8 K/uL Red Blood Count 3.23 L 4.50-6.20 MIL/uL Hemoglobin 10.7 L 14.0-18.0 g/dL Hematocrit 32.6 L 42-54 % Mean Corpuscular Volume 100.9 H 79-99 fL Mean Corpuscular Hemoglobin 33.1 H 27.0-33.0 pg Mean Corpuscular Hemoglobin Concent 32.8 32.0-36.0 g/dL Red Cell Distribution Width 14.9 11.0-15.5 % Platelet Count 264 130-400 K/uL Mean Platelet Volume 9.8 7.5-10.5 fL Immature Granulocyte % (Auto) 0.7 0-1 % Neutrophils (%) (Auto) 87.5 H 40.0-77.0 % Lymphocytes (%) (Auto) 4.1 L 21.0-51.0 % Monocytes (%) (Auto) 6.3 3.0-13.0 % Eosinophils (%) (Auto) 1.1 0.0-8.0 % Basophils (%) (Auto) 0.3 0.0-5.0 % Neutrophils # (Auto) 12.5 H 1.8-7.7 K/uL Lymphocytes # (Auto) 0.6 L 1.0-4.8 K/uL Monocytes # (Auto) 0.9 0.1-1.0 K/uL Eosinophils # (Auto) 0.16 0.00-0.70 K/uL Basophils # (Auto) 0.04 0.00-0.20 K/uL Absolute Immature Granulocyte (auto 0.10 0-1 K/uL Nucleated Red Blood Cells 0.0 0.0-0.19 % Sodium Level 137 136-145 mmol/L Potassium Level 5.0 3.5-5.1 mmol/L Chloride Level 98 L 101-111 mmol/L Carbon Dioxide Level 25 21-32 mmol/L Blood Urea Nitrogen 68 H 7-18 mg/dL Creatinine 8.6 *H 0.5-1.3 mg/dL Glomerular Filtration Rate Calc 6 >90 mL/min Random Glucose 85 70-105 mg/dL Total Calcium 10.1 8.5-10.1 mg/dL Phosphorus Level 8.3 H 2.5-4.9 mg/dL Magnesium Level 2.10 1.80-2.40 mg/dL Total Bilirubin 1.5 H 0.2-1.0 mg/dL Aspartate Amino Transf (AST/SGOT) 81 H 10-37 U/L Alanine Aminotransferase (ALT/SGPT) 50 12-78 U/L Alkaline Phosphatase 56 50-136 U/L Total Protein 6.3 6.0-8.3 g/dL Albumin 1.9 L 3.5-5.0 g/dL White Cell Morphology Comment CONSISTENT W/DIFF Hemoglobin A1c 5.1 4.0-6.0 % Estimated Average Glucose (eAG) 100 70-126 mg/dL Lactic Acid Level 1.7 0.8-2.5 mmol/L Direct Bilirubin 1.3 #H 0.0-0.3 mg/dL Ammonia < 10 #L 11-32 umol/L Total Creatine Kinase 322 H 21-232 U/L B-Type Natriuretic Peptide > 5000 H 0-100 pg/mL Procalcitonin 25.10 H 0.05-0.5 ng/mL Test 09/12/24 20:37 09/12/24 18:20 09/12/24 17:09 09/12/24 17:07 Range/Units D-Dimer Quantitative (PE/DVT) 6282 *H 0-500 ng/mL Mycoplasma pneumoniae IgM Antibody NEGATIVE NEGATIVE Troponin I High Sensitivity 1119.9 *H 4-75 ng/L SARS-CoV-2 Antigen (Rapid) PRESUMPTIVE NEGATIVE NEGATIVE Group A Streptococcus Rapid negative NEGATIVE Bedside Glucose Comment Protocol Initiated Test 09/12/24 13:25 09/12/24 12:53 Range/Units Influenza Type A Antigen Negative For Type A NEGATIVE Influenza Type B Antigen Negative For Type B NEGATIVE Hemoglobin (Blood Gas) 11.3 L 13.5-17.5 g/dL Sodium (Blood Gas) 133 L 136-145 MMOL/L Bedside Potassium (Blood Gas) 3.5 3.4-4.5 MMOL/L Bedside Chloride (Blood Gas) 96 L 98-107 MMOL/L Bedside Glucose (Blood Gas) 107 H 65-95 MG/DL Bedside Ionized Calcium (Blood Gas) 1.17 1.15-1.33 MMOL/L Bedside Lactic Acid (Blood Gas) 1.60 H 0.36-0.75 MMOL/L ASSESSMENT: Multifocal pneumonia. Gram-negative sepsis. Abdominal pain. Leukocytosis. Small bowel obstruction versus ileus. Diabetes mellitus. End-stage renal disease. PLAN: Continue vancomycin per pharmacy protocol. Continue Zosyn IV. Continue doxycycline IV. Continue NG tube to low intermittent suction. Continue GI prophylaxis. Continue dialysis as recommended by electronic assembly. Continue monitoring glucose levels. We will follow up on the culture results. We will monitor electrolytes. This case was reviewed and discussed with my supervising physician and the above assessment and plan was formulated and agreed upon. ATTESTATION BY PHYSICIAN I have seen and examined the patient. I reviewed the documentation, medical decision making, and treatment plan as noted by the mid-level provider above. I agree with the findings and plan of care. YUMIKO LINN MD, MIRTA L [employer] Sep 14, 2024 12:25
--- NOTE | 2024-09-14 14:29 | PN ---
NEPHROLOGY PROGRESS NOTE Date/Time Patient Seen: Sep 14, 2024 Reason for Consultation: 14:19 SUBJECTIVE: 69 year old male patient with history of ESRD , hyperlipidemia, diabetes, hypertension, peripheral vascular disease, coronary artery disease, previous CABG and low ejection fraction, presented to hospital with small-bowel obstruction versus ileus . He has been short of breath, hemodynamically stable . Creatinine at 8.6 and BUN 68- Patient is due for hemodialysis today .He remains NPO with NGtube in place. REVIEW OF SYSTEMS: GENERAL: Positive for abdominal pain NEUROLOGIC: Negative for any blurry vision, blind spots, double vision, facial asymmetry, dysphagia, dysarthria, hemiparesis, hemisensory deficits, vertigo, ataxia. HEENT: Negative for any head trauma, neck trauma, neck stiffness, photophobia, phonophobia, sinusitis, rhinitis. CARDIAC: Negative for any chest pain, dyspnea on exertion, paroxysmal nocturnal dyspnea, peripheral edema. PULMONARY: Negative for any shortness of breath, wheezing, COPD, or TB exposure. GASTROINTESTINAL: Negative for any abdominal pain, nausea, vomiting, bright red blood per rectum, melena. GENITOURINARY: Negative for any dysuria, hematuria, incontinence. INTEGUMENTARY: Negative for any rashes, cuts, insect bites. RHEUMATOLOGIC: Negative for any joint pains, photosensitive rashes, history of vasculitis or kidney problems. HEMATOLOGIC: Negative for any abnormal bruising, frequent infections or bleeding. PHYSICAL EXAM: GENERAL: Alert and oriented x 3. No acute distress. Well-nourished. EYES: EOMI. Anicteric. HENT: Moist mucous membranes. No scleral icterus. No cervical lymphadenopathy. LUNGS: Clear to auscultation bilaterally. No accessory muscle use. CARDIOVASCULAR: Regular rate and rhythm. 2/6 LSB murmur. No JVD. ABDOMEN: obese, soft, tender to lower abd, hypoactive bowel sounds, no masses, no organomegaly EXTREMITIES: No edema. Non-tender. SKIN: No rashes or lesions. Warm. NEUROLOGIC: No focal neurological deficits. CN II-XII grossly intact, but not individually tested. PSYCHIATRIC: Cooperative. Appropriate mood and affect. LABORATORY: [ ] Hematology Labs: Test 09/14/24 03:36 09/13/24 04:00 Range/Units White Blood Count 14.2 H 4.8-10.8 K/uL Red Blood Count 3.23 L 4.50-6.20 MIL/uL Hemoglobin 10.7 L 14.0-18.0 g/dL Hematocrit 32.6 L 42-54 % Mean Corpuscular Volume 100.9 H 79-99 fL Mean Corpuscular Hemoglobin 33.1 H 27.0-33.0 pg Mean Corpuscular Hemoglobin Concent 32.8 32.0-36.0 g/dL Red Cell Distribution Width 14.9 11.0-15.5 % Platelet Count 264 130-400 K/uL Mean Platelet Volume 9.8 7.5-10.5 fL Immature Granulocyte % (Auto) 0.7 0-1 % Neutrophils (%) (Auto) 87.5 H 40.0-77.0 % Lymphocytes (%) (Auto) 4.1 L 21.0-51.0 % Monocytes (%) (Auto) 6.3 3.0-13.0 % Eosinophils (%) (Auto) 1.1 0.0-8.0 % Basophils (%) (Auto) 0.3 0.0-5.0 % Neutrophils # (Auto) 12.5 H 1.8-7.7 K/uL Lymphocytes # (Auto) 0.6 L 1.0-4.8 K/uL Monocytes # (Auto) 0.9 0.1-1.0 K/uL Eosinophils # (Auto) 0.16 0.00-0.70 K/uL Basophils # (Auto) 0.04 0.00-0.20 K/uL Absolute Immature Granulocyte (auto 0.10 0-1 K/uL Nucleated Red Blood Cells 0.0 0.0-0.19 % White Cell Morphology Comment CONSISTENT W/DIFF Chemistry Labs: Test 09/14/24 11:55 09/14/24 03:36 09/13/24 04:00 09/12/24 18:20 Range/Units Whole Blood Glucose 86 70-110 MG/DL Sodium Level 137 136-145 mmol/L Potassium Level 5.0 3.5-5.1 mmol/L Chloride Level 98 L 101-111 mmol/L Carbon Dioxide Level 25 21-32 mmol/L Blood Urea Nitrogen 68 H 7-18 mg/dL Creatinine 8.6 *H 0.5-1.3 mg/dL Glomerular Filtration Rate Calc 6 >90 mL/min Random Glucose 85 70-105 mg/dL Total Calcium 10.1 8.5-10.1 mg/dL Phosphorus Level 8.3 H 2.5-4.9 mg/dL Magnesium Level 2.10 1.80-2.40 mg/dL Total Bilirubin 1.5 H 0.2-1.0 mg/dL Aspartate Amino Transf (AST/SGOT) 81 H 10-37 U/L Alanine Aminotransferase (ALT/SGPT) 50 12-78 U/L Alkaline Phosphatase 56 50-136 U/L Total Protein 6.3 6.0-8.3 g/dL Albumin 1.9 L 3.5-5.0 g/dL Hemoglobin A1c 5.1 4.0-6.0 % Estimated Average Glucose (eAG) 100 70-126 mg/dL Lactic Acid Level 1.7 0.8-2.5 mmol/L Direct Bilirubin 1.3 #H 0.0-0.3 mg/dL Ammonia < 10 #L 11-32 umol/L Total Creatine Kinase 322 H 21-232 U/L B-Type Natriuretic Peptide > 5000 H 0-100 pg/mL Procalcitonin 25.10 H 0.05-0.5 ng/mL Troponin I High Sensitivity 1119.9 *H 4-75 ng/L Test 09/12/24 17:07 Range/Units Bedside Glucose Comment Protocol Initiated Coagulation Labs: Test 09/12/24 20:37 Range/Units D-Dimer Quantitative (PE/DVT) 6282 *H 0-500 ng/mL DIAGNOSTICS / RADIOLOGY: REASON: Altered mental status ORDERING PHYSICIAN: MICHAEL SAHU MD PROCEDURE: HEAD WO - CT HEAD/BRAIN W/O CONTRAST CT HEAD/BRAIN W/O CONTRAST HISTORY: Altered mental status COMPARISON: None TECHNIQUE: Multiple sequential axial images of the head were obtained from the base of the skull through vertex. Patient was not given contrast through intravenous route. FINDINGS: The ventricles and extraventricular CSF spaces are dilated consistent with cerebral atrophy. Nonspecific white matter changes seen. There is atherosclerosis. There is no midline shift, mass effect or herniation. No acute intracranial bleed is seen. Visualized portion of the paranasal sinuses are grossly within normal limits. IMPRESSION: 1. No acute intracranial bleed is seen. CT was performed with one or more following dose reduction techniques: automated exposure control, adjustment of the mA and kv according to patient's size, or use of a iterative reconstruction technique. DICTATED BY: LUIS ROBERTS MD DATE: 09/12/24 1251 REASON: diffused abd pain ORDERING PHYSICIAN: MARK PARHAM PROCEDURE: ABD PEL WO - CT ABDOMEN/PELVIS W/O CONTRAST CT ABDOMEN/PELVIS W/O CONTRAST HISTORY: Diffuse abdominal pain COMPARISON: 09/05/2023 TECHNIQUE: Multiple sequential axial images of the abdomen and pelvis were obtained from the dome of the diaphragm through symphysis pubis. Patient was not given contrast through intravenous route. Oral contrast was not given. FINDINGS: No pleural effusion is seen bilaterally. There is no evidence of parenchymal disease or pulmonary nodule of the visualized lower lungs. Degenerative changes of the thoracolumbar spine are present. The heart is borderline enlarged. Coronary arterial calcifications are seen. Liver measures 19 cm. Spleen measures 11 cm. Stomach is poorly distended. There is small bowel dilatation with fluid-filled may be related to enteritis. The liver, spleen, adrenal glands and pancreas are unremarkable. There is no evidence of hydronephrosis bilaterally. There are bilateral renal vascular calcifications with possible small renal pelvic stones. Bilateral renal atrophy is seen. Fecal material is seen in the colon. There is diverticulosis. There are normal size retroperitoneal and mesenteric lymph nodes. Tiny ascites is seen. Atherosclerotic changes are present. Pelvic sidewalls are symmetric bilaterally. Bladder is poorly distended. IMPRESSION: 1. Mild bowel dilatation with fluid-filled may be related to small bowel obstruction. Tiny ascites. Diverticulosis. CT was performed with one or more following dose reduction techniques: automated exposure control, adjustment of the mA and kv according to patient's size, or use of a iterative reconstruction technique. DICTATED BY: LUIS ROBERTS MD DATE: 09/12/24 1026 REASON: Shortness of breath ORDERING PHYSICIAN: MICHAEL SAHU MD PROCEDURE: CXR1VW - CHEST 1VW CHEST 1VW HISTORY: Shortness of breath COMPARISON: 09/01/2023 FINDINGS: A frontal projection of the chest was obtained. Prominent interstitial markings are seen with possible superimposed infiltrates. Poststernotomy changes are seen. The heart is enlarged. Degenerative changes of the thoracolumbar spine are present. Degenerative changes are seen. No evidence of aortic calcification is seen. IMPRESSION: 1. Prominent interstitial markings are seen with possible superimposed infiltrates. DICTATED BY: LUIS ROBERTS MD DATE: 09/12/24 0957 PROCEDURE: ECHO CMP - ECHO 2-D COMPLETE APPROVED REPORT EXAM: Two-dimensional and M-mode echocardiogram with Doppler and color Doppler. INDICATION ICD: Congestive heart failure 2D Dimensions RVDd 6.1 cm LVEF(%) 52.4 (>50%) LVED Vol(simp.) 238.0 mL IVSd 1.0 (0.7-1.1cm) FS(%) 27 % LVES Vol(simp.) 165.0 mL LVDd 6.2 (3.8-5.6cm) LA (2D) 5.7 (1.6-4.0cm) LVEF(%, simp.) 31 % PWd 1.1 (0.7-1.1cm) Ao Root(2D) 3.4 (2.0-3.7cm) LA ESV INDEX (4CH) 79.50 mL/m2 IVSs 1.3 cm LVOT diam 2.9 (1.8-2.4cm) LA ESV INDEX (2CH) 53.70 mL /m2 LVDs 4.5 (2.5-4.0cm) LA ESV INDEX (BP) 68.80 mL/m2 PWs 2.1 cm M-Mode Dimensions EPSS 1.7 cm LA (MM) 5.5 (1.6-4.0cm) Ao Root(MM) 3.5 (2.0-3.7cm) Aortic Valve AoV VTI 0.6 m Ao Mean GR 19.0 mmHg LVOT VTI 0.15 m YESENIA (VMAX) 1.6 cm2 YESENIA (VTI) 1.6 cm2 Mitral Valve MV E Vmax 104.3 cm/s DECEL Time 137 ms MV A Vmax 64.0 cm/s P 1/2 T 72 ms E/A ratio 1.6 MVA (PHT) 3.1 cm2 MR Max PG 103 mmHg TDI E/E' Medial 20.5 E/E' Lateral 9.5 Medial E' Peak V 5.10 cm/s Lateral E' Peak V 11.00 cm/s Tricuspid Valve TR Vmax 3.2 m/s RAP (EST) 8 mmHg RVSP 48.9 mmHg TR Peak GR 40.9 mmHg Left Ventricle The left ventricle is moderately dilated. Global hypokinesia. Mild concentric left ventricular hypertrophy.. LVEF is 31%. The left ventricular diastolic function is indeterminate. Right Ventricle The right ventricle is severely dilated. Right ventricular systolic function is severely reduced. Atria The left atrium is severely dilated. The right atrium is severely dilated. Aortic Valve Aortic valve is trileaflet.The aortic valve is mildly thickened. No aortic regurgitation is present. There is mild aortic valvular stenosis. Calculated aortic valve area is 1.6 cm2 with maximum pressure gradient of 30 mmHg and mean pressure gradient of 19 mmHg. Mitral Valve The mitral valve is mildly thickened. There is mild mitral valve regurgitation noted. There is no mitral valve stenosis. Tricuspid Valve The tricuspid valve is normal in structure. There is mild tricuspid valve regurgitation noted. RVSP 49mmHg. Pulmonic Valve The pulmonary valve is normal in structure. There is no pulmonic valvular regurgitation. Great Vessels The aortic root is normal in size. IVC is not visualized. Pericardium There is no pericardial effusion. Other Information Quality : Adequate Conclusion LVEF is 31%. Global hypokinesia. The left ventricle is moderately dilated. The right ventricle is severely dilated. Right ventricular systolic function is severely reduced. The left atrium is severely dilated. The right atrium is severely dilated. There is mild aortic valvular stenosis. Calculated aortic valve area is 1.6 cm2 with maximum pressure gradient of 30 mmHg and mean pressure gradient of 19 mmHg. There is mild tricuspid valve regurgitation noted. RVSP 49mmHg. DICTATED BY: MARQUEZ LEE MD DATE: 09/12/24 1332 ELECTRONICALLY SIGNED BY: MARQUEZ LEE MD DATE: 09/12/24 1628 ASSESSMENT: End-stage renal disease Anemia Abdominal pain Small-bowel obstruction versus ileus HFpEF LVEF 45 to 50% Uncontrolled Diabetes mellitus Hyperlipidemia Coronary artery disease Anemia PLAN: Labs and Diagnostics/ Radiology personally reviewed and interpreted by myself and supervising physician We have reviewed dialysis and external records in detail Continue dialysis schedule Thursday- due for Hemodialysis today . No invasive intervention as per Cardiology Do not give IV fluids 1.5 L fluid restriction Continue to monitor H&H Epogen on dialysis days, as needed Continue with frequent monitoring of renal function, anemia, and electrolytes Order CBC, BMP, and electrolytes in the morning May use Dilaudid 0.5 mg IV every 6 hours as needed for severe pain Monitor blood pressure adjust medication doses as needed Maintain normotensive state Strict intake, output, and daily weight should be monitored Please renally adjust medications. Avoid nephrotoxics and nonsteroidal drugs. We will continue to monitor the patient closely We have discussed with the other team physicians in detail about the care plan Thank you for allowing us to participate in the care of this patient ATTESTATION BY PHYSICIAN I have seen and examined the patient. I reviewed the documentation, medical decision making, and treatment plan as noted by the resident provider above. I agree with the findings and plan of care. MICHELLE MUNSON MD, ANCHU A MD Sep 14, 2024 14:29
--- NOTE | 2024-09-14 16:46 | PN ---
pt w SBO. reports pain has improved. He started passing gas this afternoon. No bowel movement. NG tube in place with minimal output Denies any nausea or vomiting. Exam Patient alert and oriented NG tube with only 50 mL of bilious output. Abdomen is distended soft minimally tender in the right lower quadrant and left lower quadrant. No rebound no peritonitis Assessment and plan. Small bowel obstruction in the seems to be resolving. We will repeat KUB in the morning okay for ice chips. No surgical intervention for now. Vitals/Labs Vital Signs Date Time Temp Pulse Resp B/P (MAP) Pulse Ox O2 Delivery O2 Flow Rate FiO2 09/14/24 16:27 97.5 91 16 110/52 97 Nasal Cannula 1.0 09/14/24 08:06 28 Laboratory Tests 09/14/24 03:36 Medications Current Medications Ondansetron HCl 4 mg ONCE ONCE IVP Last administered on 09/12/24at 09:44; Start 09/12/24 at 09:30; Stop 09/12/24 at 09:31; Status DC Morphine Sulfate 2 mg ONCE ONCE IVP Last administered on 09/12/24at 09:45; Start 09/12/24 at 09:30; Stop 09/12/24 at 09:31; Status DC Famotidine 20 mg ONCE ONCE IV Last administered on 09/12/24at 09:44; Start 09/12/24 at 09:30; Stop 09/12/24 at 09:31; Status DC Sodium Chloride 500 ml @ 0 mls/hr ONCE ONCE IV Last administered on 09/12/24at 10:26; Start 09/12/24 at 10:30; Stop 09/12/24 at 10:31; Status DC Piperacillin Sod/ Tazobactam Sod 3.375 gm ONCE ONCE IV Last administered on 09/12/24at 11:33; Start 09/12/24 at 11:00; Stop 09/12/24 at 11:04; Status DC Insulin Human Regular INSULIN SLIDING SCAL... ACHS SQ; Start 09/12/24 at 16:30; Stop 10/12/24 at 16:29 Dextrose 50 ml AD PRN IV Last administered on 09/13/24at 10:29; Start 09/12/24 at 12:30; Stop 10/12/24 at 12:29 Glucagon 1 mg AD PRN IM; Start 09/12/24 at 12:30; Stop 10/12/24 at 12:29 Magnesium Sulfate 50 ml @ 0 mls/hr PROTOCOL PRN IV; Start 09/12/24 at 12:30; Stop 09/13/24 at 08:36; Status DC Diphenhydramine HCl 25 mg Q6H PRN IV; Start 09/12/24 at 12:30; Stop 10/12/24 at 12:29 Acetaminophen 650 mg Q6H PRN PO; Start 09/12/24 at 12:30; Stop 10/12/24 at 12:29 Acetaminophen 650 mg Q4H PRN PO Last administered on 09/13/24at 02:50; Start 09/12/24 at 12:30; Stop 10/12/24 at 12:29 Ondansetron HCl 4 mg Q6H PRN IV; Start 09/12/24 at 12:30; Stop 10/12/24 at 12:29 Zolpidem Tartrate 5 mg HS PRN PO; Start 09/12/24 at 12:30; Stop 10/12/24 at 12:29 Al Hydroxide/Mg Hydroxide 30 ml Q6H PRN PO; Start 09/12/24 at 12:30; Stop 10/12/24 at 12:29 Lactulose 20 gm BID PRN PO; Start 09/12/24 at 12:30; Stop 10/12/24 at 12:29 Nitroglycerin 0.4 mg PROTOCOL PRN SL; Start 09/12/24 at 12:30; Stop 10/12/24 at 12:29 Guaifenesin/ Dextromethorphan 10 ml Q4H PRN PO; Start 09/12/24 at 12:30; Stop 10/12/24 at 12:29 Famotidine 20 mg BID PRN IV; Start 09/12/24 at 12:30; Stop 09/12/24 at 12:44; Status DC Heparin Sodium (Porcine) 5,000 unit BID SQ Last administered on 09/14/24at 10:00; Start 09/12/24 at 21:00; Stop 10/12/24 at 20:59 Piperacillin Sod/ Tazobactam Sod 50 ml @ 12.5 mls/hr Q12H IV; Start 09/12/24 at 13:00; Stop 09/12/24 at 12:48; Status DC Hydralazine HCl 10 mg Q6H PRN IV; Start 09/12/24 at 12:30; Stop 09/14/24 at 08:11; Status DC Famotidine 20 mg Q48H IV; Start 09/12/24 at 21:00; Stop 10/12/24 at 20:59 Dextrose 50 ml ONCE ONCE IV Last administered on 09/12/24at 12:44; Start 09/12/24 at 12:30; Stop 09/12/24 at 12:42; Status DC Dextrose 50 ml STK-MED ONCE IV; Start 09/12/24 at 12:25; Stop 09/12/24 at 12:25; Status DC Dextrose 50 ml ONCE ONCE IV; Start 09/12/24 at 13:00; Stop 09/12/24 at 13:01; Status DC Piperacillin Sod/ Tazobactam Sod 50 ml @ 12.5 mls/hr Q12H IV Last administered on 09/14/24at 12:48; Start 09/12/24 at 23:30; Stop 09/22/24 at 23:29 Morphine Sulfate 2 mg ONCE ONCE IVP Last administered on 09/12/24at 14:06; Start 09/12/24 at 14:00; Stop 09/12/24 at 14:01; Status DC Morphine Sulfate 2 mg ONCE ONCE IVP Last administered on 09/12/24at 15:23; Start 09/12/24 at 14:00; Stop 09/12/24 at 14:01; Status DC Ketorolac Tromethamine 15 mg Q8H PRN IV; Start 09/12/24 at 15:30; Stop 09/12/24 at 21:58; Status DC Acetaminophen/ Hydrocodone Bitart 1 tab Q6H PRN PO; Start 09/12/24 at 15:30; Stop 09/17/24 at 15:29 Morphine Sulfate 1 mg Q6H PRN IVP Last administered on 09/13/24at 20:16; Start 09/12/24 at 15:30; Stop 09/19/24 at 15:29 Doxycycline Hyclate 250 ml @ 125 mls/hr Q12H IV Last administered on 09/14/24at 06:12; Start 09/12/24 at 19:00; Stop 09/22/24 at 18:59 Benzonatate 100 mg Q8H PRN PO; Start 09/12/24 at 19:00; Stop 10/12/24 at 18:59 Aspirin 300 mg ONCE ONCE KS Last administered on 09/12/24at 23:05; Start 09/12/24 at 22:00; Stop 09/12/24 at 22:01; Status DC Dicyclomine HCl 20 mg ONCE ONCE IM Last administered on 09/13/24at 03:18; Start 09/13/24 at 03:30; Stop 09/13/24 at 03:31; Status DC Magnesium Sulfate 50 ml @ 0 mls/hr PROTOCOL IV; Start 09/13/24 at 08:30; Stop 10/13/24 at 08:29 Potassium Chloride 100 ml @ 50 mls/hr AD PRN IV; Start 09/13/24 at 08:30; Stop 10/13/24 at 08:29 Magnesium Sulfate 50 ml @ 0 mls/hr PROTOCOL PRN IV; Start 09/13/24 at 08:30; Stop 09/13/24 at 08:37; Status DC Sodium Chloride 154 meq/Dextrose 1,000 ml @ 20 mls/hr Q24H IV; Start 09/13/24 at 11:00; Stop 09/13/24 at 10:44; Status DC Dextrose 1,000 ml @ 20 mls/hr Q24H IV Last administered on 09/13/24at 12:01; Start 09/13/24 at 11:30; Stop 10/13/24 at 11:29 Pharmacy Profile Note 1 each [place] [facility] [place] Start 09/13/24 at 20:30; Stop 09/20/24 at 20:29 Aspirin 150 mg DAILY [place] Last administered on 09/14/24at 10:00; Start 09/14/24 at 09:00; Stop 10/14/24 at 08:59 Metoprolol Tartrate 2.5 mg Q6H PRN IV; Start 09/14/24 at 08:30; Stop 10/14/24 at 08:29 Sodium Chloride 1,000 ml @ 0 mls/hr ONCE IV Last administered on 09/14/24at 11:56; Start 09/14/24 at 12:00; Stop 10/14/24 at 11:59 ALEJANDRO HARP MD Sep 14, 2024 16:46
[2024-09-14] MEDS ORDERED: VANCOMYCIN PROTOCOL PER PHARMACY IV SCH (17:30)
--- NOTE | 2024-09-14 17:34 | PN ---
[facility] PROGRESS NOTE Date Patient Seen: Sep 14, 2024 Time of Visit: 17:31 Supervising Physician: Beba Grimaldo MD Supervising Physician: Dr. Beba Grimaldo Primary Care Physician: [Dr. Ruddy Magana] Outpatient Specialists: [ ] Inpatient Consults: [Dr. Banuelos: nephro, Dr. Peck:cardio, Dr. Moore: surgery, [facility] team: pulmo] PROBLEM LIST: Suspected sepsis 2/2 CAP-POA Community-acquired pneumonia-POA on 1 L Acute hypoxic respiratory insufficiency requiring oxygen via NC-POA Ileus vs. SBO-POA NSTEMI, demand ischemia vs. cardiac etiology-POA Lactic acidosis-POA Hyperbilirubinemia-POA Hepatic transaminitis-POA Acute hypoglycemia-POA Systolic CHF, EF 31% per recent echo 09/12/2024, possible [id number] ESRD with HD MWF CAD s/p CABG x4 Primary HTN HLD Diabetes mellitus Hypothyroidism GERD PLAN: -Titrate oxygen to keep sats >92% -PRN Duoneb for SOB/wheeze -Obtain baseline ABG -Pending blood CX -Obtain pneumo studies -IS q1H x 10 while awake -Obtain d-dimer, if significant, will obtain VQ scan to rule-out P.E. -Manage cough PRN -The rest of medical management per primary -empiric coverage for healthcare associated pneumonia with vanco and Zosyn, cover for community-acquired pneumonia with doxycycline. INTERVAL HISTORY: 09/13/24- Patient evaluated at bedside in the ED, currently on Zosyn and doxycycline for suspected community-acquired pneumonia. Patient at this time is on 2 L nasal cannula, continuing with nebulizer treatments and pending blood cultures at this time. He is scheduled to receive hemodialysis tomorrow. Patient was requesting discontinuation of the breathing treatments as he states there what is actually causing his cough at this time, nursing staff advised that we will discontinue these for the time being. Patient endorses improvement from the time of his admission. Patient's white count is slightly increased at 12.6 today. 07/15/25- patient assessed in bed awake alert and oriented x3. With family at bedside. He is hemodynamically stable saturating 97% with 1 L via nasal cannula and afebrile. Currently receiving hemodialysis. Patient continues with the NG tube at low intermittent suction with 50 mL of bilious output. Per General surgery no surgical Intervention for now. Lung V/Q scan no evidence of PE. KUB moderate distended small bowel loops in the right upper quadrant with could represent obstruction. On venous Doppler no evidence of DVT. From pulmonary standpoint patient to continue empiric IV antibiotics to cover for healthcare associated pneumonia, HD per Nephrology, and follow General surgery recommendations in regards to SBO. Continue to wean O2 as tolerated. And patient will need a 6 minute walk prior to discharge to assess for home O2. From pulmonary standpoint patient is stable at this time. We will sign off. Patient will need to follow-up with pulmonary service of choice 2 weeks postdischarge. Please reach to us should the need arise. On behalf of [facility] we are thankful for your team to let us participate in the care of this patient. We will be available if assistance in pulmonary critical care needed. REVIEW OF SYSTEMS: General: No malaise or fever. Neurological: No fainting episodes or seizures. HEENT: No nasal congestion or nasal secretion. Respiratory: No cough, shortness of breath, or wheezing Cardiac: No chest pain or palpitations. Gastrointestinal: Abdominal pain, no nausea vomiting or diarrhea. Yes to having constipation. Genitourinary: No dysuria hematuria. Skin: No rashes or lesions. Hematological: No bruises or bleeding. Musculoskeletal: No joint pains or arthralgias. Psychiatric: No depression or panic attacks. PHYSICAL EXAM: GENERAL: alert, weak, awake oriented x 3 HEENT: EOMI, Sclera non icteric, moist mucosa NECK: Supple, no JVD, trachea midline LUNGS: Diminished breath sounds bilaterally. No wheezes, rales or rhonchi HEART: Regular rate and rhythm. Normal S1 and S2, without murmurs ABD: Abdomen soft, left lower quadrant tenderness, no signs of ischemia or peritonitis. Bowel sounds hypoactive EXT: No clubbing cyanosis or edema NEURO: Alert and oriented to person, follows commands Vital Signs (last 8hr) Date Time Temp Pulse Resp B/P (MAP) Pulse Ox O2 Delivery O2 Flow Rate FiO2 09/14/24 16:27 97.5 91 16 110/52 97 Nasal Cannula 1.0 09/14/24 14:45 97.7 93 16 109/63 Nasal Cannula 1.0 09/14/24 14:30 86 16 99/56 Nasal Cannula 1.0 09/14/24 14:15 85 16 103/52 Nasal Cannula 1.0 09/14/24 14:00 84 16 118/58 Nasal Cannula 1.0 09/14/24 13:45 83 16 113/59 Nasal Cannula 1.0 09/14/24 13:30 83 16 109/56 Nasal Cannula 1.0 09/14/24 13:15 80 16 127/61 Nasal Cannula 1.0 09/14/24 13:00 84 16 107/58 Nasal Cannula 1.0 09/14/24 12:45 87 16 107/58 Nasal Cannula 1.0 09/14/24 12:30 82 16 116/58 Nasal Cannula 1.0 09/14/24 12:17 98.1 80 16 128/56 98 Nasal Cannula 1.0 09/14/24 12:15 83 16 123/64 Nasal Cannula 1.0 09/14/24 12:00 80 16 120/56 Nasal Cannula 1.0 09/14/24 11:45 98.1 80 16 128/58 Nasal Cannula 1.0 09/14/24 11:25 98.1 84 16 126/58 Nasal Cannula 1.0 LABS: Hematology Labs: Test 09/14/24 03:36 09/13/24 04:00 Range/Units White Blood Count 14.2 H 4.8-10.8 K/uL Red Blood Count 3.23 L 4.50-6.20 MIL/uL Hemoglobin 10.7 L 14.0-18.0 g/dL Hematocrit 32.6 L 42-54 % Mean Corpuscular Volume 100.9 H 79-99 fL Mean Corpuscular Hemoglobin 33.1 H 27.0-33.0 pg Mean Corpuscular Hemoglobin Concent 32.8 32.0-36.0 g/dL Red Cell Distribution Width 14.9 11.0-15.5 % Platelet Count 264 130-400 K/uL Mean Platelet Volume 9.8 7.5-10.5 fL Immature Granulocyte % (Auto) 0.7 0-1 % Neutrophils (%) (Auto) 87.5 H 40.0-77.0 % Lymphocytes (%) (Auto) 4.1 L 21.0-51.0 % Monocytes (%) (Auto) 6.3 3.0-13.0 % Eosinophils (%) (Auto) 1.1 0.0-8.0 % Basophils (%) (Auto) 0.3 0.0-5.0 % Neutrophils # (Auto) 12.5 H 1.8-7.7 K/uL Lymphocytes # (Auto) 0.6 L 1.0-4.8 K/uL Monocytes # (Auto) 0.9 0.1-1.0 K/uL Eosinophils # (Auto) 0.16 0.00-0.70 K/uL Basophils # (Auto) 0.04 0.00-0.20 K/uL Absolute Immature Granulocyte (auto 0.10 0-1 K/uL Nucleated Red Blood Cells 0.0 0.0-0.19 % White Cell Morphology Comment CONSISTENT W/DIFF Chemistry Labs: Test 09/14/24 16:09 09/14/24 03:36 09/13/24 04:00 09/12/24 18:20 Range/Units Whole Blood Glucose 86 70-110 MG/DL Sodium Level 137 136-145 mmol/L Potassium Level 5.0 3.5-5.1 mmol/L Chloride Level 98 L 101-111 mmol/L Carbon Dioxide Level 25 21-32 mmol/L Blood Urea Nitrogen 68 H 7-18 mg/dL Creatinine 8.6 *H 0.5-1.3 mg/dL Glomerular Filtration Rate Calc 6 >90 mL/min Random Glucose 85 70-105 mg/dL Total Calcium 10.1 8.5-10.1 mg/dL Phosphorus Level 8.3 H 2.5-4.9 mg/dL Magnesium Level 2.10 1.80-2.40 mg/dL Total Bilirubin 1.5 H 0.2-1.0 mg/dL Aspartate Amino Transf (AST/SGOT) 81 H 10-37 U/L Alanine Aminotransferase (ALT/SGPT) 50 12-78 U/L Alkaline Phosphatase 56 50-136 U/L Total Protein 6.3 6.0-8.3 g/dL Albumin 1.9 L 3.5-5.0 g/dL Hemoglobin A1c 5.1 4.0-6.0 % Estimated Average Glucose (eAG) 100 70-126 mg/dL Lactic Acid Level 1.7 0.8-2.5 mmol/L Direct Bilirubin 1.3 #H 0.0-0.3 mg/dL Ammonia < 10 #L 11-32 umol/L Total Creatine Kinase 322 H 21-232 U/L B-Type Natriuretic Peptide > 5000 H 0-100 pg/mL Procalcitonin 25.10 H 0.05-0.5 ng/mL Troponin I High Sensitivity 1119.9 *H 4-75 ng/L Coagulation Labs: Test 09/12/24 20:37 Range/Units D-Dimer Quantitative (PE/DVT) 6282 *H 0-500 ng/mL DIAGNOSTICS / RADIOLOGY RESULTS: IMAGING REPORT Signed PATIENT: BEN LUQUE MR#: [id number] : 1955 SEX: M AGE: 69 LOCATION: [facility] ORDER 51 STATUS: ADM IN REPORT#: [id number] SERVICE [id number] REASON: DDIMER ORDERING PHYSICIAN: ISRA CAIN PIPE FITTER AMMONIA PROCEDURE: PULM VQ - NM PULMONARY/LUNG VQ SCAN NM PULMONARY/LUNG VQ SCAN REASON: DDIMER COMPARISON: None TECHNIQUE: Ventilation images are obtained with inhalation 6.6 degrees seen on 133, perfusion images are obtained with injection of 5 mCi technetium 99m AA. FINDINGS: There is normal-appearing pulmonary perfusion. There are no focal or wedge shaped defects to suggest pulmonary embolism. Ablation images appear unremarkable as well without focal defect and no evidence of air trapping. IMPRESSION: 1. Normal ventilation/perfusion lung scan, no evidence of pulmonary embolism. DICTATED BY: FELIPA DAI MD DATE: 09/13/24 1526 ELECTRONICALLY SIGNED BY: FELIPA DAI MD DATE: 09/13/24 1532 PLAN NEURO: Minimize central acting medications as possible. Maintain fall precautions, adequate lighting during the day PULMONARY: Supplemental 02 as needed. Maintain aspiration precautions at all times CARDIOVASCULAR: Follow hemodynamics. Vital signs per facility protocol GI & NUTRITION: Continue with nutritional support. Continue stool softeners and laxatives as needed. KIDNEYS & ELECTROLYTES: Strict monitoring of intake, output and overall fluid balance. Avoid nephrotoxic medications to the extent possible. Medications to be dosed according to renal function. Monitor electrolytes and replace as needed ENDOCRINE: Maintain blood glucose between 100-180 at all times. Hypoglycemia protocol in place INFECTIOUS DISEASE: Trend temperature, WBC and procalcitonin level Follow cultures, deescalate antibiotics as soon as possible. Panculture if new onset fever ONCOLOGY/HEMATOLOGY/COAGULATION: Monitor for s/s of bleeding Monitor hemoglobin, coagulation studies as needed SKIN: Pressure ulcer prevention per facility protocol Specialty mattress ORTHO/REHAB: Continue PT/OT Prophylaxis: Continue GI and DVT prophylaxis Code Status: Full Resuscitation Disposition: TBD Other: Total patient care time: 35 minutes LUCHO SHIELDS [facility] Sep 14, 2024 17:34
--- NOTE | 2024-09-14 17:36 | NUR ---
BLOOD IN NGT PT'S INFORMED THAT THERE WAS SOME BLOOD IN THE NGT. SUCTION STOPPED. [facility] CALLED AND MESSAGE LEFT ON ANSWERING SERVICE. Addendum: 09/14/24 at 1745 by ADRIANA BRITT RN RN AMA RETURNED CALL. INFORMED OF BLOOD IN NGT AND WILL HOLD HEPARIN SUBQ
[2024-09-14] MEDS: VANCOMYCIN 1.75 GM/250 ML BAG 250 ML IV ONE (20:40)
--- NOTE | 2024-09-14 20:48 | PN ---
NEPHROLOGY NOTE SUBJECTIVE: The patient has renal failure, anemia, multiple other comorbidities. The patient has small-bowel obstruction and underlying diabetes. The patient has intermittent hyperkalemia. No other associated symptoms. No other aggravating or relieving factors. PHYSICAL EXAMINATION: VITAL SIGNS: Blood pressure is 111/57, pulse is 93, respiratory rate 18. HEENT: Head is atraumatic. Pupils are round and reactive. Sclerae are anicteric. Conjunctivae not pale. Oral mucosa is not dry. NECK: Supple. No masses or bruits. Thyroid is palpable. Neck has no bruits. CHEST: Shows diminished at both bases, percussion note being resonant in all areas. CARDIAC: Regular rhythm, no rub, no S3, S4. No parasternal heave. ABDOMEN: No guarding or tenderness. Bowel sounds are normoactive. No free fluid. LYMPHATIC: With no lymph node swelling in neck. LABORATORY DATA: Labs have been reviewed and old records reviewed. Imaging studies are personally reviewed. Labs have been reviewed. Hemoglobin is low and creatinine is low. The patient's problems are renal failure, anemia, multiple other comorbidities. PLAN: To continue dialysis support. Continue monitoring of electrolytes. Continue monitoring of overall status. The patient was evaluated and seen for dialysis and seen multiple times. Thank you for this patient. TID: [id number] RECEIPT: [id number]
--- NOTE | 2024-09-14 21:17 | PN ---
SUBJECTIVE: This patient has been evaluated and seen several times today. The patient is seen for dialysis multiple times. He remains quite sick with no fever, chills or rigors. No cough, expectoration, or hemoptysis. No other associated finding. No other aggravating or relieving factors. PHYSICAL EXAMINATION: GENERAL: Pale, no other distress. VITAL SIGNS: Blood pressure is around 110/52, pulse 91, respiratory rate is 16. HEENT: Head is atraumatic, normocephalic. Pupils are round and reactive. Sclerae anicteric. Conjunctivae not pale. Oral mucosa is not dry. NECK: Supple. No masses or bruits. Thyroid is palpable. Neck has no bruits. CHEST: Shows equal to thoracic percussion note being resonant in all areas. CARDIAC: Regular rhythm. No rub. No S3, S4. No parasternal heave. LABORATORY DATA: Have been reviewed. Old records reviewed. PROBLEMS: Renal failure and anemia. PLAN: To continue dialysis support. Continue monitoring of renal function. Continue monitoring of electrolytes. Intake, output, and weight will be monitored. The patient was evaluated and seen for dialysis and seen multiple times. I have discussed with other team members. Total time spent was 45 minutes today. TID: [id number] RECEIPT: [id number]
[2024-09-15] VITALS (8 sets, daily range): BP systolic 104–142; BP diastolic 45–60; PULSE 84–91; RESP 18–20; TEMP 97.4–98.7; O2SAT 92–97
[2024-09-15] MEDS: HYDROcodone/APAP 5/325 1 TAB TABLET PO PRN (00:59)
[2024-09-15 03:49] LABS: HEMATOCRIT 32.7 % (42-54); MEAN CORPUSCULAR HEMOGLOBIN 32.9 pg (27.0-33.0); MEAN CORPUSCULAR HGB CONC 33.6 g/dL (32.0-36.0); MEAN CORPUSCULAR VOLUME 97.9 fL (79-99); RED BLOOD CELL COUNT(AUTO) 3.34 MIL/uL (4.50-6.20); RED CELL DISTRIBUTION WIDTH 14.7 % (11.0-15.5); WHITE BLOOD COUNT (AUTO) 14.5 K/uL (4.8-10.8)
[2024-09-15 04:17] LABS: ALBUMIN 1.8 g/dL (3.5-5.0); BILIRUBIN,TOTAL 1.6 mg/dL (0.2-1.0); CREATININE 6.5 mg/dL (0.5-1.3); PHOSPHORUS 6.1 mg/dL (2.5-4.9); TOTAL PROTEIN, SERUM 6.2 g/dL (6.0-8.3)
--- NOTE | 2024-09-15 08:54 | PN ---
[facility] PROGRESS NOTE Date of Service: Sep 15, 2024 Time of Service: 08:53 SUBJECTIVE: [ ] PCP: Admission date: 09/12/24 chief complaints: abd pain This is a 69-year-old male was admitted on 09/12/2024 with chief complaints of abdominal pain ER workup was consistent with small-bowel obstruction. Patient remains bowel rest surgeon following at this time conservative management. Patient is seen and examined with attending reviewed chart. Primary nurse reports patient is running low blood sugars patient will be started on D10 slow rate. 09/14 the patient has been seen and examined, no acute events overnight, patient comfortably in bed, alert oriented x3, following commands, BP 134/66, afebrile, saturating 99% on 1 L via nasal cannula, patient with the NG tube connected to intermittent suction, feels less abdominal distention, getting good pain control with current medical management, he is passing gas. V/Q scan negative for PE, Doppler of the lower extremities negative for DVT, discussed with the patient, last KUB 09/13/2024 moderately distended small bowel loops in the right upper quadrant which could represent obstruction. Patient will remain NPO, continue broad-spectrum IV antibiotics, continue to follow surgical input and recommendations. The patient also with Gram-negative sepsis, continue to follow results of septic workup, infectious disease consultation requested, input noted and appreciated. Echocardiogram with LVEF 31% with a global hypokinesia, cardiology input noted and appreciated, continue medical management, patient may eventually require cardiac catheterization. 09/15 patient is seen and examined at bedside, no acute events overnight, he feels comfortable, less abdominal discomfort, he is passing gas, he remains with the NG tube connected to intermittent suction, BP 104/56, afebrile, saturating 96% on 1 L via nasal cannula. Denied chest pain, no shortness a breath, no cough. The patient had hemodialysis done yesterday, tolerated well. is at bedside, updated. Continue to follow surgical input and recommendations. Continue broad-spectrum antibiotics, to follow white blood cell count in a.m., today at 14.5, higher compared to yesterday at 14.2. Infectious disease input noted and appreciated, continue to follow recommendations. REVIEW OF SYSTEMS CONSTITUTIONAL: Denies fevers, chills, or night sweats. No unintentional weight loss reported. NEUROLOGICAL: Denies headache, amaurosis fugax, motor weakness, sensory def icit, vertigo/spinning sensation, gait abnormalities, or tremors. ENT: No hearing loss, otalgia, otorrhea, rhinitis, rhinorrhea, hoarseness, or sore throat. CARDIOVASCULAR: Denies any exertional angina, dyspnea on exertion, orthopnea, paroxysmal nocturnal dyspnea, palpitations, life-threatening arrhythmias, claudication. PULMONARY: Denies any shortness of breath, cough, phlegm/sputum, hemoptysis, pleuritic chest pain. SLEEP: Denies morning headaches, daytime somnolence or napping. Denies difficulty falling asleep, staying asleep, waking from sleep. Denies knowledge of snoring. GASTROINTESTINAL: Denies any type of dysphagia to either liquids or solids. Denies nausea, vomiting, pyrosis, early satiety, diarrhea, constipation, or changes in stool consistency or caliber. Denies coffee-ground emesis, hematemesis, hematochezia, or melanotic stools. Complains of persistent abdominal pain GENITOURINARY: Denies frequency, urgency, nocturia, hematuria or incontinence (Storage/Irritative symptoms.) Low urinary stream, straining to void, urinary intermittency or hesitancy, splitting of the voiding stream, terminal dribbling. ENDOCRINOLOGIC: Denies polyuria, polydipsia, polyphagia or heat/cold intolerances. HEMATOLOGIC: Denies thrombophilia/previous clots, or coagulopathy/bleeding disorders. ONCOLOGIC: Denies personal history of malignancy. DERMATOLOGIC: Denies rashes or pruritus. PSYCHIATRIC: Denies any suicidal or homicidal ideation. Denies hallucinations. PHYSICAL EXAM GENERAL APPEARANCE: The patient is awake, alert, and oriented, in no acute cardiopulmonary distress. NEUROLOGICAL: Cranial nerves II-XII grossly intact. Motor is 5/5 in bilateral upper and lower extremities proximal to distal. No sensory deficits. HEENT: Face is symmetric. Pupils are equal and reactive. Extraocular movements are intact. NECK: Supple. No JVD. No thyromegaly. No submental, submandibular, pre- /postauricular, occipital or supraclavicular lymphadenopathy. CHEST: Normal chest expansion. No Telemetry. LUNGS: Absence of any rales, rhonchi or any wheezing. CARDIOVASCULAR: Regular. S1 and S2 normal. No appreciable rubs, murmurs or gallops. ABDOMEN: Soft, nontender, and nondistended. There is no rebound, voluntary guarding, or rigidity. : Deferred. No Palomares. EXTREMITIES: Non-edematous and not cyanotic. No clubbing. Good capillary refill. SKIN: No skin breakdown. Vital Signs (last 8hr) Date Time Temp Pulse Resp B/P (MAP) Pulse Ox O2 Delivery O2 Flow Rate FiO2 09/15/24 08:21 98.8 89 20 104/56 89 Nasal Cannula 09/15/24 07:03 20 N/Cannula Low lpm 1.0 24 09/15/24 03:25 97.9 91 18 125/58 96 Nasal Cannula 1.0 LABS: Laboratory: Test 09/15/24 05:15 09/15/24 03:39 09/14/24 04:34 09/14/24 03:36 Range/Units Whole Blood Glucose 73 70-110 MG/DL White Blood Count 14.5 H 4.8-10.8 K/uL Red Blood Count 3.34 L 4.50-6.20 MIL/uL Hemoglobin 11.0 L 14.0-18.0 g/dL Hematocrit 32.7 L 42-54 % Mean Corpuscular Volume 97.9 79-99 fL Mean Corpuscular Hemoglobin 32.9 27.0-33.0 pg Mean Corpuscular Hemoglobin Concent 33.6 32.0-36.0 g/dL Red Cell Distribution Width 14.7 11.0-15.5 % Platelet Count 241 130-400 K/uL Mean Platelet Volume 9.4 7.5-10.5 fL Nucleated Red Blood Cells 0.0 0.0-0.19 % Sodium Level 139 136-145 mmol/L Potassium Level 4.0 3.5-5.1 mmol/L Chloride Level 100 L 101-111 mmol/L Carbon Dioxide Level 31 21-32 mmol/L Blood Urea Nitrogen 50 H 7-18 mg/dL Creatinine 6.5 H 0.5-1.3 mg/dL Glomerular Filtration Rate Calc 9 >90 mL/min Random Glucose 77 70-105 mg/dL Total Calcium 9.9 8.5-10.1 mg/dL Phosphorus Level 6.1 H 2.5-4.9 mg/dL Magnesium Level 2.00 1.80-2.40 mg/dL Total Bilirubin 1.6 H 0.2-1.0 mg/dL Aspartate Amino Transf (AST/SGOT) 83 H 10-37 U/L Alanine Aminotransferase (ALT/SGPT) 52 12-78 U/L Alkaline Phosphatase 62 50-136 U/L Total Protein 6.2 6.0-8.3 g/dL Albumin 1.8 L 3.5-5.0 g/dL Blood Gas Specimen Type Arterial Arterial Blood pH 7.406 7.350-7.450 Arterial Blood Partial Pressure CO2 45 35-48 mmHg Arterial Blood Partial Pressure O2 78.3 L 83.0-108.0 mmHg Arterial Blood HCO3 27.4 21.0-28.0 mmol/L Arterial Blood Oxygen Saturation 95.6 94.0-98.0 % Arterial Blood Base Excess 2.2 -2.0-3.0 mmol/L Blood Gas Temperature 37.0 35.5-37.0 CELSIUS Blood Gas Flow-by 1.00 0.00-15.00 L/min Blood Gas Vent Mode NC,24 ROOM AIR FiO2 24.0 % Blood Gas Specimen Comment LR,RN NAHOMY Immature Granulocyte % (Auto) 0.7 0-1 % Neutrophils (%) (Auto) 87.5 H 40.0-77.0 % Lymphocytes (%) (Auto) 4.1 L 21.0-51.0 % Monocytes (%) (Auto) 6.3 3.0-13.0 % Eosinophils (%) (Auto) 1.1 0.0-8.0 % Basophils (%) (Auto) 0.3 0.0-5.0 % Neutrophils # (Auto) 12.5 H 1.8-7.7 K/uL Lymphocytes # (Auto) 0.6 L 1.0-4.8 K/uL Monocytes # (Auto) 0.9 0.1-1.0 K/uL Eosinophils # (Auto) 0.16 0.00-0.70 K/uL Basophils # (Auto) 0.04 0.00-0.20 K/uL Absolute Immature Granulocyte (auto 0.10 0-1 K/uL Current Medications Medications (Trade) Dose Ordered Sig/Elver Route PRN Reason Start Time Stop Time Status Last Admin Dose Admin Acetaminophen (TYLenol 325MG TAB) 650 mg Q4H PRN PO MILD PAIN (1-3) 09/12/24 12:30 10/12/24 12:29 09/13/24 02:50 650 MG Acetaminophen (TYLenol 325MG TAB) 650 mg Q6H PRN PO TEMPERATURE GREATER THAN 101.5 09/12/24 12:30 10/12/24 12:29 Acetaminophen/ Hydrocodone Bitart (NORco 5/325MG) 1 tab Q6H PRN PO MODERATE PAIN (4-6) 09/12/24 15:30 09/17/24 15:29 09/15/24 00:59 1 TAB Al Hydroxide/Mg Hydroxide (MAALox PLUS 30ML) 30 ml Q6H PRN PO INDIGESTION 09/12/24 12:30 10/12/24 12:29 Aspirin (Aspirin 300mg Supp) 150 mg DAILY AL 09/14/24 09:00 10/14/24 08:59 09/14/24 10:00 150 MG Benzonatate (Tessalon 100mg Caps) 100 mg Q8H PRN PO cough 09/12/24 19:00 10/12/24 18:59 Dextrose 1,000 ml @ 20 mls/hr Q24H IV 09/13/24 11:30 10/13/24 11:29 09/13/24 12:01 20 MLS/HR Dextrose (D50w) 50 ml AD PRN IV HYPOGLYCEMIA PROTOCOL 09/12/24 12:30 10/12/24 12:29 09/13/24 10:29 50 ML Diphenhydramine HCl (BENAdryl INJ) 25 mg Q6H PRN IV SEVERE ITCHING/RASH 09/12/24 12:30 10/12/24 12:29 Doxycycline Hyclate 250 ml @ 125 mls/hr Q12H IV 09/12/24 19:00 09/22/24 18:59 09/15/24 06:04 125 MLS/HR Famotidine (Pepcid 20mg Vial) 20 mg BID PRN IV NAUSEA/VOMITING 09/12/24 12:30 09/12/24 12:44 DC Famotidine (Pepcid 20mg Vial) 20 mg Q48H IV 09/12/24 21:00 10/12/24 20:59 09/14/24 20:40 20 MG Glucagon (Glucagon 1mg Kit) 1 mg AD PRN IM HYPOGLYCEMIA PROTOCOL 09/12/24 12:30 10/12/24 12:29 Guaifenesin/ Dextromethorphan (RobiTUSSin DM 200/20MG 10ML) 10 ml Q4H PRN PO COUGH 09/12/24 12:30 10/12/24 12:29 Heparin Sodium (Porcine) (HEParin 5,000 UNIT VIAL) 5,000 unit BID SQ 09/12/24 21:00 10/12/24 20:59 09/15/24 08:40 5,000 UNIT Hydralazine HCl (APRESOLine 20MG INJ) 10 mg Q6H PRN IV For:SBP above 160;DBP above 90 09/12/24 12:30 09/14/24 08:11 DC Insulin Human Regular (humuLIN R 100 UNIT/ML 3ML) INSULIN SLIDING SCAL... ACHS SQ 09/12/24 16:30 10/12/24 16:29 Ketorolac Tromethamine (toRADol) 15 mg Q8H PRN IV MODERATE PAIN (4-6) 09/12/24 15:30 09/12/24 21:58 DC Lactulose (Constulose 20gm/ 30ml Udcup) 20 gm BID PRN PO CONSTIPATION 09/12/24 12:30 10/12/24 12:29 Magnesium Sulfate 50 ml @ 0 mls/hr PROTOCOL IV 09/13/24 08:30 10/13/24 08:29 Magnesium Sulfate 50 ml @ 0 mls/hr PROTOCOL PRN IV other 09/12/24 12:30 09/13/24 08:36 DC Magnesium Sulfate 50 ml @ 0 mls/hr PROTOCOL PRN IV low mag levl 09/13/24 08:30 09/13/24 08:37 DC Metoprolol Tartrate (loprESSOR) 2.5 mg Q6H PRN IV blood pressure 09/14/24 08:30 10/14/24 08:29 Morphine Sulfate (morPHINE 2MG SYG) 1 mg Q6H PRN IVP SEVERE PAIN (7-10) 09/12/24 15:30 09/19/24 15:29 09/15/24 08:38 1 MG Nitroglycerin (Nitrostat) 0.4 mg PROTOCOL PRN SL CHEST PAIN 09/12/24 12:30 10/12/24 12:29 Ondansetron HCl (zoFRAN 4MG INJ) 4 mg Q6H PRN IV NAUSEA/VOMITING 09/12/24 12:30 10/12/24 12:29 Pharmacy Profile Note (Pharmacy Communication) 1 each AD MISC 09/13/24 20:30 09/20/24 20:29 Piperacillin Sod/ Tazobactam Sod 50 ml @ 12.5 mls/hr Q12H IV 09/12/24 13:00 09/12/24 12:48 DC Piperacillin Sod/ Tazobactam Sod 50 ml @ 12.5 mls/hr Q12H IV 09/12/24 23:30 09/22/24 23:29 09/14/24 23:20 12.5 MLS/HR Potassium Chloride 100 ml @ 50 mls/hr AD PRN IV POTASSIUM PROTOCOL 09/13/24 08:30 10/13/24 08:29 Sodium Chloride 1,000 ml @ 0 mls/hr ONCE IV 09/14/24 12:00 10/14/24 11:59 09/14/24 11:56 1,000 MLS/HR Sodium Chloride 154 meq/Dextrose 1,000 ml @ 20 mls/hr Q24H IV 09/13/24 11:00 09/13/24 10:44 DC Vancomycin HCl (Vancomycin 750mg) 750 mg [id number][DIALYSIS] IVPB 09/16/24 16:00 09/26/24 15:59 Vancomycin HCl (Vancomycin Protocol) 1 each AD IV 09/14/24 17:30 09/24/24 17:29 Zolpidem Tartrate (AmbIEN) 5 mg HS PRN PO INSOMNIA 09/12/24 12:30 10/12/24 12:29 DIAGNOSTICS / RADIOLOGY: [ ] ASSESSMENT: [ Small-bowel obstruction versus ileus per CT abdomen/pelvis 09/12/2024 POA ESRD on dialysis Thursday needing dialysis POA Uncontrolled diabetes mellitus type 2 with hyper and hypoglycemia POA Hyperlipidemia POA Coronary artery disease s/p CABG six years ago POA Uncontrolled hypertension POA Multifactorial anemia POA Lactic acidosis 4.6 POA Hyperbilirubinemia 1.9 POA Hyper troponinemia POA acute on chroniic CHF EF 45/50% chronic combined systolic and diastolic congestive heart failure. History of cholelithiasis POA History of appendectomy ] History of appendectomy History of right knee cartilage surgery History of left hand pointing finger amputation Current alcohol drinking occasionally PLAN: Patient remains admitted to the PCU Patient remains NPO Continue the patient with the NG tube connected to intermittent suction Continue broad-spectrum IV antibiotics Continue to follow results of septic workup Continue to follow infectious disease input recommendation Continue to follow surgical input recommendation Continue hemodialysis per belt puncher recommendations Replace electrolytes IV per protocol CBC in a.m. transfuse as needed Follow a.m. labs GI and DVT prophylaxis Disposition: Pending improvement in clinical condition. Plan of action discussed, all questions answered, agreed and understood the information provided. Total PCU time spent greater than 30 minutes. JOSE CHOPRA MD Sep 15, 2024 08:54
--- NOTE | 2024-09-15 10:00 | HMCIMG ---
ABD 1VW REASON: sbo FINDINGS: Single image of the abdomen was obtained. There is an NG tube with tip just entering the stomach, sidehole remains in the region of the distal esophagus. There are a few dilated bowel loops in the left upper quadrant, these appear improved in appearance compared to prior exam. Remainder of exam appears unremarkable. IMPRESSION: 1. NG tube tip just entering the stomach, sidehole remains in the distal esophagus.
--- NOTE | 2024-09-15 10:48 | PN ---
PROBLEM LIST: * Nontransmural myocardial infarction on presentation. * Small-bowel obstruction versus ileus, being managed by conservative measures by Surgery. * Acute on chronic systolic and diastolic congestive heart failure in the setting of nontransmural myocardial infarction. * Hypertension. * Hyperlipoproteinemia. * Diabetes mellitus, stage II. * End-stage renal disease, on hemodialysis Thursday, Thursday and Thursday. * Anemia of chronic disease. * Known history of coronary artery disease with remote coronary artery bypass graft surgery x 4 with SCHULZ to the LAD, saphenous vein graft to the first diagonal, saphenous vein graft to the obtuse marginal 2 and saphenous vein graft to the PDA by Dr. Ojeda 07/13/2015. * Advanced LV dysfunction by echocardiography and by Lexiscan Cardiolite with documentation of a fixed inferior apical defects and partially reversible anterior defects by nuclear imaging in 10/2022. * Cardiac catheterization in 12/2022 demonstrating a patent SCHULZ to the LAD, patent saphenous vein graft to the diagonal, patent saphenous vein graft to the OM2, and occluded saphenous vein graft to the distal RCA with 70% proximal stenosis of the RCA with total occlusion of the distal vessels and the left main with continued medical management. * Advanced LV dysfunction with ejection fraction of 30% with global hypokinesis and moderately dilated left ventricle and severely dilated right ventricle with markedly reduced right ventricular systolic function and a severely dilated left and right atrium with mild aortic stenosis with a calculated aortic valve area of 1.6 mmHg and a peak pressure gradient of 30 mmHg with a mean gradient of 19 mmHg with mild tricuspid valve regurgitation and moderate pulmonary hypertension by echocardiography on this admission. This patient has been hospitalized predominantly because of intestinal obstruction versus ileus. He has been evaluated by multiple disciplines including Nephrology, primary care, Surgery, Infectious Disease, and Cardiology. The patient has been hemodynamically stable. His heart rate has been in the 80-90 per minute range. He is afebrile. His respiratory rate has been 18-20. He is currently saturating at 95-96% on 1 liter of nasal cannula. The patient's blood pressures have been somewhat marginal and now up to 104/56. On questioning the patient today, he states that he feels okay. He is not having any acute complaints except for the discomfort in his abdomen. He is still on nasogastric low Gomco suction. The patient has no jugular venous distention. His lungs are remarkable for slight crackles at the bases. The cardiac exam is remarkable for prominent left parasternal heave and a displaced PMI. S1 is soft. S2 is mildly reduced. The patient has 2-3/6 systolic ejection murmur at the left sternal border. I am unable to appreciate any diastolic murmurs, rubs or gallops. The abdomen is distended and soft, without guarding, but has diffuse mild tenderness. The patient has no edema. This patient has not had any bowel movements; however, he has had some gas passed, which he states is increasing. The patient's laboratory studies this morning reveal a white count of 14.5, which is up from 6.1 on admission 09/12/2024. His H and H are 11.0 and 32.7 respectively, the platelet count is currently 241,000. H and H has been stable. The patient's chemistries have revealed a sodium of 139, potassium 4.0, chloride 100, CO2 is 31, BUN is 50, creatinine 6.5 with a GFR of 9. The patient's phosphorus 6.1 and bilirubin is mildly elevated at 1.6 with a slightly elevated AST of 83. The patient has an albumin of 1.8 consistent with significant protein malnutrition. The patient is currently maintained on vancomycin, aspirin, metoprolol on a p.r.n. basis, Zosyn, famotidine, subcutaneous heparin, Tessalon Perles, doxycycline, insulin, and additional p.r.n. medications. The patient's hydralazine was held yesterday because of his marginal pressures. At this point, we will continue conservative management with the patient's cardiac status given his acute intestinal obstruction and/or ileus. We will await for that to improve significantly before any additional recommendations. The patient will be managed with beta blockers and afterload reducing agents if his blood pressure stabilizes and improves. He will require additional assessment with potential future interventions. TID: [id number] RECEIPT: [id number]
--- NOTE | 2024-09-15 11:04 | NUR ---
PAGED DR. HARP THAT RESULTS ARE UP FOR ABD XRAY
--- NOTE | 2024-09-15 11:19 | PN ---
INFECTIOUS DISEASE PROGRESS NOTE Date of Service: Sep 15, 2024 SUBJECTIVE: This is a 69-year-old male patient who was admitted to the hospital with chief complaint of abdominal pain. A CT of the abdomen and pelvis done on admission showed Mild bowel dilatation with fluid-filled may be related to small bowel obstruction and a KUB done yesterday showed Moderately distended small bowel loops in the right upper quadrant which could represent obstruction. General surgery has been consulted and following patient. Patient was started on an NG tube to to low intermittent suction to decompress. A chest x-ray showed mild bilateral pulmonary infiltrates. Patient was seen and examined at bedside in room 230. Patient continues on the NG tube to low intermittent suction. Patient reported he is already passing gases but no bowel movement. Patient has been approved ice chips by General surgery. Will give patient a tap water enema. The WBC is still remains slightly high at 14.5 but no fever, temperature is 98.8. Patient continues on vancomycin, Zosyn and doxycycline. Patient was dialyzed yesterday and 2.4 L were removed. We will continue to follow patient's care. PHYSICAL EXAM EYES: Anicteric. Pupils equal and reactive. HENT: No oral thrush seen, moist Oral mucosa. NG tube to low intermittent suction. NECK: Supple, no JVD or thyromegaly. LUNGS: Good air entry. No rales, no rhonchi. CARDIOVASCULAR: S1, S2 regular. No murmur heard. ABDOMEN: Soft, bowel sounds present, no organomegaly. Tender CENTRAL NERVOUS SYSTEM: Awake, alert, oriented x 3. SKIN: No rashes, no swelling. LYMPHATICS: No peripheral lymphadenopathy MUSCULOSKELETAL: No joint swelling, erythema or tenderness. EXTREMITIES: No cyanosis or clubbing BACK: No deformity, no pressure ulcer. GENITOURINARY: No dysuria or hematuria. Vital Sign (Last 12 Hours) 09/14/24 09/15/24 09/15/24 09/15/24 23:26 03:25 07:03 08:21 Temp 98.8 97.9 98.8 Pulse 95 91 89 Resp 18 18 20 20 B/P (MAP) 108/46 125/58 104/56 Pulse Ox 96 96 89 O2 Delivery Nasal Cannula Nasal Cannula N/Cannula Low lpm Nasal Cannula O2 Flow Rate 1.0 1.0 1.0 FiO2 24 Intake & Output (last 24hrs) 09/14/24 09/14/24 09/15/24 15:00 23:00 07:00 Intake Total 20.0 ml 672.5 ml 302.5 ml Output Total 2400 ml 150 ml 150 ml Balance -2380.0 ml 522.5 ml 152.5 ml LABS: Laboratory: Test 09/15/24 05:15 09/15/24 03:39 09/14/24 04:34 09/14/24 03:36 Range/Units Whole Blood Glucose 73 70-110 MG/DL White Blood Count 14.5 H 4.8-10.8 K/uL Red Blood Count 3.34 L 4.50-6.20 MIL/uL Hemoglobin 11.0 L 14.0-18.0 g/dL Hematocrit 32.7 L 42-54 % Mean Corpuscular Volume 97.9 79-99 fL Mean Corpuscular Hemoglobin 32.9 27.0-33.0 pg Mean Corpuscular Hemoglobin Concent 33.6 32.0-36.0 g/dL Red Cell Distribution Width 14.7 11.0-15.5 % Platelet Count 241 130-400 K/uL Mean Platelet Volume 9.4 7.5-10.5 fL Nucleated Red Blood Cells 0.0 0.0-0.19 % Sodium Level 139 136-145 mmol/L Potassium Level 4.0 3.5-5.1 mmol/L Chloride Level 100 L 101-111 mmol/L Carbon Dioxide Level 31 21-32 mmol/L Blood Urea Nitrogen 50 H 7-18 mg/dL Creatinine 6.5 H 0.5-1.3 mg/dL Glomerular Filtration Rate Calc 9 >90 mL/min Random Glucose 77 70-105 mg/dL Total Calcium 9.9 8.5-10.1 mg/dL Phosphorus Level 6.1 H 2.5-4.9 mg/dL Magnesium Level 2.00 1.80-2.40 mg/dL Total Bilirubin 1.6 H 0.2-1.0 mg/dL Aspartate Amino Transf (AST/SGOT) 83 H 10-37 U/L Alanine Aminotransferase (ALT/SGPT) 52 12-78 U/L Alkaline Phosphatase 62 50-136 U/L Total Protein 6.2 6.0-8.3 g/dL Albumin 1.8 L 3.5-5.0 g/dL Blood Gas Specimen Type Arterial Arterial Blood pH 7.406 7.350-7.450 Arterial Blood Partial Pressure CO2 45 35-48 mmHg Arterial Blood Partial Pressure O2 78.3 L 83.0-108.0 mmHg Arterial Blood HCO3 27.4 21.0-28.0 mmol/L Arterial Blood Oxygen Saturation 95.6 94.0-98.0 % Arterial Blood Base Excess 2.2 -2.0-3.0 mmol/L Blood Gas Temperature 37.0 35.5-37.0 CELSIUS Blood Gas Flow-by 1.00 0.00-15.00 L/min Blood Gas Vent Mode NC,24 ROOM AIR FiO2 24.0 % Blood Gas Specimen Comment LR,RN NAHOMY Immature Granulocyte % (Auto) 0.7 0-1 % Neutrophils (%) (Auto) 87.5 H 40.0-77.0 % Lymphocytes (%) (Auto) 4.1 L 21.0-51.0 % Monocytes (%) (Auto) 6.3 3.0-13.0 % Eosinophils (%) (Auto) 1.1 0.0-8.0 % Basophils (%) (Auto) 0.3 0.0-5.0 % Neutrophils # (Auto) 12.5 H 1.8-7.7 K/uL Lymphocytes # (Auto) 0.6 L 1.0-4.8 K/uL Monocytes # (Auto) 0.9 0.1-1.0 K/uL Eosinophils # (Auto) 0.16 0.00-0.70 K/uL Basophils # (Auto) 0.04 0.00-0.20 K/uL Absolute Immature Granulocyte (auto 0.10 0-1 K/uL ASSESSMENT: Multifocal pneumonia. Gram-negative sepsis. Abdominal pain. Leukocytosis. Small bowel obstruction versus ileus. Diabetes mellitus. End-stage renal disease. PLAN: Continue vancomycin per pharmacy protocol. Continue Zosyn IV. Continue doxycycline IV. Continue NG tube to low intermittent suction. Continue GI prophylaxis. Continue dialysis as recommended by potato peeling machine operator. Continue monitoring glucose levels. We will give a tap water enema today. We will monitor electrolytes. This case was reviewed and discussed with my supervising physician and the above assessment and plan was formulated and agreed upon. ATTESTATION BY PHYSICIAN I have seen and examined the patient. I reviewed the documentation, medical decision making, and treatment plan as noted by the mid-level provider above. I agree with the findings and plan of care. YUMIKO LINN MD, [facility] Sep 15, 2024 11:19
--- NOTE | 2024-09-15 12:00 | NUR ---
DR. HARP CALLED BACK AND UPDATED ON RESULTS. WAS ADVISED TO ADVANCE NG TUBE 10CM MORE.
--- NOTE | 2024-09-15 14:55 | PN ---
NEPHROLOGY PROGRESS NOTE Date/Time Patient Seen: Sep 15, 2024 SUBJECTIVE: This is a 69-year-old male with a past medical history of end-stage renal disease on hemodialysis Thursday, diabetes mellitus type 2, hypertension, hyperlipidemia, coronary artery disease, anemia. Patient presented to emergency room with complaints of abdominal pain Chest x-ray showed prominent interstitial markings with a possible superimposed infiltrate CT of the abdomen/pelvis showed mild bowel dilation with fluid filled may be related to small-bowel obstruction. Surgery has been consulted, pending recommendations Dialysis was done earlier this morning. He remains NPO with NG tube in place connected to intermittent suction. He continues on antibiotics as per ID Continues to be followed by surgery, no surgical interventions planned He was seen in the medical floor, in no acute distress Family at the bedside Prognosis remains guarded REVIEW OF SYSTEMS: GENERAL: Positive for abdominal pain NEUROLOGIC: Negative for any blurry vision, blind spots, double vision, facial asymmetry, dysphagia, dysarthria, hemiparesis, hemisensory deficits, vertigo, ataxia. HEENT: Negative for any head trauma, neck trauma, neck stiffness, photophobia, phonophobia, sinusitis, rhinitis. CARDIAC: Negative for any chest pain, dyspnea on exertion, paroxysmal nocturnal dyspnea, peripheral edema. PULMONARY: Negative for any shortness of breath, wheezing, COPD, or TB exposure. GASTROINTESTINAL: Negative for any abdominal pain, nausea, vomiting, bright red blood per rectum, melena. GENITOURINARY: Negative for any dysuria, hematuria, incontinence. INTEGUMENTARY: Negative for any rashes, cuts, insect bites. RHEUMATOLOGIC: Negative for any joint pains, photosensitive rashes, history of vasculitis or kidney problems. HEMATOLOGIC: Negative for any abnormal bruising, frequent infections or bleeding. PHYSICAL EXAM: GENERAL: Alert and oriented x 3. No acute distress. Well-nourished. EYES: EOMI. Anicteric. HENT: Moist mucous membranes. No scleral icterus. No cervical lymphadenopathy. LUNGS: Clear to auscultation bilaterally. No accessory muscle use. CARDIOVASCULAR: Regular rate and rhythm. 2/6 LSB murmur. No JVD. ABDOMEN: obese, soft, tender to lower abd, hypoactive bowel sounds, no masses, no organomegaly EXTREMITIES: No edema. Non-tender. SKIN: No rashes or lesions. Warm. NEUROLOGIC: No focal neurological deficits. CN II-XII grossly intact, but not individually tested. PSYCHIATRIC: Cooperative. Appropriate mood and affect. LABORATORY: [ ] Hematology Labs: Test 09/15/24 03:39 09/14/24 03:36 Range/Units White Blood Count 14.5 H 4.8-10.8 K/uL Red Blood Count 3.34 L 4.50-6.20 MIL/uL Hemoglobin 11.0 L 14.0-18.0 g/dL Hematocrit 32.7 L 42-54 % Mean Corpuscular Volume 97.9 79-99 fL Mean Corpuscular Hemoglobin 32.9 27.0-33.0 pg Mean Corpuscular Hemoglobin Concent 33.6 32.0-36.0 g/dL Red Cell Distribution Width 14.7 11.0-15.5 % Platelet Count 241 130-400 K/uL Mean Platelet Volume 9.4 7.5-10.5 fL Nucleated Red Blood Cells 0.0 0.0-0.19 % Immature Granulocyte % (Auto) 0.7 0-1 % Neutrophils (%) (Auto) 87.5 H 40.0-77.0 % Lymphocytes (%) (Auto) 4.1 L 21.0-51.0 % Monocytes (%) (Auto) 6.3 3.0-13.0 % Eosinophils (%) (Auto) 1.1 0.0-8.0 % Basophils (%) (Auto) 0.3 0.0-5.0 % Neutrophils # (Auto) 12.5 H 1.8-7.7 K/uL Lymphocytes # (Auto) 0.6 L 1.0-4.8 K/uL Monocytes # (Auto) 0.9 0.1-1.0 K/uL Eosinophils # (Auto) 0.16 0.00-0.70 K/uL Basophils # (Auto) 0.04 0.00-0.20 K/uL Absolute Immature Granulocyte (auto 0.10 0-1 K/uL Chemistry Labs: Test 09/15/24 11:42 09/15/24 03:39 Range/Units Whole Blood Glucose 90 70-110 MG/DL Sodium Level 139 136-145 mmol/L Potassium Level 4.0 3.5-5.1 mmol/L Chloride Level 100 L 101-111 mmol/L Carbon Dioxide Level 31 21-32 mmol/L Blood Urea Nitrogen 50 H 7-18 mg/dL Creatinine 6.5 H 0.5-1.3 mg/dL Glomerular Filtration Rate Calc 9 >90 mL/min Random Glucose 77 70-105 mg/dL Total Calcium 9.9 8.5-10.1 mg/dL Phosphorus Level 6.1 H 2.5-4.9 mg/dL Magnesium Level 2.00 1.80-2.40 mg/dL Total Bilirubin 1.6 H 0.2-1.0 mg/dL Aspartate Amino Transf (AST/SGOT) 83 H 10-37 U/L Alanine Aminotransferase (ALT/SGPT) 52 12-78 U/L Alkaline Phosphatase 62 50-136 U/L Total Protein 6.2 6.0-8.3 g/dL Albumin 1.8 L 3.5-5.0 g/dL DIAGNOSTICS / RADIOLOGY: REASON: Altered mental status ORDERING PHYSICIAN: MICHAEL SAHU MD PROCEDURE: HEAD WO - CT HEAD/BRAIN W/O CONTRAST CT HEAD/BRAIN W/O CONTRAST HISTORY: Altered mental status COMPARISON: None TECHNIQUE: Multiple sequential axial images of the head were obtained from the base of the skull through vertex. Patient was not given contrast through intravenous route. FINDINGS: The ventricles and extraventricular CSF spaces are dilated consistent with cerebral atrophy. Nonspecific white matter changes seen. There is atherosclerosis. There is no midline shift, mass effect or herniation. No acute intracranial bleed is seen. Visualized portion of the paranasal sinuses are grossly within normal limits. IMPRESSION: 1. No acute intracranial bleed is seen. CT was performed with one or more following dose reduction techniques: automated exposure control, adjustment of the mA and kv according to patient's size, or use of a iterative reconstruction technique. DICTATED BY: LUIS ROBERTS MD DATE: 09/12/24 1251 REASON: diffused abd pain ORDERING PHYSICIAN: MARK PARHAM PROCEDURE: ABD PEL WO - CT ABDOMEN/PELVIS W/O CONTRAST CT ABDOMEN/PELVIS W/O CONTRAST HISTORY: Diffuse abdominal pain COMPARISON: 09/05/2023 TECHNIQUE: Multiple sequential axial images of the abdomen and pelvis were obtained from the dome of the diaphragm through symphysis pubis. Patient was not given contrast through intravenous route. Oral contrast was not given. FINDINGS: No pleural effusion is seen bilaterally. There is no evidence of parenchymal disease or pulmonary nodule of the visualized lower lungs. Degenerative changes of the thoracolumbar spine are present. The heart is borderline enlarged. Coronary arterial calcifications are seen. Liver measures 19 cm. Spleen measures 11 cm. Stomach is poorly distended. There is small bowel dilatation with fluid-filled may be related to enteritis. The liver, spleen, adrenal glands and pancreas are unremarkable. There is no evidence of hydronephrosis bilaterally. There are bilateral renal vascular calcifications with possible small renal pelvic stones. Bilateral renal atrophy is seen. Fecal material is seen in the colon. There is diverticulosis. There are normal size retroperitoneal and mesenteric lymph nodes. Tiny ascites is seen. Atherosclerotic changes are present. Pelvic sidewalls are symmetric bilaterally. Bladder is poorly distended. IMPRESSION: 1. Mild bowel dilatation with fluid-filled may be related to small bowel obstruction. Tiny ascites. Diverticulosis. CT was performed with one or more following dose reduction techniques: automated exposure control, adjustment of the mA and kv according to patient's size, or use of a iterative reconstruction technique. DICTATED BY: LUIS ROBERTS MD DATE: 09/12/24 1026 REASON: Shortness of breath ORDERING PHYSICIAN: MICHAEL SAHU MD PROCEDURE: CXR1VW - CHEST 1VW CHEST 1VW HISTORY: Shortness of breath COMPARISON: 09/01/2023 FINDINGS: A frontal projection of the chest was obtained. Prominent interstitial markings are seen with possible superimposed infiltrates. Poststernotomy changes are seen. The heart is enlarged. Degenerative changes of the thoracolumbar spine are present. Degenerative changes are seen. No evidence of aortic calcification is seen. IMPRESSION: 1. Prominent interstitial markings are seen with possible superimposed infiltrates. DICTATED BY: LUIS ROBERTS MD DATE: 09/12/24 0957 PROCEDURE: ECHO [facility] - ECHO 2-D COMPLETE APPROVED REPORT EXAM: Two-dimensional and M-mode echocardiogram with Doppler and color Doppler. INDICATION ICD: Congestive heart failure 2D Dimensions RVDd 6.1 cm LVEF(%) 52.4 (>50%) LVED Vol(simp.) 238.0 mL IVSd 1.0 (0.7-1.1cm) FS(%) 27 % LVES Vol(simp.) 165.0 mL LVDd 6.2 (3.8-5.6cm) LA (2D) 5.7 (1.6-4.0cm) LVEF(%, simp.) 31 % PWd 1.1 (0.7-1.1cm) Ao Root(2D) 3.4 (2.0-3.7cm) LA ESV INDEX (4CH) 79.50 mL/m2 IVSs 1.3 cm LVOT diam 2.9 (1.8-2.4cm) LA ESV INDEX (2CH) 53.70 mL/m2 LVDs 4.5 (2.5-4.0cm) LA ESV INDEX (BP) 68.80 mL/m2 PWs 2.1 cm M-Mode Dimensions EPSS 1.7 cm LA (MM) 5.5 (1.6-4.0cm) Ao Root(MM) 3.5 (2.0-3.7cm) Aortic Valve AoV VTI 0.6 m Ao Mean GR 19.0 mmHg LVOT VTI 0.15 m YESENIA (VMAX) 1.6 cm2 YESENIA (VTI) 1.6 cm2 Mitral Valve MV E Vmax 104.3 cm/s DECEL Time 137 ms MV A Vmax 64.0 cm/s P 1/2 T 72 ms E/A ratio 1.6 MVA (PHT) 3.1 cm2 MR Max PG 103 mmHg TDI E/E' Medial 20.5 E/E' Lateral 9.5 Medial E' Peak V 5.10 cm/s Lateral E' Peak V 11.00 cm/s Tricuspid Valve TR Vmax 3.2 m/s RAP (EST) 8 mmHg RVSP 48.9 mmHg TR Peak GR 40.9 mmHg Left Ventricle The left ventricle is moderately dilated. Global hypokinesia. Mild concentric left ventricular hypertrophy.. LVEF is 31%. The left ventricular diastolic function is indeterminate. Right Ventricle The right ventricle is severely dilated. Right ventricular systolic function is severely reduced. Atria The left atrium is severely dilated. The right atrium is severely dilated. Aortic Valve Aortic valve is trileaflet.The aortic valve is mildly thickened. No aortic regurgitation is present. There is mild aortic valvular stenosis. Calculated aortic valve area is 1.6 cm2 with maximum pressure gradient of 30 mmHg and mean pressure gradient of 19 mmHg. Mitral Valve The mitral valve is mildly thickened. There is mild mitral valve regurgitation noted. There is no mitral valve stenosis. Tricuspid Valve The tricuspid valve is normal in structure. There is mild tricuspid valve regurgitation noted. RVSP 49mmHg. Pulmonic Valve The pulmonary valve is normal in structure. There is no pulmonic valvular reg urgitation. Great Vessels The aortic root is normal in size. IVC is not visualized. Pericardium There is no pericardial effusion. Other Information Quality : Adequate Conclusion LVEF is 31%. Global hypokinesia. The left ventricle is moderately dilated. The right ventricle is severely dilated. Right ventricular systolic function is severely reduced. The left atrium is severely dilated. The right atrium is severely dilated. There is mild aortic valvular stenosis. Calculated aortic valve area is 1.6 cm2 with maximum pressure gradient of 30 mmHg and mean pressure gradient of 19 mmHg. There is mild tricuspid valve regurgitation noted. RVSP 49mmHg. DICTATED BY: MARQUEZ LEE MD DATE: 09/12/24 133 ELECTRONICALLY SIGNED BY: MARQUEZ LEE MD DATE: 09/12/24 5523 ASSESSMENT: Anemia End-stage renal disease Anemia Abdominal pain Small-bowel obstruction HFpEF LVEF 45 to 50% Uncontrolled Diabetes mellitus Hyperlipidemia Uncontrolled hypertension Coronary artery disease PLAN: Labs and Diagnostics/ Radiology personally reviewed and interpreted by myself and supervising physician We have reviewed dialysis and external records in detail Continue dialysis schedule Thursday 1.5 L fluid restriction Continue to monitor H&H Epogen on dialysis days, as needed Continue with frequent monitoring of renal function, anemia, and electrolytes Order CBC, BMP, and electrolytes in the morning May use Dilaudid 0.5 mg IV every 6 hours as needed for severe pain Monitor blood pressure adjust medication doses as needed Maintain normotensive state Strict intake, output, and daily weight should be monitored Please renally adjust medications. Avoid nephrotoxics and nonsteroidal drugs. We will continue to monitor the patient closely We have discussed with the other team physicians in detail about the care plan ATTESTATION BY PHYSICIAN I have seen and examined the patient. I reviewed the documentation, medical decision making, and treatment plan as noted by the mid-level provider above. I agree with the findings and plan of care. MICHELLE MUNSON MD, [facility] Sep 15, 2024 14:55
[2024-09-15 15:12] LABS: CHLAM.PNEUMONIAE IGM TITER <1:10 (Neg:<1:10)
--- NOTE | 2024-09-15 16:00 | NUR ---
REPORT GIVEN TO DOMITILA AT BESIDE AND UPDATED ON DR. BRYAN WAS OK TO CLAMP NG TUBE. MD WILL ALSO PLACE ORDER FOR CT WITH ORAL CONTRAST. PT WAS EDUCATED WELL BY MD AT BEDSIDE.
[2024-09-15 16:13] LABS: HEPATITIS B CORE AB TOTAL Non-Reactive (Nonreactive); HEPATITIS B SURFACE ANTIBODY Positive (Reactive); HEPATITIS B SURFACE ANTIGEN Non-Reactive (Nonreactive)
--- NOTE | 2024-09-15 16:46 | PN ---
GENERAL SURGERY PROGRESS NOTE Date/Time Patient Seen: 09/15/2024 3:15 p.m. Problem List: Enteritis Ileus Chronic renal failure Abdominal pain Interval History: Patient reports significant improvement in his abdominal pain. He had multiple large bowel movements today and has been passing gas. Per nursing report very little output from the NG tube. Current Medications Medications (Trade) Dose Ordered Sig/Elver Route Start Time Stop Time Status Last Admin Dose Admin Aspirin (Aspirin 300mg Supp) 150 mg DAILY KS 09/14/24 09:00 10/14/24 08:59 09/15/24 09:42 150 MG Dextrose 1,000 ml @ 20 mls/hr Q24H IV 09/13/24 11:30 10/13/24 11:29 09/13/24 12:01 20 MLS/HR Doxycycline Hyclate 250 ml @ 125 mls/hr Q12H IV 09/12/24 19:00 09/22/24 18:59 09/15/24 06:04 125 MLS/HR Famotidine (Pepcid 20mg Vial) 20 mg Q48H IV 09/12/24 21:00 10/12/24 20:59 09/14/24 20:40 20 MG Heparin Sodium (Porcine) (HEParin 5,000 UNIT VIAL) 5,000 unit BID SQ 09/12/24 21:00 10/12/24 20:59 09/15/24 08:40 5,000 UNIT Insulin Human Regular (humuLIN R 100 UNIT/ML 3ML) INSULIN SLIDING SCAL... ACHS SQ 09/12/24 16:30 10/12/24 16:29 Magnesium Sulfate 50 ml @ 0 mls/hr PROTOCOL IV 09/13/24 08:30 10/13/24 08:29 Pharmacy Profile Note (Pharmacy Communication) 1 each AD MISC 09/13/24 20:30 09/20/24 20:29 Piperacillin Sod/ Tazobactam Sod 50 ml @ 12.5 mls/hr Q12H IV 09/12/24 13:00 09/12/24 12:48 DC Piperacillin Sod/ Tazobactam Sod 50 ml @ 12.5 mls/hr Q12H IV 09/12/24 23:30 09/22/24 23:29 09/15/24 12:24 12.5 MLS/HR Sodium Chloride 1,000 ml @ 0 mls/hr ONCE IV 09/14/24 12:00 10/14/24 11:59 09/14/24 11:56 1,000 MLS/HR Sodium Chloride 154 meq/Dextrose 1,000 ml @ 20 mls/hr Q24H IV 09/13/24 11:00 09/13/24 10:44 DC Vancomycin HCl (Vancomycin 750mg) 750 mg [id number][DIALYSIS] IVPB 09/16/24 16:00 09/26/24 15:59 Vancomycin HCl (Vancomycin Protocol) 1 each AD IV 09/14/24 17:30 09/24/24 17:29 Physical Examination: GENERAL: No acute distress. HEAD: Normal with no signs of head trauma. LUNGS: Respirations nonlabored HEART: Regular rate and rhythm ABD: Soft, mildly distended, mild tenderness to palpation in the right lower quadrant, no rebound, no guarding : Not examined LYMPH: No lymphadenopathy noted. SKIN: No rashes or lesions noted. NEURO: Awake, alert, and oriented x3. No focal sensory or strength deficits noted. Vital Signs (last 8hr) Date Time Temp Pulse Resp B/P (MAP) Pulse Ox O2 Delivery O2 Flow Rate FiO2 09/15/24 11:22 98.6 86 20 105/45 91 Room Air Laboratory: Hematology Labs: Test 09/15/24 03:39 09/14/24 03:36 Range/Units White Blood Count 14.5 H 4.8-10.8 K/uL Red Blood Count 3.34 L 4.50-6.20 MIL/uL Hemoglobin 11.0 L 14.0-18.0 g/dL Hematocrit 32.7 L 42-54 % Mean Corpuscular Volume 97.9 79-99 fL Mean Corpuscular Hemoglobin 32.9 27.0-33.0 pg Mean Corpuscular Hemoglobin Concent 33.6 32.0-36.0 g/dL Red Cell Distribution Width 14.7 11.0-15.5 % Platelet Count 241 130-400 K/uL Mean Platelet Volume 9.4 7.5-10.5 fL Nucleated Red Blood Cells 0.0 0.0-0.19 % Immature Granulocyte % (Auto) 0.7 0-1 % Neutrophils (%) (Auto) 87.5 H 40.0-77.0 % Lymphocytes (%) (Auto) 4.1 L 21.0-51.0 % Monocytes (%) (Auto) 6.3 3.0-13.0 % Eosinophils (%) (Auto) 1.1 0.0-8.0 % Basophils (%) (Auto) 0.3 0.0-5.0 % Neutrophils # (Auto) 12.5 H 1.8-7.7 K/uL Lymphocytes # (Auto) 0.6 L 1.0-4.8 K/uL Monocytes # (Auto) 0.9 0.1-1.0 K/uL Eosinophils # (Auto) 0.16 0.00-0.70 K/uL Basophils # (Auto) 0.04 0.00-0.20 K/uL Absolute Immature Granulocyte (auto 0.10 0-1 K/uL Chemistry Labs: Test 09/15/24 11:42 09/15/24 03:39 Range/Units Whole Blood Glucose 90 70-110 MG/DL Sodium Level 139 136-145 mmol/L Potassium Level 4.0 3.5-5.1 mmol/L Chloride Level 100 L 101-111 mmol/L Carbon Dioxide Level 31 21-32 mmol/L Blood Urea Nitrogen 50 H 7-18 mg/dL Creatinine 6.5 H 0.5-1.3 mg/dL Glomerular Filtration Rate Calc 9 >90 mL/min Random Glucose 77 70-105 mg/dL Total Calcium 9.9 8.5-10.1 mg/dL Phosphorus Level 6.1 H 2.5-4.9 mg/dL Magnesium Level 2.00 1.80-2.40 mg/dL Total Bilirubin 1.6 H 0.2-1.0 mg/dL Aspartate Amino Transf (AST/SGOT) 83 H 10-37 U/L Alanine Aminotransferase (ALT/SGPT) 52 12-78 U/L Alkaline Phosphatase 62 50-136 U/L Total Protein 6.2 6.0-8.3 g/dL Albumin 1.8 L 3.5-5.0 g/dL Diagnostics / Radiology: PATIENT: BEN LUQUE MR#: [id number] : 1955 SEX: M AGE: 69 LOCATION: [facility] ORDER 2300 STATUS: ADM IN REPORT#: [id number] SERVICE 0600 REASON: sbo ORDERING PHYSICIAN: ALEJANDRO HARP MD PROCEDURE: ABD 1VW - ABD 1VW ABD 1VW REASON: sbo FINDINGS: Single image of the abdomen was obtained. There is an NG tube with tip just entering the stomach, sidehole remains in the region of the distal esophagus. There are a few dilated bowel loops in the left upper quadrant, these appear improved in appearance compared to prior exam. Remainder of exam appears unremarkable. IMPRESSION: 1. NG tube tip just entering the stomach, sidehole remains in the distal esophagus. DICTATED BY: FELIPA DAI MD DATE: 09/15/24 0957 ELECTRONICALLY SIGNED BY: FELIPA DAI MD DATE: 09/15/24 1000 Impression and Plan: This is a 69-year-old male with diffuse abdominal pain most likely due to enteritis or ileus. Patient is now having multiple loose bowel movements. Continues with focal right lower quadrant abdominal pain. We will obtain a CT scan of the abdomen and pelvis with IV and p.o. contrast. If contrast makes it to the colon the NG tube may be removed. VLAD BRYAN DO Sep 15, 2024 16:46
--- NOTE | 2024-09-15 17:13 | NUR ---
CALLED NURSE TO VERIFY PATIENT WILL BE HAVING DIALYSIS TOMORROW. PATIENT HAS DIALYSIS THURSDAY. THURSDAY, AND THURSDAY PER NURSE. WILL SEND TRANSPORTER FOR PATIENT TO COMPLETE ABDOMEN/PELVIS WITH AND W/O CONTRAST STUDY
[2024-09-15] MEDS ORDERED: DIATR MEGLU/DIATRIZOATE SODIUM 30 ML BOTTLE ONE (18:16)
--- NOTE | 2024-09-15 20:00 | NUR ---
MEDS RECEIVED PT BEING PREP FOR CT. PT TOLERATING ORAL CONTRAST WELL. SHIFT ASSESSMENT DONE, PLEASE REFER TO CHART. DUE MEDS ADMINISTERED, TOLERATED WELL. KEPT NPO ORDERED. CALL LIGHT WITHIN REACH. FAMILY AT BEDSIDE.
--- NOTE | 2024-09-15 22:35 | NUR ---
CT FAREED GUERRERO CALLED AND INFORMED FOXER THAT PT NEEDED TO BE WHEELED DOWN FOR CT. PCP WHEELED PT DOWN VIA WHEEL CHAIR.
[2024-09-15] MEDS ORDERED: IOHEXOL 350 MG/ML 100ML INFUS..BTL IV ONE (22:37)
--- NOTE | 2024-09-15 23:16 | NUR ---
PAIN PT IS BACK FROM CT AND ALREADY HAD A BM. PT COMPLAINTS OF ABDOMINAL PAINS. MEDICATED WITH MORPHINE IV FOR PAIN. RE-STARTED D10 AT 20CC/HR. HUNG DUE ZOSYN DOSE AT THIS TIME. KEPT RESTED AND COMFORTABLE IN BED WITH HOB ELEVATED. CALL LIGHT WITHIN REACH. WILL RE-ASSESS PT. KEPT BED ALARM ACTIVATED.
[2024-09-16] VITALS (21 sets, daily range): BP systolic 91–138; BP diastolic 43–73; PULSE 69–90; RESP 16–22; TEMP 97.1–98.6; O2SAT 92–96
[2024-09-16 04:40] LABS: HEMATOCRIT 34.8 % (42-54); MEAN CORPUSCULAR HEMOGLOBIN 32.7 pg (27.0-33.0); MEAN CORPUSCULAR HGB CONC 33.9 g/dL (32.0-36.0); MEAN CORPUSCULAR VOLUME 96.4 fL (79-99); RED BLOOD CELL COUNT(AUTO) 3.61 MIL/uL (4.50-6.20); RED CELL DISTRIBUTION WIDTH 14.6 % (11.0-15.5); WHITE BLOOD COUNT (AUTO) 14.1 K/uL (4.8-10.8)
[2024-09-16 04:56] LABS: ALBUMIN 1.7 g/dL (3.5-5.0); BILIRUBIN,TOTAL 1.5 mg/dL (0.2-1.0); CREATININE 7.7 mg/dL (0.5-1.3); MAGNESIUM 1.9 mg/dL (1.80-2.40); PHOSPHORUS 6.6 mg/dL (2.5-4.9); TOTAL PROTEIN, SERUM 6.1 g/dL (6.0-8.3)
--- NOTE | 2024-09-16 06:20 | NUR ---
PIV PT SLEPT AT INTERVALS DURING THE SHIFT. PT'S PIV ON RFA IS OCCLUDED AND RAC IS LEAKING. DISCONTINUED SITES WITH CATHETER INTACT. RE-INSERTED PIV G20 TO RT WRIST, TOLERATED WELL. CONTINUED D10 IV AND DOXYCYCLINE IV INFUSION. KEPT NPO ORDERED. KEPT COMFORTABLE IN BED. FOR MORE CARE.
--- NOTE | 2024-09-16 07:57 | PN ---
[facility] CARDIOLOGY PROGRESS NOTE Date Patient Seen: Sep 16, 2024 Time of Visit: 07:48 Problem List: Non-STEMI Acute on chronic systolic and diastolic heart failure exacerbated by non-STEMI Small bowel obstruction Hypertension Hyperlipidemia Diabetes mellitus type 2 End-stage renal disease on chronic HD on MWF Anemia of chronic disease CAD s/p CABG x 4 (SCHULZ-LAD, SVG-D1, SVG-OM2, and SVG-PDA) 07/13/[address] Ojeda 2D echo on 09/02/2023 with an EF 45-50%, grade II diastolic dysfunction, severely dilated right and left atrium, moderate aortic stenosis, peak gradient of 42 mmHg, mean pressure gradient of 20 mmHg Lexiscan stress test 11/04/2022 demonstrated global hypokinesis, fixed infero- apical defect, partially reversible anterior wall defect, with an EF of 35% LHC/coronary angiogram on 01/27/2023 demonstrated a patent SCHULZ graft to the LAD, patent SVG-D1, patent SVG-OM2, occluded SVG- to the distal RCA with 70% proximal stenosis and a total occlusion of the distal vessel and the left main coronary artery was totally occluded in the distal portion Interval History: 09/14/2024 Pt is evaluated in his room, complains of continued hiccups, lower abd pain, some clear phlegm production and denies chest pain, pressure or epigastric disc omfort. Pt's edema is improved per his report. He states that he developed the severe lower abd pain with HD and they had to stop early. He was transferred to the hospital and found to have a bump in the troponin levels and some ST depression consistent with NSTEMI likely secondary to hypoperfusion and underlying disease. Pt has NGT in place, minimal output. He reports passing gas but no BM. He states the surgeon is planning on management with the tube not invasive intervention at this time. Pt has no fever but WBC was increased to 14 this morning from 12 yesterday. h/h stable, bili mildly elevated at 1.5. He is able to converse alert, no distress. He states that his blood sugar was dysregulated yesterday and made him feel very weak. Pt remains NPO with NGT to LI suction. 09/16/2024 Pt evaluated in his room, had multiple BM's yesterday. Pt has no fever, no chills, abd pain is resolving. CT still shows a some colonic distention, low abd tenderness still present. Pt being followed by surgeon, no plans for intervention from surgical standpoint expressed, pt continues on abx. Still NPO but we will try to resume some meds with sips of water today. He has had no chest pain, n/v, diaphoresis, EKG continues to show NSR in the 80-90's. BP stable now with BP in 110- to 140's range. We will attempt low dose betablocker resumption and switch asa to po. Pt continues on prophylactic dose of heparin. Physical Examination: GENERAL: [No acute distress.] HEAD: [Normal with no signs of head trauma.] EYES: [PERRLA, EOMI, conjunctiva and sclera normal.] ENT: [Hearing grossly intact, normal oropharynx.] NECK: [Supple without JVD. There is no tenderness, lymphadenopathy, or masses. No thyromegaly. Normal carotid upstrokes without bruits.] LUNGS: [Clear breath sounds bilaterally. Diminished to bases. HEART: [Normal rate and rhythm. Normal S1 and pronounced S2 with 2/6 LSB murmur, gallop or rub.] VASC: [Peripheral pulses +2 bilaterally.] ABD:, obese, soft, tender to lower abd, hypoactive bowel sounds, no masses, no organomegaly. No audible bruits.] : [Not examined] LYMPH: [No lymphadenopathy noted.] EXT: [No clubbing, cyanosis or edema.] SKIN: Redness to heels, No rashes or lesions noted.] NEURO: [Awake, alert, and oriented x3. No focal sensory or strength deficits noted.] Laboratory: [ ] Hematology Labs: Test 09/16/24 04:32 Range/Units White Blood Count 14.1 H 4.8-10.8 K/uL Red Blood Count 3.61 L 4.50-6.20 MIL/uL Hemoglobin 11.8 L 14.0-18.0 g/dL Hematocrit 34.8 L 42-54 % Mean Corpuscular Volume 96.4 79-99 fL Mean Corpuscular Hemoglobin 32.7 27.0-33.0 pg Mean Corpuscular Hemoglobin Concent 33.9 32.0-36.0 g/dL Red Cell Distribution Width 14.6 11.0-15.5 % Platelet Count 224 130-400 K/uL Mean Platelet Volume 9.5 7.5-10.5 fL Nucleated Red Blood Cells 0.0 0.0-0.19 % Chemistry Labs: Test 09/16/24 05:38 09/16/24 04:32 Range/Units Whole Blood Glucose 104 70-110 MG/DL Sodium Level 134 L 136-145 mmol/L Potassium Level 4.0 3.5-5.1 mmol/L Chloride Level 96 L 101-111 mmol/L Carbon Dioxide Level 26 21-32 mmol/L Blood Urea Nitrogen 62 H 7-18 mg/dL Creatinine 7.7 H 0.5-1.3 mg/dL Glomerular Filtration Rate Calc 7 >90 mL/min Random Glucose 111 H 70-105 mg/dL Total Calcium 10.0 8.5-10.1 mg/dL Phosphorus Level 6.6 H 2.5-4.9 mg/dL Magnesium Level 1.90 1.80-2.40 mg/dL Total Bilirubin 1.5 H 0.2-1.0 mg/dL Aspartate Amino Transf (AST/SGOT) 106 H 10-37 U/L Alanine Aminotransferase (ALT/SGPT) 82 H 12-78 U/L Alkaline Phosphatase 67 50-136 U/L Total Protein 6.1 6.0-8.3 g/dL Albumin 1.7 L 3.5-5.0 g/dL Diagnostics / Radiology: CT interpretation still pending Impression and Plan: Continue with conservative management for now, no plans for invasive intervention from cardiac standpoint at this time. Pt remains NPO , start low dose betablocker and asa/statin orally with sip of water Monitor for s/s of rhythm disturbance or angina. Once more stable, consider heart cath prior to dc. DALLAS LEWIS AGACNP Sep 16, 2024 07:57
[2024-09-16] MEDS: FENOFIBRATE NANOCRYSTALLIZED 145 MG TAB PO SCH (08:25)
[2024-09-16] MEDS: metoPROLOL tartRATE 25 MG TAB PO SCH (08:25)
[2024-09-16] MEDS: MAGNESIUM OXIDE 400 MG TABLET PO SCH (08:25)
[2024-09-16] MEDS: ASPIRIN 81MG CHEW TAB PO SCH (08:25)
--- NOTE | 2024-09-16 09:56 | HMCIMG ---
CT ABDOMEN/PELVIS W/WO CONTRAS REASON: SBO VS ILLIUS/ NG TUBE POSSILBLE REMOVAL COMPARISON: 09/12/2024 TECHNIQUE: Images are obtained from lung bases through the symphysis pubis following IV contrast, 100 cc Omnipaque 350. Oral contrast was administered as well. FINDINGS: Lung bases are clear. There are no focal liver lesions. There is mild bilateral renal cortical thinning, there is no mass, stone or hydronephrosis.. Spleen and pancreas appear unremarkable. There has been a previous cholecystectomy. There is an NG tube present in the stomach. Bowel loops appear unremarkable. There is no evidence of ileus or obstruction. There is contrast present throughout the colon. There is moderate sigmoid diverticulosis without evidence of diverticulitis. This includes normal appearance of the appendix There is no evidence of free fluid or intraperitoneal air. There are no focal fluid collections. Aorta and retroperitoneum appear normal as do pelvic soft tissue structures. The anterior abdominal wall is intact. Osseous structures appear unremarkable. IMPRESSION: 1. NG tube in the stomach. 2. No dilated bowel loops identified, no evidence of obstruction or ileus. 3. Mild to moderate sigmoid diverticulosis without evidence of diverticulitis. 4. Absent gallbladder. CT was performed with one or more following dose reduction techniques: automated exposure control, adjustment of the mA and kv according to patient's size, or use of a iterative reconstruction technique.
--- NOTE | 2024-09-16 11:11 | NUR ---
note pt ng tube dc as per MD and hospital protocol, pt tolerated removal, no co of pain
--- NOTE | 2024-09-16 11:13 | PN ---
[facility] PROGRESS NOTE Date of Service: Sep 16, 2024 Time of Service: 11:11 SUBJECTIVE: [ ] PCP: Admission date: 09/12/24 chief complaints: abd pain This is a 69-year-old male was admitted on 09/12/2024 with chief complaints of abdominal pain ER workup was consistent with small-bowel obstruction. Patient remains bowel rest surgeon following at this time conservative management. Patient is seen and examined with attending reviewed chart. Primary nurse reports patient is running low blood sugars patient will be started on D10 slow rate. 09/14 the patient has been seen and examined, no acute events overnight, patient comfortably in bed, alert oriented x3, following commands, BP 134/66, afebrile, saturating 99% on 1 L via nasal cannula, patient with the NG tube connected to intermittent suction, feels less abdominal distention, getting good pain control with current medical management, he is passing gas. V/Q scan negative for PE, Doppler of the lower extremities negative for DVT, discussed with the patient, last KUB 09/13/2024 moderately distended small bowel loops in the right upper quadrant which could represent obstruction. Patient will remain NPO, continue broad-spectrum IV antibiotics, continue to follow surgical input and recommendations. The patient also with Gram-negative sepsis, continue to follow results of septic workup, infectious disease consultation requested, input noted and appreciated. Echocardiogram with LVEF 31% with a global hypokinesia, cardiology input noted and appreciated, continue medical management, patient may eventually require cardiac catheterization. 09/15 patient is seen and examined at bedside, no acute events overnight, he feels comfortable, less abdominal discomfort, he is passing gas, he remains with the NG tube connected to intermittent suction, BP 104/56, afebrile, saturating 96% on 1 L via nasal cannula. Denied chest pain, no shortness a breath, no cough. The patient had hemodialysis done yesterday, tolerated well. is at bedside, updated. Continue to follow surgical input and recommendations. Continue broad-spectrum antibiotics, to follow white blood cell count in a.m., today at 14.5, higher compared to yesterday at 14.2. Infectious disease input noted and appreciated, continue to follow recommendations. 09/16 patient is seen and examined at bedside, no acute events overnight, comfortably in bed, hemodynamically stable, alert oriented x3, getting hemodialysis, tolerating well. Results of repeat CT abdomen reviewed, no ileus, no obstruction, surgical input noted and appreciated, NG tube output has been minimal, we will pull out NG tube, we will start clear liquid diet and advanced as tolerated. Continue current pain medication with the adjustment as needed, continue broad-spectrum IV antibiotics, continue to follow infectious disease input and recommendations, a.m. labs. REVIEW OF SYSTEMS CONSTITUTIONAL: Denies fevers, chills, or night sweats. No unintentional weight loss reported. NEUROLOGICAL: Denies headache, amaurosis fugax, motor weakness, sensory deficit, vertigo/spinning sensation, gait abnormalities, or tremors. ENT: No hearing loss, otalgia, otorrhea, rhinitis, rhinorrhea, hoarseness, or sore throat. CARDIOVASCULAR: Denies any exertional angina, dyspnea on exertion, orthopnea, paroxysmal nocturnal dyspnea, palpitations, life-threatening arrhythmias, claudication. PULMONARY: Denies any shortness of breath, cough, phlegm/sputum, hemoptysis, pleuritic chest pain. SLEEP: Denies morning headaches, daytime somnolence or napping. Denies difficulty falling asleep, staying asleep, waking from sleep. Denies knowledge of snoring. GASTROINTESTINAL: Denies any type of dysphagia to either liquids or solids. Denies nausea, vomiting, pyrosis, early satiety, diarrhea, constipation, or changes in stool consistency or caliber. Denies coffee-ground emesis, hematemesis, hematochezia, or melanotic stools. Complains of persistent abdominal pain GENITOURINARY: Denies frequency, urgency, nocturia, hematuria or incontinence (Storage/Irritative symptoms.) Low urinary stream, straining to void, urinary intermittency or hesitancy, splitting of the voiding stream, terminal dribbling. ENDOCRINOLOGIC: Denies polyuria, polydipsia, polyphagia or heat/cold intolerances. HEMATOLOGIC: Denies thrombophilia/previous clots, or coagulopathy/bleeding disorders. ONCOLOGIC: Denies personal history of malignancy. DERMATOLOGIC: Denies rashes or pruritus. PSYCHIATRIC: Denies any suicidal or homicidal ideation. Denies hallucinations. PHYSICAL EXAM GENERAL APPEARANCE: The patient is awake, alert, and oriented, in no acute cardiopulmonary distress. NEUROLOGICAL: Cranial nerves II-XII grossly intact. Motor is 5/5 in bilateral upper and lower extremities proximal to distal. No sensory deficits. HEENT: Face is symmetric. Pupils are equal and reactive. Extraocular movements are intact. NECK: Supple. No JVD. No thyromegaly. No submental, submandibular, pre- /postauricular, occipital or supraclavicular lymphadenopathy. CHEST: Normal chest expansion. No Telemetry. LUNGS: Absence of any rales, rhonchi or any wheezing. CARDIOVASCULAR: Regular. S1 and S2 normal. No appreciable rubs, murmurs or gallops. ABDOMEN: Soft, nontender, and nondistended. There is no rebound, voluntary gu arding, or rigidity. : Deferred. No Palomares. EXTREMITIES: Non-edematous and not cyanotic. No clubbing. Good capillary refill. SKIN: No skin breakdown. Vital Signs (last 8hr) Date Time Temp Pulse Resp B/P (MAP) Pulse Ox O2 Delivery O2 Flow Rate FiO2 09/16/24 10:15 71 16 116/58 Room Air 09/16/24 10:00 72 16 118/60 Room Air 09/16/24 09:45 74 16 115/60 Room Air 09/16/24 09:30 97.5 78 16 117/57 Room Air 09/16/24 09:10 97.5 83 16 123/69 Room Air 09/16/24 08:10 98.6 83 22 138/56 93 09/16/24 04:00 97.5 89 20 114/53 91 Room Air LABS: Laboratory: Test 09/16/24 05:38 09/16/24 04:32 09/14/24 12:45 Range/Units Whole Blood Glucose 104 70-110 MG/DL White Blood Count 14.1 H 4.8-10.8 K/uL Red Blood Count 3.61 L 4.50-6.20 MIL/uL Hemoglobin 11.8 L 14.0-18.0 g/dL Hematocrit 34.8 L 42-54 % Mean Corpuscular Volume 96.4 79-99 fL Mean Corpuscular Hemoglobin 32.7 27.0-33.0 pg Mean Corpuscular Hemoglobin Concent 33.9 32.0-36.0 g/dL Red Cell Distribution Width 14.6 11.0-15.5 % Platelet Count 224 130-400 K/uL Mean Platelet Volume 9.5 7.5-10.5 fL Nucleated Red Blood Cells 0.0 0.0-0.19 % Sodium Level 134 L 136-145 mmol/L Potassium Level 4.0 3.5-5.1 mmol/L Chloride Level 96 L 101-111 mmol/L Carbon Dioxide Level 26 21-32 mmol/L Blood Urea Nitrogen 62 H 7-18 mg/dL Creatinine 7.7 H 0.5-1.3 mg/dL Glomerular Filtration Rate Calc 7 >90 mL/min Random Glucose 111 H 70-105 mg/dL Total Calcium 10.0 8.5-10.1 mg/dL Phosphorus Level 6.6 H 2.5-4.9 mg/dL Magnesium Level 1.90 1.80-2.40 mg/dL Total Bilirubin 1.5 H 0.2-1.0 mg/dL Aspartate Amino Transf (AST/SGOT) 106 H 10-37 U/L Alanine Aminotransferase (ALT/SGPT) 82 H 12-78 U/L Alkaline Phosphatase 67 50-136 U/L Total Protein 6.1 6.0-8.3 g/dL Albumin 1.7 L 3.5-5.0 g/dL Hepatitis B Surface Antigen. Non-Reactive Nonreactive Hepatitis B Surface Antibody. Positive Reactive Hepatitis B Core Total Antibody. Non-Reactive Nonreactive Current Medications Medications (Trade) Dose Ordered Sig/Elver Route PRN Reason Start Time Stop Time Status Last Admin Dose Admin Acetaminophen (TYLenol 325MG TAB) 650 mg Q4H PRN PO MILD PAIN (1-3) 09/12/24 12:30 10/12/24 12:29 09/13/24 02:50 650 MG Acetaminophen (TYLenol 325MG TAB) 650 mg Q6H PRN PO TEMPERATURE GREATER THAN 101.5 09/12/24 12:30 10/12/24 12:29 Acetaminophen/ Hydrocodone Bitart (NORco 5/325MG) 1 tab Q6H PRN PO MODERATE PAIN (4-6) 09/12/24 15:30 09/17/24 15:29 09/15/24 00:59 1 TAB Al Hydroxide/Mg Hydroxide (MAALox PLUS 30ML) 30 ml Q6H PRN PO INDIGESTION 09/12/24 12:30 10/12/24 12:29 Aspirin (Aspirin 300mg Supp) 150 mg DAILY ID 09/14/24 09:00 09/16/24 07:45 DC 09/15/24 09:42 150 MG Aspirin (Aspirin 81mg Chew Tab) 81 mg DAILY PO 09/16/24 09:00 10/16/24 08:59 09/16/24 08:45 81 MG Atorvastatin Calcium (LIPItor 40MG) 80 mg HS PO 09/16/24 21:00 10/16/24 20:59 Benzonatate (Tessalon 100mg Caps) 100 mg Q8H PRN PO cough 09/12/24 19:00 10/12/24 18:59 Dextrose 1,000 ml @ 20 mls/hr Q24H IV 09/13/24 11:30 10/13/24 11:29 09/13/24 12:01 20 MLS/HR Dextrose (D50w) 50 ml AD PRN IV HYPOGLYCEMIA PROTOCOL 09/12/24 12:30 10/12/24 12:29 09/13/24 10:29 50 ML Diphenhydramine HCl (BENAdryl INJ) 25 mg Q6H PRN IV SEVERE ITCHING/RASH 09/12/24 12:30 10/12/24 12:29 Doxycycline Hyclate 250 ml @ 125 mls/hr Q12H IV 09/12/24 19:00 09/22/24 18:59 09/16/24 05:46 125 MLS/HR Famotidine (Pepcid 20mg Vial) 20 mg BID PRN IV NAUSEA/VOMITING 09/12/24 12:30 09/12/24 12:44 DC Famotidine (Pepcid 20mg Vial) 20 mg Q48H IV 09/12/24 21:00 10/12/24 20:59 09/14/24 20:40 20 MG Fenofibrate (Tricor) 145 mg DAILY PO 09/16/24 09:00 10/16/24 08:59 09/16/24 08:45 145 MG Glucagon (Glucagon 1mg Kit) 1 mg AD PRN IM HYPOGLYCEMIA PROTOCOL 09/12/24 12:30 10/12/24 12:29 Guaifenesin/ Dextromethorphan (RobiTUSSin DM 200/20MG 10ML) 10 ml Q4H PRN PO COUGH 09/12/24 12:30 10/12/24 12:29 Heparin Sodium (Porcine) (HEParin 5,000 UNIT VIAL) 5,000 unit BID SQ 09/12/24 21:00 10/12/24 20:59 Hold 09/15/24 20:00 5,000 UNIT Hydralazine HCl (APRESOLine 20MG INJ) 10 mg Q6H PRN IV For:SBP above 160;DBP above 90 09/12/24 12:30 09/14/24 08:11 DC Insulin Human Regular (humuLIN R 100 UNIT/ML 3ML) INSULIN SLIDING SCAL... ACHS SQ 09/12/24 16:30 09/15/24 19:56 DC Insulin Human Regular (humuLIN R 100 UNIT/ML 3ML) INSULIN SLIDING SCAL... Q6H6 SQ 09/16/24 00:00 10/16/24 00:00 Ketorolac Tromethamine (toRADol) 15 mg Q8H PRN IV MODERATE PAIN (4-6) 09/12/24 15:30 09/12/24 21:58 DC Lactulose (Constulose 20gm/ 30ml Udcup) 20 gm BID PRN PO CONSTIPATION 09/12/24 12:30 10/12/24 12:29 Levothyroxine Sodium (SYNTHroid 50MCG TAB) 50 mcg SYN PO 09/17/24 06:30 10/17/24 06:29 Magnesium Oxide (Mag-Ox) 400 mg DAILY PO 09/16/24 09:00 10/16/24 08:59 09/16/24 08:45 400 MG Magnesium Sulfate 50 ml @ 0 mls/hr PROTOCOL IV 09/13/24 08:30 10/13/24 08:29 Magnesium Sulfate 50 ml @ 0 mls/hr PROTOCOL PRN IV other 09/12/24 12:30 09/13/24 08:36 DC Magnesium Sulfate 50 ml @ 0 mls/hr PROTOCOL PRN IV low mag levl 09/13/24 08:30 09/13/24 08:37 DC Metoprolol Tartrate (loprESSOR) 2.5 mg Q6H PRN IV blood pressure 09/14/24 08:30 10/14/24 08:29 Metoprolol Tartrate (loprESSOR) 25 mg BID PO 09/16/24 09:00 10/16/24 08:59 09/16/24 08:45 25 MG Montelukast Sodium (SinguLAIR) 10 mg HS PO 09/16/24 21:00 10/16/24 20:59 Morphine Sulfate (morPHINE 2MG SYG) 1 mg Q6H PRN IVP SEVERE PAIN (7-10) 09/12/24 15:30 09/19/24 15:29 09/15/24 23:16 1 MG Nitroglycerin (Nitrostat) 0.4 mg PROTOCOL PRN SL CHEST PAIN 09/12/24 12:30 10/12/24 12:29 Ondansetron HCl (zoFRAN 4MG INJ) 4 mg Q6H PRN IV NAUSEA/VOMITING 09/12/24 12:30 10/12/24 12:29 Pharmacy Profile Note (Pharmacy Communication) 1 each AD MISC 09/13/24 20:30 09/20/24 20:29 Piperacillin Sod/ Tazobactam Sod 50 ml @ 12.5 mls/hr Q12H IV 09/12/24 13:00 09/12/24 12:48 DC Piperacillin Sod/ Tazobactam Sod 50 ml @ 12.5 mls/hr Q12H IV 09/12/24 23:30 09/22/24 23:29 09/15/24 23:16 12.5 MLS/HR Potassium Chloride 100 ml @ 50 mls/hr AD PRN IV POTASSIUM PROTOCOL 09/13/24 08:30 10/13/24 08:29 Sodium Chloride 1,000 ml @ 0 mls/hr ONCE IV 09/14/24 12:00 10/14/24 11:59 09/14/24 11:56 1,000 MLS/HR Sodium Chloride 154 meq/Dextrose 1,000 ml @ 20 mls/hr Q24H IV 09/13/24 11:00 09/13/24 10:44 DC Vancomycin HCl (Vancomycin 750mg) 750 mg [id number][DIALYSIS] IVPB 09/16/24 16:00 09/26/24 15:59 Vancomycin HCl (Vancomycin Protocol) 1 each AD IV 09/14/24 17:30 09/24/24 17:29 Zolpidem Tartrate (AmbIEN) 5 mg HS PRN PO INSOMNIA 09/12/24 12:30 10/12/24 12:29 DIAGNOSTICS / RADIOLOGY: [ ] ASSESSMENT: [ Small-bowel obstruction versus ileus per CT abdomen/pelvis 09/12/2024 POA ESRD on dialysis Thursday needing dialysis POA Uncontrolled diabetes mellitus type 2 with hyper and hypoglycemia POA Hyperlipidemia POA Coronary artery disease s/p CABG six years ago POA Uncontrolled hypertension POA Multifactorial anemia POA Lactic acidosis 4.6 POA Hyperbilirubinemia 1.9 POA Hyper troponinemia POA acute on chroniic CHF EF 45/50% chronic combined systolic and diastolic conges tive heart failure. History of cholelithiasis POA History of appendectomy ] History of appendectomy History of right knee cartilage surgery History of left hand pointing finger amputation Current alcohol drinking occasionally PLAN: Patient downgraded to the medical floor Discontinue NG tube, start clear liquid diet, advanced as tolerated Continue broad-spectrum IV antibiotics Continue to follow results of septic workup Continue to follow infectious disease input recommendation Continue to follow surgical input recommendation Continue hemodialysis per clothes drier repairer recommendations Replace electrolytes IV per protocol CBC in a.m. transfuse as needed Follow a.m. labs GI and DVT prophylaxis Disposition: Pending improvement in clinical condition. Plan of action discussed, all questions answered, agreed and understood the information provided. JOSE CHOPRA MD Sep 16, 2024 11:13
[2024-09-16] MEDS: VANCOMYCIN 750MG VIAL IVPB SCH (16:17)
--- NOTE | 2024-09-16 17:01 | PN ---
INFECTIOUS DISEASE PROGRESS NOTE Date of Service: Sep 16, 2024 SUBJECTIVE: This 69 year old male patient is being seen today at bedside. No fever or chills. No nausea or vomiting. Patient denies any abdominal pain. No diarrhea or constipation. He reports multiple bowel movement. NG tube has been removed. He remains on antibiotics. Oral feedings will be started with clear liquids first. We will continue to follow up with patient. Family at bedside, went over plan of care and questions were answered. PHYSICAL EXAM EYES: Anicteric. Pupils equal and reactive. HENT: No oral thrush seen, moist Oral mucosa. NECK: Supple, no JVD or thyromegaly. LUNGS: Good air entry. No rales, no rhonchi. CARDIOVASCULAR: S1, S2 regular. No murmur heard. ABDOMEN: Soft, bowel sounds present, no organomegaly. CENTRAL NERVOUS SYSTEM: Awake, alert, oriented x 3. SKIN: No rashes, no swelling. LYMPHATICS: No peripheral lymphadenopathy MUSCULOSKELETAL: No joint swelling, erythema or tenderness. EXTREMITIES: No cyanosis or clubbing BACK: No deformity, no pressure ulcer. GENITOURINARY: No dysuria or hematuria. Vital Sign (Last 12 Hours) 09/16/24 09/16/24 09/16/24 09/16/24 08:00 08:10 09:10 09:30 Temp 98.6 97.5 97.5 Pulse 83 83 78 Resp 22 16 16 B/P (MAP) 138/56 123/69 117/57 Pulse Ox 92 93 O2 Delivery Room Air* Room Air Room Air O2 Flow Rate 0 FiO2 21 09/16/24 09/16/24 09/16/24 09/16/24 09:45 10:00 10:15 10:30 Pulse 74 72 71 70 Resp 16 16 16 16 B/P (MAP) 115/60 118/60 116/58 103/60 O2 Delivery Room Air Room Air Room Air Room Air 09/16/24 09/16/24 09/16/24 09/16/24 10:45 11:00 11:15 11:30 Pulse 72 71 73 75 Resp 16 16 16 16 B/P (MAP) 119/58 116/62 124/62 110/52 O2 Delivery Room Air Room Air Room Air Room Air 09/16/24 09/16/24 09/16/24 09/16/24 11:45 11:45 12:00 12:15 Temp 98.6 Pulse 70 74 76 76 Resp 22 16 16 16 B/P (MAP) 103/60 106/58 112/57 112/57 Pulse Ox 92 O2 Delivery Room Air Room Air Room Air 09/16/24 09/16/24 09/16/24 12:30 12:45 16:35 Temp 97.2 97.2 97.5 Pulse 72 78 77 Resp 16 16 20 B/P (MAP) 106/62 109/57 117/73 Pulse Ox 96 O2 Delivery Room Air Nasal Cannula O2 Flow Rate 1.0 Intake & Output (last 24hrs) 09/15/24 09/15/24 09/16/24 15:00 23:00 07:00 Intake Total 258.0 ml 194.0 ml Output Total 500 ml Balance -242.0 ml 194.0 ml LABS: Laboratory: Test 09/16/24 15:47 09/16/24 04:32 Range/Units Whole Blood Glucose 158 H 70-110 MG/DL White Blood Count 14.1 H 4.8-10.8 K/uL Red Blood Count 3.61 L 4.50-6.20 MIL/uL Hemoglobin 11.8 L 14.0-18.0 g/dL Hematocrit 34.8 L 42-54 % Mean Corpuscular Volume 96.4 79-99 fL Mean Corpuscular Hemoglobin 32.7 27.0-33.0 pg Mean Corpuscular Hemoglobin Concent 33.9 32.0-36.0 g/dL Red Cell Distribution Width 14.6 11.0-15.5 % Platelet Count 224 130-400 K/uL Mean Platelet Volume 9.5 7.5-10.5 fL Nucleated Red Blood Cells 0.0 0.0-0.19 % Sodium Level 134 L 136-145 mmol/L Potassium Level 4.0 3.5-5.1 mmol/L Chloride Level 96 L 101-111 mmol/L Carbon Dioxide Level 26 21-32 mmol/L Blood Urea Nitrogen 62 H 7-18 mg/dL Creatinine 7.7 H 0.5-1.3 mg/dL Glomerular Filtration Rate Calc 7 >90 mL/min Random Glucose 111 H 70-105 mg/dL Total Calcium 10.0 8.5-10.1 mg/dL Phosphorus Level 6.6 H 2.5-4.9 mg/dL Magnesium Level 1.90 1.80-2.40 mg/dL Total Bilirubin 1.5 H 0.2-1.0 mg/dL Aspartate Amino Transf (AST/SGOT) 106 H 10-37 U/L Alanine Aminotransferase (ALT/SGPT) 82 H 12-78 U/L Alkaline Phosphatase 67 50-136 U/L Total Protein 6.1 6.0-8.3 g/dL Albumin 1.7 L 3.5-5.0 g/dL CT ABDOMEN/PELVIS W/WO CONTRAS REASON: SBO VS ILLIUS/ NG TUBE POSSILBLE REMOVAL COMPARISON: 09/12/2024 TECHNIQUE: Images are obtained from lung bases through the symphysis pubis following IV contrast, 100 cc Omnipaque 350. Oral contrast was administered as well. FINDINGS: Lung bases are clear. There are no focal liver lesions. There is mild bilateral renal cortical thinning, there is no mass, stone or hydronephrosis.. Spleen and pancreas appear unremarkable. There has been a previous cholecystectomy. There is an NG tube present in the stomach. Bowel loops appear unremarkable. There is no evidence of ileus or obstruction. There is contrast present throughout the colon. There is moderate sigmoid diverticulosis without evidence of diverticulitis. This includes normal appearance of the appendix There is no evidence of free fluid or intraperitoneal air. There are no focal fluid collections. Aorta and retroperitoneum appear normal as do pelvic soft tissue structures. The anterior abdominal wall is intact. Osseous structures appear unremarkable. IMPRESSION: 1. NG tube in the stomach. 2. No dilated bowel loops identified, no evidence of obstruction or ileus. 3. Mild to moderate sigmoid diverticulosis without evidence of diverticulitis. 4. Absent gallbladder. CT was performed with one or more following dose reduction techniques: automated exposure control, adjustment of the mA and kv according to patient's size, or use of a iterative reconstruction technique. ASSESSMENT: Multifocal pneumonia. Gram-negative sepsis. Abdominal pain. Leukocytosis. Small bowel obstruction versus ileus. Diabetes mellitus. End-stage renal disease. PLAN: Continue vancomycin per pharmacy protocol. Continue Zosyn IV. Continue doxycycline IV. Continue NG tube to low intermittent suction, removed Continue GI prophylaxis. Continue dialysis as recommended by research administrator. Continue monitoring glucose levels. We will give a tap water enema today. We will monitor electrolytes. Will start on clear liquid diet This case was reviewed and discussed with my supervising physician and the above assessment and plan was formulated and agreed upon. MICHELLE BONDS Sep 16, 2024 17:01
[2024-09-16] MEDS: monteLUKAST sodIUM 10 MG TAB PO SCH (20:00)
[2024-09-16] MEDS: HEParin 5,000 UNIT VIAL SQ SCH (20:00)
--- NOTE | 2024-09-16 20:00 | NUR ---
MEDS SHIFT ASSESSMENT DONE, PLEASE REFER TO CHART. DUE MEDS ADMINISTERED, TOLERATED WELL. KEPT RESTED AND COMFORTABLE IN BED. CALL LIGHT WITHIN REACH. FAMILY AT BEDSIDE.
[2024-09-16] MEDS: atorVAStatin 40 MG TABLET PO SCH (20:01)
[2024-09-16] MEDS: INSULIN humuLIN R 100 UNIT/ML 3ML SQ SCH ×2 (20:11)
--- NOTE | 2024-09-16 23:05 | PN ---
NEPHROLOGY NOTE SUBJECTIVE: The patient has seen and seen several times. Dialysis patient, is generally weak. He has NG tube in place, a small-bowel obstruction and underlying previous fluid overload and diabetic nephropathy, hypertension, ileus and other comorbidities present. PHYSICAL EXAMINATION: VITAL SIGNS: Blood pressure is 138/70, respiratory rate is 18, afebrile. HEENT: Head is atraumatic. Pupils are round and reactive. Sclerae are anicteric. Conjunctivae not pale. Oral mucosa is not dry. NECK: Supple. No masses or bruits. Thyroid is palpable. No lymphadenopathy. CHEST: Shows equal thoracic percussion note being resonant in all areas. CARDIAC: Regular rhythm, no rub, no S3, S4. No parasternal heave. ABDOMEN: With no guarding or tenderness. Bowel sounds are normoactive. No free fluid. LABORATORY DATA: We have reviewed the labs and old records reviewed. Imaging studies are personally reviewed. PROBLEMS: Renal failure and anemia. PLAN: To continue dialysis support. Continue monitoring of renal function. Continue monitoring of electrolytes. Intake, output and weight will be monitored. Nonsteroidal drugs will be avoided. Doses of medicine will be adjusted and we will follow up closely. The patient was seen and seen for dialysis multiple times today. We have discussed with other team members. TID: [id number] RECEIPT: [id number]
--- NOTE | 2024-09-16 23:38 | PN ---
NEPHROLOGY NOTE SUBJECTIVE: The patient has been evaluated and seen for dialysis and seen several times. The patient has no other associated symptoms. No other aggravating or relieving factors. No other associated finding. PHYSICAL EXAMINATION: GENERAL: Pale, no other distress or deformities, lying in bed. VITAL SIGNS: Blood pressure is 138/70, respiratory rate is 18, afebrile. HEENT: Head is atraumatic, normocephalic. Pupils are round and reactive to light. Sclerae are anicteric. Conjunctivae not pale. Oral mucosa is not dry. NECK: Without masses or bruits. Thyroid is palpable. Neck has no bruits. CHEST: Shows equal thoracic percussion note being resonant in all areas. CARDIAC: Regular rhythm, no rub, no S3, S4. No parasternal heave. ABDOMEN: No guarding or tenderness. Bowel sounds normoactive. EXTREMITIES: With no edema or cyanosis. NEUROLOGIC: Unchanged. PROBLEMS: Renal failure, anemia in a patient who has multiple other comorbidities. The patient has small bowel obstruction, weakness and anemia. PLAN: Will be to continue dialysis. Seen for dialysis multiple times. Continue monitoring of electrolytes and renal function. Also medicine to be adjusted and overall condition remained guarded. We will be following followup on renal function, electrolytes and overall status closely. Thank you for this patient. Seen for dialysis multiple times. I have discussed with the other team members. I have ____ as needed and the patient was evaluated on dialysis multiple times. TID: [id number] RECEIPT: [id number]
[2024-09-17] VITALS (7 sets, daily range): BP systolic 90–104; BP diastolic 46–55; PULSE 75–83; RESP 17–19; TEMP 97.7–98.5; O2SAT 92–96
[2024-09-17] MEDS: DiphenhydrAMINE HCL 50 MG/ML VIAL IV PRN (02:01)
[2024-09-17 05:28] LABS: MEAN CORPUSCULAR HEMOGLOBIN 32.6 pg (27.0-33.0); MEAN CORPUSCULAR HGB CONC 33.5 g/dL (32.0-36.0); MEAN CORPUSCULAR VOLUME 97.2 fL (79-99); RED BLOOD CELL COUNT(AUTO) 3.19 MIL/uL (4.50-6.20); RED CELL DISTRIBUTION WIDTH 14.7 % (11.0-15.5)
[2024-09-17 05:40] LABS: ALBUMIN 1.6 g/dL (3.5-5.0); BILIRUBIN,TOTAL 1.1 mg/dL (0.2-1.0); MAGNESIUM 1.9 mg/dL (1.80-2.40); POTASSIUM 3.7 mmol/L (3.5-5.1); TOTAL PROTEIN, SERUM 5.6 g/dL (6.0-8.3)
[2024-09-17] MEDS: levoTHYROxine 50 MCG TABLET PO SCH (05:40)
--- NOTE | 2024-09-17 06:15 | NUR ---
PIV PT CALL AND REPORTED LEAKING ON PIV SITE. DISCONTINUED PIV WITH CATHETER INTACT. RE-INSERTED PIV TO RFA G20, TOLERATED WELL. CONTINUED IV DOXYCYCLINE INFUSION. KEPT RESTED. FOR MORE CARE.
--- NOTE | 2024-09-17 09:35 | PN ---
[facility] PROGRESS NOTE Date of Service: Sep 17, 2024 Time of Service: 09:32 SUBJECTIVE: [ ] PCP: Admission date: 09/12/24 chief complaints: abd pain This is a 69-year-old male was admitted on 09/12/2024 with chief complaints of abdominal pain ER workup was consistent with small-bowel obstruction. Patient remains bowel rest surgeon following at this time conservative management. Patient is seen and examined with attending reviewed chart. Primary nurse reports patient is running low blood sugars patient will be started on D10 slow rate. 09/14 the patient has been seen and examined, no acute events overnight, patient comfortably in bed, alert oriented x3, following commands, BP 134/66, afebrile, saturating 99% on 1 L via nasal cannula, patient with the NG tube connected to intermittent suction, feels less abdominal distention, getting good pain control with current medical management, he is passing gas. V/Q scan negative for PE, Doppler of the lower extremities negative for DVT, discussed with the patient, last KUB 09/13/2024 moderately distended small bowel loops in the right upper quadrant which could represent obstruction. Patient will remain NPO, continue broad-spectrum IV antibiotics, continue to follow surgical input and recommendations. The patient also with Gram-negative sepsis, continue to follow results of septic workup, infectious disease consultation requested, input noted and appreciated. Echocardiogram with LVEF 31% with a global hypokinesia, cardiology input noted and appreciated, continue medical management, patient may eventually require cardiac catheterization. 09/15 patient is seen and examined at bedside, no acute events overnight, he feels comfortable, less abdominal discomfort, he is passing gas, he remains with the NG tube connected to intermittent suction, BP 104/56, afebrile, saturating 96% on 1 L via nasal cannula. Denied chest pain, no shortness a breath, no cough. The patient had hemodialysis done yesterday, tolerated well. is at bedside, updated. Continue to follow surgical input and recommendations. Continue broad-spectrum antibiotics, to follow white blood cell count in a.m., today at 14.5, higher compared to yesterday at 14.2. Infectious disease input noted and appreciated, continue to follow recommendations. 09/16 patient is seen and examined at bedside, no acute events overnight, comfortably in bed, hemodynamically stable, alert oriented x3, getting hemodialysis, tolerating well. Results of repeat CT abdomen reviewed, no ileus, no obstruction, surgical input noted and appreciated, NG tube output has been minimal, we will pull out NG tube, we will start clear liquid diet and advanced as tolerated. Continue current pain medication with the adjustment as needed, continue broad-spectrum IV antibiotics, continue to follow infectious disease input and recommendations, a.m. labs. 09/17 patient is seen and examined at bedside, awake, following commands. BP 97/55, afebrile, saturating normal on room air, CBC with hemoglobin still elevated 15.0, hemoglobin 10.4, hematocrit 31.0, platelet count of 229. Sodium 138, potassium 3.7, BUN 51, creatinine 6.0, magnesium 1.9. NG tube removed yesterday, patient started on clear liquid diet. Now on GI soft diet. Tolerating well, no nausea, no vomiting, no abdominal pain. Continue to follow surgical input and recommendations. Continue broad-spectrum IV antibiotics, continue to trend WBC in a.m., continue hemodialysis per Nephrology recommendations. Cardiology input noted and appreciated. Consider Left heart catheterization once medically stable prior to discharge. Discussed with patient and family at bedside, all questions answered, agreed and understood information provided. REVIEW OF SYSTEMS CONSTITUTIONAL: Denies fevers, chills, or night sweats. No unintentional weight loss reported. NEUROLOGICAL: Denies headache, amaurosis fugax, motor weakness, sensory deficit, vertigo/spinning sensation, gait abnormalities, or tremors. ENT: No hearing loss, otalgia, otorrhea, rhinitis, rhinorrhea, hoarseness, or sore throat. CARDIOVASCULAR: Denies any exertional angina, dyspnea on exertion, orthopnea, paroxysmal nocturnal dyspnea, palpitations, life-threatening arrhythmias, claudication. PULMONARY: Denies any shortness of breath, cough, phlegm/sputum, hemoptysis, pleuritic chest pain. SLEEP: Denies morning headaches, daytime somnolence or napping. Denies di fficulty falling asleep, staying asleep, waking from sleep. Denies knowledge of snoring. GASTROINTESTINAL: Denies any type of dysphagia to either liquids or solids. Denies nausea, vomiting, pyrosis, early satiety, diarrhea, constipation, or changes in stool consistency or caliber. Denies coffee-ground emesis, hematemesis, hematochezia, or melanotic stools. Complains of persistent abdominal pain GENITOURINARY: Denies frequency, urgency, nocturia, hematuria or incontinence (Storage/Irritative symptoms.) Low urinary stream, straining to void, urinary intermittency or hesitancy, splitting of the voiding stream, terminal dribbling. ENDOCRINOLOGIC: Denies polyuria, polydipsia, polyphagia or heat/cold intolerances. HEMATOLOGIC: Denies thrombophilia/previous clots, or coagulopathy/bleeding disorders. ONCOLOGIC: Denies personal history of malignancy. DERMATOLOGIC: Denies rashes or pruritus. PSYCHIATRIC: Denies any suicidal or homicidal ideation. Denies hallucinations. PHYSICAL EXAM GENERAL APPEARANCE: The patient is awake, alert, and oriented, in no acute cardiopulmonary distress. NEUROLOGICAL: Cranial nerves II-XII grossly intact. Motor is 5/5 in bilateral upper and lower extremities proximal to distal. No sensory deficits. HEENT: Face is symmetric. Pupils are equal and reactive. Extraocular movements are intact. NECK: Supple. No JVD. No thyromegaly. No submental, submandibular, pre-/po stauricular, occipital or supraclavicular lymphadenopathy. CHEST: Normal chest expansion. No Telemetry. LUNGS: Absence of any rales, rhonchi or any wheezing. CARDIOVASCULAR: Regular. S1 and S2 normal. No appreciable rubs, murmurs or gallops. ABDOMEN: Soft, nontender, and nondistended. There is no rebound, voluntary guarding, or rigidity. : Deferred. No Palomares. EXTREMITIES: Non-edematous and not cyanotic. No clubbing. Good capillary refill. SKIN: No skin breakdown. Vital Signs (last 8hr) Date Time Temp Pulse Resp B/P (MAP) Pulse Ox O2 Delivery O2 Flow Rate FiO2 09/17/24 08:00 97.7 80 18 97/55 97 Room Air 09/17/24 04:00 98.4 81 17 104/49 92 Room Air LABS: Laboratory: Test 09/17/24 05:14 09/16/24 20:04 09/16/24 04:32 Range/Units White Blood Count 15.0 H 4.8-10.8 K/uL Red Blood Count 3.19 L 4.50-6.20 MIL/uL Hemoglobin 10.4 L 14.0-18.0 g/dL Hematocrit 31.0 L 42-54 % Mean Corpuscular Volume 97.2 79-99 fL Mean Corpuscular Hemoglobin 32.6 27.0-33.0 pg Mean Corpuscular Hemoglobin Concent 33.5 32.0-36.0 g/dL Red Cell Distribution Width 14.7 11.0-15.5 % Platelet Count 229 130-400 K/uL Mean Platelet Volume 9.9 7.5-10.5 fL Nucleated Red Blood Cells 0.0 0.0-0.19 % Sodium Level 138 136-145 mmol/L Potassium Level 3.7 3.5-5.1 mmol/L Chloride Level 99 L 101-111 mmol/L Carbon Dioxide Level 30 21-32 mmol/L Blood Urea Nitrogen 51 H 7-18 mg/dL Creatinine 6.0 H 0.5-1.3 mg/dL Glomerular Filtration Rate Calc 9 >90 mL/min Random Glucose 125 H 70-105 mg/dL Total Calcium 9.6 8.5-10.1 mg/dL Magnesium Level 1.90 1.80-2.40 mg/dL Total Bilirubin 1.1 H 0.2-1.0 mg/dL Aspartate Amino Transf (AST/SGOT) 86 H 10-37 U/L Alanine Aminotransferase (ALT/SGPT) 87 H 12-78 U/L Alkaline Phosphatase 80 50-136 U/L Total Protein 5.6 L 6.0-8.3 g/dL Albumin 1.6 L 3.5-5.0 g/dL Whole Blood Glucose 195 H 70-110 MG/DL Phosphorus Level 6.6 H 2.5-4.9 mg/dL Current Medications Medications (Trade) Dose Ordered Sig/Elver Route PRN Reason Start Time Stop Time Status Last Admin Dose Admin Acetaminophen (TYLenol 325MG TAB) 650 mg Q4H PRN PO MILD PAIN (1-3) 09/12/24 12:30 10/12/24 12:29 09/17/24 02:01 650 MG Acetaminophen (TYLenol 325MG TAB) 650 mg Q6H PRN PO TEMPERATURE GREATER THAN 101.5 09/12/24 12:30 10/12/24 12:29 Acetaminophen/ Hydrocodone Bitart (NORco 5/325MG) 1 tab Q6H PRN PO MODERATE PAIN (4-6) 09/12/24 15:30 09/17/24 15:29 09/15/24 00:59 1 TAB Al Hydroxide/Mg Hydroxide (MAALox PLUS 30ML) 30 ml Q6H PRN PO INDIGESTION 09/12/24 12:30 10/12/24 12:29 Aspirin (Aspirin 300mg Supp) 150 mg DAILY [place] 09/14/24 09:00 09/16/24 07:45 DC 09/15/24 09:42 150 MG Aspirin (Aspirin 81mg Chew Tab) 81 mg DAILY PO 09/16/24 09:00 10/16/24 08:59 09/17/24 08:41 81 MG Atorvastatin Calcium (LIPItor 40MG) 80 mg HS PO 09/16/24 21:00 10/16/24 20:59 09/16/24 20:01 80 MG Benzonatate (Tessalon 100mg Caps) 100 mg Q8H PRN PO cough 09/12/24 19:00 10/12/24 18:59 Dextrose 1,000 ml @ 20 mls/hr Q24H IV 09/13/24 11:30 09/17/24 00:39 DC 09/13/24 12:01 20 MLS/HR Dextrose (D50w) 50 ml AD PRN IV HYPOGLYCEMIA PROTOCOL 09/12/24 12:30 10/12/24 12:29 09/13/24 10:29 50 ML Diphenhydramine HCl (BENAdryl INJ) 25 mg Q6H PRN IV SEVERE ITCHING/RASH 09/12/24 12:30 10/12/24 12:29 09/17/24 02:01 25 MG Doxycycline Hyclate 250 ml @ 125 mls/hr Q12H IV 09/12/24 19:00 09/22/24 18:59 09/17/24 05:40 125 MLS/HR Famotidine (Pepcid 20mg Vial) 20 mg BID PRN IV NAUSEA/VOMITING 09/12/24 12:30 09/12/24 12:44 DC Famotidine (Pepcid 20mg Vial) 20 mg Q48H IV 09/12/24 21:00 10/12/24 20:59 09/16/24 20:00 20 MG Fenofibrate (Tricor) 145 mg DAILY PO 09/16/24 09:00 10/16/24 08:59 09/17/24 08:41 145 MG Glucagon (Glucagon 1mg Kit) 1 mg AD PRN IM HYPOGLYCEMIA PROTOCOL 09/12/24 12:30 10/12/24 12:29 Guaifenesin/ Dextromethorphan (RobiTUSSin DM 200/20MG 10ML) 10 ml Q4H PRN PO COUGH 09/12/24 12:30 10/12/24 12:29 Heparin Sodium (Porcine) (HEParin 5,000 UNIT VIAL) 5,000 unit BID SQ 09/12/24 21:00 09/16/24 15:02 DC 09/15/24 20:00 5,000 UNIT Heparin Sodium (Porcine) (HEParin 5,000 UNIT VIAL) 5,000 unit BID SQ 09/16/24 21:00 10/16/24 20:59 09/17/24 08:41 5,000 UNIT Hydralazine HCl (APRESOLine 20MG INJ) 10 mg Q6H PRN IV For:SBP above 160;DBP above 90 09/12/24 12:30 09/14/24 08:11 DC Insulin Human Regular (humuLIN R 100 UNIT/ML 3ML) INSULIN SLIDING SCAL... ACHS SQ 09/12/24 16:30 09/15/24 19:56 DC Insulin Human Regular (humuLIN R 100 UNIT/ML 3ML) INSULIN SLIDING SCAL... ACHS SQ 09/16/24 21:00 10/16/24 20:59 09/16/24 20:11 2 UNIT Insulin Human Regular (humuLIN R 100 UNIT/ML 3ML) INSULIN SLIDING SCAL... Q6H6 SQ 09/16/24 00:00 09/16/24 19:56 DC Ketorolac Tromethamine (toRADol) 15 mg Q8H PRN IV MODERATE PAIN (4-6) 09/12/24 15:30 09/12/24 21:58 DC Lactulose (Constulose 20gm/ 30ml Udcup) 20 gm BID PRN PO CONSTIPATION 09/12/24 12:30 10/12/24 12:29 Levothyroxine Sodium (SYNTHroid 50MCG TAB) 50 mcg SYN PO 09/17/24 06:30 10/17/24 06:29 09/17/24 05:40 50 MCG Magnesium Oxide (Mag-Ox) 400 mg DAILY PO 09/16/24 09:00 10/16/24 08:59 09/17/24 08:41 400 MG Magnesium Sulfate 50 ml @ 0 mls/hr PROTOCOL IV 09/13/24 08:30 10/13/24 08:29 Magnesium Sulfate 50 ml @ 0 mls/hr PROTOCOL PRN IV other 09/12/24 12:30 09/13/24 08:36 DC Magnesium Sulfate 50 ml @ 0 mls/hr PROTOCOL PRN IV low mag levl 09/13/24 08:30 09/13/24 08:37 DC Metoprolol Tartrate (loprESSOR) 2.5 mg Q6H PRN IV blood pressure 09/14/24 08:30 10/14/24 08:29 Metoprolol Tartrate (loprESSOR) 25 mg BID PO 09/16/24 09:00 10/16/24 08:59 09/17/24 08:41 25 MG Montelukast Sodium (SinguLAIR) 10 mg HS PO 09/16/24 21:00 10/16/24 20:59 09/16/24 20:00 10 MG Morphine Sulfate (morPHINE 2MG SYG) 1 mg Q6H PRN IVP SEVERE PAIN (7-10) 09/12/24 15:30 09/19/24 15:29 09/15/24 23:16 1 MG Nitroglycerin (Nitrostat) 0.4 mg PROTOCOL PRN SL CHEST PAIN 09/12/24 12:30 10/12/24 12:29 Ondansetron HCl (zoFRAN 4MG INJ) 4 mg Q6H PRN IV NAUSEA/VOMITING 09/12/24 12:30 10/12/24 12:29 Pharmacy Profile Note (Pharmacy Communication) 1 each AD MISC 09/13/24 20:30 09/20/24 20:29 Piperacillin Sod/ Tazobactam Sod 50 ml @ 12.5 mls/hr Q12H IV 09/12/24 13:00 09/12/24 12:48 DC Piperacillin Sod/ Tazobactam Sod 50 ml @ 12.5 mls/hr Q12H IV 09/12/24 23:30 09/22/24 23:29 09/16/24 23:08 12.5 MLS/HR Potassium Chloride 100 ml @ 50 mls/hr AD PRN IV POTASSIUM PROTOCOL 09/13/24 08:30 10/13/24 08:29 Sodium Chloride 1,000 ml @ 0 mls/hr ONCE IV 09/14/24 12:00 10/14/24 11:59 09/14/24 11:56 1,000 MLS/HR Sodium Chloride 154 meq/Dextrose 1,000 ml @ 20 mls/hr Q24H IV 09/13/24 11:00 09/13/24 10:44 DC Vancomycin HCl (Vancomycin 750mg) 750 mg [id number][DIALYSIS] IVPB 09/16/24 16:00 09/26/24 15:59 09/16/24 16:17 750 MG Vancomycin HCl (Vancomycin Protocol) 1 each AD IV 09/14/24 17:30 09/24/24 17:29 Zolpidem Tartrate (AmbIEN) 5 mg HS PRN PO INSOMNIA 09/12/24 12:30 10/12/24 12:29 DIAGNOSTICS / RADIOLOGY: [ ] ASSESSMENT: [ Small-bowel obstruction versus ileus per CT abdomen/pelvis 09/12/2024 POA ESRD on dialysis Thursday needing dialysis POA Uncontrolled diabetes mellitus type 2 with hyper and hypoglycemia POA Hyperlipidemia POA Coronary artery disease s/p CABG six years ago POA Uncontrolled hypertension POA Multifactorial anemia POA Lactic acidosis 4.6 POA Hyperbilirubinemia 1.9 POA Hyper troponinemia POA acute on chroniic CHF EF 45/50% chronic combined systolic and diastolic congestive heart failure. History of cholelithiasis POA History of appendectomy ] History of appendectomy History of right knee cartilage surgery History of left hand pointing finger amputation Current alcohol drinking occasionally PLAN: Patient downgraded to the medical floor Discontinue NG tube, start clear liquid diet, advanced as tolerated Continue broad-spectrum IV antibiotics Continue to follow results of septic workup Continue to follow infectious disease input recommendation Continue to follow surgical input recommendation Continue hemodialysis per manager asset management recommendations Replace electrolytes IV per protocol CBC in a.m. transfuse as needed Follow a.m. labs GI and DVT prophylaxis Disposition: Pending improvement in clinical condition. Plan of action discussed, all questions answered, agreed and understood the information provided. JOSE CHOPRA MD Sep 17, 2024 09:35
--- NOTE | 2024-09-17 13:45 | PN ---
[facility] CARDIOLOGY PROGRESS NOTE Date Patient Seen: Sep 17, 2024 Time of Visit: 13:26 Problem List: Non-STEMI Acute on chronic systolic and diastolic heart failure exacerbated by non-STEMI Small bowel obstruction Hypertension Hyperlipidemia Diabetes mellitus type 2 End-stage renal disease on chronic HD on MWF Anemia of chronic disease CAD s/p CABG x 4 (SCHULZ-LAD, SVG-D1, SVG-OM2, and SVG-PDA) 07/13/[address] Ojeda 2D echo on 09/02/2023 with an EF 45-50%, grade II diastolic dysfunction, severely dilated right and left atrium, moderate aortic stenosis, peak gradient of 42 mmHg, mean pressure gradient of 20 mmHg Lexiscan stress test 11/04/2022 demonstrated global hypokinesis, fixed infero- apical defect, partially reversible anterior wall defect, with an EF of 35% LHC/coronary angiogram on 01/27/2023 demonstrated a patent SCHULZ graft to the LAD, patent SVG-D1, patent SVG-OM2, occluded SVG- to the distal RCA with 70% proximal stenosis and a total occlusion of the distal vessel and the left main coronary artery was totally occluded in the distal portion Interval History: 09/14/2024 Pt is evaluated in his room, complains of continued hiccups, lower abd pain, some clear phlegm production and denies chest pain, pressure or epigastric disc omfort. Pt's edema is improved per his report. He states that he developed the severe lower abd pain with HD and they had to stop early. He was transferred to the hospital and found to have a bump in the troponin levels and some ST depression consistent with NSTEMI likely secondary to hypoperfusion and underlying disease. Pt has NGT in place, minimal output. He reports passing gas but no BM. He states the surgeon is planning on management with the tube not invasive intervention at this time. Pt has no fever but WBC was increased to 14 this morning from 12 yesterday. h/h stable, bili mildly elevated at 1.5. He is able to converse alert, no distress. He states that his blood sugar was dysregulated yesterday and made him feel very weak. Pt remains NPO with NGT to LI suction. 09/16/2024 Pt evaluated in his room, had multiple BM's yesterday. Pt has no fever, no chills, abd pain is resolving. CT still shows a some colonic distention, low abd tenderness still present. Pt being followed by surgeon, no plans for intervention from surgical standpoint expressed, pt continues on abx. Still NPO but we will try to resume some meds with sips of water today. He has had no chest pain, n/v, diaphoresis, EKG continues to show NSR in the 80-90's. BP stable now with BP in 110- to 140's range. We will attempt low dose betablocker resumption and switch asa to po. Pt continues on prophylactic dose of heparin. 09/17/2024 Pt evaluated in his room today, NGT out and he is eating, still with some tenderness to the lower abd with the movement/straining. Pt has no fever or chills. Conservatively managed SBO/ileus. Family at the bedside, they are wa nting to have his heart evaluated but given his recent colon inflammation, concern for bleeding after cath has to be considered. Pt denies chest pain, has exertional sob but this has been present for months and is multifactoral. Overall pt is feeling much better. Physical Examination: GENERAL: [No acute distress.] HEAD: [Normal with no signs of head trauma.] EYES: [PERRLA, EOMI, conjunctiva and sclera normal.] ENT: [Hearing grossly intact, normal oropharynx.] NECK: [Supple without JVD. There is no tenderness, lymphadenopathy, or masses. No thyromegaly. Normal carotid upstrokes without bruits.] LUNGS: [Clear breath sounds bilaterally. Diminished to bases. HEART: [Normal rate and rhythm. Normal S1 and pronounced S2 with 2/6 LSB murmur, gallop or rub.] VASC: [Peripheral pulses +2 bilaterally.] ABD:, obese, soft, tender to lower abd, hypoactive bowel sounds, no masses, no organomegaly. No audible bruits.] : [Not examined] LYMPH: [No lymphadenopathy noted.] EXT: [No clubbing, cyanosis or edema.] SKIN: Redness to heels, No rashes or lesions noted.] NEURO: [Awake, alert, and oriented x3. No focal sensory or strength deficits noted.] Laboratory: [ ] Hematology Labs: Test 09/17/24 05:14 Range/Units White Blood Count 15.0 H 4.8-10.8 K/uL Red Blood Count 3.19 L 4.50-6.20 MIL/uL Hemoglobin 10.4 L 14.0-18.0 g/dL Hematocrit 31.0 L 42-54 % Mean Corpuscular Volume 97.2 79-99 fL Mean Corpuscular Hemoglobin 32.6 27.0-33.0 pg Mean Corpuscular Hemoglobin Concent 33.5 32.0-36.0 g/dL Red Cell Distribution Width 14.7 11.0-15.5 % Platelet Count 229 130-400 K/uL Mean Platelet Volume 9.9 7.5-10.5 fL Nucleated Red Blood Cells 0.0 0.0-0.19 % Chemistry Labs: Test 09/17/24 11:33 09/17/24 05:14 09/16/24 04:32 Range/Units Whole Blood Glucose 155 H 70-110 MG/DL Sodium Level 138 136-145 mmol/L Potassium Level 3.7 3.5-5.1 mmol/L Chloride Level 99 L 101-111 mmol/L Carbon Dioxide Level 30 21-32 mmol/L Blood Urea Nitrogen 51 H 7-18 mg/dL Creatinine 6.0 H 0.5-1.3 mg/dL Glomerular Filtration Rate Calc 9 >90 mL/min Random Glucose 125 H 70-105 mg/dL Total Calcium 9.6 8.5-10.1 mg/dL Magnesium Level 1.90 1.80-2.40 mg/dL Total Bilirubin 1.1 H 0.2-1.0 mg/dL Aspartate Amino Transf (AST/SGOT) 86 H 10-37 U/L Alanine Aminotransferase (ALT/SGPT) 87 H 12-78 U/L Alkaline Phosphatase 80 50-136 U/L Total Protein 5.6 L 6.0-8.3 g/dL Albumin 1.6 L 3.5-5.0 g/dL Phosphorus Level 6.6 H 2.5-4.9 mg/dL Diagnostics / Radiology: REsolved SBO/Ileus per CT Impression and Plan: Continue with conservative management for now, no plans for invasive intervention from cardiac standpoint at this time, consider workup as outpt. advance diet as tolerated and his medications as able Monitor for s/s of rhythm disturbance or angina. Heart cath as outpt, pt may discharge from cardiac standpoint. [facility] Sep 17, 2024 13:44
--- NOTE | 2024-09-17 15:43 | PN ---
INFECTIOUS DISEASE PROGRESS NOTE Date of Service: Sep 17, 2024 SUBJECTIVE: This is a 69-year-old male patient who was admitted to the hospital with chief complaint of abdominal pain. A CT of the abdomen and pelvis showed Mild bowel dilatation with fluid-filled may be related to small bowel obstruction and a KUB showed Moderately distended small bowel loops in the right upper quadrant which could represent obstruction. General surgery evaluated patient on following. Patient was seen and examined at bedside in room 320. Patient's abdomen is soft and diet has been advanced to GI soft. Patient having bowel movements and no reports of nausea or vomiting. WBC remains slightly elevated at 15.0 but patient remains afebrile, temperature is 97.7. A CT of the abdomen and pelvis done yesterday was negative for obstruction or ileus and showed mild to moderate sigmoid diverticulosis without evidence of diverticulitis. Patient continues on doxycycline and Zosyn IV. We will continue to follow patient's care. PHYSICAL EXAM EYES: Anicteric. Pupils equal and reactive. HENT: No oral thrush seen, moist Oral mucosa. NECK: Supple, no JVD or thyromegaly. LUNGS: Good air entry. No rales, no rhonchi. CARDIOVASCULAR: S1, S2 regular. No murmur heard. ABDOMEN: Soft, bowel sounds present, no organomegaly. CENTRAL NERVOUS SYSTEM: Awake, alert, oriented x 3. SKIN: No rashes, no swelling. LYMPHATICS: No peripheral lymphadenopathy MUSCULOSKELETAL: No joint swelling, erythema or tenderness. EXTREMITIES: No cyanosis or clubbing BACK: No deformity, no pressure ulcer. GENITOURINARY: No dysuria or hematuria. Vital Sign (Last 12 Hours) 09/17/24 09/17/24 09/17/24 04:00 08:00 12:00 Temp 98.4 97.7 98.1 Pulse 81 80 75 Resp B/P (MAP) 104/49 97/55 103/48 Pulse Ox 92 97 95 O2 Delivery Room Air Room Air Room Air Intake & Output (last 24hrs) 09/16/24 09/16/24 09/17/24 15:00 23:00 07:00 Intake Total 364.0 ml 70.0 ml Output Total 1600 ml Balance -1600 ml 364.0 ml 70.0 ml LABS: Laboratory: Test 09/17/24 11:33 09/17/24 05:14 09/16/24 04:32 Range/Units Whole Blood Glucose 155 H 70-110 MG/DL White Blood Count 15.0 H 4.8-10.8 K/uL Red Blood Count 3.19 L 4.50-6.20 MIL/uL Hemoglobin 10.4 L 14.0-18.0 g/dL Hematocrit 31.0 L 42-54 % Mean Corpuscular Volume 97.2 79-99 fL Mean Corpuscular Hemoglobin 32.6 27.0-33.0 pg Mean Corpuscular Hemoglobin Concent 33.5 32.0-36.0 g/dL Red Cell Distribution Width 14.7 11.0-15.5 % Platelet Count 229 130-400 K/uL Mean Platelet Volume 9.9 7.5-10.5 fL Nucleated Red Blood Cells 0.0 0.0-0.19 % Sodium Level 138 136-145 mmol/L Potassium Level 3.7 3.5-5.1 mmol/L Chloride Level 99 L 101-111 mmol/L Carbon Dioxide Level 30 21-32 mmol/L Blood Urea Nitrogen 51 H 7-18 mg/dL Creatinine 6.0 H 0.5-1.3 mg/dL Glomerular Filtration Rate Calc 9 >90 mL/min Random Glucose 125 H 70-105 mg/dL Total Calcium 9.6 8.5-10.1 mg/dL Magnesium Level 1.90 1.80-2.40 mg/dL Total Bilirubin 1.1 H 0.2-1.0 mg/dL Aspartate Amino Transf (AST/SGOT) 86 H 10-37 U/L Alanine Aminotransferase (ALT/SGPT) 87 H 12-78 U/L Alkaline Phosphatase 80 50-136 U/L Total Protein 5.6 L 6.0-8.3 g/dL Albumin 1.6 L 3.5-5.0 g/dL Phosphorus Level 6.6 H 2.5-4.9 mg/dL C ASSESSMENT: Multifocal pneumonia. Gram-negative sepsis. Abdominal pain. Leukocytosis. Small bowel obstruction versus ileus, resolved. Sigmoid Diverticulosis. Diabetes mellitus. End-stage renal disease, on dialysis. PLAN: Continue vancomycin per pharmacy protocol. Continue Zosyn IV. Continue doxycycline IV. Diet has been advanced to GI soft and tolerating well. Continue GI prophylaxis. Continue pain management. Continue dialysis as recommended by or manager. Continue monitoring glucose levels. We will monitor electrolytes. This case was reviewed and discussed with my supervising physician and the above assessment and plan was formulated and agreed upon. ATTESTATION BY PHYSICIAN I have seen and examined the patient. I reviewed the documentation, medical decision making, and treatment plan as noted by the mid-level provider above. I agree with the findings and plan of care. YUMIKO LINN MD, [facility] Sep 17, 2024 15:43
--- NOTE | 2024-09-17 19:55 | NUR ---
MEDS SHIFT ASSESSMENT DONE, PLEASE REFER TO CHART. DUE MEDS ADMINISTERED, TOLERATED WELL. RE-POSITIONED COMFORTABLY IN BED WITH HOB ELEVATED. BED ALARM ACTIVATED. CALL LIGHT WITHIN REACH. FAMILY AT BEDSIDE.
[2024-09-17] MEDS: BENZONATATE 100 MG CAPSULE PO PRN (19:56)
--- NOTE | 2024-09-17 22:12 | PN ---
SUBJECTIVE: A 69-year-old male with history of diabetes mellitus and hypertension. He has a history of end-stage renal disease, on dialysis on a Thursday, Thursday, Thursday schedule. The patient initially presented with abdominal pain. The patient was found to have small bowel obstruction. The patient is now tolerating a diet. The patient is being seen by surgical service, wishes to continue with conservative management and the patient is being seen for all the above. He did receive dialysis yesterday without difficulty. REVIEW OF SYSTEMS: GENERAL: He is feeling weak and tired. HEENT: No change in vision. No change in hearing. CARDIOVASCULAR: There is no current chest pain or palpitations. PULMONARY: There is no shortness of breath or orthopnea. GASTROINTESTINAL: As described above. MUSCULOSKELETAL: Complains of weakness. PHYSICAL EXAMINATION: VITAL SIGNS: Blood pressure 104/49, pulse 80s. GENERAL: Chronically ill male, older than appearing. HEENT: Head is atraumatic. Pupils equal, roving to light. Oropharynx is without exudate. Nares clear. NECK: There is no JVP. There is no thyromegaly, no mass. CARDIOVASCULAR: Regular. There is no S3 or S4 gallop. LUNGS: Coarse with equal thoracic movement. ABDOMEN: Soft, nondistended, and nontender. EXTREMITIES: Reveal no clubbing, no cyanosis. NEUROLOGIC: He is awake. He is alert. LABORATORY DATA: Hemoglobin 10, hematocrit 31, white cell count is 15,000. BUN 51, creatinine 6. IMPRESSION: * Acute on chronic renal dysfunction. * Bowel obstruction. * Hypertension. * Diabetes mellitus. PLAN: The patient now is tolerating some amount of diet. The patient was seen by surgical service and felt to continue with conservative management. We will continue to follow closely. He remains dialysis on a Thursday, Thursday, Thursday schedule. Once the patient is discharged, the patient will follow up at the dialysis unit. TID: [id number] RECEIPT: [id number]
[2024-09-18] VITALS: BP 107/50; PULSE 88; RESP 18; TEMP 98.2
[2024-09-18] MEDS: MAGNESIUM 2GM PREMIX 50ML 50 ML IV SCH (03:23)
[2024-09-18 04:00] VITALS: BP 113/50; PULSE 81; RESP 20; TEMP 98.7
--- NOTE | 2024-09-18 05:45 | NUR ---
MEDS PT SLEPT AT INTERVALS DURING THE SHIFT. NO DISTRESS NOTED. NO CONCERNS VERBALIZED. DUE MEDS ADMINISTERED, TOLERATED WELL. KEPT COMFORTABLE. FOR MORE CARE.
[2024-09-18 06:43] LABS: HEMATOCRIT 30.4 % (42-54); MEAN CORPUSCULAR HEMOGLOBIN 32.5 pg (27.0-33.0); MEAN CORPUSCULAR HGB CONC 33.9 g/dL (32.0-36.0); MEAN CORPUSCULAR VOLUME 95.9 fL (79-99); RED BLOOD CELL COUNT(AUTO) 3.17 MIL/uL (4.50-6.20); RED CELL DISTRIBUTION WIDTH 14.6 % (11.0-15.5); WHITE BLOOD COUNT (AUTO) 12.7 K/uL (4.8-10.8)
[2024-09-18 07:08] LABS: ALBUMIN 1.6 g/dL (3.5-5.0); BILIRUBIN,TOTAL 1.2 mg/dL (0.2-1.0); CREATININE 7.4 mg/dL (0.5-1.3); MAGNESIUM 2.3 mg/dL (1.80-2.40); POTASSIUM 4.1 mmol/L (3.5-5.1); TOTAL PROTEIN, SERUM 5.5 g/dL (6.0-8.3)
[2024-09-18 08:00] VITALS: BP 118/54; PULSE 81; RESP 17; TEMP 98.4; O2SAT 96
--- NOTE | 2024-09-18 10:25 | PN ---
[facility] PROGRESS NOTE Date of Service: Sep 18, 2024 Time of Service: 10:21 SUBJECTIVE: [ ] PCP: Admission date: 09/12/24 chief complaints: abd pain This is a 69-year-old male was admitted on 09/12/2024 with chief complaints of abdominal pain ER workup was consistent with small-bowel obstruction. Patient remains bowel rest surgeon following at this time conservative management. Patient is seen and examined with attending reviewed chart. Primary nurse reports patient is running low blood sugars patient will be started on D10 slow rate. 09/14 the patient has been seen and examined, no acute events overnight, patient comfortably in bed, alert oriented x3, following commands, BP 134/66, afebrile, saturating 99% on 1 L via nasal cannula, patient with the NG tube connected to intermittent suction, feels less abdominal distention, getting good pain control with current medical management, he is passing gas. V/Q scan negative for PE, Doppler of the lower extremities negative for DVT, discussed with the patient, last KUB 09/13/2024 moderately distended small bowel loops in the right upper quadrant which could represent obstruction. Patient will remain NPO, continue broad-spectrum IV antibiotics, continue to follow surgical input and recommendations. The patient also with Gram-negative sepsis, continue to follow results of septic workup, infectious disease consultation requested, input noted and appreciated. Echocardiogram with LVEF 31% with a global hypokinesia, cardiology input noted and appreciated, continue medical management, patient may eventually require cardiac catheterization. 09/15 patient is seen and examined at bedside, no acute events overnight, he feels comfortable, less abdominal discomfort, he is passing gas, he remains with the NG tube connected to intermittent suction, BP 104/56, afebrile, saturating 96% on 1 L via nasal cannula. Denied chest pain, no shortness a breath, no cough. The patient had hemodialysis done yesterday, tolerated well. is at bedside, updated. Continue to follow surgical input and recommendations. Continue broad-spectrum antibiotics, to follow white blood cell count in a.m., today at 14.5, higher compared to yesterday at 14.2. Infectious disease input noted and appreciated, continue to follow recommendations. 09/16 patient is seen and examined at bedside, no acute events overnight, comfortably in bed, hemodynamically stable, alert oriented x3, getting hemodialysis, tolerating well. Results of repeat CT abdomen reviewed, no ileus, no obstruction, surgical input noted and appreciated, NG tube output has been minimal, we will pull out NG tube, we will start clear liquid diet and advanced as tolerated. Continue current pain medication with the adjustment as needed, continue broad-spectrum IV antibiotics, continue to follow infectious disease input and recommendations, a.m. labs. 09/17 patient is seen and examined at bedside, awake, following commands. BP 97/55, afebrile, saturating normal on room air, CBC with hemoglobin still elevated 15.0, hemoglobin 10.4, hematocrit 31.0, platelet count of 229. Sodium 138, potassium 3.7, BUN 51, creatinine 6.0, magnesium 1.9. NG tube removed yesterday, patient started on clear liquid diet. Now on GI soft diet. Tolerating well, no nausea, no vomiting, no abdominal pain. Continue to follow surgical input and recommendations. Continue broad-spectrum IV antibiotics, continue to trend WBC in a.m., continue hemodialysis per Nephrology recommendations. Cardiology input noted and appreciated. Consider Left heart catheterization once medically stable prior to discharge. Discussed with patient and family at bedside, all questions answered, agreed and understood information provided. 09/18 patient is seen and examined at bedside, no acute events overnight, alert oriented x3, tolerating diet, no nausea, no vomiting, no abdominal pain. Leukocytosis trending down. Small-bowel obstruction present upon admission now resolved. Scheduled for hemodialysis tomorrow. Echocardiogram with a LVEF 30% with global hypokinesia, cardiology following the patient, considering Left heart catheterization once medically stable prior to discharge. REVIEW OF SYSTEMS CONSTITUTIONAL: Denies fevers, chills, or night sweats. No unintentional weight loss reported. NEUROLOGICAL: Denies headache, amaurosis fugax, motor weakness, sensory deficit, vertigo/spinning sensation, gait abnormalities, or tremors. ENT: No hearing loss, otalgia, otorrhea, rhinitis, rhinorrhea, hoarseness, or sore throat. CARDIOVASCULAR: Denies any exertional angina, dyspnea on exertion, orthopnea, paroxysmal nocturnal dyspnea, palpitations, life-threatening arrhythmias, claudication. PULMONARY: Denies any shortness of breath, cough, phlegm/sputum, hemoptysis, pleuritic chest pain. SLEEP: Denies morning headaches, daytime somnolence or napping. Denies difficulty falling asleep, staying asleep, waking from sleep. Denies knowledge of snoring. GASTROINTESTINAL: Denies any type of dysphagia to either liquids or solids. Denies nausea, vomiting, pyrosis, early satiety, diarrhea, constipation, or changes in stool consistency or caliber. Denies coffee-ground emesis, hematemesis, hematochezia, or melanotic stools. Complains of persistent abdominal pain GENITOURINARY: Denies frequency, urgency, nocturia, hematuria or incontinence (Storage/Irritative symptoms.) Low urinary stream, straining to void, urinary intermittency or hesitancy, splitting of the voiding stream, terminal dribbling. ENDOCRINOLOGIC: Denies polyuria, polydipsia, polyphagia or heat/cold intolerances. HEMATOLOGIC: Denies thrombophilia/previous clots, or coagulopathy/bleeding disorders. ONCOLOGIC: Denies personal history of malignancy. DERMATOLOGIC: Denies rashes or pruritus. PSYCHIATRIC: Denies any suicidal or homicidal ideation. Denies hallucinations. PHYSICAL EXAM GENERAL APPEARANCE: The patient is awake, alert, and oriented, in no acute cardiopulmonary distress. NEUROLOGICAL: Cranial nerves II-XII grossly intact. Motor is 5/5 in bilateral upper and lower extremities proximal to distal. No sensory deficits. HEENT: Face is symmetric. Pupils are equal and reactive. Extraocular movements are intact. NECK: Supple. No JVD. No thyromegaly. No submental, submandibular, pre- /postauricular, occipital or supraclavicular lymphadenopathy. CHEST: Normal chest expansion. No Telemetry. LUNGS: Absence of any rales, rhonchi or any wheezing. CARDIOVASCULAR: Regular. S1 and S2 normal. No appreciable rubs, murmurs or gallops. ABDOMEN: Soft, nontender, and nondistended. There is no rebound, voluntary guarding, or rigidity. : Deferred. No Palomares. EXTREMITIES: Non-edematous and not cyanotic. No clubbing. Good capillary refi ll. SKIN: No skin breakdown. Vital Signs (last 8hr) Date Time Temp Pulse Resp B/P (MAP) Pulse Ox O2 Delivery O2 Flow Rate FiO2 09/18/24 08:00 98.4 81 17 118/54 94 Room Air 09/18/24 04:00 98.8 81 20 113/50 100 Room Air LABS: Laboratory: Test 1/19/25 06:23 09/18/24 05:33 09/17/24 16:09 Range/Units White Blood Count 12.7 H 4.8-10.8 K/uL Red Blood Count 3.17 L 4.50-6.20 MIL/uL Hemoglobin 10.3 L 14.0-18.0 g/dL Hematocrit 30.4 L 42-54 % Mean Corpuscular Volume 95.9 79-99 fL Mean Corpuscular Hemoglobin 32.5 27.0-33.0 pg Mean Corpuscular Hemoglobin Concent 33.9 32.0-36.0 g/dL Red Cell Distribution Width 14.6 11.0-15.5 % Platelet Count 226 130-400 K/uL Mean Platelet Volume 9.6 7.5-10.5 fL Nucleated Red Blood Cells 0.0 0.0-0.19 % Sodium Level 136 136-145 mmol/L Potassium Level 4.1 3.5-5.1 mmol/L Chloride Level 97 L 101-111 mmol/L Carbon Dioxide Level 25 21-32 mmol/L Blood Urea Nitrogen 70 H 7-18 mg/dL Creatinine 7.4 H 0.5-1.3 mg/dL Glomerular Filtration Rate Calc 7 >90 mL/min Random Glucose 148 H 70-105 mg/dL Total Calcium 9.8 8.5-10.1 mg/dL Magnesium Level 2.30 1.80-2.40 mg/dL Total Bilirubin 1.2 H 0.2-1.0 mg/dL Aspartate Amino Transf (AST/SGOT) 88 H 10-37 U/L Alanine Aminotransferase (ALT/SGPT) 96 H 12-78 U/L Alkaline Phosphatase 97 50-136 U/L Total Protein 5.5 L 6.0-8.3 g/dL Albumin 1.6 L 3.5-5.0 g/dL Whole Blood Glucose 148 H 70-110 MG/DL Bedside Glucose Comment Notified Nurse Current Medications Medications (Trade) Dose Ordered Sig/Evler Route PRN Reason Start Time Stop Time Status Last Admin Dose Admin Acetaminophen (TYLenol 325MG TAB) 650 mg Q4H PRN PO MILD PAIN (1-3) 09/12/24 12:30 10/12/24 12:29 09/17/24 02:01 650 MG Acetaminophen (TYLenol 325MG TAB) 650 mg Q6H PRN PO TEMPERATURE GREATER THAN 101.5 09/12/24 12:30 10/12/24 12:29 Acetaminophen/ Hydrocodone Bitart (NORco 5/325MG) 1 tab Q6H PRN PO MODERATE PAIN (4-6) 09/12/24 15:30 09/17/24 15:29 DC 09/15/24 00:59 1 TAB Al Hydroxide/Mg Hydroxide (MAALox PLUS 30ML) 30 ml Q6H PRN PO INDIGESTION 09/12/24 12:30 10/12/24 12:29 Aspirin (Aspirin 300mg Supp) 150 mg DAILY NC 09/14/24 09:00 09/16/24 07:45 DC 09/15/24 09:42 150 MG Aspirin (Aspirin 81mg Chew Tab) 81 mg DAILY PO 09/16/24 09:00 10/16/24 08:59 09/18/24 08:21 81 MG Atorvastatin Calcium (LIPItor 40MG) 80 mg HS PO 09/16/24 21:00 10/16/24 20:59 09/17/24 19:54 80 MG Benzonatate (Tessalon 100mg Caps) 100 mg Q8H PRN PO cough 09/12/24 19:00 10/12/24 18:59 09/17/24 19:56 100 MG Dextrose 1,000 ml @ 20 mls/hr Q24H IV 09/13/24 11:30 09/17/24 00:39 DC 09/13/24 12:01 20 MLS/HR Dextrose (D50w) 50 ml AD PRN IV HYPOGLYCEMIA PROTOCOL 09/12/24 12:30 10/12/24 12:29 09/13/24 10:29 50 ML Diphenhydramine HCl (BENAdryl INJ) 25 mg Q6H PRN IV SEVERE ITCHING/RASH 09/12/24 12:30 10/12/24 12:29 09/17/24 02:01 25 MG Doxycycline Hyclate 250 ml @ 125 mls/hr Q12H IV 09/12/24 19:00 09/22/24 18:59 09/18/24 05:43 125 MLS/HR Famotidine (Pepcid 20mg Vial) 20 mg BID PRN IV NAUSEA/VOMITING 09/12/24 12:30 09/12/24 12:44 DC Famotidine (Pepcid 20mg Vial) 20 mg Q48H IV 09/12/24 21:00 10/12/24 20:59 09/16/24 20:00 20 MG Fenofibrate (Tricor) 145 mg DAILY PO 09/16/24 09:00 10/16/24 08:59 09/18/24 08:21 145 MG Glucagon (Glucagon 1mg Kit) 1 mg AD PRN IM HYPOGLYCEMIA PROTOCOL 09/12/24 12:30 10/12/24 12:29 Guaifenesin/ Dextromethorphan (RobiTUSSin DM 200/20MG 10ML) 10 ml Q4H PRN PO COUGH 09/12/24 12:30 10/12/24 12:29 Heparin Sodium (Porcine) (HEParin 5,000 UNIT VIAL) 5,000 unit BID SQ 09/12/24 21:00 09/16/24 15:02 DC 09/15/24 20:00 5,000 UNIT Heparin Sodium (Porcine) (HEParin 5,000 UNIT VIAL) 5,000 unit BID SQ 09/16/24 21:00 10/16/24 20:59 09/18/24 08:23 5,000 UNIT Hydralazine HCl (APRESOLine 20MG INJ) 10 mg Q6H PRN IV For:SBP above 160;DBP above 90 09/12/24 12:30 09/14/24 08:11 DC Insulin Human Regular (humuLIN R 100 UNIT/ML 3ML) INSULIN SLIDING SCAL... ACHS SQ 09/12/24 16:30 09/15/24 19:56 DC Insulin Human Regular (humuLIN R 100 UNIT/ML 3ML) INSULIN SLIDING SCAL... ACHS SQ 09/16/24 21:00 10/16/24 20:59 09/17/24 19:55 2 UNIT Insulin Human Regular (humuLIN R 100 UNIT/ML 3ML) INSULIN SLIDING SCAL... Q6H6 SQ 09/16/24 00:00 09/16/24 19:56 DC Ketorolac Tromethamine (toRADol) 15 mg Q8H PRN IV MODERATE PAIN (4-6) 09/12/24 15:30 09/12/24 21:58 DC Lactulose (Constulose 20gm/ 30ml Udcup) 20 gm BID PRN PO CONSTIPATION 09/12/24 12:30 10/12/24 12:29 Levothyroxine Sodium (SYNTHroid 50MCG TAB) 50 mcg SYN PO 09/17/24 06:30 10/17/24 06:29 09/18/24 05:44 50 MCG Magnesium Oxide (Mag-Ox) 400 mg DAILY PO 09/16/24 09:00 10/16/24 08:59 09/18/24 08:21 400 MG Magnesium Sulfate 50 ml @ 0 mls/hr PROTOCOL IV 09/13/24 08:30 10/13/24 08:29 09/18/24 03:23 25 MLS/HR Magnesium Sulfate 50 ml @ 0 mls/hr PROTOCOL PRN IV other 09/12/24 12:30 09/13/24 08:36 DC Magnesium Sulfate 50 ml @ 0 mls/hr PROTOCOL PRN IV low mag levl 09/13/24 08:30 09/13/24 08:37 DC Metoprolol Tartrate (loprESSOR) 2.5 mg Q6H PRN IV blood pressure 09/14/24 08:30 10/14/24 08:29 Metoprolol Tartrate (loprESSOR) 25 mg BID PO 09/16/24 09:00 10/16/24 08:59 09/18/24 08:21 25 MG Montelukast Sodium (SinguLAIR) 10 mg HS PO 09/16/24 21:00 10/16/24 20:59 09/17/24 19:53 10 MG Morphine Sulfate (morPHINE 2MG SYG) 1 mg Q6H PRN IVP SEVERE PAIN (7-10) 09/12/24 15:30 09/17/24 18:29 DC 09/15/24 23:16 1 MG Nitroglycerin (Nitrostat) 0.4 mg PROTOCOL PRN SL CHEST PAIN 09/12/24 12:30 10/12/24 12:29 Ondansetron HCl (zoFRAN 4MG INJ) 4 mg Q6H PRN IV NAUSEA/VOMITING 09/12/24 12:30 10/12/24 12:29 Pharmacy Profile Note (Pharmacy Communication) 1 each AD MISC 09/13/24 20:30 09/20/24 20:29 Piperacillin Sod/ Tazobactam Sod 50 ml @ 12.5 mls/hr Q12H IV 09/12/24 13:00 09/12/24 12:48 DC Piperacillin Sod/ Tazobactam Sod 50 ml @ 12.5 mls/hr Q12H IV 09/12/24 23:30 09/22/24 23:29 09/17/24 23:12 12.5 MLS/HR Potassium Chloride 100 ml @ 50 mls/hr AD PRN IV POTASSIUM PROTOCOL 09/13/24 08:30 10/13/24 08:29 Sodium Chloride 1,000 ml @ 0 mls/hr ONCE IV 09/14/24 12:00 10/14/24 11:59 09/14/24 11:56 1,000 MLS/HR Sodium Chloride 154 meq/Dextrose 1,000 ml @ 20 mls/hr Q24H IV 09/13/24 11:00 09/13/24 10:44 DC Vancomycin HCl (Vancomycin 750mg) 750 mg [id number][DIALYSIS] IVPB 09/16/24 16:00 09/26/24 15:59 09/16/24 16:17 750 MG Vancomycin HCl (Vancomycin Protocol) 1 each AD IV 09/14/24 17:30 09/24/24 17:29 Zolpidem Tartrate (AmbIEN) 5 mg HS PRN PO INSOMNIA 09/12/24 12:30 10/12/24 12:29 DIAGNOSTICS / RADIOLOGY: [ ] ASSESSMENT: [ Small-bowel obstruction versus ileus per CT abdomen/pelvis 09/12/2024 POA ESRD on dialysis Thursday needing dialysis POA Uncontrolled diabetes mellitus type 2 with hyper and hypoglycemia POA Hyperlipidemia POA Coronary artery disease s/p CABG six years ago POA Uncontrolled hypertension POA Multifactorial anemia POA Lactic acidosis 4.6 POA Hyperbilirubinemia 1.9 POA Hyper troponinemia POA acute on chroniic CHF EF 45/50% chronic combined systolic and diastolic congestive heart failure. History of cholelithiasis POA History of appendectomy ] History of appendectomy History of right knee cartilage surgery History of left hand pointing finger amputation Current alcohol drinking occasionally PLAN: Patient downgraded to the medical floor Discontinue NG tube, start clear liquid diet, advanced as tolerated Continue broad-spectrum IV antibiotics Continue to follow results of septic workup Continue to follow infectious disease input recommendation Continue to follow surgical input recommendation Continue hemodialysis per soup person recommendations Replace electrolytes IV per protocol CBC in a.m. transfuse as needed Follow a.m. labs GI and DVT prophylaxis Disposition: Pending improvement in clinical condition. Plan of action discussed, all questions answered, agreed and understood the information provided. JOSE CHOPRA MD Sep 18, 2024 10:25
[2024-09-18 12:00] VITALS: BP 118/55; PULSE 72; RESP 18; TEMP 97.4
[2024-09-18 16:00] VITALS: BP 115/46; PULSE 80; RESP 20; TEMP 97.5
[2024-09-18] MEDS: furoSEMIDE 40 MG TABLET PO ONE (16:09)
--- NOTE | 2024-09-18 16:12 | PN ---
[facility] CARDIOLOGY PROGRESS NOTE Date Patient Seen: Sep 18, 2024 Time of Visit: 16:02 Problem List: Non-STEMI Acute on chronic systolic and diastolic heart failure exacerbated by non-STEMI Small bowel obstruction Hypertension Hyperlipidemia Diabetes mellitus type 2 End-stage renal disease on chronic HD on MWF Anemia of chronic disease CAD s/p CABG x 4 (SCHULZ-LAD, SVG-D1, SVG-OM2, and SVG-PDA) 07/13/[address] Ojeda 2D echo on 09/02/2023 with an EF 45-50%, grade II diastolic dysfunction, severely dilated right and left atrium, moderate aortic stenosis, peak gradient of 42 mmHg, mean pressure gradient of 20 mmHg Lexiscan stress test 11/04/2022 demonstrated global hypokinesis, fixed infero- apical defect, partially reversible anterior wall defect, with an EF of 35% LHC/coronary angiogram on 01/27/2023 demonstrated a patent SCHULZ graft to the LAD, patent SVG-D1, patent SVG-OM2, occluded SVG- to the distal RCA with 70% proximal stenosis and a total occlusion of the distal vessel and the left main coronary artery was totally occluded in the distal portion Interval History: 09/14/2024 Pt is evaluated in his room, complains of continued hiccups, lower abd pain, some clear phlegm production and denies chest pain, pressure or epigastric disc omfort. Pt's edema is improved per his report. He states that he developed the severe lower abd pain with HD and they had to stop early. He was transferred to the hospital and found to have a bump in the troponin levels and some ST depression consistent with NSTEMI likely secondary to hypoperfusion and underlying disease. Pt has NGT in place, minimal output. He reports passing gas but no BM. He states the surgeon is planning on management with the tube not invasive intervention at this time. Pt has no fever but WBC was increased to 14 this morning from 12 yesterday. h/h stable, bili mildly elevated at 1.5. He is able to converse alert, no distress. He states that his blood sugar was dysregulated yesterday and made him feel very weak. Pt remains NPO with NGT to LI suction. 09/16/2024 Pt evaluated in his room, had multiple BM's yesterday. Pt has no fever, no chills, abd pain is resolving. CT still shows a some colonic distention, low abd tenderness still present. Pt being followed by surgeon, no plans for intervention from surgical standpoint expressed, pt continues on abx. Still NPO but we will try to resume some meds with sips of water today. He has had no chest pain, n/v, diaphoresis, EKG continues to show NSR in the 80-90's. BP stable now with BP in 110- to 140's range. We will attempt low dose betablocker resumption and switch asa to po. Pt continues on prophylactic dose of heparin. 09/17/2024 Pt evaluated in his room today, NGT out and he is eating, still with some tenderness to the lower abd with the movement/straining. Pt has no fever or chills. Conservatively managed SBO/ileus. Family at the bedside, they are wa nting to have his heart evaluated but given his recent colon inflammation, concern for bleeding after cath has to be considered. Pt denies chest pain, has exertional sob but this has been present for months and is multifactoral. Overall pt is feeling much better. 09/18/2024 Pt is evaluated in his room. Alert, no distress. Pt has resumed oral intake, today noted some increased edema to the lower ext. He is with prior use of lasix, continues on HD as well. Pt will have lasix resumed. He will be cleared for discharge from cardiology standpoint and we will follow up with him upon discharge to [facility] for any further ischemic workup.We reinforced fluid and salt restrictions, renal diet to continue. HD due tomorrow. Physical Examination: GENERAL: [No acute distress.] HEAD: [Normal with no signs of head trauma.] EYES: [PERRLA, EOMI, conjunctiva and sclera normal.] ENT: [Hearing grossly intact, normal oropharynx.] NECK: [Supple without JVD. There is no tenderness, lymphadenopathy, or masses. No thyromegaly. Normal carotid upstrokes without bruits.] LUNGS: [Clear breath sounds bilaterally. Diminished to bases. HEART: [Normal rate and rhythm. Normal S1 and pronounced S2 with 2/6 LSB murmur, gallop or rub.] VASC: [Peripheral pulses +2 bilaterally.] ABD:, obese, soft, tender to lower abd, hypoactive bowel sounds, no masses, no organomegaly. No audible bruits.] : [Not examined] LYMPH: [No lymphadenopathy noted.] EXT: [No clubbing, cyanosis, +1 edema.] SKIN: Redness to heels, No rashes or lesions noted.] NEURO: [Awake, alert, and oriented x3. No focal sensory or strength deficits noted.] Laboratory: [ ] Hematology Labs: Test 09/18/24 06:23 Range/Units White Blood Count 12.7 H 4.8-10.8 K/uL Red Blood Count 3.17 L 4.50-6.20 MIL/uL Hemoglobin 10.3 L 14.0-18.0 g/dL Hematocrit 30.4 L 42-54 % Mean Corpuscular Volume 95.9 79-99 fL Mean Corpuscular Hemoglobin 32.5 27.0-33.0 pg Mean Corpuscular Hemoglobin Concent 33.9 32.0-36.0 g/dL Red Cell Distribution Width 14.6 11.0-15.5 % Platelet Count 226 130-400 K/uL Mean Platelet Volume 9.6 7.5-10.5 fL Nucleated Red Blood Cells 0.0 0.0-0.19 % Chemistry Labs: Test 09/18/24 11:11 09/18/24 06:23 09/17/24 16:09 Range/Units Whole Blood Glucose 164 H 70-110 MG/DL Sodium Level 136 136-145 mmol/L Potassium Level 4.1 3.5-5.1 mmol/L Chloride Level 97 L 101-111 mmol/L Carbon Dioxide Level 25 21-32 mmol/L Blood Urea Nitrogen 70 H 7-18 mg/dL Creatinine 7.4 H 0.5-1.3 mg/dL Glomerular Filtration Rate Calc 7 >90 mL/min Random Glucose 148 H 70-105 mg/dL Total Calcium 9.8 8.5-10.1 mg/dL Magnesium Level 2.30 1.80-2.40 mg/dL Total Bilirubin 1.2 H 0.2-1.0 mg/dL Aspartate Amino Transf (AST/SGOT) 88 H 10-37 U/L Alanine Aminotransferase (ALT/SGPT) 96 H 12-78 U/L Alkaline Phosphatase 97 50-136 U/L Total Protein 5.5 L 6.0-8.3 g/dL Albumin 1.6 L 3.5-5.0 g/dL Bedside Glucose Comment Notified Nurse Diagnostics / Radiology: [Copy/Paste Echos/Imaging Report here] Impression and Plan: Continue with conservative management for now, no plans for invasive intervention from cardiac standpoint at this time, consider workup as outpt. advance diet as tolerated and his medications as able, renal, salt and FR diet Monitor for s/s of rhythm disturbance or angina. Heart cath as outpt, pt may discharge from cardiac standpoint. Lasix 40mg po daily resumed Continue HD per nephrology schedule Cardiology to sign off DALLAS LEWIS AGACNCora Sep 18, 2024 16:12
--- NOTE | 2024-09-18 18:23 | PN ---
FOLLOWUP PROGRESS NOTE SUBJECTIVE: A 69-year-old male with a history of diabetes mellitus, hypertension. He has a history of end-stage renal disease, on dialysis 3 times per week. The patient initially presented with a bowel obstruction. The patient was seen by surgical service, continued with conservative management. He is now tolerating a diet and the patient is being seen as a followup visit for all of the above. REVIEW OF SYSTEMS: GENERAL: He is feeling improved. HEENT: No change in vision. No change in hearing. CARDIOVASCULAR: There is no current chest pain or palpitations. PULMONARY: There is no shortness of breath. GASTROINTESTINAL: As described above. MUSCULOSKELETAL: Complains of weakness. PHYSICAL EXAMINATION: VITAL SIGNS: Blood pressure 118/54, pulse 80s. GENERAL: He is a chronically ill male, elderly, lying in bed on the medical floor. HEENT: Head is atraumatic. Pupils are equal, roving to light. Oropharynx is without exudate. Nares are clear. NECK: There is no JVP. There is no thyromegaly, no mass. CARDIOVASCULAR: Regular. There is no S3, S4 gallop. LUNGS: Coarse with equal thoracic movement. ABDOMEN: Soft, nondistended, nontender. EXTREMITIES: Reveal no clubbing, no cyanosis. NEUROLOGIC: He is awake. He is alert. LABORATORY DATA: Hemoglobin 10, hematocrit 30, white cell count is 12,000. Sodium 136, potassium is 4, BUN 70, creatinine is 7.4. IMPRESSION: * Small-bowel obstruction. * Diabetes mellitus. * Hypertension. * End-stage renal disease. PLAN: The patient is tolerating dialysis without difficulty. The patient is now tolerating a diet. The patient is also being seen by Cardiology and we will follow closely. Once the patient is discharged, the patient will follow up at the dialysis unit. TID: [id number] RECEIPT: [id number]
[2024-09-18 20:00] VITALS: BP 125/58; PULSE 89; RESP 18; TEMP 98.6; O2SAT 95
--- NOTE | 2024-09-18 20:00 | NUR ---
MEDS SHIFT ASSESSMENT DONE, PLEASE REFER TO CHART. DUE MEDS ADMINISTERED, TOLERATED WELL. KEPT RESTED IN BED. CALL LIGHT WITHIN REACH. FAMILY AT BEDSIDE.
[2024-09-19] VITALS (20 sets, daily range): BP systolic 104–133; BP diastolic 54–77; PULSE 75–84; RESP 16–18; TEMP 97.3–98.1; O2SAT 95
--- NOTE | 2024-09-19 05:45 | NUR ---
MEDS PT ALREADY AWAKE. NO CONCERNS VERBALIZED. NO DISTRESS NOTED. DUE MEDS ADMINISTERED, TOLERATED WELL. KEPT RESTED. FAMILY AT BEDSIDE.
[2024-09-19 06:22] LABS: HEMATOCRIT 32.7 % (42-54); MEAN CORPUSCULAR HGB CONC 34.3 g/dL (32.0-36.0); MEAN CORPUSCULAR VOLUME 96.5 fL (79-99); RED BLOOD CELL COUNT(AUTO) 3.39 MIL/uL (4.50-6.20); RED CELL DISTRIBUTION WIDTH 14.6 % (11.0-15.5); WHITE BLOOD COUNT (AUTO) 12.6 K/uL (4.8-10.8)
[2024-09-19 06:55] LABS: VANCOMYCIN TROUGH 20.9 UG/ML (10.0-20.0)
[2024-09-19 06:58] LABS: ALBUMIN 1.9 g/dL (3.5-5.0); BILIRUBIN,TOTAL 1.4 mg/dL (0.2-1.0); MAGNESIUM 2.3 mg/dL (1.80-2.40); POTASSIUM 4.7 mmol/L (3.5-5.1); TOTAL PROTEIN, SERUM 6.1 g/dL (6.0-8.3)
[2024-09-19 07:15] LABS: CREATININE 8.8 mg/dL (0.5-1.3)
[2024-09-19] MEDS: furoSEMIDE 40 MG TABLET PO SCH (09:00)
--- NOTE | 2024-09-19 12:16 | PN ---
[facility] PROGRESS NOTE Date of Service: Sep 19, 2024 Time of Service: 12:14 SUBJECTIVE: [ ] PCP: Admission date: 09/12/24 chief complaints: abd pain This is a 69-year-old male was admitted on 09/12/2024 with chief complaints of abdominal pain ER workup was consistent with small-bowel obstruction. Patient remains bowel rest surgeon following at this time conservative management. Patient is seen and examined with attending reviewed chart. Primary nurse reports patient is running low blood sugars patient will be started on D10 slow rate. 09/14 the patient has been seen and examined, no acute events overnight, patient comfortably in bed, alert oriented x3, following commands, BP 134/66, afebrile, saturating 99% on 1 L via nasal cannula, patient with the NG tube connected to intermittent suction, feels less abdominal distention, getting good pain control with current medical management, he is passing gas. V/Q scan negative for PE, Doppler of the lower extremities negative for DVT, discussed with the patient, last KUB 09/13/2024 moderately distended small bowel loops in the right upper quadrant which could represent obstruction. Patient will remain NPO, continue broad-spectrum IV antibiotics, continue to follow surgical input and recommendations. The patient also with Gram-negative sepsis, continue to follow results of septic workup, infectious disease consultation requested, input noted and appreciated. Echocardiogram with LVEF 31% with a global hypokinesia, cardiology input noted and appreciated, continue medical management, patient may eventually require cardiac catheterization. 09/15 patient is seen and examined at bedside, no acute events overnight, he feels comfortable, less abdominal discomfort, he is passing gas, he remains with the NG tube connected to intermittent suction, BP 104/56, afebrile, saturating 96% on 1 L via nasal cannula. Denied chest pain, no shortness a breath, no cough. The patient had hemodialysis done yesterday, tolerated well. is at bedside, updated. Continue to follow surgical input and recommendations. Continue broad-spectrum antibiotics, to follow white blood cell count in a.m., today at 14.5, higher compared to yesterday at 14.2. Infectious disease input noted and appreciated, continue to follow recommendations. 09/16 patient is seen and examined at bedside, no acute events overnight, comfortably in bed, hemodynamically stable, alert oriented x3, getting hemodialysis, tolerating well. Results of repeat CT abdomen reviewed, no ileus, no obstruction, surgical input noted and appreciated, NG tube output has been minimal, we will pull out NG tube, we will start clear liquid diet and advanced as tolerated. Continue current pain medication with the adjustment as needed, continue broad-spectrum IV antibiotics, continue to follow infectious disease input and recommendations, a.m. labs. 09/17 patient is seen and examined at bedside, awake, following commands. BP 97/55, afebrile, saturating normal on room air, CBC with hemoglobin still elevated 15.0, hemoglobin 10.4, hematocrit 31.0, platelet count of 229. Sodium 138, potassium 3.7, BUN 51, creatinine 6.0, magnesium 1.9. NG tube removed yesterday, patient started on clear liquid diet. Now on GI soft diet. Tolerating well, no nausea, no vomiting, no abdominal pain. Continue to follow surgical input and recommendations. Continue broad-spectrum IV antibiotics, continue to trend WBC in a.m., continue hemodialysis per Nephrology recommendations. Cardiology input noted and appreciated. Consider Left heart catheterization once medically stable prior to discharge. Discussed with patient and family at bedside, all questions answered, agreed and understood information provided. 09/18 patient is seen and examined at bedside, no acute events overnight, alert oriented x3, tolerating diet, no nausea, no vomiting, no abdominal pain. Leukocytosis trending down. Small-bowel obstruction present upon admission now resolved. Scheduled for hemodialysis tomorrow. Echocardiogram with a LVEF 30% with global hypokinesia, cardiology following the patient, considering Left heart catheterization once medically stable prior to discharge. 09/19/2024: Patient undergoing hemodialysis today. Patient remains on IV Zosyn IV doxycycline for pneumonia. Patient reports generalized weakness, to this point has not been evaluated by PT. Family is at bedside. Morning labs reviewed. REVIEW OF SYSTEMS CONSTITUTIONAL: Denies fevers, chills, or night sweats. No unintentional weight loss reported. NEUROLOGICAL: Denies headache, amaurosis fugax, motor weakness, sensory deficit, vertigo/spinning sensation, gait abnormalities, or tremors. ENT: No hearing loss, otalgia, otorrhea, rhinitis, rhinorrhea, hoarseness, or sore throat. CARDIOVASCULAR: Denies any exertional angina, dyspnea on exertion, orthopnea, paroxysmal nocturnal dyspnea, palpitations, life-threatening arrhythmias, claudication. PULMONARY: Denies any shortness of breath, cough, phlegm/sputum, hemoptysis, pleuritic chest pain. SLEEP: Denies morning headaches, daytime somnolence or napping. Denies difficulty falling asleep, staying asleep, waking from sleep. Denies knowledge of snoring. GASTROINTESTINAL: Denies any type of dysphagia to either liquids or solids. Denies nausea, vomiting, pyrosis, early satiety, diarrhea, constipation, or changes in stool consistency or caliber. Denies coffee-ground emesis, hematemesis, hematochezia, or melanotic stools. Complains of persistent abdo chapincito pain GENITOURINARY: Denies frequency, urgency, nocturia, hematuria or incontinence (Storage/Irritative symptoms.) Low urinary stream, straining to void, urinary intermittency or hesitancy, splitting of the voiding stream, terminal dribbling. ENDOCRINOLOGIC: Denies polyuria, polydipsia, polyphagia or heat/cold intoleran mitesh. HEMATOLOGIC: Denies thrombophilia/previous clots, or coagulopathy/bleeding disorders. ONCOLOGIC: Denies personal history of malignancy. DERMATOLOGIC: Denies rashes or pruritus. PSYCHIATRIC: Denies any suicidal or homicidal ideation. Denies hallucinations. PHYSICAL EXAM GENERAL APPEARANCE: The patient is awake, alert, and oriented, in no acute cardiopulmonary distress. NEUROLOGICAL: Cranial nerves II-XII grossly intact. Motor is 5/5 in bilateral upper and lower extremities proximal to distal. No sensory deficits. HEENT: Face is symmetric. Pupils are equal and reactive. Extraocular movements are intact. NECK: Supple. No JVD. No thyromegaly. No submental, submandibular, pre- /postauricular, occipital or supraclavicular lymphadenopathy. CHEST: Normal chest expansion. No Telemetry. LUNGS: Absence of any rales, rhonchi or any wheezing. CARDIOVASCULAR: Regular. S1 and S2 normal. No appreciable rubs, murmurs or gallops. ABDOMEN: Soft, nontender, and nondistended. There is no rebound, voluntary guarding, or rigidity. : Deferred. No Palomares. EXTREMITIES: Non-edematous and not cyanotic. No clubbing. Good capillary refill. SKIN: No skin breakdown. Vital Signs (last 8hr) Date Time Temp Pulse Resp B/P (MAP) Pulse Ox O2 Delivery O2 Flow Rate FiO2 09/19/24 12:00 78 16 127/61 Room Air 09/19/24 11:45 77 16 130/58 Room Air 09/19/24 11:30 78 16 133/56 Room Air 09/19/24 11:15 77 16 129/58 Room Air 09/19/24 11:00 75 16 117/56 Room Air 09/19/24 10:45 76 16 128/58 Room Air 09/19/24 10:30 76 16 131/59 Room Air 09/19/24 10:15 75 16 132/57 Room Air 09/19/24 10:00 97.5 76 16 128/56 Room Air 09/19/24 09:30 97.5 79 16 122/57 Room Air 09/19/24 08:00 98.1 75 18 119/58 99 LABS: Laboratory: Test 09/19/24 11:36 09/19/24 06:15 09/19/24 05:45 09/17/24 16:09 Range/Units Whole Blood Glucose 122 H 70-110 MG/DL White Blood Count 12.6 H 4.8-10.8 K/uL Red Blood Count 3.39 L 4.50-6.20 MIL/uL Hemoglobin 11.2 L 14.0-18.0 g/dL Hematocrit 32.7 L 42-54 % Mean Corpuscular Volume 96.5 79-99 fL Mean Corpuscular Hemoglobin 33.0 27.0-33.0 pg Mean Corpuscular Hemoglobin Concent 34.3 32.0-36.0 g/dL Red Cell Distribution Width 14.6 11.0-15.5 % Platelet Count 252 130-400 K/uL Mean Platelet Volume 9.4 7.5-10.5 fL Nucleated Red Blood Cells 0.0 0.0-0.19 % Sodium Level 136 136-145 mmol/L Potassium Level 4.7 3.5-5.1 mmol/L Chloride Level 97 L 101-111 mmol/L Carbon Dioxide Level 25 21-32 mmol/L Blood Urea Nitrogen 87 *H 7-18 mg/dL Creatinine 8.8 *H 0.5-1.3 mg/dL Glomerular Filtration Rate Calc 6 >90 mL/min Random Glucose 115 H 70-105 mg/dL Total Calcium 10.3 H 8.5-10.1 mg/dL Magnesium Level 2.30 1.80-2.40 mg/dL Total Bilirubin 1.4 H 0.2-1.0 mg/dL Aspartate Amino Transf (AST/SGOT) 88 H 10-37 U/L Alanine Aminotransferase (ALT/SGPT) 117 #H 12-78 U/L Alkaline Phosphatase 103 50-136 U/L Total Protein 6.1 6.0-8.3 g/dL Albumin 1.9 L 3.5-5.0 g/dL Vancomycin Level Trough 20.9 H 10.0-20.0 UG/ML Bedside Glucose Comment Notified Nurse Current Medications Medications (Trade) Dose Ordered Sig/Elver Route PRN Reason Start Time Stop Time Status Last Admin Dose Admin Acetaminophen (TYLenol 325MG TAB) 650 mg Q4H PRN PO MILD PAIN (1-3) 09/12/24 12:30 10/12/24 12:29 09/17/24 02:01 650 MG Acetaminophen (TYLenol 325MG TAB) 650 mg Q6H PRN PO TEMPERATURE GREATER THAN 101.5 09/12/24 12:30 10/12/24 12:29 Acetaminophen/ Hydrocodone Bitart (NORco 5/325MG) 1 tab Q6H PRN PO MODERATE PAIN (4-6) 09/12/24 15:30 09/17/24 15:29 DC 09/15/24 00:59 1 TAB Al Hydroxide/Mg Hydroxide (MAALox PLUS 30ML) 30 ml Q6H PRN PO INDIGESTION 09/12/24 12:30 10/12/24 12:29 Aspirin (Aspirin 300mg Supp) 150 mg DAILY CO 09/14/24 09:00 09/16/24 07:45 DC 09/15/24 09:42 150 MG Aspirin (Aspirin 81mg Chew Tab) 81 mg DAILY PO 09/16/24 09:00 10/16/24 08:59 09/18/24 08:21 81 MG Atorvastatin Calcium (LIPItor 40MG) 80 mg HS PO 09/16/24 21:00 10/16/24 20:59 09/18/24 19:52 80 MG Benzonatate (Tessalon 100mg Caps) 100 mg Q8H PRN PO cough 09/12/24 19:00 10/12/24 18:59 09/18/24 19:52 100 MG Dextrose 1,000 ml @ 20 mls/hr Q24H IV 09/13/24 11:30 09/17/24 00:39 DC 09/13/24 12:01 20 MLS/HR Dextrose (D50w) 50 ml AD PRN IV HYPOGLYCEMIA PROTOCOL 09/12/24 12:30 10/12/24 12:29 09/13/24 10:29 50 ML Diphenhydramine HCl (BENAdryl INJ) 25 mg Q6H PRN IV SEVERE ITCHING/RASH 09/12/24 12:30 10/12/24 12:29 09/17/24 02:01 25 MG Doxycycline Hyclate 250 ml @ 125 mls/hr Q12H IV 09/12/24 19:00 09/22/24 18:59 09/19/24 05:45 125 MLS/HR Famotidine (Pepcid 20mg Vial) 20 mg BID PRN IV NAUSEA/VOMITING 09/12/24 12:30 09/12/24 12:44 DC Famotidine (Pepcid 20mg Vial) 20 mg Q48H IV 09/12/24 21:00 10/12/24 20:59 09/18/24 20:00 20 MG Fenofibrate (Tricor) 145 mg DAILY PO 09/16/24 09:00 10/16/24 08:59 09/18/24 08:21 145 MG Furosemide (LASix 40MG TAB) 40 mg DAILY PO 09/19/24 09:00 10/19/24 08:59 Glucagon (Glucagon 1mg Kit) 1 mg AD PRN IM HYPOGLYCEMIA PROTOCOL 09/12/24 12:30 10/12/24 12:29 Guaifenesin/ Dextromethorphan (RobiTUSSin DM 200/20MG 10ML) 10 ml Q4H PRN PO COUGH 09/12/24 12:30 10/12/24 12:29 Heparin Sodium (Porcine) (HEParin 5,000 UNIT VIAL) 5,000 unit BID SQ 09/12/24 21:00 09/16/24 15:02 DC 09/15/24 20:00 5,000 UNIT Heparin Sodium (Porcine) (HEParin 5,000 UNIT VIAL) 5,000 unit BID SQ 09/16/24 21:00 10/16/24 20:59 09/18/24 19:58 5,000 UNIT Hydralazine HCl (APRESOLine 20MG INJ) 10 mg Q6H PRN IV For:SBP above 160;DBP above 90 09/12/24 12:30 09/14/24 08:11 DC Insulin Human Regular (humuLIN R 100 UNIT/ML 3ML) INSULIN SLIDING SCAL... ACHS SQ 09/12/24 16:30 09/15/24 19:56 DC Insulin Human Regular (humuLIN R 100 UNIT/ML 3ML) INSULIN SLIDING SCAL... ACHS SQ 09/16/24 21:00 10/16/24 20:59 09/18/24 19:58 3 UNIT Insulin Human Regular (humuLIN R 100 UNIT/ML 3ML) INSULIN SLIDING SCAL... Q6H6 SQ 09/16/24 00:00 09/16/24 19:56 DC Ketorolac Tromethamine (toRADol) 15 mg Q8H PRN IV MODERATE PAIN (4-6) 09/12/24 15:30 09/12/24 21:58 DC Lactulose (Constulose 20gm/ 30ml Udcup) 20 gm BID PRN PO CONSTIPATION 09/12/24 12:30 10/12/24 12:29 Levothyroxine Sodium (SYNTHroid 50MCG TAB) 50 mcg SYN PO 09/17/24 06:30 10/17/24 06:29 09/19/24 05:45 50 MCG Magnesium Oxide (Mag-Ox) 400 mg DAILY PO 09/16/24 09:00 10/16/24 08:59 09/18/24 08:21 400 MG Magnesium Sulfate 50 ml @ 0 mls/hr PROTOCOL IV 09/13/24 08:30 10/13/24 08:29 09/18/24 03:23 25 MLS/HR Magnesium Sulfate 50 ml @ 0 mls/hr PROTOCOL PRN IV other 09/12/24 12:30 09/13/24 08:36 DC Magnesium Sulfate 50 ml @ 0 mls/hr PROTOCOL PRN IV low mag levl 09/13/24 08:30 09/13/24 08:37 DC Metoprolol Tartrate (loprESSOR) 2.5 mg Q6H PRN IV blood pressure 09/14/24 08:30 10/14/24 08:29 Metoprolol Tartrate (loprESSOR) 25 mg BID PO 09/16/24 09:00 10/16/24 08:59 09/18/24 19:52 25 MG Montelukast Sodium (SinguLAIR) 10 mg HS PO 09/16/24 21:00 10/16/24 20:59 09/18/24 19:52 10 MG Morphine Sulfate (morPHINE 2MG SYG) 1 mg Q6H PRN IVP SEVERE PAIN (7-10) 09/12/24 15:30 09/17/24 18:29 DC 09/15/24 23:16 1 MG Nitroglycerin (Nitrostat) 0.4 mg PROTOCOL PRN SL CHEST PAIN 09/12/24 12:30 10/12/24 12:29 Ondansetron HCl (zoFRAN 4MG INJ) 4 mg Q6H PRN IV NAUSEA/VOMITING 09/12/24 12:30 10/12/24 12:29 Pharmacy Profile Note (Pharmacy Communication) 1 each AD MISC 09/13/24 20:30 09/19/24 07:08 DC Piperacillin Sod/ Tazobactam Sod 50 ml @ 12.5 mls/hr Q12H IV 09/12/24 13:00 09/12/24 12:48 DC Piperacillin Sod/ Tazobactam Sod 50 ml @ 12.5 mls/hr Q12H IV 09/12/24 23:30 09/22/24 23:29 09/18/24 22:35 12.5 MLS/HR Potassium Chloride 100 ml @ 50 mls/hr AD PRN IV POTASSIUM PROTOCOL 09/13/24 08:30 10/13/24 08:29 Sodium Chloride 1,000 ml @ 0 mls/hr ONCE IV 09/14/24 12:00 10/14/24 11:59 09/19/24 10:04 100 MLS/HR Sodium Chloride 154 meq/Dextrose 1,000 ml @ 20 mls/hr Q24H IV 09/13/24 11:00 09/13/24 10:44 DC Vancomycin HCl (Vancomycin 750mg) 750 mg [id number][DIALYSIS] IVPB 09/16/24 16:00 09/26/24 15:59 09/16/24 16:17 750 MG Vancomycin HCl (Vancomycin Protocol) 1 each AD IV 09/14/24 17:30 09/24/24 17:29 Zolpidem Tartrate (AmbIEN) 5 mg HS PRN PO INSOMNIA 09/12/24 12:30 10/12/24 12:29 DIAGNOSTICS / RADIOLOGY: [ ] ASSESSMENT: [ Small-bowel obstruction versus ileus per CT abdomen/pelvis 09/12/2024 POA ESRD on dialysis Thursday needing dialysis POA Uncontrolled diabetes mellitus type 2 with hyper and hypoglycemia POA Hyperlipidemia POA Coronary artery disease s/p CABG six years ago POA Uncontrolled hypertension POA Multifactorial anemia POA Lactic acidosis 4.6 POA Hyperbilirubinemia 1.9 POA Hyper troponinemia POA acute on chroniic CHF EF 45/50% chronic combined systolic and diastolic congestive heart failure. History of cholelithiasis POA History of appendectomy ] History of appendectomy History of right knee cartilage surgery History of left hand pointing finger amputation Current alcohol drinking occasionally PLAN: Continue admission to medical floor Continue broad-spectrum IV antibiotics Continue to follow results of septic workup Continue to follow infectious disease input recommendation Continue to follow surgical input recommendation Continue hemodialysis per biblical languages professor recommendations Replace electrolytes IV per protocol CBC in a.m. transfuse as needed Follow a.m. labs GI and DVT prophylaxis PT evaluation Case management consult for custodial facility versus rehab. Disposition: Pending improvement in clinical condition. Plan of action discussed, all questions answered, agreed and understood the information provided. KATHRYN STOUT Sep 19, 2024 12:16
--- NOTE | 2024-09-19 12:27 | PN ---
INFECTIOUS DISEASE PROGRESS NOTE Date of Service: Sep 19, 2024 SUBJECTIVE: This is a 69-year-old male patient who was admitted to the hospital with chief complaint of abdominal pain. A CT of the abdomen and pelvis showed Mild bowel dilatation with fluid-filled may be related to small bowel obstruction and a KUB showed Moderately distended small bowel loops in the right upper quadrant which could represent obstruction. General surgery evaluated patient and following. Patient was seen and examined at bedside in room 320. Dialysis session in process. Patient reported feeling lower extremities more swollen and very heavy. Observe the right lower extremity is more swollen than the left. No dyspnea observe. Patient also reported dysuria. Will obtain urine culture and bilateral venous Doppler. WBC has trended down to 12.6. Patient is afebrile, temperature 97.5. Continues on vancomycin per pharmacy protocol, Zosyn IV and doxycycline.. We will continue to follow patient's care. PHYSICAL EXAM EYES: Anicteric. Pupils equal and reactive. HENT: No oral thrush seen, moist Oral mucosa. NECK: Supple, no JVD or thyromegaly. LUNGS: Good air entry. No rales, no rhonchi. CARDIOVASCULAR: S1, S2 regular. No murmur heard. ABDOMEN: Soft, bowel sounds present, no organomegaly. CENTRAL NERVOUS SYSTEM: Awake, alert, oriented x 3. SKIN: No rashes, no swelling. LYMPHATICS: No peripheral lymphadenopathy MUSCULOSKELETAL: No joint swelling, erythema or tenderness. EXTREMITIES: No cyanosis or clubbing. Bilateral lower extremity edema. BACK: No deformity, no pressure ulcer. GENITOURINARY: Positive for dysuria. Vital Sign (Last 12 Hours) 09/19/24 09/19/24 09/19/24 09/19/24 04:00 08:00 09:30 10:00 Temp 97.9 98.1 97.5 97.5 Pulse 76 75 79 76 Resp 18 18 16 16 B/P (MAP) 104/54 119/58 122/57 128/56 Pulse Ox 98 99 O2 Delivery Room Air Room Air Room Air 09/19/24 09/19/24 09/19/24 09/19/24 10:15 10:30 10:45 11:00 Pulse 75 76 76 75 Resp 16 16 16 16 B/P (MAP) 132/57 131/59 128/58 117/56 O2 Delivery Room Air Room Air Room Air Room Air 09/19/24 09/19/24 09/19/24 09/19/24 11:15 11:30 11:45 12:00 Pulse 77 78 77 78 Resp 16 16 16 16 B/P (MAP) 129/58 133/56 130/58 127/61 O2 Delivery Room Air Room Air Room Air Room Air Intake & Output (last 24hrs) 09/18/24 09/18/24 09/19/24 14:59 22:59 06:59 Intake Total 412.0 ml 182.0 ml Balance 412.0 ml 182.0 ml LABS: Laboratory: Test 09/19/24 11:36 09/19/24 06:15 09/19/24 05:45 09/17/24 16:09 Range/Units Whole Blood Glucose 122 H 70-110 MG/DL White Blood Count 12.6 H 4.8-10.8 K/uL Red Blood Count 3.39 L 4.50-6.20 MIL/uL Hemoglobin 11.2 L 14.0-18.0 g/dL Hematocrit 32.7 L 42-54 % Mean Corpuscular Volume 96.5 79-99 fL Mean Corpuscular Hemoglobin 33.0 27.0-33.0 pg Mean Corpuscular Hemoglobin Concent 34.3 32.0-36.0 g/dL Red Cell Distribution Width 14.6 11.0-15.5 % Platelet Count 252 130-400 K/uL Mean Platelet Volume 9.4 7.5-10.5 fL Nucleated Red Blood Cells 0.0 0.0-0.19 % Sodium Level 136 136-145 mmol/L Potassium Level 4.7 3.5-5.1 mmol/L Chloride Level 97 L 101-111 mmol/L Carbon Dioxide Level 25 21-32 mmol/L Blood Urea Nitrogen 87 *H 7-18 mg/dL Creatinine 8.8 *H 0.5-1.3 mg/dL Glomerular Filtration Rate Calc 6 >90 mL/min Random Glucose 115 H 70-105 mg/dL Total Calcium 10.3 H 8.5-10.1 mg/dL Magnesium Level 2.30 1.80-2.40 mg/dL Total Bilirubin 1.4 H 0.2-1.0 mg/dL Aspartate Amino Transf (AST/SGOT) 88 H 10-37 U/L Alanine Aminotransferase (ALT/SGPT) 117 #H 12-78 U/L Alkaline Phosphatase 103 50-136 U/L Total Protein 6.1 6.0-8.3 g/dL Albumin 1.9 L 3.5-5.0 g/dL Vancomycin Level Trough 20.9 H 10.0-20.0 UG/ML Bedside Glucose Comment Notified Nurse C ASSESSMENT: Multifocal pneumonia. Gram-negative sepsis. Dysuria. Bilateral lower extremity swelling. Abdominal pain, resolved. Leukocytosis. Small bowel obstruction versus ileus, resolved. Sigmoid Diverticulosis. Diabetes mellitus. End-stage renal disease, on dialysis. PLAN: Continue vancomycin per pharmacy protocol. Continue Zosyn IV. Continue doxycycline IV. Obtain a UA and urine culture. Obtain bilateral venous Dopplers. Diet has been advanced to GI soft and tolerating well. Continue GI prophylaxis. Continue pain management. Continue dialysis as recommended by photo lab specialist. Continue monitoring glucose levels. This case was reviewed and discussed with my supervising physician and the above assessment and plan was formulated and agreed upon. ATTESTATION BY PHYSICIAN I have seen and examined the patient. I reviewed the documentation, medical decision making, and treatment plan as noted by the mid-level provider above. I agree with the findings and plan of care. YUMIKO LINN MD, MIRTA L SENIOR HEALTH EDUCATOR Sep 19, 2024 12:27
[2024-09-19] MEDS: acetaMINOPHEN 325 MG TAB PO PRN (13:20)
--- NOTE | 2024-09-19 14:51 | HMCIMG ---
US VENOUS DOPPLER BILATERAL HISTORY: Swelling COMPARISON: None TECHNIQUE: Bilateral lower extremity venous Doppler ultrasound study was performed. FINDINGS: The common femoral, femoral, popliteal, and posterior tibial veins are visualized. Normal flow with augmentation and compressibilities are demonstrated. The greater saphenous veins are also seen and grossly patent. There are bilateral Wilkerson's cysts with right measuring 6.2 x 0.9 cm and left measuring 5.2 x 1.3 cm. IMPRESSION: 1. No evidence of deep venous thrombosis is seen. Bilateral Wilkerson's cyst.
--- NOTE | 2024-09-19 16:06 | NUR ---
Discharge Planning: Referral sent to [facility]. Pending insurance authorization.
[2024-09-20] VITALS (7 sets, daily range): BP systolic 105–135; BP diastolic 42–62; PULSE 70–85; RESP 17–19; TEMP 97.7–98.9; O2SAT 97–98
[2024-09-20 05:53] LABS: BASOPHILS # (AUTO) 0.09 K/uL (0.00-0.20); BASOPHILS % (AUTO) 0.6 % (0.0-5.0); EOSINOPHILS # (AUTO) 0.64 K/uL (0.00-0.70); EOSINOPHILS % (AUTO) 4.4 % (0.0-8.0); HEMATOCRIT 32.8 % (42-54); IMMATURE GRANULOCYTE ABSOLUTE 0.21 K/uL (0-1); LYMPHOCYTES # (AUTO) 1.7 K/uL (1.0-4.8); LYMPHOCYTES % (AUTO) 11.7 % (21.0-51.0); MEAN CORPUSCULAR HEMOGLOBIN 32.5 pg (27.0-33.0); MEAN CORPUSCULAR HGB CONC 33.2 g/dL (32.0-36.0); MEAN CORPUSCULAR VOLUME 97.9 fL (79-99); MONOCYTES # (AUTO) 1.6 K/uL (0.1-1.0); MONOCYTES % (AUTO) 10.7 % (3.0-13.0); NEUTROPHILS # (AUTO) 10.3 K/uL (1.8-7.7); NEUTROPHILS % (AUTO) 71.1 % (40.0-77.0); PLATELET COUNT (AUTO) 293 K/uL (130-400); RED BLOOD CELL COUNT(AUTO) 3.35 MIL/uL (4.50-6.20); RED CELL DISTRIBUTION WIDTH 14.9 % (11.0-15.5); WHITE BLOOD COUNT (AUTO) 14.5 K/uL (4.8-10.8)
[2024-09-20 06:02] LABS: CREATININE 7.1 mg/dL (0.5-1.3); PHOSPHORUS 6.1 mg/dL (2.5-4.9); POTASSIUM 4.3 mmol/L (3.5-5.1)
--- NOTE | 2024-09-20 07:11 | PN ---
SUBJECTIVE: The patient has been evaluated and seen for dialysis and seen several times. The patient is critically ill with multiple problems. No fever, chills or rigors. No other associated finding. No other aggravating or relieving factors. The patient is generally weak. PHYSICAL EXAMINATION: GENERAL: Pale, no other distress. VITAL SIGNS: Blood pressure is 118/70, respiratory rate is 18, afebrile. HEENT: Head is atraumatic, normocephalic. Pupils are round, reactive to light. Sclerae are anicteric. Conjunctivae not pale. Oral mucosa is not dry. NECK: Without masses, bruits. Thyroid is palpable. Neck has no bruits. CHEST: Shows equal thoracic percussion note being resonant in all areas. CARDIAC: Regular rhythm, no rub, no S3, S4. No parasternal heave. ABDOMEN: With no guarding or tenderness. Bowel sounds are normoactive. No free fluid. EXTREMITIES: No edema. No cyanosis. LABORATORY DATA: Have been reviewed and old records reviewed. IMAGING STUDIES: Personally reviewed. PROBLEMS: Renal failure, anemia, small-bowel obstruction versus ileus edema. PLAN: Dialysis support, fluid removal. Continued monitoring. Fluid restriction. The patient has been evaluated and seen for dialysis multiple times. Overall condition remained guarded. We will be monitoring the overall status closely. Condition is poor. I have discussed with the other team members in detail. Thank you for this patient. TID: [id number] RECEIPT: [id number] [facility]
--- NOTE | 2024-09-20 07:21 | PN ---
NEPHROLOGY NOTE SUBJECTIVE: The patient has been evaluated and seen for dialysis, seen several times. The patient has shortness of breath also ileus. The patient has edema and multiple other comorbidities. No other associated finding. No other aggravating or relieving factors. The patient has history of renal failure, anemia, multiple other comorbidities. PHYSICAL EXAMINATION: GENERAL: Pale, no other distress or deformities, lying in bed. VITAL SIGNS: Blood pressure is 118/70, respiratory rate is 18, afebrile. HEENT: Head is atraumatic, normocephalic. Pupils are round, reactive to light. Sclerae are anicteric. Conjunctivae not pale. Oral mucosa is not dry. NECK: Supple. No masses, bruits. Thyroid is palpable. Neck has no bruits. CHEST: Shows equal both bases, prolonged expiration, percussion note being resonant in all areas. EXTREMITIES: With no edema. PROBLEMS: Renal failure, anemia, fluid overload, small-bowel obstruction. PLAN: Aggressive dialysis fluid removal as needed, IV albumin. Continued monitoring. The patient is seen for dialysis and seen multiple times. Condition remained guarded. The patient was evaluated on dialysis multiple times. Thank you for this patient. TID: [id number] RECEIPT: [id number] [facility]
--- NOTE | 2024-09-20 10:49 | HMCIMG ---
CT ABDOMEN/PELVIS W/O CONTRAST HISTORY: Pain COMPARISON: None TECHNIQUE: Multiple sequential axial images of the abdomen and pelvis were obtained from the dome of the diaphragm through symphysis pubis. Patient was not given contrast through intravenous route. Oral contrast was not given. FINDINGS: No pleural effusion is seen bilaterally. There is no evidence of parenchymal disease or pulmonary nodule of the visualized lower lungs. Degenerative changes of the thoracolumbar spine are present. The heart is borderline enlarged. Coronary artery calcifications are seen. Postcholecystectomy changes are seen. Gastric distention is seen. The liver, spleen, adrenal glands and pancreas are unremarkable. There is no evidence of hydronephrosis bilaterally. There are small bilateral renal pelvic stones. Bilateral renal cortical scarring is seen. There is mesenteric edema. Fecal material is seen in the colon. There are normal size retroperitoneal and mesenteric lymph nodes. Tiny ascites is seen. Atherosclerotic changes are present. Pelvic sidewalls are symmetric bilaterally. Bladder is not seen limiting evaluation. There is clinical suspicion for cystitis, analysis correlation may be helpful IMPRESSION: 1. Bilateral small renal pelvic stones without hydronephrosis. Tiny ascites and mesenteric edema. Bladder is not well seen limiting evaluation. Diverticulosis. CT was performed with one or more following dose reduction techniques: automated exposure control, adjustment of the mA and kv according to patient's size, or use of a iterative reconstruction technique.
--- NOTE | 2024-09-20 11:00 | PN ---
[facility] PROGRESS NOTE Date of Service: Sep 20, 2024 Time of Service: 10:55 SUBJECTIVE: [ ] PCP: Admission date: 09/12/24 chief complaints: abd pain This is a 69-year-old male was admitted on 09/12/2024 with chief complaints of abdominal pain ER workup was consistent with small-bowel obstruction. Patient remains bowel rest surgeon following at this time conservative management. Patient is seen and examined with attending reviewed chart. Primary nurse reports patient is running low blood sugars patient will be started on D10 slow rate. 09/14 the patient has been seen and examined, no acute events overnight, patient comfortably in bed, alert oriented x3, following commands, BP 134/66, afebrile, saturating 99% on 1 L via nasal cannula, patient with the NG tube connected to intermittent suction, feels less abdominal distention, getting good pain control with current medical management, he is passing gas. V/Q scan negative for PE, Doppler of the lower extremities negative for DVT, discussed with the patient, last KUB 09/13/2024 moderately distended small bowel loops in the right upper quadrant which could represent obstruction. Patient will remain NPO, continue broad-spectrum IV antibiotics, continue to follow surgical input and recommendations. The patient also with Gram-negative sepsis, continue to follow results of septic workup, infectious disease consultation requested, input noted and appreciated. Echocardiogram with LVEF 31% with a global hypokinesia, cardiology input noted and appreciated, continue medical management, patient may eventually require cardiac catheterization. 09/15 patient is seen and examined at bedside, no acute events overnight, he feels comfortable, less abdominal discomfort, he is passing gas, he remains with the NG tube connected to intermittent suction, BP 104/56, afebrile, saturating 96% on 1 L via nasal cannula. Denied chest pain, no shortness a breath, no cough. The patient had hemodialysis done yesterday, tolerated well. is at bedside, updated. Continue to follow surgical input and recommendations. Continue broad-spectrum antibiotics, to follow white blood cell count in a.m., today at 14.5, higher compared to yesterday at 14.2. Infectious disease input noted and appreciated, continue to follow recommendations. 09/16 patient is seen and examined at bedside, no acute events overnight, comfortably in bed, hemodynamically stable, alert oriented x3, getting hemodialysis, tolerating well. Results of repeat CT abdomen reviewed, no ileus, no obstruction, surgical input noted and appreciated, NG tube output has been minimal, we will pull out NG tube, we will start clear liquid diet and advanced as tolerated. Continue current pain medication with the adjustment as needed, continue broad-spectrum IV antibiotics, continue to follow infectious disease input and recommendations, a.m. labs. 09/17 patient is seen and examined at bedside, awake, following commands. BP 97/55, afebrile, saturating normal on room air, CBC with hemoglobin still elevated 15.0, hemoglobin 10.4, hematocrit 31.0, platelet count of 229. Sodium 138, potassium 3.7, BUN 51, creatinine 6.0, magnesium 1.9. NG tube removed yesterday, patient started on clear liquid diet. Now on GI soft diet. Tolerating well, no nausea, no vomiting, no abdominal pain. Continue to follow surgical input and recommendations. Continue broad-spectrum IV antibiotics, continue to trend WBC in a.m., continue hemodialysis per Nephrology recommendations. Cardiology input noted and appreciated. Consider Left heart catheterization once medically stable prior to discharge. Discussed with patient and family at bedside, all questions answered, agreed and understood information provided. 09/18 patient is seen and examined at bedside, no acute events overnight, alert oriented x3, tolerating diet, no nausea, no vomiting, no abdominal pain. Leukocytosis trending down. Small-bowel obstruction present upon admission now resolved. Scheduled for hemodialysis tomorrow. Echocardiogram with a LVEF 30% with global hypokinesia, cardiology following the patient, considering Left heart catheterization once medically stable prior to discharge. 09/19/2024: Patient undergoing hemodialysis today. Patient remains on IV Zosyn IV doxycycline for pneumonia. Patient reports generalized weakness, to this point has not been evaluated by PT. Family is at bedside. Morning labs reviewed. 09/20/2024: Patient reporting abdominal pelvic pain mostly to the left lower quadrant region. Patient remains on IV Zosyn IV doxycycline under ID direction. Morning labs reviewed WBCs 14 K. patient has been referred to snf facility, pending acceptance. REVIEW OF SYSTEMS CONSTITUTIONAL: Denies fevers, chills, or night sweats. No unintentional weight loss reported. NEUROLOGICAL: Denies headache, amaurosis fugax, motor weakness, sensory deficit, vertigo/spinning sensation, gait abnormalities, or tremors. ENT: No hearing loss, otalgia, otorrhea, rhinitis, rhinorrhea, hoarseness, or sore throat. CARDIOVASCULAR: Denies any exertional angina, dyspnea on exertion, orthopnea, paroxysmal nocturnal dyspnea, palpitations, life-threatening arrhythmias, claudication. PULMONARY: Denies any shortness of breath, cough, phlegm/sputum, hemoptysis, pleuritic chest pain. SLEEP: Denies morning headaches, daytime somnolence or napping. Denies difficulty falling asleep, staying asleep, waking from sleep. Denies knowledge of snoring. GASTROINTESTINAL: Denies any type of dysphagia to either liquids or solids. Denies nausea, vomiting, pyrosis, early satiety, diarrhea, constipation, or changes in stool consistency or caliber. Denies coffee-ground emesis, hematemesis, hematochezia, or melanotic stools. Complains of persistent abdominal pain GENITOURINARY: Denies frequency, urgency, nocturia, hematuria or incontinence (Storage/Irritative symptoms.) Low urinary stream, straining to void, urinary intermittency or hesitancy, splitting of the voiding stream, terminal dribbling. ENDOCRINOLOGIC: Denies polyuria, polydipsia, polyphagia or heat/cold intolerances. HEMATOLOGIC: Denies thrombophilia/previous clots, or coagulopathy/bleeding disorders. ONCOLOGIC: Denies personal history of malignancy. DERMATOLOGIC: Denies rashes or pruritus. PSYCHIATRIC: Denies any suicidal or homicidal ideation. Denies hallucinations. PHYSICAL EXAM GENERAL APPEARANCE: The patient is awake, alert, and oriented, in no acute cardiopulmonary distress. NEUROLOGICAL: Cranial nerves II-XII grossly intact. Motor is 5/5 in bilateral upper and lower extremities proximal to distal. No sensory deficits. HEENT: Face is symmetric. Pupils are equal and reactive. Extraocular movements are intact. NECK: Supple. No JVD. No thyromegaly. No submental, submandibular, pre- /postauricular, occipital or supraclavicular lymphadenopathy. CHEST: Normal chest expansion. No Telemetry. LUNGS: Absence of any rales, rhonchi or any wheezing. CARDIOVASCULAR: Regular. S1 and S2 normal. No appreciable rubs, murmurs or gallops. ABDOMEN: Soft, bowel sounds positive. Nondistended. LLQ tenderness. No rebound tenderness no guarding no rigidity. : Deferred. No Palomares. EXTREMITIES: Non-edematous and not cyanotic. No clubbing. Good capillary refill. SKIN: No skin breakdown. Vital Signs (last 8hr) Date Time Temp Pulse Resp B/P (MAP) Pulse Ox O2 Delivery O2 Flow Rate FiO2 09/20/24 08:00 97.7 84 18 135/59 97 09/20/24 04:45 98.1 80 19 112/45 95 Room Air LABS: Laboratory: Test 09/20/24 05:34 09/20/24 05:20 09/19/24 05:45 Range/Units Whole Blood Glucose 138 H 70-110 MG/DL White Blood Count 14.5 H 4.8-10.8 K/uL Red Blood Count 3.35 L 4.50-6.20 MIL/uL Hemoglobin 10.9 L 14.0-18.0 g/dL Hematocrit 32.8 L 42-54 % Mean Corpuscular Volume 97.9 79-99 fL Mean Corpuscular Hemoglobin 32.5 27.0-33.0 pg Mean Corpuscular Hemoglobin Concent 33.2 32.0-36.0 g/dL Red Cell Distribution Width 14.9 11.0-15.5 % Platelet Count 293 130-400 K/uL Mean Platelet Volume 9.6 7.5-10.5 fL Immature Granulocyte % (Auto) 1.5 H 0-1 % Neutrophils (%) (Auto) 71.1 40.0-77.0 % Lymphocytes (%) (Auto) 11.7 L 21.0-51.0 % Monocytes (%) (Auto) 10.7 3.0-13.0 % Eosinophils (%) (Auto) 4.4 0.0-8.0 % Basophils (%) (Auto) 0.6 0.0-5.0 % Neutrophils # (Auto) 10.3 H 1.8-7.7 K/uL Lymphocytes # (Auto) 1.7 1.0-4.8 K/uL Monocytes # (Auto) 1.6 H 0.1-1.0 K/uL Eosinophils # (Auto) 0.64 0.00-0.70 K/uL Basophils # (Auto) 0.09 0.00-0.20 K/uL Absolute Immature Granulocyte (auto 0.21 0-1 K/uL Nucleated Red Blood Cells 0.0 0.0-0.19 % Sodium Level 138 136-145 mmol/L Potassium Level 4.3 3.5-5.1 mmol/L Chloride Level 98 L 101-111 mmol/L Carbon Dioxide Level 29 21-32 mmol/L Blood Urea Nitrogen 66 #H 7-18 mg/dL Creatinine 7.1 H 0.5-1.3 mg/dL Glomerular Filtration Rate Calc 8 >90 mL/min Random Glucose 142 H 70-105 mg/dL Total Calcium 10.1 8.5-10.1 mg/dL Phosphorus Level 6.1 H 2.5-4.9 mg/dL Magnesium Level 2.30 1.80-2.40 mg/dL Total Bilirubin 1.4 H 0.2-1.0 mg/dL Aspartate Amino Transf (AST/SGOT) 88 H 10-37 U/L Alanine Aminotransferase (ALT/SGPT) 117 #H 12-78 U/L Alkaline Phosphatase 103 50-136 U/L Total Protein 6.1 6.0-8.3 g/dL Albumin 1.9 L 3.5-5.0 g/dL Vancomycin Level Trough 20.9 H 10.0-20.0 UG/ML Current Medications Medications (Trade) Dose Ordered Sig/Elver Route PRN Reason Start Time Stop Time Status Last Admin Dose Admin Acetaminophen (TYLenol 325MG TAB) 650 mg Q4H PRN PO MILD PAIN (1-3) 09/12/24 12:30 10/12/24 12:29 09/17/24 02:01 650 MG Acetaminophen (TYLenol 325MG TAB) 650 mg Q6H PRN PO TEMPERATURE GREATER THAN 101.5 09/12/24 12:30 10/12/24 12:29 09/20/24 09:16 650 MG Acetaminophen/ Hydrocodone Bitart (NORco 5/325MG) 1 tab Q6H PRN PO MODERATE PAIN (4-6) 09/12/24 15:30 09/17/24 15:29 DC 09/15/24 00:59 1 TAB Al Hydroxide/Mg Hydroxide (MAALox PLUS 30ML) 30 ml Q6H PRN PO INDIGESTION 09/12/24 12:30 10/12/24 12:29 Aspirin (Aspirin 300mg Supp) 150 mg DAILY OR 09/14/24 09:00 09/16/24 07:45 DC 09/15/24 09:42 150 MG Aspirin (Aspirin 81mg Chew Tab) 81 mg DAILY PO 09/16/24 09:00 10/16/24 08:59 09/20/24 09:15 81 MG Atorvastatin Calcium (LIPItor 40MG) 80 mg HS PO 09/16/24 21:00 10/16/24 20:59 09/19/24 20:21 80 MG Benzonatate (Tessalon 100mg Caps) 100 mg Q8H PRN PO cough 09/12/24 19:00 10/12/24 18:59 09/18/24 19:52 100 MG Dextrose 1,000 ml @ 20 mls/hr Q24H IV 09/13/24 11:30 09/17/24 00:39 DC 09/13/24 12:01 20 MLS/HR Dextrose (D50w) 50 ml AD PRN IV HYPOGLYCEMIA PROTOCOL 09/12/24 12:30 10/12/24 12:29 09/13/24 10:29 50 ML Diphenhydramine HCl (BENAdryl INJ) 25 mg Q6H PRN IV SEVERE ITCHING/RASH 09/12/24 12:30 10/12/24 12:29 09/19/24 13:13 25 MG Doxycycline Hyclate 250 ml @ 125 mls/hr Q12H IV 09/12/24 19:00 09/22/24 18:59 09/20/24 06:16 125 MLS/HR Famotidine (Pepcid 20mg Vial) 20 mg BID PRN IV NAUSEA/VOMITING 09/12/24 12:30 09/12/24 12:44 DC Famotidine (Pepcid 20mg Vial) 20 mg Q48H IV 09/12/24 21:00 10/12/24 20:59 09/18/24 20:00 20 MG Fenofibrate (Tricor) 145 mg DAILY PO 09/16/24 09:00 10/16/24 08:59 09/20/24 09:16 145 MG Furosemide (LASix 40MG TAB) 40 mg DAILY PO 09/19/24 09:00 10/19/24 08:59 09/20/24 09:15 40 MG Glucagon (Glucagon 1mg Kit) 1 mg AD PRN IM HYPOGLYCEMIA PROTOCOL 09/12/24 12:30 10/12/24 12:29 Guaifenesin/ Dextromethorphan (RobiTUSSin DM 200/20MG 10ML) 10 ml Q4H PRN PO COUGH 09/12/24 12:30 10/12/24 12:29 Heparin Sodium (Porcine) (HEParin 5,000 UNIT VIAL) 5,000 unit BID SQ 09/12/24 21:00 09/16/24 15:02 DC 09/15/24 20:00 5,000 UNIT Heparin Sodium (Porcine) (HEParin 5,000 UNIT VIAL) 5,000 unit BID SQ 09/16/24 21:00 10/16/24 20:59 09/20/24 09:23 5,000 UNIT Hydralazine HCl (APRESOLine 20MG INJ) 10 mg Q6H PRN IV For:SBP above 160;DBP above 90 09/12/24 12:30 09/14/24 08:11 DC Insulin Human Regular (humuLIN R 100 UNIT/ML 3ML) INSULIN SLIDING SCAL... ACHS SQ 09/12/24 16:30 09/15/24 19:56 DC Insulin Human Regular (humuLIN R 100 UNIT/ML 3ML) INSULIN SLIDING SCAL... ACHS SQ 09/16/24 21:00 10/16/24 20:59 09/19/24 20:26 4 UNIT Insulin Human Regular (humuLIN R 100 UNIT/ML 3ML) INSULIN SLIDING SCAL... Q6H6 SQ 09/16/24 00:00 09/16/24 19:56 DC Ketorolac Tromethamine (toRADol) 15 mg Q8H PRN IV MODERATE PAIN (4-6) 09/12/24 15:30 09/12/24 21:58 DC Lactulose (Constulose 20gm/ 30ml Udcup) 20 gm BID PRN PO CONSTIPATION 09/12/24 12:30 10/12/24 12:29 Levothyroxine Sodium (SYNTHroid 50MCG TAB) 50 mcg SYN PO 09/17/24 06:30 10/17/24 06:29 09/20/24 05:30 50 MCG Magnesium Oxide (Mag-Ox) 400 mg DAILY PO 09/16/24 09:00 10/16/24 08:59 09/20/24 09:16 400 MG Magnesium Sulfate 50 ml @ 0 mls/hr PROTOCOL IV 09/13/24 08:30 10/13/24 08:29 09/18/24 03:23 25 MLS/HR Magnesium Sulfate 50 ml @ 0 mls/hr PROTOCOL PRN IV other 09/12/24 12:30 09/13/24 08:36 DC Magnesium Sulfate 50 ml @ 0 mls/hr PROTOCOL PRN IV low mag levl 09/13/24 08:30 09/13/24 08:37 DC Metoprolol Tartrate (loprESSOR) 2.5 mg Q6H PRN IV blood pressure 09/14/24 08:30 10/14/24 08:29 Metoprolol Tartrate (loprESSOR) 25 mg BID PO 09/16/24 09:00 10/16/24 08:59 09/20/24 09:15 25 MG Montelukast Sodium (SinguLAIR) 10 mg HS PO 09/16/24 21:00 10/16/24 20:59 09/19/24 20:21 10 MG Morphine Sulfate (morPHINE 2MG SYG) 1 mg Q6H PRN IVP SEVERE PAIN (7-10) 09/12/24 15:30 09/17/24 18:29 DC 09/15/24 23:16 1 MG Nitroglycerin (Nitrostat) 0.4 mg PROTOCOL PRN SL CHEST PAIN 09/12/24 12:30 10/12/24 12:29 Ondansetron HCl (zoFRAN 4MG INJ) 4 mg Q6H PRN IV NAUSEA/VOMITING 09/12/24 12:30 10/12/24 12:29 Pharmacy Profile Note (Pharmacy Communication) 1 each AD MISC 09/13/24 20:30 09/19/24 07:08 DC Piperacillin Sod/ Tazobactam Sod 50 ml @ 12.5 mls/hr Q12H IV 09/12/24 13:00 09/12/24 12:48 DC Piperacillin Sod/ Tazobactam Sod 50 ml @ 12.5 mls/hr Q12H IV 09/12/24 23:30 09/22/24 23:29 09/19/24 23:39 12.5 MLS/HR Potassium Chloride 100 ml @ 50 mls/hr AD PRN IV POTASSIUM PROTOCOL 09/13/24 08:30 10/13/24 08:29 Sodium Chloride 1,000 ml @ 0 mls/hr ONCE IV 09/14/24 12:00 10/14/24 11:59 09/19/24 10:04 100 MLS/HR Sodium Chloride 154 meq/Dextrose 1,000 ml @ 20 mls/hr Q24H IV 09/13/24 11:00 09/13/24 10:44 DC Vancomycin HCl (Vancomycin 750mg) 750 mg [id number][DIALYSIS] IVPB 09/16/24 16:00 09/26/24 15:59 09/19/24 17:35 750 MG Vancomycin HCl (Vancomycin Protocol) 1 each AD IV 09/14/24 17:30 09/24/24 17:29 Zolpidem Tartrate (AmbIEN) 5 mg HS PRN PO INSOMNIA 09/12/24 12:30 10/12/24 12:29 DIAGNOSTICS / RADIOLOGY: [ ] ASSESSMENT: [ Small-bowel obstruction versus ileus per CT abdomen/pelvis 09/12/2024 POA ESRD on dialysis Thursday needing dialysis POA Uncontrolled diabetes mellitus type 2 with hyper and hypoglycemia POA Hyperlipidemia POA Coronary artery disease s/p CABG six years ago POA Uncontrolled hypertension POA Multifactorial anemia POA Lactic acidosis 4.6 POA Hyperbilirubinemia 1.9 POA Hyper troponinemia POA acute on chroniic CHF EF 45/50% chronic combined systolic and diastolic congestive heart failure. History of cholelithiasis POA History of appendectomy ] History of appendectomy History of right knee cartilage surgery History of left hand pointing finger amputation Current alcohol drinking occasionally PLAN: Continue admission to medical floor Continue broad-spectrum IV antibiotics WITH ZOSYN AND DOXYCYCLINE UNDER ID DIRECTION. OBTAIN CT A/P FOR FURTHER EVALUATION OF RECURRENT, PERSISTENT LLQ PAIN Continue hemodialysis per enamel buffer recommendations Replace electrolytes IV per protocol CBC in a.m. transfuse as needed Follow a.m. labs GI and DVT prophylaxis PT evaluation Case management consult for snf facility versus rehab. Disposition: Pending improvement in clinical condition. Plan of action discussed, all questions answered, agreed and understood the information provided. KATHRYN STOUT Sep 20, 2024 11:00
--- NOTE | 2024-09-20 17:27 | PN ---
INFECTIOUS DISEASE PROGRESS NOTE Date of Service: Sep 20, 2024 SUBJECTIVE: This is a 69-year-old male patient who was admitted to the hospital with chief complaint of abdominal pain. A CT of the abdomen and pelvis showed Mild bowel dilatation with fluid-filled may be related to small bowel obstruction and a KUB showed Moderately distended small bowel loops in the right upper quadrant which could represent obstruction. General surgery evaluated patient and following. Patient was seen and examined at bedside in room 320. Bilateral lower extremity venous Doppler was negative for DVT. Continues with dysuria but a UA was unable to be collected due to patient only voids a few drops. Patient was dialyzed yesterday and 2.2 L were removed. Patient voicing abdominal pain mostly on the left side and a CT scan of the abdomen/pelvis was repeated which showed bilateral renal pelvic stones without hydronephrosis and diverticulosis. No nausea or vomiting reported. Patient is afebrile, temperature is 98.1. Continues on vancomycin per pharmacy protocol, Zosyn IV and doxycycline. We will continue to follow patient's care. PHYSICAL EXAM EYES: Anicteric. Pupils equal and reactive. HENT: No oral thrush seen, moist Oral mucosa. NECK: Supple, no JVD or thyromegaly. LUNGS: Good air entry. No rales, no rhonchi. CARDIOVASCULAR: S1, S2 regular. No murmur heard. ABDOMEN: Soft, bowel sounds present, no organomegaly. CENTRAL NERVOUS SYSTEM: Awake, alert, oriented x 3. SKIN: No rashes, no swelling. LYMPHATICS: No peripheral lymphadenopathy MUSCULOSKELETAL: No joint swelling, erythema or tenderness. EXTREMITIES: No cyanosis or clubbing. Bilateral lower extremity edema. BACK: No deformity, no pressure ulcer. GENITOURINARY: Positive for dysuria. Vital Sign (Last 12 Hours) 09/20/24 09/20/24 09/20/24 09/20/24 08:00 08:00 12:00 16:00 Temp 97.7 98.1 97.9 Pulse 84 70 73 Resp 18 18 18 B/P (MAP) 135/59 113/58 117/59 Pulse Ox 97 97 98 98 O2 Delivery Room Air* Room Air Room Air O2 Flow Rate 0 FiO2 21 Intake & Output (last 24hrs) 09/19/24 09/19/24 09/20/24 15:00 23:00 07:00 Intake Total 240 ml 220 ml Output Total 2200 ml Balance -1960 ml 220 ml LABS: Laboratory: Test 09/20/24 16:07 09/20/24 05:20 09/19/24 05:45 Range/Units Whole Blood Glucose 179 H 70-110 MG/DL White Blood Count 14.5 H 4.8-10.8 K/uL Red Blood Count 3.35 L 4.50-6.20 MIL/uL Hemoglobin 10.9 L 14.0-18.0 g/dL Hematocrit 32.8 L 42-54 % Mean Corpuscular Volume 97.9 79-99 fL Mean Corpuscular Hemoglobin 32.5 27.0-33.0 pg Mean Corpuscular Hemoglobin Concent 33.2 32.0-36.0 g/dL Red Cell Distribution Width 14.9 11.0-15.5 % Platelet Count 293 130-400 K/uL Mean Platelet Volume 9.6 7.5-10.5 fL Immature Granulocyte % (Auto) 1.5 H 0-1 % Neutrophils (%) (Auto) 71.1 40.0-77.0 % Lymphocytes (%) (Auto) 11.7 L 21.0-51.0 % Monocytes (%) (Auto) 10.7 3.0-13.0 % Eosinophils (%) (Auto) 4.4 0.0-8.0 % Basophils (%) (Auto) 0.6 0.0-5.0 % Neutrophils # (Auto) 10.3 H 1.8-7.7 K/uL Lymphocytes # (Auto) 1.7 1.0-4.8 K/uL Monocytes # (Auto) 1.6 H 0.1-1.0 K/uL Eosinophils # (Auto) 0.64 0.00-0.70 K/uL Basophils # (Auto) 0.09 0.00-0.20 K/uL Absolute Immature Granulocyte (auto 0.21 0-1 K/uL Nucleated Red Blood Cells 0.0 0.0-0.19 % Sodium Level 138 136-145 mmol/L Potassium Level 4.3 3.5-5.1 mmol/L Chloride Level 98 L 101-111 mmol/L Carbon Dioxide Level 29 21-32 mmol/L Blood Urea Nitrogen 66 #H 7-18 mg/dL Creatinine 7.1 H 0.5-1.3 mg/dL Glomerular Filtration Rate Calc 8 >90 mL/min Random Glucose 142 H 70-105 mg/dL Total Calcium 10.1 8.5-10.1 mg/dL Phosphorus Level 6.1 H 2.5-4.9 mg/dL Magnesium Level 2.30 1.80-2.40 mg/dL Total Bilirubin 1.4 H 0.2-1.0 mg/dL Aspartate Amino Transf (AST/SGOT) 88 H 10-37 U/L Alanine Aminotransferase (ALT/SGPT) 117 #H 12-78 U/L Alkaline Phosphatase 103 50-136 U/L Total Protein 6.1 6.0-8.3 g/dL Albumin 1.9 L 3.5-5.0 g/dL Vancomycin Level Trough 20.9 H 10.0-20.0 UG/ML C ASSESSMENT: Multifocal pneumonia. Gram-negative sepsis. Dysuria. Bilateral lower extremity swelling, negative for DVT. Abdominal pain, resolved. Leukocytosis. Small bowel obstruction versus ileus, resolved. Sigmoid Diverticulosis. Diabetes mellitus. End-stage renal disease, on dialysis. PLAN: Continue vancomycin per pharmacy protocol. Continue Zosyn IV. Continue doxycycline IV. Diet has been advanced to GI soft and tolerating well. Continue GI prophylaxis. Continue pain management. Continue dialysis as recommended by photovoltaic solar cell designer. Continue monitoring glucose levels. This case was reviewed and discussed with my supervising physician and the above assessment and plan was formulated and agreed upon. ATTESTATION BY PHYSICIAN I have seen and examined the patient. I reviewed the documentation, medical decision making, and treatment plan as noted by the mid-level provider above. I agree with the findings and plan of care. YUMIKO LINN MD, MIRTA L FNP Sep 20, 2024 17:27
--- NOTE | 2024-09-20 20:41 | PN ---
NEPHROLOGY NOTE SUBJECTIVE: Renal failure, anemia, multiple other comorbidities. This patient has abdominal pain still. The patient is planned for dialysis tomorrow. The patient has generalized weakness. Other systemic review is unchanged. The patient is a 69-year-old who was admitted with abdominal pain on admission with ileus. He has been having other comorbidities. The patient has been getting antibiotics. White cell count remains high. He is being considered for senior care placement. REVIEW OF SYSTEMS: CONSTITUTIONAL: With no fever, chills or rigors. HEENT: With no headache, oral ulcers, sore throat or difficulty swallowing. CARDIOVASCULAR: No orthopnea, PND. GASTROINTESTINAL: Negative for nausea, vomiting, diarrhea. GENITOURINARY: Negative for dysuria or hematuria. DERMATOLOGICAL: No rashes, pruritus or skin lesion. ENDOCRINE: No polyuria, polydipsia or polyphagia. PSYCHIATRIC: Negative for anxiety, depression. LYMPHATIC AND HEMATOPOIETIC: All the other systemic review is unchanged. PHYSICAL EXAMINATION: GENERAL: Pale, no other distress. VITAL SIGNS: Blood pressure is 135/59, pulse 84, respiratory rate is 18, afebrile. HEENT: Head is atraumatic, normocephalic. Pupils are round and reactive. Sclerae are anicteric. Conjunctivae not pale. Oral mucosa is not dry. NECK: Supple, No masses, bruits. Thyroid is palpable. CHEST: Shows equal thoracic percussion note being resonant in all areas. CARDIAC: Regular rhythm, no rub, no S3, S4. No parasternal heave. ABDOMEN: No guarding or tenderness. Bowel sounds are normoactive. EXTREMITIES: With no edema. No cyanosis. NEUROLOGICAL: Unchanged. No other cranial nerve palsies. LYMPHATICS: With no lymph node swelling. LABORATORY DATA: Labs have been reviewed in detail. Labs have shown hemoglobin is 10.9, hematocrit is 32.8, white cell count is 14.5. Old records have been reviewed and imaging studies are personally reviewed. White cell count has been reviewed. PROBLEMS: Renal failure, anemia, end-stage renal disease, abdominal pain, nausea, vomiting and other comorbidities, diabetes, nephropathy, hypertension and peripheral vascular disease. The patient has multiple other comorbidities. PLAN: Continued followup on renal function. Continued followup on electrolytes. Dialysis planned for tomorrow. The patient has anemia, end-stage renal disease, abdominal pain, bowel obstruction, possibly cardiomyopathy, diabetes, hyperlipidemia, hypertension and coronary artery disease. We will monitor on all these issues. Fluid restriction and IV Dilaudid 0.5 q.6h. for pain. I have discussed with other team members. We will continue followup. External previous records were reviewed and we have ordered the followup CBC and CMP. Thank you for this patient. TID: [id number] RECEIPT: [id number]
[2024-09-21] VITALS (25 sets, daily range): BP systolic 95–147; BP diastolic 51–73; PULSE 77–94; RESP 14–20; TEMP 97.5–98.5; O2SAT 98
[2024-09-21 06:44] LABS: BASOPHILS % (AUTO) 0.6 % (0.0-5.0); EOSINOPHILS # (AUTO) 0.67 K/uL (0.00-0.70); EOSINOPHILS % (AUTO) 4.1 % (0.0-8.0); HEMATOCRIT 30.9 % (42-54); IMMATURE GRANULOCYTE ABSOLUTE 0.35 K/uL (0-1); LYMPHOCYTES # (AUTO) 1.8 K/uL (1.0-4.8); MEAN CORPUSCULAR HEMOGLOBIN 32.3 pg (27.0-33.0); MEAN CORPUSCULAR VOLUME 97.8 fL (79-99); MONOCYTES # (AUTO) 1.8 K/uL (0.1-1.0); NEUTROPHILS # (AUTO) 11.6 K/uL (1.8-7.7); NEUTROPHILS % (AUTO) 71.1 % (40.0-77.0); PLATELET COUNT (AUTO) 267 K/uL (130-400); RED BLOOD CELL COUNT(AUTO) 3.16 MIL/uL (4.50-6.20); RED CELL DISTRIBUTION WIDTH 14.8 % (11.0-15.5); WHITE BLOOD COUNT (AUTO) 16.2 K/uL (4.8-10.8)
[2024-09-21 07:04] LABS: PHOSPHORUS 7.2 mg/dL (2.5-4.9); POTASSIUM 4.2 mmol/L (3.5-5.1)
[2024-09-21 07:10] LABS: CREATININE 8.4 mg/dL (0.5-1.3)
--- NOTE | 2024-09-21 13:43 | PN ---
[facility] PROGRESS NOTE Date of Service: Sep 21, 2024 Time of Service: 13:42 SUBJECTIVE: [ ] PCP: Admission date: 09/12/24 chief complaints: abd pain This is a 69-year-old male was admitted on 09/12/2024 with chief complaints of abdominal pain ER workup was consistent with small-bowel obstruction. Patient remains bowel rest surgeon following at this time conservative management. Patient is seen and examined with attending reviewed chart. Primary nurse reports patient is running low blood sugars patient will be started on D10 slow rate. 09/14 the patient has been seen and examined, no acute events overnight, patient comfortably in bed, alert oriented x3, following commands, BP 134/66, afebrile, saturating 99% on 1 L via nasal cannula, patient with the NG tube connected to intermittent suction, feels less abdominal distention, getting good pain control with current medical management, he is passing gas. V/Q scan negative for PE, Doppler of the lower extremities negative for DVT, discussed with the patient, last KUB 09/13/2024 moderately distended small bowel loops in the right upper quadrant which could represent obstruction. Patient will remain NPO, continue broad-spectrum IV antibiotics, continue to follow surgical input and recommendations. The patient also with Gram-negative sepsis, continue to follow results of septic workup, infectious disease consultation requested, input noted and appreciated. Echocardiogram with LVEF 31% with a global hypokinesia, cardiology input noted and appreciated, continue medical management, patient may eventually require cardiac catheterization. 09/15 patient is seen and examined at bedside, no acute events overnight, he feels comfortable, less abdominal discomfort, he is passing gas, he remains with the NG tube connected to intermittent suction, BP 104/56, afebrile, saturating 96% on 1 L via nasal cannula. Denied chest pain, no shortness a breath, no cough. The patient had hemodialysis done yesterday, tolerated well. is at bedside, updated. Continue to follow surgical input and recommendations. Continue broad-spectrum antibiotics, to follow white blood cell count in a.m., today at 14.5, higher compared to yesterday at 14.2. Infectious disease input noted and appreciated, continue to follow recommendations. 09/16 patient is seen and examined at bedside, no acute events overnight, comfortably in bed, hemodynamically stable, alert oriented x3, getting hemodialysis, tolerating well. Results of repeat CT abdomen reviewed, no ileus, no obstruction, surgical input noted and appreciated, NG tube output has been minimal, we will pull out NG tube, we will start clear liquid diet and advanced as tolerated. Continue current pain medication with the adjustment as needed, continue broad-spectrum IV antibiotics, continue to follow infectious disease input and recommendations, a.m. labs. 09/17 patient is seen and examined at bedside, awake, following commands. BP 97/55, afebrile, saturating normal on room air, CBC with hemoglobin still elevated 15.0, hemoglobin 10.4, hematocrit 31.0, platelet count of 229. Sodium 138, potassium 3.7, BUN 51, creatinine 6.0, magnesium 1.9. NG tube removed yesterday, patient started on clear liquid diet. Now on GI soft diet. Tolerating well, no nausea, no vomiting, no abdominal pain. Continue to follow surgical input and recommendations. Continue broad-spectrum IV antibiotics, continue to trend WBC in a.m., continue hemodialysis per Nephrology recommendations. Cardiology input noted and appreciated. Consider Left heart catheterization once medically stable prior to discharge. Discussed with patient and family at bedside, all questions answered, agreed and understood information provided. 09/18 patient is seen and examined at bedside, no acute events overnight, alert oriented x3, tolerating diet, no nausea, no vomiting, no abdominal pain. Leukocytosis trending down. Small-bowel obstruction present upon admission now resolved. Scheduled for hemodialysis tomorrow. Echocardiogram with a LVEF 30% with global hypokinesia, cardiology following the patient, considering Left heart catheterization once medically stable prior to discharge. 09/19/2024: Patient undergoing hemodialysis today. Patient remains on IV Zosyn IV doxycycline for pneumonia. Patient reports generalized weakness, to this point has not been evaluated by PT. Family is at bedside. Morning labs reviewed. 09/20/2024: Patient reporting abdominal pelvic pain mostly to the left lower quadrant region. Patient remains on IV Zosyn IV doxycycline under ID direction. Morning labs reviewed WBCs 14 K. patient has been [facility] to prison facility, pending acceptance. 09/21/2024: Over the past 24 hours no major reported. Patient remains on IV Zosyn IV doxycycline under ID direction. Patient is pending acceptance to prison facility. Morning labs reviewed WBC 16 K. patient has been afebrile. REVIEW OF SYSTEMS CONSTITUTIONAL: Denies fevers, chills, or night sweats. No unintentional weight loss reported. NEUROLOGICAL: Denies headache, amaurosis fugax, motor weakness, sensory deficit, vertigo/spinning sensation, gait abnormalities, or tremors. ENT: No hearing loss, otalgia, otorrhea, rhinitis, rhinorrhea, hoarseness, or sore throat. CARDIOVASCULAR: Denies any exertional angina, dyspnea on exertion, orthopnea, paroxysmal nocturnal dyspnea, palpitations, life-threatening arrhythmias, claudication. PULMONARY: Denies any shortness of breath, cough, phlegm/sputum, hemoptysis, pleuritic chest pain. SLEEP: Denies morning headaches, daytime somnolence or napping. Denies difficulty falling asleep, staying asleep, waking from sleep. Denies knowledge of snoring. GASTROINTESTINAL: Denies any type of dysphagia to either liquids or solids. Denies nausea, vomiting, pyrosis, early satiety, diarrhea, constipation, or changes in stool consistency or caliber. Denies coffee-ground emesis, hematemesis, hematochezia, or melanotic stools. Complains of persistent abdomin al pain GENITOURINARY: Denies frequency, urgency, nocturia, hematuria or incontinence (Storage/Irritative symptoms.) Low urinary stream, straining to void, urinary intermittency or hesitancy, splitting of the voiding stream, terminal dribbling. ENDOCRINOLOGIC: Denies polyuria, polydipsia, polyphagia or heat/cold intolerances. HEMATOLOGIC: Denies thrombophilia/previous clots, or coagulopathy/bleeding disorders. ONCOLOGIC: Denies personal history of malignancy. DERMATOLOGIC: Denies rashes or pruritus. PSYCHIATRIC: Denies any suicidal or homicidal ideation. Denies hallucinations. PHYSICAL EXAM GENERAL APPEARANCE: The patient is awake, alert, and oriented, in no acute cardiopulmonary distress. NEUROLOGICAL: Cranial nerves II-XII grossly intact. Motor is 5/5 in bilateral upper and lower extremities proximal to distal. No sensory deficits. HEENT: Face is symmetric. Pupils are equal and reactive. Extraocular movements are intact. NECK: Supple. No JVD. No thyromegaly. No submental, submandibular, pre- /postauricular, occipital or supraclavicular lymphadenopathy. CHEST: Normal chest expansion. No Telemetry. LUNGS: Absence of any rales, rhonchi or any wheezing. CARDIOVASCULAR: Regular. S1 and S2 normal. No appreciable rubs, murmurs or gallops. ABDOMEN: Soft, bowel sounds positive. Nondistended. LLQ tenderness. No rebound tenderness no guarding no rigidity. : Deferred. No Palomares. EXTREMITIES: Non-edematous and not cyanotic. No clubbing. Good capillary re fill. SKIN: No skin breakdown. Vital Signs (last 8hr) Date Time Temp Pulse Resp B/P (MAP) Pulse Ox O2 Delivery O2 Flow Rate FiO2 09/21/24 11:40 97.5 77 18 138/67 97 Room Air 09/21/24 07:58 97.5 81 18 126/63 96 Room Air 09/21/24 07:36 98 Room Air* 0 21 LABS: Laboratory: Test 09/21/24 11:18 09/21/24 06:30 Range/Units Whole Blood Glucose 169 #H 70-110 MG/DL White Blood Count 16.2 H 4.8-10.8 K/uL Red Blood Count 3.16 L 4.50-6.20 MIL/uL Hemoglobin 10.2 L 14.0-18.0 g/dL Hematocrit 30.9 L 42-54 % Mean Corpuscular Volume 97.8 79-99 fL Mean Corpuscular Hemoglobin 32.3 27.0-33.0 pg Mean Corpuscular Hemoglobin Concent 33.0 32.0-36.0 g/dL Red Cell Distribution Width 14.8 11.0-15.5 % Platelet Count 267 130-400 K/uL Mean Platelet Volume 9.2 7.5-10.5 fL Immature Granulocyte % (Auto) 2.2 H 0-1 % Neutrophils (%) (Auto) 71.1 40.0-77.0 % Lymphocytes (%) (Auto) 11.0 L 21.0-51.0 % Monocytes (%) (Auto) 11.0 3.0-13.0 % Eosinophils (%) (Auto) 4.1 0.0-8.0 % Basophils (%) (Auto) 0.6 0.0-5.0 % Neutrophils # (Auto) 11.6 H 1.8-7.7 K/uL Lymphocytes # (Auto) 1.8 1.0-4.8 K/uL Monocytes # (Auto) 1.8 H 0.1-1.0 K/uL Eosinophils # (Auto) 0.67 0.00-0.70 K/uL Basophils # (Auto) 0.10 0.00-0.20 K/uL Absolute Immature Granulocyte (auto 0.35 0-1 K/uL Nucleated Red Blood Cells 0.0 0.0-0.19 % Sodium Level 139 136-145 mmol/L Potassium Level 4.2 3.5-5.1 mmol/L Chloride Level 100 L 101-111 mmol/L Carbon Dioxide Level 26 21-32 mmol/L Blood Urea Nitrogen 83 *H 7-18 mg/dL Creatinine 8.4 *H 0.5-1.3 mg/dL Glomerular Filtration Rate Calc 6 >90 mL/min Random Glucose 110 H 70-105 mg/dL Total Calcium 10.1 8.5-10.1 mg/dL Phosphorus Level 7.2 H 2.5-4.9 mg/dL Current Medications Medications (Trade) Dose Ordered Sig/Elver Route PRN Reason Start Time Stop Time Status Last Admin Dose Admin Acetaminophen (TYLenol 325MG TAB) 650 mg Q4H PRN PO MILD PAIN (1-3) 09/12/24 12:30 10/12/24 12:29 09/21/24 05:42 650 MG Acetaminophen (TYLenol 325MG TAB) 650 mg Q6H PRN PO TEMPERATURE GREATER THAN 101.5 09/12/24 12:30 10/12/24 12:29 09/20/24 09:16 650 MG Acetaminophen/ Hydrocodone Bitart (NORco 5/325MG) 1 tab Q6H PRN PO MODERATE PAIN (4-6) 09/12/24 15:30 09/17/24 15:29 DC 09/15/24 00:59 1 TAB Al Hydroxide/Mg Hydroxide (MAALox PLUS 30ML) 30 ml Q6H PRN PO INDIGESTION 09/12/24 12:30 10/12/24 12:29 Aspirin (Aspirin 300mg Supp) 150 mg DAILY AK 09/14/24 09:00 09/16/24 07:45 DC 09/15/24 09:42 150 MG Aspirin (Aspirin 81mg Chew Tab) 81 mg DAILY PO 09/16/24 09:00 10/16/24 08:59 09/20/24 09:15 81 MG Atorvastatin Calcium (LIPItor 40MG) 80 mg HS PO 09/16/24 21:00 10/16/24 20:59 09/20/24 20:03 80 MG Benzonatate (Tessalon 100mg Caps) 100 mg Q8H PRN PO cough 09/12/24 19:00 10/12/24 18:59 09/18/24 19:52 100 MG Dextrose 1,000 ml @ 20 mls/hr Q24H IV 09/13/24 11:30 09/17/24 00:39 DC 09/13/24 12:01 20 MLS/HR Dextrose (D50w) 50 ml AD PRN IV HYPOGLYCEMIA PROTOCOL 09/12/24 12:30 10/12/24 12:29 09/13/24 10:29 50 ML Diphenhydramine HCl (BENAdryl INJ) 25 mg Q6H PRN IV SEVERE ITCHING/RASH 09/12/24 12:30 10/12/24 12:29 09/19/24 13:13 25 MG Doxycycline Hyclate 250 ml @ 125 mls/hr Q12H IV 09/12/24 19:00 09/22/24 18:59 09/21/24 05:42 125 MLS/HR Famotidine (Pepcid 20mg Vial) 20 mg BID PRN IV NAUSEA/VOMITING 09/12/24 12:30 09/12/24 12:44 DC Famotidine (Pepcid 20mg Vial) 20 mg Q48H IV 09/12/24 21:00 10/12/24 20:59 09/20/24 20:04 20 MG Fenofibrate (Tricor) 145 mg DAILY PO 09/16/24 09:00 10/16/24 08:59 09/20/24 09:16 145 MG Furosemide (LASix 40MG TAB) 40 mg DAILY PO 09/19/24 09:00 10/19/24 08:59 09/20/24 09:15 40 MG Glucagon (Glucagon 1mg Kit) 1 mg AD PRN IM HYPOGLYCEMIA PROTOCOL 09/12/24 12:30 10/12/24 12:29 Guaifenesin/ Dextromethorphan (RobiTUSSin DM 200/20MG 10ML) 10 ml Q4H PRN PO COUGH 09/12/24 12:30 10/12/24 12:29 Heparin Sodium (Porcine) (HEParin 5,000 UNIT VIAL) 5,000 unit BID SQ 09/12/24 21:00 09/16/24 15:02 DC 09/15/24 20:00 5,000 UNIT Heparin Sodium (Porcine) (HEParin 5,000 UNIT VIAL) 5,000 unit BID SQ 09/16/24 21:00 10/16/24 20:59 09/20/24 20:03 5,000 UNIT Hydralazine HCl (APRESOLine 20MG INJ) 10 mg Q6H PRN IV For:SBP above 160;DBP above 90 09/12/24 12:30 09/14/24 08:11 DC Insulin Human Regular (humuLIN R 100 UNIT/ML 3ML) INSULIN SLIDING SCAL... ACHS SQ 09/12/24 16:30 09/15/24 19:56 DC Insulin Human Regular (humuLIN R 100 UNIT/ML 3ML) INSULIN SLIDING SCAL... ACHS SQ 09/16/24 21:00 10/16/24 20:59 09/20/24 20:06 4 UNIT Insulin Human Regular (humuLIN R 100 UNIT/ML 3ML) INSULIN SLIDING SCAL... Q6H6 SQ 09/16/24 00:00 09/16/24 19:56 DC Ketorolac Tromethamine (toRADol) 15 mg Q8H PRN IV MODERATE PAIN (4-6) 09/12/24 15:30 09/12/24 21:58 DC Lactulose (Constulose 20gm/ 30ml Udcup) 20 gm BID PRN PO CONSTIPATION 09/12/24 12:30 10/12/24 12:29 Levothyroxine Sodium (SYNTHroid 50MCG TAB) 50 mcg SYN PO 09/17/24 06:30 10/17/24 06:29 09/21/24 05:42 50 MCG Magnesium Oxide (Mag-Ox) 400 mg DAILY PO 09/16/24 09:00 10/16/24 08:59 09/20/24 09:16 400 MG Magnesium Sulfate 50 ml @ 0 mls/hr PROTOCOL IV 09/13/24 08:30 10/13/24 08:29 09/18/24 03:23 25 MLS/HR Magnesium Sulfate 50 ml @ 0 mls/hr PROTOCOL PRN IV other 09/12/24 12:30 09/13/24 08:36 DC Magnesium Sulfate 50 ml @ 0 mls/hr PROTOCOL PRN IV low mag levl 09/13/24 08:30 09/13/24 08:37 DC Metoprolol Tartrate (loprESSOR) 2.5 mg Q6H PRN IV blood pressure 09/14/24 08:30 10/14/24 08:29 Metoprolol Tartrate (loprESSOR) 25 mg BID PO 09/16/24 09:00 10/16/24 08:59 09/20/24 09:15 25 MG Montelukast Sodium (SinguLAIR) 10 mg HS PO 09/16/24 21:00 10/16/24 20:59 09/20/24 20:03 10 MG Morphine Sulfate (morPHINE 2MG SYG) 1 mg Q6H PRN IVP SEVERE PAIN (7-10) 09/12/24 15:30 09/17/24 18:29 DC 09/15/24 23:16 1 MG Nitroglycerin (Nitrostat) 0.4 mg PROTOCOL PRN SL CHEST PAIN 09/12/24 12:30 10/12/24 12:29 Ondansetron HCl (zoFRAN 4MG INJ) 4 mg Q6H PRN IV NAUSEA/VOMITING 09/12/24 12:30 10/12/24 12:29 Pharmacy Profile Note (Pharmacy Communication) 1 each AD MISC 09/13/24 20:30 09/19/24 07:08 DC Piperacillin Sod/ Tazobactam Sod 50 ml @ 12.5 mls/hr Q12H IV 09/12/24 13:00 09/12/24 12:48 DC Piperacillin Sod/ Tazobactam Sod 50 ml @ 12.5 mls/hr Q12H IV 09/12/24 23:30 09/22/24 23:29 09/20/24 22:51 12.5 MLS/HR Potassium Chloride 100 ml @ 50 mls/hr AD PRN IV POTASSIUM PROTOCOL 09/13/24 08:30 10/13/24 08:29 Sodium Chloride 1,000 ml @ 0 mls/hr ONCE IV 09/14/24 12:00 10/14/24 11:59 09/19/24 10:04 100 MLS/HR Sodium Chloride 154 meq/Dextrose 1,000 ml @ 20 mls/hr Q24H IV 09/13/24 11:00 09/13/24 10:44 DC Vancomycin HCl (Vancomycin 750mg) 750 mg [id number][DIALYSIS] IVPB 09/16/24 16:00 09/26/24 15:59 09/19/24 17:35 750 MG Vancomycin HCl (Vancomycin Protocol) 1 each AD IV 09/14/24 17:30 09/24/24 17:29 Zolpidem Tartrate (AmbIEN) 5 mg HS PRN PO INSOMNIA 09/12/24 12:30 10/12/24 12:29 DIAGNOSTICS / RADIOLOGY: [ ] ASSESSMENT: [ Small-bowel obstruction versus ileus per CT abdomen/pelvis 09/12/2024 POA ESRD on dialysis Thursday needing dialysis POA Uncontrolled diabetes mellitus type 2 with hyper and hypoglycemia POA Hyperlipidemia POA Coronary artery disease s/p CABG six years ago POA Uncontrolled hypertension POA Multifactorial anemia POA Lactic acidosis 4.6 POA Hyperbilirubinemia 1.9 POA Hyper troponinemia POA acute on chroniic CHF EF 45/50% chronic combined systolic and diastolic congestive heart failure. History of cholelithiasis POA History of appendectomy ] History of appendectomy History of right knee cartilage surgery History of left hand pointing finger amputation Current alcohol drinking occasionally PLAN: Continue admission to medical floor Continue broad-spectrum IV antibiotics WITH ZOSYN AND DOXYCYCLINE UNDER ID DIRECTION. Continue hemodialysis per press service reader recommendations Replace electrolytes IV per protocol CBC in a.m. transfuse as needed Follow a.m. labs GI and DVT prophylaxis PT evaluation Case management consult for prison facility Disposition: SNF pending acceptance/authorization Plan of action discussed, all questions answered, agreed and understood the information provided. KATHRYN STOUT Sep 21, 2024 13:43
--- NOTE | 2024-09-21 16:55 | PN ---
INFECTIOUS DISEASE PROGRESS NOTE Date of Service: Sep 21, 2024 SUBJECTIVE: This is a 69-year-old male patient who was admitted to the hospital with chief complaint of abdominal pain. A CT of the abdomen and pelvis showed Mild bowel dilatation with fluid-filled may be related to small bowel obstruction and a KUB showed Moderately distended small bowel loops in the right upper quadrant which could represent obstruction. General surgery evaluated patient and following. Patient was seen and examined at bedside in room 320. Patient was being dialyzed at time of visit. Patient still voicing abdominal discomfort mostly on the left side which is said he is starting to believe is related to the subcu injections he received daily. Patient is afebrile, temperature is 97.5, the WBC however trended up to 16.2. Will continue on vancomycin per pharmacy protocol, Zosyn IV and doxycycline and continue to monitor. PHYSICAL EXAM EYES: Anicteric. Pupils equal and reactive. HENT: No oral thrush seen, moist Oral mucosa. NECK: Supple, no JVD or thyromegaly. LUNGS: Good air entry. No rales, no rhonchi. CARDIOVASCULAR: S1, S2 regular. No murmur heard. ABDOMEN: Soft, bowel sounds present, no organomegaly. Abdominal tenderness. CENTRAL NERVOUS SYSTEM: Awake, alert, oriented x 3. SKIN: No rashes, no swelling. LYMPHATICS: No peripheral lymphadenopathy MUSCULOSKELETAL: No joint swelling, erythema or tenderness. EXTREMITIES: No cyanosis or clubbing. Bilateral lower extremity edema. BACK: No deformity, no pressure ulcer. GENITOURINARY: Positive for dysuria. Vital Sign (Last 12 Hours) 09/21/24 09/21/24 09/21/24 09/21/24 07:36 07:58 11:40 13:05 Temp 97.5 97.5 97.5 Pulse 81 77 82 Resp 18 18 16 B/P (MAP) 126/63 138/67 114/53 Pulse Ox 98 96 97 O2 Delivery Room Air* Room Air Room Air Room Air O2 Flow Rate 0 FiO2 21 09/21/24 09/21/24 09/21/24 09/21/24 13:23 13:40 13:55 14:10 Temp 97.5 Pulse 78 79 79 78 Resp 16 16 16 16 B/P (MAP) 120/51 131/58 147/63 128/60 O2 Delivery Room Air Room Air Room Air Room Air 09/21/24 09/21/24 09/21/24 09/21/24 14:25 14:40 14:55 15:10 Pulse 77 81 79 79 Resp 14 16 16 16 B/P (MAP) 129/60 125/62 135/58 120/58 O2 Delivery Room Air Room Air Room Air Room Air 09/21/24 09/21/24 09/21/24 09/21/24 15:25 15:40 15:55 16:10 Pulse 79 81 83 85 Resp 16 16 16 16 B/P (MAP) 123/57 123/63 111/60 105/56 O2 Delivery Room Air Room Air Room Air Room Air 09/21/24 09/21/24 09/21/24 16:25 16:27 16:40 Temp 97.9 Pulse 83 83 85 Resp 16 18 16 B/P (MAP) 108/57 111/60 100/55 Pulse Ox 94 O2 Delivery Room Air Room Air Room Air Intake & Output (last 24hrs) 09/20/24 09/20/24 09/21/24 15:00 23:00 07:00 Intake Total 460 ml 220 ml Balance 460 ml 220 ml LABS: Laboratory: Test 09/21/24 16:02 09/21/24 06:30 Range/Units Whole Blood Glucose 120 H 70-110 MG/DL White Blood Count 16.2 H 4.8-10.8 K/uL Red Blood Count 3.16 L 4.50-6.20 MIL/uL Hemoglobin 10.2 L 14.0-18.0 g/dL Hematocrit 30.9 L 42-54 % Mean Corpuscular Volume 97.8 79-99 fL Mean Corpuscular Hemoglobin 32.3 27.0-33.0 pg Mean Corpuscular Hemoglobin Concent 33.0 32.0-36.0 g/dL Red Cell Distribution Width 14.8 11.0-15.5 % Platelet Count 267 130-400 K/uL Mean Platelet Volume 9.2 7.5-10.5 fL Immature Granulocyte % (Auto) 2.2 H 0-1 % Neutrophils (%) (Auto) 71.1 40.0-77.0 % Lymphocytes (%) (Auto) 11.0 L 21.0-51.0 % Monocytes (%) (Auto) 11.0 3.0-13.0 % Eosinophils (%) (Auto) 4.1 0.0-8.0 % Basophils (%) (Auto) 0.6 0.0-5.0 % Neutrophils # (Auto) 11.6 H 1.8-7.7 K/uL Lymphocytes # (Auto) 1.8 1.0-4.8 K/uL Monocytes # (Auto) 1.8 H 0.1-1.0 K/uL Eosinophils # (Auto) 0.67 0.00-0.70 K/uL Basophils # (Auto) 0.10 0.00-0.20 K/uL Absolute Immature Granulocyte (auto 0.35 0-1 K/uL Nucleated Red Blood Cells 0.0 0.0-0.19 % Sodium Level 139 136-145 mmol/L Potassium Level 4.2 3.5-5.1 mmol/L Chloride Level 100 L 101-111 mmol/L Carbon Dioxide Level 26 21-32 mmol/L Blood Urea Nitrogen 83 *H 7-18 mg/dL Creatinine 8.4 *H 0.5-1.3 mg/dL Glomerular Filtration Rate Calc 6 >90 mL/min Random Glucose 110 H 70-105 mg/dL Total Calcium 10.1 8.5-10.1 mg/dL Phosphorus Level 7.2 H 2.5-4.9 mg/dL C ASSESSMENT: Multifocal pneumonia. Gram-negative sepsis. Dysuria. Bilateral lower extremity swelling, negative for DVT. Abdominal pain, resolved. Leukocytosis. Small bowel obstruction versus ileus, resolved. Sigmoid Diverticulosis. Diabetes mellitus. End-stage renal disease, on dialysis. PLAN: Continue vancomycin per pharmacy protocol. Continue Zosyn IV. Continue doxycycline IV. Continue GI prophylaxis. Continue pain management. Continue dialysis as recommended by principal secretary. Continue nutritional support. Continue monitoring glucose levels. This case was reviewed and discussed with my supervising physician and the above assessment and plan was formulated and agreed upon. ATTESTATION BY PHYSICIAN I have seen and examined the patient. I reviewed the documentation, medical decision making, and treatment plan as noted by the mid-level provider above. I agree with the findings and plan of care. YUMIKO LINN MD, [facility] Sep 21, 2024 16:55
--- NOTE | 2024-09-21 18:15 | NUR ---
While in a different patient's room, Jayesh CEDILLO came to that room to report that this patient "may be experiencing a stroke." I ran to that room to evaluate the patient. He answered all questions appropriately but did report some new onset pain and weakness to his right arm. He also has equal bilateral handgrips with no drift, and equal leg strength with no drift. Patient able to answer all questions appropriately as per NIH assessment. PERRLA, at 3mm. As per daughter who was in room "it seemed like he was having trouble getting the words out." Patient reporting some chest discomfort, but denies heaviness. Placed on o2 @ 2l per nasal cannula, and blood pressure is 134/76. EKG performed and showed sinus rhythm rate 70's-80's. I notified Ilya Antoine NP of findings, orders received, read back, and entered. I also called radiology who reported is en-route to pickle cutter patient. Patient also pending for phlebotomy to draw ordered labs.
[2024-09-21 18:56] LABS: BASOPHILS % (AUTO) 0.6 % (0.0-5.0); EOSINOPHILS # (AUTO) 0.57 K/uL (0.00-0.70); EOSINOPHILS % (AUTO) 3.5 % (0.0-8.0); HEMATOCRIT 31.9 % (42-54); IMMATURE GRANULOCYTE ABSOLUTE 0.28 K/uL (0-1); LYMPHOCYTES # (AUTO) 1.5 K/uL (1.0-4.8); MEAN CORPUSCULAR HEMOGLOBIN 31.8 pg (27.0-33.0); MEAN CORPUSCULAR HGB CONC 32.6 g/dL (32.0-36.0); MEAN CORPUSCULAR VOLUME 97.6 fL (79-99); MONOCYTES # (AUTO) 1.6 K/uL (0.1-1.0); MONOCYTES % (AUTO) 9.6 % (3.0-13.0); NEUTROPHILS # (AUTO) 12.3 K/uL (1.8-7.7); NEUTROPHILS % (AUTO) 75.6 % (40.0-77.0); PLATELET COUNT (AUTO) 245 K/uL (130-400); RED BLOOD CELL COUNT(AUTO) 3.27 MIL/uL (4.50-6.20); RED CELL DISTRIBUTION WIDTH 14.8 % (11.0-15.5); WHITE BLOOD COUNT (AUTO) 16.3 K/uL (4.8-10.8)
[2024-09-21 19:07] LABS: CREATININE 5.5 mg/dL (0.5-1.3); POTASSIUM 3.5 mmol/L (3.5-5.1)
[2024-09-21 19:21] LABS: ALBUMIN 1.8 g/dL (3.5-5.0); BILIRUBIN,TOTAL 1.3 mg/dL (0.2-1.0); TOTAL PROTEIN, SERUM 6.3 g/dL (6.0-8.3)
--- NOTE | 2024-09-21 19:32 | HMCIMG ---
CT HEAD/BRAIN W/O CONTRAST HISTORY: Weakness COMPARISON: None TECHNIQUE: Multiple sequential axial images of the head were obtained from the base of the skull through vertex. Patient was not given contrast through intravenous route. FINDINGS: The ventricles and extraventricular CSF spaces are dilated consistent with cerebral atrophy. Nonspecific white matter changes seen. There is no midline shift, mass effect or herniation. No acute intracranial bleed is seen. Visualized portion of the paranasal sinuses are grossly within normal limits. There is atherosclerosis. IMPRESSION: 1. No acute intracranial bleed is seen. 2. Atrophy with white matter changes. CT was performed with one or more following dose reduction techniques: automated exposure control, adjustment of the mA and kv according to patient's size, or use of a iterative reconstruction technique.
--- NOTE | 2024-09-21 23:05 | PN ---
SUBJECTIVE: The patient has been evaluated and seen for dialysis and seen several times. The patient has multiple other comorbidities. No other associated finding. No other aggravating or relieving factors. The patient is weak. Other systemic review is unchanged from the past. The patient has weakness, anasarca and other comorbidities. PHYSICAL EXAMINATION: VITAL SIGNS: Blood pressure is 111/63, pulse 83, respiratory rate is 18, afebrile. HEENT: Head is atraumatic, normocephalic. Pupils round, reactive to light. Sclerae are anicteric. Conjunctivae not pale. Oral mucosa is not dry. NECK: Without masses or bruits. Thyroid is palpable. Neck has no bruits. LABORATORY DATA: We have reviewed available labs in detail. Lab data has shown hemoglobin is 10.4, white cell count is 16.3. IMAGING DATA: Imaging studies are reviewed. Old records reviewed and x-rays were personally reviewed. PROBLEMS: Renal failure, anemia, multiple other comorbidities. PLAN: To continue monitoring of renal function. The patient has anasarca. We will attempt to remove fluid in dialysis. Intake, output, weight will be monitored. All the labs are personally reviewed. White cell count is elevated up to 16,000. We will need followup and we will need a followup on overall status. The patient was evaluated and seen for dialysis and seen multiple times. I have discussed with other team members in detail and fluid restriction is advised. TID: [id number] RECEIPT: [id number]
--- NOTE | 2024-09-21 23:23 | PN ---
NEPHROLOGY NOTE SUBJECTIVE: The patient has been evaluated and seen for dialysis, seen several times. The patient has multiple other comorbidities. No other associated finding. No other aggravating or relieving factors. The patient has weakness. The patient was evaluated and seen for dialysis and seen multiple times. Overall condition remained guarded. We will be monitoring closely. The patient has generalized weakness and anemia at present. PLAN: Will be to continue dialysis support. Continue monitoring of renal function. The patient has anasarca. We have ordered for extra dialysis time and extra fluid removal. Intake, output, weight will be monitored. Nonsteroidal drugs will be avoided. Dose of medicine to be adjusted and we will be monitoring closely. The patient was evaluated and seen for dialysis and seen multiple times today. Overall condition is poor. I have discussed with other team physicians and fluid restriction is advised. TID: [id number] RECEIPT: [id number]
[2024-09-22] VITALS (8 sets, daily range): BP systolic 98–152; BP diastolic 49–66; PULSE 80–89; RESP 18–20; TEMP 97.6–98.4; O2SAT 95–96
--- NOTE | 2024-09-22 00:23 | HMCIMG ---
US CAROTID DUPLEX HISTORY: TIA COMPARISON: None TECHNIQUE: Duplex carotid arterial Doppler ultrasound study was performed. FINDINGS: The common, internal and external carotid arteries are visualized. The peak systolic velocities of right common carotid artery is 62 centimeters per second, right internal carotid artery is 120 centimeters per second, right external carotid artery is 100 centimeters per second, and right vertebral artery is 61 centimeters per second. Right internal carotid artery to right common carotid artery ratio is 1.9. Right vertebral artery is seen with antegrade flow. The peak systolic velocities of left common carotid artery is 75 centimeters per second, left internal carotid artery is 100 centimeters per second, left external carotid artery is 86 centimeters per second, and left vertebral artery is 70 centimeters per second. Left internal carotid artery to left common carotid artery ratio is 1.3. Left vertebral artery is seen with antegrade flow. There are bilateral echogenic plaques. IMPRESSION: 1. No hemodynamically significant lesion is seen of either extracranial carotid artery system.
[2024-09-22 06:08] LABS: BASOPHILS # (AUTO) 0.09 K/uL (0.00-0.20); BASOPHILS % (AUTO) 0.5 % (0.0-5.0); EOSINOPHILS % (AUTO) 3.4 % (0.0-8.0); HEMATOCRIT 30.4 % (42-54); IMMATURE GRANULOCYTE ABSOLUTE 0.32 K/uL (0-1); LYMPHOCYTES # (AUTO) 1.9 K/uL (1.0-4.8); LYMPHOCYTES % (AUTO) 10.8 % (21.0-51.0); MEAN CORPUSCULAR HEMOGLOBIN 32.3 pg (27.0-33.0); MEAN CORPUSCULAR HGB CONC 33.6 g/dL (32.0-36.0); MEAN CORPUSCULAR VOLUME 96.2 fL (79-99); MONOCYTES # (AUTO) 2.1 K/uL (0.1-1.0); MONOCYTES % (AUTO) 11.5 % (3.0-13.0); NEUTROPHILS # (AUTO) 12.9 K/uL (1.8-7.7); PLATELET COUNT (AUTO) 275 K/uL (130-400); RED BLOOD CELL COUNT(AUTO) 3.16 MIL/uL (4.50-6.20); RED CELL DISTRIBUTION WIDTH 14.9 % (11.0-15.5); WHITE BLOOD COUNT (AUTO) 17.9 K/uL (4.8-10.8)
[2024-09-22 06:26] LABS: CREATININE 6.6 mg/dL (0.5-1.3)
--- NOTE | 2024-09-22 08:23 | EKG ---
[facility] Test Date: 2024-09-21 Test Time: 18:19:14 Pat Name: BEN LUQUE Department: [facility] Room: 320 1 Gender: Male Dive Master: arnel : 1955 Requested By: PRAKASH HAMPTON Order Number: [id number] Reading MD: Yon Gonsalves Measurements Intervals [place] Rate: 88 P: 39 [place]: 166 QRS: 30 QRSD: 106 T: 8 QT: 400 QTc: 484 Interpretive Statements Sinus rhythm with occasional premature ventricular complexes Incomplete right bundle branch block Septal infarct , age undetermined Cannot rule out Inferior infarct , age undetermined Compared to ECG 09/12/2024 11:55:46 Ventricular premature complex(es) now present Incomplete right bundle-branch block now present Myocardial infarct finding now present Right-axis deviation no longer present Early repolarization no longer present Possible ischemia no longer present Electronically Signed On 09-22-2024 10:22:03 DIET THERAPIST by Yon Gonsalves Please click the below link to view image of tracing.
--- NOTE | 2024-09-22 08:54 | NUR ---
PATIENT UPDATE PT BACK TO OLD SELF AT SHIFT CHANGE. ALERT AND ORIENTED X 3, SPEECH CLEAR, ABLE TO MOVE ALL EXTREMITIES, NO MORE EXPRESSIVE APHASIA. BLOOD PRESSURE AT 115/[address] OF THE HEAD NEGATIVE FOR ICB, CAROTID DUPLEX NEGATIVE FOR STENOSIS. TROPONIN CHECKED X 3 SERIALLY. 1ST TROPONIN WAS 271 AT 1921, PT ASYMPTOMATIC, NO CHEST PAIN , NO SHORTNESS OF BREATH, VS STABLE. NO ORDERS FROM THE PURCHASING SPECIALIST. 2ND TROPONIN WAS 285, AGAIN CALLED TO PURCHASING SPECIALIST, NO NEW ORDER. LAST ONE DONE AT 0605 WAS AT 288. PT ASYMPTOMATIC. ONLY PROBLEM WAS HE'S HAVING LOOSE STOOLS AND HE WAS BLAMING THE ANTIBIOTICS THAT HE'S GETTING . EVEN REFUSED THE LAST ANTIBIOTIC ZOSYN WHICH WAS ADMINISTERED. STATED THAT HE WILL TALK TO THE MD ABOUT HIS ANTIBIOTICS PROBLEM THIS AM. DAUGHTER AWARE ABOUT PT'S RELUCTANCE IN CONTINUING THE IV ANTIBIOTICS.
[2024-09-22] MEDS: LOPERAMIDE 1 MG/7.5 ML UDCUP PO SCH (11:03)
--- NOTE | 2024-09-22 12:46 | PN ---
INFECTIOUS DISEASE PROGRESS NOTE Date of Service: Sep 22, 2024 SUBJECTIVE: This is a 69-year-old male patient who was admitted to the hospital with chief complaint of abdominal pain. A CT of the abdomen and pelvis showed Mild bowel dilatation with fluid-filled may be related to small bowel obstruction and a KUB showed Moderately distended small bowel loops in the right upper quadrant which could represent obstruction. General surgery evaluated patient and following. Patient was seen and examined at bedside in room 320. No fever reported this morning, temperature is 97.5. The WBC however went up to 17.9 and patient reported diarrhea. We will obtain stool specimen for C diff and discontinue all antibiotics and continue to monitor. Start Imodium p.r.n.. Physical therapy to evaluate and treat. We will continue follow patient's care. PHYSICAL EXAM EYES: Anicteric. Pupils equal and reactive. HENT: No oral thrush seen, moist Oral mucosa. NECK: Supple, no JVD or thyromegaly. LUNGS: Good air entry. No rales, no rhonchi. CARDIOVASCULAR: S1, S2 regular. No murmur heard. ABDOMEN: Soft, bowel sounds present, no organomegaly. Abdominal tenderness. CENTRAL NERVOUS SYSTEM: Awake, alert, oriented x 3. SKIN: No rashes, no swelling. LYMPHATICS: No peripheral lymphadenopathy MUSCULOSKELETAL: No joint swelling, erythema or tenderness. EXTREMITIES: No cyanosis or clubbing. Bilateral lower extremity edema. BACK: No deformity, no pressure ulcer. GENITOURINARY: Positive for dysuria. Vital Sign (Last 12 Hours) 09/22/24 09/22/24 09/22/24 04:00 07:56 12:13 Temp 98.4 97.5 98.2 Pulse 88 89 87 Resp 20 18 18 B/P (MAP) 113/56 121/59 126/62 Pulse Ox 95 95 96 O2 Delivery Room Air Room Air Room Air Intake & Output (last 24hrs) 09/21/24 09/21/24 09/22/24 15:00 23:00 07:00 Intake Total 100 ml 250.0 ml 50.0 ml Output Total 3500 ml Balance 100 ml -3250.0 ml 50.0 ml LABS: Laboratory: Test 09/22/24 10:41 09/22/24 06:05 09/21/24 18:50 09/21/24 06:30 Range/Units Whole Blood Glucose 196 H 70-110 MG/DL White Blood Count 17.9 H 4.8-10.8 K/uL Red Blood Count 3.16 L 4.50-6.20 MIL/uL Hemoglobin 10.2 L 14.0-18.0 g/dL Hematocrit 30.4 L 42-54 % Mean Corpuscular Volume 96.2 79-99 fL Mean Corpuscular Hemoglobin 32.3 27.0-33.0 pg Mean Corpuscular Hemoglobin Concent 33.6 32.0-36.0 g/dL Red Cell Distribution Width 14.9 11.0-15.5 % Platelet Count 275 130-400 K/uL Mean Platelet Volume 9.1 7.5-10.5 fL Immature Granulocyte % (Auto) 1.8 H 0-1 % Neutrophils (%) (Auto) 72.0 40.0-77.0 % Lymphocytes (%) (Auto) 10.8 L 21.0-51.0 % Monocytes (%) (Auto) 11.5 3.0-13.0 % Eosinophils (%) (Auto) 3.4 0.0-8.0 % Basophils (%) (Auto) 0.5 0.0-5.0 % Neutrophils # (Auto) 12.9 H 1.8-7.7 K/uL Lymphocytes # (Auto) 1.9 1.0-4.8 K/uL Monocytes # (Auto) 2.1 H 0.1-1.0 K/uL Eosinophils # (Auto) 0.60 0.00-0.70 K/uL Basophils # (Auto) 0.09 0.00-0.20 K/uL Absolute Immature Granulocyte (auto 0.32 0-1 K/uL Nucleated Red Blood Cells 0.0 0.0-0.19 % Sodium Level 137 136-145 mmol/L Potassium Level 4.0 3.5-5.1 mmol/L Chloride Level 98 L 101-111 mmol/L Carbon Dioxide Level 28 21-32 mmol/L Blood Urea Nitrogen 62 H 7-18 mg/dL Creatinine 6.6 H 0.5-1.3 mg/dL Glomerular Filtration Rate Calc 8 >90 mL/min Random Glucose 159 H 70-105 mg/dL Total Calcium 9.7 8.5-10.1 mg/dL Troponin I High Sensitivity 288 *H 4-75 ng/L White Cell Morphology Comment See comments Total Bilirubin 1.3 H 0.2-1.0 mg/dL Aspartate Amino Transf (AST/SGOT) 100 H 10-37 U/L Alanine Aminotransferase (ALT/SGPT) 132 H 12-78 U/L Alkaline Phosphatase 119 50-136 U/L Total Protein 6.3 6.0-8.3 g/dL Albumin 1.8 L 3.5-5.0 g/dL Phosphorus Level 7.2 H 2.5-4.9 mg/dL C ASSESSMENT: Multifocal pneumonia. Gram-negative sepsis. Dysuria. Bilateral lower extremity swelling, negative for DVT. Abdominal pain, resolved. Leukocytosis. Small bowel obstruction versus ileus, resolved. Sigmoid Diverticulosis. Diabetes mellitus. End-stage renal disease, on dialysis. Diarrhea. Debility. PLAN: Give Imodium 4 mg now and 2 mg every 6 hours p.r.n. Obtain stool specimen for C diff. Discontinue vancomycin Discontinue Zosyn IV. Discontinue doxycycline IV. Continue GI prophylaxis. Continue dialysis as recommended by barn boss. Continue nutritional support. Continue monitoring glucose levels. Physical therapy to evaluate and treat. This case was reviewed and discussed with my supervising physician and the above assessment and plan was formulated and agreed upon. ATTESTATION BY PHYSICIAN I have seen and examined the patient. I reviewed the documentation, medical decision making, and treatment plan as noted by the mid-level provider above. I agree with the findings and plan of care. YUMIKO LINN MD, [facility] Sep 22, 2024 12:46
--- NOTE | 2024-09-22 14:45 | PN ---
[facility] PROGRESS NOTE Date of Service: Sep 22, 2024 Time of Service: 14:43 SUBJECTIVE: [ ] PCP: Admission date: 09/12/24 chief complaints: abd pain This is a 69-year-old male was admitted on 09/12/2024 with chief complaints of abdominal pain ER workup was consistent with small-bowel obstruction. Patient remains bowel rest surgeon following at this time conservative management. Patient is seen and examined with attending reviewed chart. Primary nurse reports patient is running low blood sugars patient will be started on D10 slow rate. 09/14 the patient has been seen and examined, no acute events overnight, patient comfortably in bed, alert oriented x3, following commands, BP 134/66, afebrile, saturating 99% on 1 L via nasal cannula, patient with the NG tube connected to intermittent suction, feels less abdominal distention, getting good pain control with current medical management, he is passing gas. V/Q scan negative for PE, Doppler of the lower extremities negative for DVT, discussed with the patient, last KUB 09/13/2024 moderately distended small bowel loops in the right upper quadrant which could represent obstruction. Patient will remain NPO, continue broad-spectrum IV antibiotics, continue to follow surgical input and recommendations. The patient also with Gram-negative sepsis, continue to follow results of septic workup, infectious disease consultation requested, input noted and appreciated. Echocardiogram with LVEF 31% with a global hypokinesia, cardiology input noted and appreciated, continue medical management, patient may eventually require cardiac catheterization. 09/15 patient is seen and examined at bedside, no acute events overnight, he feels comfortable, less abdominal discomfort, he is passing gas, he remains with the NG tube connected to intermittent suction, BP 104/56, afebrile, saturating 96% on 1 L via nasal cannula. Denied chest pain, no shortness a breath, no cough. The patient had hemodialysis done yesterday, tolerated well. is at bedside, updated. Continue to follow surgical input and recommendations. Continue broad-spectrum antibiotics, to follow white blood cell count in a.m., today at 14.5, higher compared to yesterday at 14.2. Infectious disease input noted and appreciated, continue to follow recommendations. 09/16 patient is seen and examined at bedside, no acute events overnight, comfortably in bed, hemodynamically stable, alert oriented x3, getting hemodialysis, tolerating well. Results of repeat CT abdomen reviewed, no ileus, no obstruction, surgical input noted and appreciated, NG tube output has been minimal, we will pull out NG tube, we will start clear liquid diet and advanced as tolerated. Continue current pain medication with the adjustment as needed, continue broad-spectrum IV antibiotics, continue to follow infectious disease input and recommendations, a.m. labs. 09/17 patient is seen and examined at bedside, awake, following commands. BP 97/55, afebrile, saturating normal on room air, CBC with hemoglobin still elevated 15.0, hemoglobin 10.4, hematocrit 31.0, platelet count of 229. Sodium 138, potassium 3.7, BUN 51, creatinine 6.0, magnesium 1.9. NG tube removed yesterday, patient started on clear liquid diet. Now on GI soft diet. Tolerating well, no nausea, no vomiting, no abdominal pain. Continue to follow surgical input and recommendations. Continue broad-spectrum IV antibiotics, continue to trend WBC in a.m., continue hemodialysis per Nephrology recommendations. Cardiology input noted and appreciated. Consider Left heart catheterization once medically stable prior to discharge. Discussed with patient and family at bedside, all questions answered, agreed and understood information provided. 09/18 patient is seen and examined at bedside, no acute events overnight, alert oriented x3, tolerating diet, no nausea, no vomiting, no abdominal pain. Leukocytosis trending down. Small-bowel obstruction present upon admission now resolved. Scheduled for hemodialysis tomorrow. Echocardiogram with a LVEF 30% with global hypokinesia, cardiology following the patient, considering Left heart catheterization once medically stable prior to discharge. 09/19/2024: Patient undergoing hemodialysis today. Patient remains on IV Zosyn IV doxycycline for pneumonia. Patient reports generalized weakness, to this point has not been evaluated by PT. Family is at bedside. Morning labs reviewed. 09/20/2024: Patient reporting abdominal pelvic pain mostly to the left lower quadrant region. Patient remains on IV Zosyn IV doxycycline under ID direction. Morning labs reviewed WBCs 14 K. patient has been referred to correction facility, pending acceptance. 09/21/2024: Over the past 24 hours no major reported. Patient remains on IV Zosyn IV doxycycline under ID direction. Patient is pending acceptance to correction facility. Morning labs reviewed WBC 16 K. patient has been afebrile. 09/22/2024: Patient has been reporting diarrhea. No blood in his stool. Id remains on board, stopping antibiotics at this time, requesting stool for C diff. he has been afebrile. Morning labs reviewed WBC 17 K. REVIEW OF SYSTEMS CONSTITUTIONAL: Denies fevers, chills, or night sweats. No unintentional weight loss reported. NEUROLOGICAL: Denies headache, amaurosis fugax, motor weakness, sensory deficit, vertigo/spinning sensation, gait abnormalities, or tremors. ENT: No hearing loss, otalgia, otorrhea, rhinitis, rhinorrhea, hoarseness, or sore throat. CARDIOVASCULAR: Denies any exertional angina, dyspnea on exertion, orthopnea, paroxysmal nocturnal dyspnea, palpitations, life-threatening arrhythmias, claudication. PULMONARY: Denies any shortness of breath, cough, phlegm/sputum, hemoptysis, pleuritic chest pain. SLEEP: Denies morning headaches, daytime somnolence or napping. Denies difficulty falling asleep, staying asleep, waking from sleep. Denies knowledge of snoring. GASTROINTESTINAL: Denies any type of dysphagia to either liquids or solids. Denies nausea, vomiting, pyrosis, early satiety, diarrhea, constipation, or changes in stool consistency or caliber. Denies coffee-ground emesis, hemat emesis, hematochezia, or melanotic stools. Complains of persistent abdominal pain GENITOURINARY: Denies frequency, urgency, nocturia, hematuria or incontinence (Storage/Irritative symptoms.) Low urinary stream, straining to void, urinary intermittency or hesitancy, splitting of the voiding stream, terminal dribbling. ENDOCRINOLOGIC: Denies polyuria, polydipsia, polyphagia or heat/cold intolerances. HEMATOLOGIC: Denies thrombophilia/previous clots, or coagulopathy/bleeding disorders. ONCOLOGIC: Denies personal history of malignancy. DERMATOLOGIC: Denies rashes or pruritus. PSYCHIATRIC: Denies any suicidal or homicidal ideation. Denies hallucinations. PHYSICAL EXAM GENERAL APPEARANCE: The patient is awake, alert, and oriented, in no acute cardiopulmonary distress. NEUROLOGICAL: Cranial nerves II-XII grossly intact. Motor is 5/5 in bilateral upper and lower extremities proximal to distal. No sensory deficits. HEENT: Face is symmetric. Pupils are equal and reactive. Extraocular movements are intact. NECK: Supple. No JVD. No thyromegaly. No submental, submandibular, pre- /postauricular, occipital or supraclavicular lymphadenopathy. CHEST: Normal chest expansion. No Telemetry. LUNGS: Absence of any rales, rhonchi or any wheezing. CARDIOVASCULAR: Regular. S1 and S2 normal. No appreciable rubs, murmurs or gallops. ABDOMEN: Soft, bowel sounds positive. Nondistended. LLQ tenderness. No rebound tenderness no guarding no rigidity. : Deferred. No Palomares. EXTREMITIES: Non-edematous and not cyanotic. No clubbing. Good capillary refill. SKIN: No skin breakdown. Vital Signs (last 8hr) Date Time Temp Pulse Resp B/P (MAP) Pulse Ox O2 Delivery O2 Flow Rate FiO2 09/22/24 12:13 98.2 87 18 126/62 96 Room Air 09/22/24 07:56 97.5 89 18 121/59 95 Room Air LABS: Laboratory: Test 09/22/24 10:41 09/22/24 06:05 09/21/24 18:50 09/21/24 06:30 Range/Units Whole Blood Glucose 196 H 70-110 MG/DL White Blood Count 17.9 H 4.8-10.8 K/uL Red Blood Count 3.16 L 4.50-6.20 MIL/uL Hemoglobin 10.2 L 14.0-18.0 g/dL Hematocrit 30.4 L 42-54 % Mean Corpuscular Volume 96.2 79-99 fL Mean Corpuscular Hemoglobin 32.3 27.0-33.0 pg Mean Corpuscular Hemoglobin Concent 33.6 32.0-36.0 g/dL Red Cell Distribution Width 14.9 11.0-15.5 % Platelet Count 275 130-400 K/uL Mean Platelet Volume 9.1 7.5-10.5 fL Immature Granulocyte % (Auto) 1.8 H 0-1 % Neutrophils (%) (Auto) 72.0 40.0-77.0 % Lymphocytes (%) (Auto) 10.8 L 21.0-51.0 % Monocytes (%) (Auto) 11.5 3.0-13.0 % Eosinophils (%) (Auto) 3.4 0.0-8.0 % Basophils (%) (Auto) 0.5 0.0-5.0 % Neutrophils # (Auto) 12.9 H 1.8-7.7 K/uL Lymphocytes # (Auto) 1.9 1.0-4.8 K/uL Monocytes # (Auto) 2.1 H 0.1-1.0 K/uL Eosinophils # (Auto) 0.60 0.00-0.70 K/uL Basophils # (Auto) 0.09 0.00-0.20 K/uL Absolute Immature Granulocyte (auto 0.32 0-1 K/uL Nucleated Red Blood Cells 0.0 0.0-0.19 % Sodium Level 137 136-145 mmol/L Potassium Level 4.0 3.5-5.1 mmol/L Chloride Level 98 L 101-111 mmol/L Carbon Dioxide Level 28 21-32 mmol/L Blood Urea Nitrogen 62 H 7-18 mg/dL Creatinine 6.6 H 0.5-1.3 mg/dL Glomerular Filtration Rate Calc 8 >90 mL/min Random Glucose 159 H 70-105 mg/dL Total Calcium 9.7 8.5-10.1 mg/dL Troponin I High Sensitivity 288 *H 4-75 ng/L White Cell Morphology Comment See comments Total Bilirubin 1.3 H 0.2-1.0 mg/dL Aspartate Amino Transf (AST/SGOT) 100 H 10-37 U/L Alanine Aminotransferase (ALT/SGPT) 132 H 12-78 U/L Alkaline Phosphatase 119 50-136 U/L Total Protein 6.3 6.0-8.3 g/dL Albumin 1.8 L 3.5-5.0 g/dL Phosphorus Level 7.2 H 2.5-4.9 mg/dL Current Medications Medications (Trade) Dose Ordered Sig/Elver Route PRN Reason Start Time Stop Time Status Last Admin Dose Admin Acetaminophen (TYLenol 325MG TAB) 650 mg Q4H PRN PO MILD PAIN (1-3) 09/12/24 12:30 10/12/24 12:29 09/21/24 05:42 650 MG Acetaminophen (TYLenol 325MG TAB) 650 mg Q6H PRN PO TEMPERATURE GREATER THAN 101.5 09/12/24 12:30 10/12/24 12:29 09/20/24 09:16 650 MG Acetaminophen/ Hydrocodone Bitart (NORco 5/325MG) 1 tab Q6H PRN PO MODERATE PAIN (4-6) 09/12/24 15:30 09/17/24 15:29 DC 09/15/24 00:59 1 TAB Al Hydroxide/Mg Hydroxide (MAALox PLUS 30ML) 30 ml Q6H PRN PO INDIGESTION 09/12/24 12:30 10/12/24 12:29 Aspirin (Aspirin 300mg Supp) 150 mg DAILY DE 09/14/24 09:00 09/16/24 07:45 DC 09/15/24 09:42 150 MG Aspirin (Aspirin 81mg Chew Tab) 81 mg DAILY PO 09/16/24 09:00 10/16/24 08:59 09/22/24 11:02 81 MG Atorvastatin Calcium (LIPItor 40MG) 80 mg HS PO 09/16/24 21:00 10/16/24 20:59 09/21/24 22:01 80 MG Benzonatate (Tessalon 100mg Caps) 100 mg Q8H PRN PO cough 09/12/24 19:00 10/12/24 18:59 09/18/24 19:52 100 MG Dextrose 1,000 ml @ 20 mls/hr Q24H IV 09/13/24 11:30 09/17/24 00:39 DC 09/13/24 12:01 20 MLS/HR Dextrose (D50w) 50 ml AD PRN IV HYPOGLYCEMIA PROTOCOL 09/12/24 12:30 10/12/24 12:29 09/13/24 10:29 50 ML Diphenhydramine HCl (BENAdryl INJ) 25 mg Q6H PRN IV SEVERE ITCHING/RASH 09/12/24 12:30 10/12/24 12:29 09/19/24 13:13 25 MG Doxycycline Hyclate 250 ml @ 125 mls/hr Q12H IV 09/12/24 19:00 09/22/24 10:20 DC 09/21/24 22:00 125 MLS/HR Famotidine (Pepcid 20mg Vial) 20 mg BID PRN IV NAUSEA/VOMITING 09/12/24 12:30 09/12/24 12:44 DC Famotidine (Pepcid 20mg Vial) 20 mg Q48H IV 09/12/24 21:00 10/12/24 20:59 09/20/24 20:04 20 MG Fenofibrate (Tricor) 145 mg DAILY PO 09/16/24 09:00 10/16/24 08:59 09/22/24 11:01 145 MG Furosemide (LASix 40MG TAB) 40 mg DAILY PO 09/19/24 09:00 10/19/24 08:59 09/22/24 11:03 40 MG Glucagon (Glucagon 1mg Kit) 1 mg AD PRN IM HYPOGLYCEMIA PROTOCOL 09/12/24 12:30 10/12/24 12:29 Guaifenesin/ Dextromethorphan (RobiTUSSin DM 200/20MG 10ML) 10 ml Q4H PRN PO COUGH 09/12/24 12:30 10/12/24 12:29 Heparin Sodium (Porcine) (HEParin 5,000 UNIT VIAL) 5,000 unit BID SQ 09/12/24 21:00 09/16/24 15:02 DC 09/15/24 20:00 5,000 UNIT Heparin Sodium (Porcine) (HEParin 5,000 UNIT VIAL) 5,000 unit BID SQ 09/16/24 21:00 10/16/24 20:59 09/21/24 22:02 5,000 UNIT Hydralazine HCl (APRESOLine 20MG INJ) 10 mg Q6H PRN IV For:SBP above 160;DBP above 90 09/12/24 12:30 09/14/24 08:11 DC Insulin Human Regular (humuLIN R 100 UNIT/ML 3ML) INSULIN SLIDING SCAL... ACHS SQ 09/12/24 16:30 09/15/24 19:56 DC Insulin Human Regular (humuLIN R 100 UNIT/ML 3ML) INSULIN SLIDING SCAL... ACHS SQ 09/16/24 21:00 10/16/24 20:59 09/22/24 14:41 2 UNIT Insulin Human Regular (humuLIN R 100 UNIT/ML 3ML) INSULIN SLIDING SCAL... Q6H6 SQ 09/16/24 00:00 09/16/24 19:56 DC Ketorolac Tromethamine (toRADol) 15 mg Q8H PRN IV MODERATE PAIN (4-6) 09/12/24 15:30 09/12/24 21:58 DC Lactulose (Constulose 20gm/ 30ml Udcup) 20 gm BID PRN PO CONSTIPATION 09/12/24 12:30 10/12/24 12:29 Levothyroxine Sodium (SYNTHroid 50MCG TAB) 50 mcg SYN PO 09/17/24 06:30 10/17/24 06:29 09/22/24 06:18 50 MCG Loperamide HCl (Immodium Liquid) 2 mg Q6H PRN PO AFTER EACH LOOSE STOOL 09/22/24 10:00 10/22/24 09:59 Loperamide HCl (Immodium Liquid) 4 mg ONCE PO 09/22/24 10:00 10/22/24 09:59 09/22/24 11:03 4 MG Magnesium Oxide (Mag-Ox) 400 mg DAILY PO 09/16/24 09:00 10/16/24 08:59 09/22/24 11:02 400 MG Magnesium Sulfate 50 ml @ 0 mls/hr PROTOCOL IV 09/13/24 08:30 10/13/24 08:29 09/18/24 03:23 25 MLS/HR Magnesium Sulfate 50 ml @ 0 mls/hr PROTOCOL PRN IV other 09/12/24 12:30 09/13/24 08:36 DC Magnesium Sulfate 50 ml @ 0 mls/hr PROTOCOL PRN IV low mag levl 09/13/24 08:30 09/13/24 08:37 DC Metoprolol Tartrate (loprESSOR) 2.5 mg Q6H PRN IV blood pressure 09/14/24 08:30 10/14/24 08:29 Metoprolol Tartrate (loprESSOR) 25 mg BID PO 09/16/24 09:00 10/16/24 08:59 09/22/24 11:03 25 MG Montelukast Sodium (SinguLAIR) 10 mg HS PO 09/16/24 21:00 10/16/24 20:59 09/21/24 22:00 10 MG Morphine Sulfate (morPHINE 2MG SYG) 1 mg Q6H PRN IVP SEVERE PAIN (7-10) 09/12/24 15:30 09/17/24 18:29 DC 09/15/24 23:16 1 MG Nitroglycerin (Nitrostat) 0.4 mg PROTOCOL PRN SL CHEST PAIN 09/12/24 12:30 10/12/24 12:29 Ondansetron HCl (zoFRAN 4MG INJ) 4 mg Q6H PRN IV NAUSEA/VOMITING 09/12/24 12:30 10/12/24 12:29 Pharmacy Profile Note (Pharmacy Communication) 1 each AD MISC 09/13/24 20:30 09/19/24 07:08 DC Piperacillin Sod/ Tazobactam Sod 50 ml @ 12.5 mls/hr Q12H IV 09/12/24 13:00 09/12/24 12:48 DC Piperacillin Sod/ Tazobactam Sod 50 ml @ 12.5 mls/hr Q12H IV 09/12/24 23:30 09/22/24 10:21 DC 09/22/24 02:33 12.5 MLS/HR Potassium Chloride 100 ml @ 50 mls/hr AD PRN IV POTASSIUM PROTOCOL 09/13/24 08:30 10/13/24 08:29 Sodium Chloride 1,000 ml @ 0 mls/hr ONCE IV 09/14/24 12:00 10/14/24 11:59 09/19/24 10:04 100 MLS/HR Sodium Chloride 154 meq/Dextrose 1,000 ml @ 20 mls/hr Q24H IV 09/13/24 11:00 09/13/24 10:44 DC Vancomycin HCl (Vancomycin 750mg) 750 mg [id number][DIALYSIS] IVPB 09/16/24 16:00 09/22/24 10:20 DC 09/21/24 17:20 750 MG Vancomycin HCl (Vancomycin Protocol) 1 each AD IV 09/14/24 17:30 09/22/24 10:20 DC Zolpidem Tartrate (AmbIEN) 5 mg HS PRN PO INSOMNIA 09/12/24 12:30 10/12/24 12:29 DIAGNOSTICS / RADIOLOGY: [ ] ASSESSMENT: [ Small-bowel obstruction versus ileus per CT abdomen/pelvis 09/12/2024 POA ESRD on dialysis Thursday needing dialysis POA Uncontrolled diabetes mellitus type 2 with hyper and hypoglycemia POA Hyperlipidemia POA Coronary artery disease s/p CABG six years ago POA Uncontrolled hypertension POA Multifactorial anemia POA Lactic acidosis 4.6 POA Hyperbilirubinemia 1.9 POA Hyper troponinemia POA acute on chroniic CHF EF 45/50% chronic combined systolic and diastolic congestive heart failure. History of cholelithiasis POA History of appendectomy ] History of appendectomy History of right knee cartilage surgery History of left hand pointing finger amputation Current alcohol drinking occasionally PLAN: Continue admission to medical floor IV antibiotics stopped; follow up with ID recommendations Stool for C diff Continue hemodialysis per internet salesperson recommendations Replace electrolytes IV per protocol ADA/renal diet. SSI coverage. Glucometer checks a.c. and HS. Hypoglycemic precautions per. CBC in a.m. transfuse as needed Follow a.m. labs GI and DVT prophylaxis PT evaluation Case management consult for correction facility Disposition: SNF pending acceptance/authorization Plan of action discussed, all questions answered, agreed and understood the information provided. KATHRYN STOUT Sep 22, 2024 14:45
--- NOTE | 2024-09-22 14:45 | PN ---
NEPHROLOGY PROGRESS NOTE Date/Time Patient Seen: Sep 22, 2024 SUBJECTIVE: This is a 69-year-old male with a past medical history of end-stage renal disease on hemodialysis Thursday, diabetes mellitus type 2, hypertension, hyperlipidemia, coronary artery disease, anemia. Patient presented to emergency room with complaints of abdominal pain Chest x-ray showed prominent interstitial markings with a possible superimposed infiltrate CT of the abdomen/pelvis showed mild bowel dilation with fluid filled may be related to small-bowel obstruction. He continues tolerated dialysis without difficulty. He continues on IV antibiotics as per ID. Case management and coordinating SNF placement. He continues to complain of lower extremity edema. He continues on Lasix p.o. daily. He was seen in the medical floor, in no acute distress Family at the bedside Prognosis remains guarded REVIEW OF SYSTEMS: GENERAL: Positive for abdominal pain NEUROLOGIC: Negative for any blurry vision, blind spots, double vision, facial asymmetry, dysphagia, dysarthria, hemiparesis, hemisensory deficits, vertigo, ataxia. HEENT: Negative for any head trauma, neck trauma, neck stiffness, photophobia, phonophobia, sinusitis, rhinitis. CARDIAC: Negative for any chest pain, dyspnea on exertion, paroxysmal nocturnal dyspnea, peripheral edema. PULMONARY: Negative for any shortness of breath, wheezing, COPD, or TB exposure. GASTROINTESTINAL: Negative for any abdominal pain, nausea, vomiting, bright red blood per rectum, melena. GENITOURINARY: Negative for any dysuria, hematuria, incontinence. INTEGUMENTARY: Negative for any rashes, cuts, insect bites. RHEUMATOLOGIC: Negative for any joint pains, photosensitive rashes, history of vasculitis or kidney problems. HEMATOLOGIC: Negative for any abnormal bruising, frequent infections or bleeding. PHYSICAL EXAM: GENERAL: Alert and oriented x 3. No acute distress. Well-nourished. EYES: EOMI. Anicteric. HENT: Moist mucous membranes. No scleral icterus. No cervical lymphadenopathy. LUNGS: Clear to auscultation bilaterally. No accessory muscle use. CARDIOVASCULAR: Regular rate and rhythm. 2/6 LSB murmur. No JVD. ABDOMEN: obese, soft, tender to lower abd, hypoactive bowel sounds, no masses, no organomegaly EXTREMITIES: 2+ edema. Non-tender. SKIN: No rashes or lesions. Warm. NEUROLOGIC: No focal neurological deficits. CN II-XII grossly intact, but not individually tested. PSYCHIATRIC: Cooperative. Appropriate mood and affect. LABORATORY: [ ] Hematology Labs: Test 09/22/24 06:05 09/21/24 18:50 Range/Units White Blood Count 17.9 H 4.8-10.8 K/uL Red Blood Count 3.16 L 4.50-6.20 MIL/uL Hemoglobin 10.2 L 14.0-18.0 g/dL Hematocrit 30.4 L 42-54 % Mean Corpuscular Volume 96.2 79-99 fL Mean Corpuscular Hemoglobin 32.3 27.0-33.0 pg Mean Corpuscular Hemoglobin Concent 33.6 32.0-36.0 g/dL Red Cell Distribution Width 14.9 11.0-15.5 % Platelet Count 275 130-400 K/uL Mean Platelet Volume 9.1 7.5-10.5 fL Immature Granulocyte % (Auto) 1.8 H 0-1 % Neutrophils (%) (Auto) 72.0 40.0-77.0 % Lymphocytes (%) (Auto) 10.8 L 21.0-51.0 % Monocytes (%) (Auto) 11.5 3.0-13.0 % Eosinophils (%) (Auto) 3.4 0.0-8.0 % Basophils (%) (Auto) 0.5 0.0-5.0 % Neutrophils # (Auto) 12.9 H 1.8-7.7 K/uL Lymphocytes # (Auto) 1.9 1.0-4.8 K/uL Monocytes # (Auto) 2.1 H 0.1-1.0 K/uL Eosinophils # (Auto) 0.60 0.00-0.70 K/uL Basophils # (Auto) 0.09 0.00-0.20 K/uL Absolute Immature Granulocyte (auto 0.32 0-1 K/uL Nucleated Red Blood Cells 0.0 0.0-0.19 % White Cell Morphology Comment See comments Chemistry Labs: Test 09/22/24 10:41 09/22/24 06:05 09/21/24 18:50 09/21/24 06:30 Range/Units Whole Blood Glucose 196 H 70-110 MG/DL Sodium Level 137 136-145 mmol/L Potassium Level 4.0 3.5-5.1 mmol/L Chloride Level 98 L 101-111 mmol/L Carbon Dioxide Level 28 21-32 mmol/L Blood Urea Nitrogen 62 H 7-18 mg/dL Creatinine 6.6 H 0.5-1.3 mg/dL Glomerular Filtration Rate Calc 8 >90 mL/min Random Glucose 159 H 70-105 mg/dL Total Calcium 9.7 8.5-10.1 mg/dL Troponin I High Sensitivity 288 *H 4-75 ng/L Total Bilirubin 1.3 H 0.2-1.0 mg/dL Aspartate Amino Transf (AST/SGOT) 100 H 10-37 U/L Alanine Aminotransferase (ALT/SGPT) 132 H 12-78 U/L Alkaline Phosphatase 119 50-136 U/L Total Protein 6.3 6.0-8.3 g/dL Albumin 1.8 L 3.5-5.0 g/dL Phosphorus Level 7.2 H 2.5-4.9 mg/dL DIAGNOSTICS / RADIOLOGY: REASON: intermittent weakness to right arm rule out cerebrovascular accident ORDERING PHYSICIAN: PRAKASH HAMPTON [employer] PROCEDURE: HEAD WO - CT HEAD/BRAIN W/O CONTRAST CT HEAD/BRAIN W/O CONTRAST HISTORY: Weakness COMPARISON: None TECHNIQUE: Multiple sequential axial images of the head were obtained from the base of the skull through vertex. Patient was not given contrast through intravenous route. FINDINGS: The ventricles and extraventricular CSF spaces are dilated consistent with cerebral atrophy. Nonspecific white matter changes seen. There is no midline shift, mass effect or herniation. No acute intracranial bleed is seen. Visualized portion of the paranasal sinuses are grossly within normal limits. There is atherosclerosis. IMPRESSION: 1. No acute intracranial bleed is seen. 2. Atrophy with white matter changes. CT was performed with one or more following dose reduction techniques: automated exposure control, adjustment of the mA and kv according to patient's size, or use of a iterative reconstruction technique. DICTATED BY: LUIS ROBERTS MD DATE: 09/21/241923 REASON: Altered mental status ORDERING PHYSICIAN: MICHAEL SAHU MD PROCEDURE: HEAD WO - CT HEAD/BRAIN W/O CONTRAST CT HEAD/BRAIN W/O CONTRAST HISTORY: Altered mental status COMPARISON: None TECHNIQUE: Multiple sequential axial images of the head were obtained from the base of the skull through vertex. Patient was not given contrast through intravenous route. FINDINGS: The ventricles and extraventricular CSF spaces are dilated consistent with cerebral atrophy. Nonspecific white matter changes seen. There is atherosclerosis. There is no midline shift, mass effect or herniation. No acute intracranial bleed is seen. Visualized portion of the paranasal sinuses are grossly within normal limits. IMPRESSION: 1. No acute intracranial bleed is seen. CT was performed with one or more following dose reduction techniques: automated exposure control, adjustment of the mA and kv according to patient's size, or use of a iterative reconstruction technique. DICTATED BY: LUIS ROBERTS MD DATE: 09/12/24 1251 REASON: diffused abd pain ORDERING PHYSICIAN: MARK PARHAM PROCEDURE: ABD PEL WO - CT ABDOMEN/PELVIS W/O CONTRAST CT ABDOMEN/PELVIS W/O CONTRAST HISTORY: Diffuse abdominal pain COMPARISON: 09/05/2023 TECHNIQUE: Multiple sequential axial images of the abdomen and pelvis were obtained from the dome of the diaphragm through symphysis pubis. Patient was not given contrast through intravenous route. Oral contrast was not given. FINDINGS: No pleural effusion is seen bilaterally. There is no evidence of parenchymal disease or pulmonary nodule of the visualized lower lungs. Degenerative changes of the thoracolumbar spine are present. The heart is borderline enlarged. Coronary arterial calcifications are seen. Liver measures 19 cm. Spleen measures 11 cm. Stomach is poorly distended. There is small bowel dilatation with fluid-filled may be related to enteritis. The liver, spleen, adrenal glands and pancreas are unremarkable. There is no evidence of hydronephrosis bilaterally. There are bilateral renal vascular calcifications with possible small renal pelvic stones. Bilateral renal atrophy is seen. Fecal material is seen in the colon. There is diverticulosis. There are normal size retroperitoneal and mesenteric lymph nodes. Tiny ascites is seen. Atherosclerotic changes are present. Pelvic sidewalls are symmetric bilaterally. Bladder is poorly distended. IMPRESSION: 1. Mild bowel dilatation with fluid-filled may be related to small bowel obstruction. Tiny ascites. Diverticulosis. CT was performed with one or more following dose reduction techniques: automated exposure control, adjustment of the mA and kv according to patient's size, or use of a iterative reconstruction technique. DICTATED BY: LUIS ROBERTS MD DATE: 09/12/24 1026 REASON: Shortness of breath ORDERING PHYSICIAN: MICHAEL SAHU MD PROCEDURE: CXR1VW - CHEST 1VW CHEST 1VW HISTORY: Shortness of breath COMPARISON: 09/01/2023 FINDINGS: A frontal projection of the chest was obtained. Prominent interstitial markings are seen with possible superimposed infiltrates. Poststernotomy changes are seen. The heart is enlarged. Degenerative changes of the thoracolumbar spine are present. Degenerative changes are seen. No evidence of aortic calcification is seen. IMPRESSION: 1. Prominent interstitial markings are seen with possible superimposed infiltrates. DICTATED BY: LUIS ROBERTS MD DATE: 09/12/24 0957 PROCEDURE: ECHO [facility] - ECHO 2-D COMPLETE APPROVED REPORT EXAM: Two-dimensional and M-mode echocardiogram with Doppler and color Doppler. INDICATION ICD: Congestive heart failure 2D Dimensions RVDd 6.1 cm LVEF(%) 52.4 (>50%) LVED Vol(simp.) 238.0 mL IVSd 1.0 (0.7-1.1cm) FS(%) 27 % LVES Vol(simp.) 165.0 mL LVDd 6.2 (3.8-5.6cm) LA (2D) 5.7 (1.6-4.0cm) LVEF(%, simp.) 31 % PWd 1.1 (0.7-1.1cm) Ao Root(2D) 3.4 (2.0-3.7cm) LA ESV INDEX (4CH) 79.50 mL/m2 IVSs 1.3 cm LVOT diam 2.9 (1.8-2.4cm) LA ESV INDEX (2CH) 53.70 mL/m2 LVDs 4.5 (2.5-4.0cm) LA ESV INDEX (BP) 68.80 mL/m2 PWs 2.1 cm M-Mode Dimensions EPSS 1.7 cm LA (MM) 5.5 (1.6-4.0cm) Ao Root(MM) 3.5 (2.0-3.7cm) Aortic Valve AoV VTI 0.6 m Ao Mean GR 19.0 mmHg LVOT VTI 0.15 m YESENIA (VMAX) 1.6 cm2 YESENIA (VTI) 1.6 cm2 Mitral Valve MV E Vmax 104.3 cm/s DECEL Time 137 ms MV A Vmax 64.0 cm/s P 1/2 T 72 ms E/A ratio 1.6 MVA (PHT) 3.1 cm2 MR Max PG 103 mmHg TDI E/E' Medial 20.5 E/E' Lateral 9.5 Medial E' Peak V 5.10 cm/s Lateral E' Peak V 11.00 cm/s Tricuspid Valve TR Vmax 3.2 m/s RAP (EST) 8 mmHg RVSP 48.9 mmHg TR Peak GR 40.9 mmHg Left Ventricle The left ventricle is moderately dilated. Global hypokinesia. Mild concentric left ventricular hypertrophy.. LVEF is 31%. The left ventricular diastolic function is indeterminate. Right Ventricle The right ventricle is severely dilated. Right ventricular systolic function is severely reduced. Atria The left atrium is severely dilated. The right atrium is severely dilated. Aortic Valve Aortic valve is trileaflet.The aortic valve is mildly thickened. No aortic regurgitation is present. There is mild aortic valvular stenosis. Calculated aortic valve area is 1.6 cm2 with maximum pressure gradient of 30 mmHg and mean pressure gradient of 19 mmHg. Mitral Valve The mitral valve is mildly thickened. There is mild mitral valve regurgitation noted. There is no mitral valve stenosis. Tricuspid Valve The tricuspid valve is normal in structure. There is mild tricuspid valve regurgitation noted. RVSP 49mmHg. Pulmonic Valve The pulmonary valve is normal in structure. There is no pulmonic valvular regurgitation. Great Vessels The aortic root is normal in size. IVC is not visualized. Pericardium There is no pericardial effusion. Other Information Quality : Adequate Conclusion LVEF is 31%. Global hypokinesia. The left ventricle is moderately dilated. The right ventricle is severely dilated. Right ventricular systolic function is severely reduced. The left atrium is severely dilated. The right atrium is severely dilated. There is mild aortic valvular stenosis. Calculated aortic valve area is 1.6 cm2 with maximum pressure gradient of 30 mmHg and mean pressure gradient of 19 mmHg. There is mild tricuspid valve regurgitation noted. RVSP 49mmHg. DICTATED BY: MARQUEZ LEE MD DATE: 09/12/24 1332 ELECTRONICALLY SIGNED BY: MARQUEZ LEE MD DATE: 09/12/24 6095 ASSESSMENT: Anemia End-stage renal disease Anemia Abdominal pain Small-bowel obstruction HFpEF LVEF 45 to 50% Uncontrolled Diabetes mellitus Hyperlipidemia Uncontrolled hypertension Coronary artery disease PLAN: Labs and Diagnostics/ Radiology personally reviewed and interpreted by myself and supervising physician We have reviewed dialysis and external records in detail Continue dialysis schedule Thursday He will continue with the aggressive fluid removal Fluid restriction was advised. Discontinue Lasix, start torsemide 100 mg p.o. daily. 1.5 L fluid restriction Continue to monitor H&H Epogen on dialysis days, as needed Continue with frequent monitoring of renal function, anemia, and electrolytes Order CBC, BMP, and electrolytes in the morning May use Dilaudid 0.5 mg IV every 6 hours as needed for severe pain Monitor blood pressure adjust medication doses as needed Maintain normotensive state Strict intake, output, and daily weight should be monitored Please renally adjust medications. Avoid nephrotoxics and nonsteroidal drugs. We will continue to monitor the patient closely We have discussed with the other team physicians in detail about the care plan ATTESTATION BY PHYSICIAN I have seen and examined the patient. I reviewed the documentation, medical decision making, and treatment plan as noted by the mid-level provider above. I agree with the findings and plan of care. MICHELLE MUNSON MD, [facility] Sep 22, 2024 14:45
[2024-09-22] MEDS: FAMOTIDINE 20MG TAB ONE (21:19)
[2024-09-22] MEDS: LOPERAMIDE 1 MG/7.5 ML UDCUP PO PRN (21:19)
[2024-09-23] VITALS (23 sets, daily range): BP systolic 95–129; BP diastolic 49–66; PULSE 73–86; RESP 14–18; TEMP 97.3–97.9; O2SAT 97–98
[2024-09-23 07:06] LABS: MEAN CORPUSCULAR VOLUME 97.1 fL (79-99); RED BLOOD CELL COUNT(AUTO) 3.09 MIL/uL (4.50-6.20); RED CELL DISTRIBUTION WIDTH 14.7 % (11.0-15.5); WHITE BLOOD COUNT (AUTO) 17.7 K/uL (4.8-10.8)
[2024-09-23 07:20] LABS: CREATININE 7.9 mg/dL (0.5-1.3); PHOSPHORUS 7.5 mg/dL (2.5-4.9); POTASSIUM 4.4 mmol/L (3.5-5.1); VANCOMYCIN LEVEL 20.5 mcg/mL (20.0-30.0)
[2024-09-23] MEDS: PANTOPrazole 40 MG TAB DR PO SCH (09:00)
--- NOTE | 2024-09-23 12:38 | NUR ---
Discharge Planning: Pt. accepted at [facility]. Plan is for transfer today. Pending Dr. Yang to enter d/c orders.
--- NOTE | 2024-09-23 17:23 | PN ---
[facility] PROGRESS NOTE Date of Service: Sep 23, 2024 Time of Service: 17:17 SUBJECTIVE: [ ] PCP: Admission date: 09/12/24 chief complaints: abd pain This is a 69-year-old male was admitted on 09/12/2024 with chief complaints of abdominal pain ER workup was consistent with small-bowel obstruction. Patient remains bowel rest surgeon following at this time conservative management. Patient is seen and examined with attending reviewed chart. Primary nurse reports patient is running low blood sugars patient will be started on D10 slow rate. 09/14 the patient has been seen and examined, no acute events overnight, patient comfortably in bed, alert oriented x3, following commands, BP 134/66, afebrile, saturating 99% on 1 L via nasal cannula, patient with the NG tube connected to intermittent suction, feels less abdominal distention, getting good pain control with current medical management, he is passing gas. V/Q scan negative for PE, Doppler of the lower extremities negative for DVT, discussed with the patient, last KUB 09/13/2024 moderately distended small bowel loops in the right upper quadrant which could represent obstruction. Patient will remain NPO, continue broad-spectrum IV antibiotics, continue to follow surgical input and recommendations. The patient also with Gram-negative sepsis, continue to follow results of septic workup, infectious disease consultation requested, input noted and appreciated. Echocardiogram with LVEF 31% with a global hypokinesia, cardiology input noted and appreciated, continue medical management, patient may eventually require cardiac catheterization. 09/15 patient is seen and examined at bedside, no acute events overnight, he feels comfortable, less abdominal discomfort, he is passing gas, he remains with the NG tube connected to intermittent suction, BP 104/56, afebrile, saturating 96% on 1 L via nasal cannula. Denied chest pain, no shortness a breath, no cough. The patient had hemodialysis done yesterday, tolerated well. is at bedside, updated. Continue to follow surgical input and recommendations. Continue broad-spectrum antibiotics, to follow white blood cell count in a.m., today at 14.5, higher compared to yesterday at 14.2. Infectious disease input noted and appreciated, continue to follow recommendations. 09/16 patient is seen and examined at bedside, no acute events overnight, comfortably in bed, hemodynamically stable, alert oriented x3, getting hemodialysis, tolerating well. Results of repeat CT abdomen reviewed, no ileus, no obstruction, surgical input noted and appreciated, NG tube output has been minimal, we will pull out NG tube, we will start clear liquid diet and advanced as tolerated. Continue current pain medication with the adjustment as needed, continue broad-spectrum IV antibiotics, continue to follow infectious disease input and recommendations, a.m. labs. 09/17 patient is seen and examined at bedside, awake, following commands. BP 97/55, afebrile, saturating normal on room air, CBC with hemoglobin still elevated 15.0, hemoglobin 10.4, hematocrit 31.0, platelet count of 229. Sodium 138, potassium 3.7, BUN 51, creatinine 6.0, magnesium 1.9. NG tube removed yesterday, patient started on clear liquid diet. Now on GI soft diet. Tolerating well, no nausea, no vomiting, no abdominal pain. Continue to follow surgical input and recommendations. Continue broad-spectrum IV antibiotics, continue to trend WBC in a.m., continue hemodialysis per Nephrology recommendations. Cardiology input noted and appreciated. Consider Left heart catheterization once medically stable prior to discharge. Discussed with patient and family at bedside, all questions answered, agreed and understood information provided. 09/18 patient is seen and examined at bedside, no acute events overnight, alert oriented x3, tolerating diet, no nausea, no vomiting, no abdominal pain. Leukocytosis trending down. Small-bowel obstruction present upon admission now resolved. Scheduled for hemodialysis tomorrow. Echocardiogram with a LVEF 30% with global hypokinesia, cardiology following the patient, considering Left heart catheterization once medically stable prior to discharge. 09/19/2024: Patient undergoing hemodialysis today. Patient remains on IV Zosyn IV doxycycline for pneumonia. Patient reports generalized weakness, to this point has not been evaluated by PT. Family is at bedside. Morning labs reviewed. 09/20/2024: Patient reporting abdominal pelvic pain mostly to the left lower quadrant region. Patient remains on IV Zosyn IV doxycycline under ID direction. Morning labs reviewed WBCs 14 K. patient has been [facility], pending [facility]. 09/21/2024: Over the past 24 hours no major reported. Patient remains on IV Zosyn IV doxycycline under ID direction. Patient is pending acceptance to [facility] facility. Morning labs reviewed WBC 16 K. patient has been afebrile. 09/22/2024: Patient has been reporting diarrhea. No blood in his stool. Id remains on board, stopping antibiotics at this time, requesting stool for C diff. he has been afebrile. Morning labs reviewed WBC 17 K. 09/23/24:Patient reports worsening abdominal pain with diarrhea. REVIEW OF SYSTEMS CONSTITUTIONAL: Denies fevers, chills, or night sweats. No unintentional weight loss reported. NEUROLOGICAL: Denies headache, amaurosis fugax, motor weakness, sensory deficit, vertigo/spinning sensation, gait abnormalities, or tremors. ENT: No hearing loss, otalgia, otorrhea, rhinitis, rhinorrhea, hoarseness, or sore throat. CARDIOVASCULAR: Denies any exertional angina, dyspnea on exertion, orthopnea, paroxysmal nocturnal dyspnea, palpitations, life-threatening arrhythmias, claudication. PULMONARY: Denies any shortness of breath, cough, phlegm/sputum, hemoptysis, pleuritic chest pain. SLEEP: Denies morning headaches, daytime somnolence or napping. Denies difficulty falling asleep, staying asleep, waking from sleep. Denies knowledge of snoring. GASTROINTESTINAL: Denies any type of dysphagia to either liquids or solids. Denies nausea, vomiting, pyrosis, early satiety, diarrhea, constipation, or changes in stool consistency or caliber. Denies coffee-ground emesis, hematemesis, hematochezia, or melanotic stools. Complains of persistent abdominal pain GENITOURINARY: Denies frequency, urgency, nocturia, hematuria or incontinence (Storage/Irritative symptoms.) Low urinary stream, straining to void, urinary intermittency or hesitancy, splitting of the voiding stream, terminal dribbling. ENDOCRINOLOGIC: Denies polyuria, polydipsia, polyphagia or heat/cold intolerances. HEMATOLOGIC: Denies thrombophilia/previous clots, or coagulopathy/bleeding disorders. ONCOLOGIC: Denies personal history of malignancy. DERMATOLOGIC: Denies rashes or pruritus. PSYCHIATRIC: Denies any suicidal or homicidal ideation. Denies hallucinations. PHYSICAL EXAM GENERAL APPEARANCE: The patient is awake, alert, and oriented, in no acute cardiopulmonary distress. NEUROLOGICAL: Cranial nerves II-XII grossly intact. Motor is 5/5 in bilateral upper and lower extremities proximal to distal. No sensory deficits. HEENT: Face is symmetric. Pupils are equal and reactive. Extraocular movements are intact. NECK: Supple. No JVD. No thyromegaly. No submental, submandibular, pre- /postauricular, occipital or supraclavicular lymphadenopathy. CHEST: Normal chest expansion. No Telemetry. LUNGS: Absence of any rales, rhonchi or any wheezing. CARDIOVASCULAR: Regular. S1 and S2 normal. No appreciable rubs, murmurs or gallops. ABDOMEN: Soft, bowel sounds positive. Nondistended. LLQ tenderness. No rebound tenderness no guarding no rigidity. : Deferred. No Palomares. EXTREMITIES: Non-edematous and not cyanotic. No clubbing. Good capillary refill. SKIN: No skin breakdown. Vital Signs (last 8hr) Date Time Temp Pulse Resp B/P (MAP) Pulse Ox O2 Delivery O2 Flow Rate FiO2 09/23/24 16:00 97.9 78 18 121/56 100 09/23/24 13:00 97.9 83 14 125/56 Room Air 09/23/24 12:00 97.5 78 18 115/50 100 LABS: Laboratory: Test 09/23/24 15:52 09/23/24 06:43 09/22/24 06:05 09/21/24 18:50 Range/Units Whole Blood Glucose 150 H 70-110 MG/DL White Blood Count 17.7 H 4.8-10.8 K/uL Red Blood Count 3.09 L 4.50-6.20 MIL/uL Hemoglobin 9.9 L 14.0-18.0 g/dL Hematocrit 30.0 L 42-54 % Mean Corpuscular Volume 97.1 79-99 fL Mean Corpuscular Hemoglobin 32.0 27.0-33.0 pg Mean Corpuscular Hemoglobin Concent 33.0 32.0-36.0 g/dL Red Cell Distribution Width 14.7 11.0-15.5 % Platelet Count 305 130-400 K/uL Mean Platelet Volume 9.3 7.5-10.5 fL Nucleated Red Blood Cells 0.0 0.0-0.19 % Sodium Level 140 136-145 mmol/L Potassium Level 4.4 3.5-5.1 mmol/L Chloride Level 99 L 101-111 mmol/L Carbon Dioxide Level 29 21-32 mmol/L Blood Urea Nitrogen 80 *H 7-18 mg/dL Creatinine 7.9 H 0.5-1.3 mg/dL Glomerular Filtration Rate Calc 7 >90 mL/min Random Glucose 101 70-105 mg/dL Total Calcium 10.2 H 8.5-10.1 mg/dL Phosphorus Level 7.5 H 2.5-4.9 mg/dL Vancomycin Level 20.5 20.0-30.0 mcg/mL Immature Granulocyte % (Auto) 1.8 H 0-1 % Neutrophils (%) (Auto) 72.0 40.0-77.0 % Lymphocytes (%) (Auto) 10.8 L 21.0-51.0 % Monocytes (%) (Auto) 11.5 3.0-13.0 % Eosinophils (%) (Auto) 3.4 0.0-8.0 % Basophils (%) (Auto) 0.5 0.0-5.0 % Neutrophils # (Auto) 12.9 H 1.8-7.7 K/uL Lymphocytes # (Auto) 1.9 1.0-4.8 K/uL Monocytes # (Auto) 2.1 H 0.1-1.0 K/uL Eosinophils # (Auto) 0.60 0.00-0.70 K/uL Basophils # (Auto) 0.09 0.00-0.20 K/uL Absolute Immature Granulocyte (auto 0.32 0-1 K/uL Troponin I High Sensitivity 288 *H 4-75 ng/L White Cell Morphology Comment See comments Total Bilirubin 1.3 H 0.2-1.0 mg/dL Aspartate Amino Transf (AST/SGOT) 100 H 10-37 U/L Alanine Aminotransferase (ALT/SGPT) 132 H 12-78 U/L Alkaline Phosphatase 119 50-136 U/L Total Protein 6.3 6.0-8.3 g/dL Albumin 1.8 L 3.5-5.0 g/dL Current Medications Medications (Trade) Dose Ordered Sig/Elver Route PRN Reason Start Time Stop Time Status Last Admin Dose Admin Acetaminophen (TYLenol 325MG TAB) 650 mg Q4H PRN PO MILD PAIN (1-3) 09/12/24 12:30 10/12/24 12:29 09/21/24 05:42 650 MG Acetaminophen (TYLenol 325MG TAB) 650 mg Q6H PRN PO TEMPERATURE GREATER THAN 101.5 09/12/24 12:30 10/12/24 12:29 09/20/24 09:16 650 MG Acetaminophen/ Hydrocodone Bitart (NORco 5/325MG) 1 tab Q6H PRN PO MODERATE PAIN (4-6) 09/12/24 15:30 09/17/24 15:29 DC 09/15/24 00:59 1 TAB Al Hydroxide/Mg Hydroxide (MAALox PLUS 30ML) 30 ml Q6H PRN PO INDIGESTION 09/12/24 12:30 10/12/24 12:29 Aspirin (Aspirin 300mg Supp) 150 mg DAILY [place] 09/14/24 09:00 09/16/24 07:45 DC 09/15/24 09:42 150 MG Aspirin (Aspirin 81mg Chew Tab) 81 mg DAILY PO 09/16/24 09:00 10/16/24 08:59 09/22/24 11:02 81 MG Atorvastatin Calcium (LIPItor 40MG) 80 mg HS PO 09/16/24 21:00 10/16/24 20:59 09/22/24 21:20 80 MG Benzonatate (Tessalon 100mg Caps) 100 mg Q8H PRN PO cough 09/12/24 19:00 10/12/24 18:59 09/22/24 21:19 100 MG Dextrose 1,000 ml @ 20 mls/hr Q24H IV 09/13/24 11:30 09/17/24 00:39 DC 09/13/24 12:01 20 MLS/HR Dextrose (D50w) 50 ml AD PRN IV HYPOGLYCEMIA PROTOCOL 09/12/24 12:30 10/12/24 12:29 09/13/24 10:29 50 ML Diphenhydramine HCl (BENAdryl INJ) 25 mg Q6H PRN IV SEVERE ITCHING/RASH 09/12/24 12:30 10/12/24 12:29 09/19/24 13:13 25 MG Doxycycline Hyclate 250 ml @ 125 mls/hr Q12H IV 09/12/24 19:00 09/22/24 10:20 DC 09/21/24 22:00 125 MLS/HR Famotidine (Pepcid 20mg Vial) 20 mg BID PRN IV NAUSEA/VOMITING 09/12/24 12:30 09/12/24 12:44 DC Famotidine (Pepcid 20mg Vial) 20 mg Q48H IV 09/12/24 21:00 09/22/24 20:30 DC 09/20/24 20:04 20 MG Fenofibrate (Tricor) 145 mg DAILY PO 09/16/24 09:00 10/16/24 08:59 09/22/24 11:01 145 MG Furosemide (LASix 40MG TAB) 40 mg DAILY PO 09/19/24 09:00 09/22/24 14:48 DC 09/22/24 11:03 40 MG Glucagon (Glucagon 1mg Kit) 1 mg AD PRN IM HYPOGLYCEMIA PROTOCOL 09/12/24 12:30 10/12/24 12:29 Guaifenesin/ Dextromethorphan (RobiTUSSin DM 200/20MG 10ML) 10 ml Q4H PRN PO COUGH 09/12/24 12:30 10/12/24 12:29 Heparin Sodium (Porcine) (HEParin 5,000 UNIT VIAL) 5,000 unit BID SQ 09/12/24 21:00 09/16/24 15:02 DC 09/15/24 20:00 5,000 UNIT Heparin Sodium (Porcine) (HEParin 5,000 UNIT VIAL) 5,000 unit BID SQ 09/16/24 21:00 10/16/24 20:59 09/22/24 21:21 5,000 UNIT Hydralazine HCl (APRESOLine 20MG INJ) 10 mg Q6H PRN IV For:SBP above 160;DBP above 90 09/12/24 12:30 09/14/24 08:11 DC Insulin Human Regular (humuLIN R 100 UNIT/ML 3ML) INSULIN SLIDING SCAL... ACHS SQ 09/12/24 16:30 09/15/24 19:56 DC Insulin Human Regular (humuLIN R 100 UNIT/ML 3ML) INSULIN SLIDING SCAL... ACHS SQ 09/16/24 21:00 10/16/24 20:59 09/22/24 21:22 3 UNIT Insulin Human Regular (humuLIN R 100 UNIT/ML 3ML) INSULIN SLIDING SCAL... Q6H6 SQ 09/16/24 00:00 09/16/24 19:56 DC Ketorolac Tromethamine (toRADol) 15 mg Q8H PRN IV MODERATE PAIN (4-6) 09/12/24 15:30 09/12/24 21:58 DC Lactulose (Constulose 20gm/ 30ml Udcup) 20 gm BID PRN PO CONSTIPATION 09/12/24 12:30 10/12/24 12:29 Levothyroxine Sodium (SYNTHroid 50MCG TAB) 50 mcg SYN PO 09/17/24 06:30 10/17/24 06:29 09/23/24 05:52 50 MCG Loperamide HCl (Immodium Liquid) 2 mg Q6H PRN PO AFTER EACH LOOSE STOOL 09/22/24 10:00 10/22/24 09:59 09/22/24 21:19 2 MG Loperamide HCl (Immodium Liquid) 4 mg ONCE PO 09/22/24 10:00 10/22/24 09:59 09/23/24 09:03 4 MG Magnesium Oxide (Mag-Ox) 400 mg DAILY PO 09/16/24 09:00 10/16/24 08:59 09/22/24 11:02 400 MG Magnesium Sulfate 50 ml @ 0 mls/hr PROTOCOL IV 09/13/24 08:30 10/13/24 08:29 09/18/24 03:23 25 MLS/HR Magnesium Sulfate 50 ml @ 0 mls/hr PROTOCOL PRN IV other 09/12/24 12:30 09/13/24 08:36 DC Magnesium Sulfate 50 ml @ 0 mls/hr PROTOCOL PRN IV low mag levl 09/13/24 08:30 09/13/24 08:37 DC Metoprolol Tartrate (loprESSOR) 2.5 mg Q6H PRN IV blood pressure 09/14/24 08:30 10/14/24 08:29 Metoprolol Tartrate (loprESSOR) 25 mg BID PO 09/16/24 09:00 10/16/24 08:59 09/22/24 21:20 25 MG Montelukast Sodium (SinguLAIR) 10 mg HS PO 09/16/24 21:00 10/16/24 20:59 09/22/24 21:20 10 MG Morphine Sulfate (morPHINE 2MG SYG) 1 mg Q6H PRN IVP SEVERE PAIN (7-10) 09/12/24 15:30 09/17/24 18:29 DC 09/15/24 23:16 1 MG Nitroglycerin (Nitrostat) 0.4 mg PROTOCOL PRN SL CHEST PAIN 09/12/24 12:30 10/12/24 12:29 Ondansetron HCl (zoFRAN 4MG INJ) 4 mg Q6H PRN IV NAUSEA/VOMITING 09/12/24 12:30 10/12/24 12:29 Pantoprazole Sodium (PROTonix 40MG TAB) 40 mg ACBKFST PO 09/23/24 07:30 10/23/24 07:29 09/23/24 09:00 40 MG Pharmacy Profile Note (Pharmacy Communication) 1 each AD MISC 09/13/24 20:30 09/19/24 07:08 DC Piperacillin Sod/ Tazobactam Sod 50 ml @ 12.5 mls/hr Q12H IV 09/12/24 13:00 09/12/24 12:48 DC Piperacillin Sod/ Tazobactam Sod 50 ml @ 12.5 mls/hr Q12H IV 09/12/24 23:30 09/22/24 10:21 DC 09/22/24 02:33 12.5 MLS/HR Potassium Chloride 100 ml @ 50 mls/hr AD PRN IV POTASSIUM PROTOCOL 09/13/24 08:30 10/13/24 08:29 Sodium Chloride 1,000 ml @ 0 mls/hr ONCE IV 09/14/24 12:00 10/14/24 11:59 09/23/24 14:03 100 MLS/HR Sodium Chloride 154 meq/Dextrose 1,000 ml @ 20 mls/hr Q24H IV 09/13/24 11:00 09/13/24 10:44 DC Torsemide (Demadex) 100 mg DAILY PO 09/23/24 09:00 10/23/24 08:59 Vancomycin HCl (Vancomycin 750mg) 750 mg [id number][DIALYSIS] IVPB 09/16/24 16:00 09/22/24 10:20 DC 09/21/24 17:20 750 MG Vancomycin HCl (Vancomycin Protocol) 1 each AD IV 09/14/24 17:30 09/22/24 10:20 DC Zolpidem Tartrate (AmbIEN) 5 mg HS PRN PO INSOMNIA 09/12/24 12:30 10/12/24 12:29 DIAGNOSTICS / RADIOLOGY: [ ] ASSESSMENT: [ Small-bowel obstruction versus ileus per CT abdomen/pelvis 09/12/2024 POA ESRD on dialysis Thursday needing dialysis POA Uncontrolled diabetes mellitus type 2 with hyper and hypoglycemia POA Hyperlipidemia POA Coronary artery disease s/p CABG six years ago POA Uncontrolled hypertension POA Multifactorial anemia POA Lactic acidosis 4.6 POA Hyperbilirubinemia 1.9 POA Hyper troponinemia POA acute on chroniic CHF EF 45/50% chronic combined systolic and diastolic congestive heart failure. History of cholelithiasis POA History of appendectomy ] History of appendectomy History of right knee cartilage surgery History of left hand pointing finger amputation Current alcohol drinking occasionally PLAN: Continue admission to medical floor Continue aspirin, atorvastatin, fenofibrate, metoprolol tartrate b.i.d. Continue levothyroxine IV antibiotics stopped; follow up with ID recommendations If patient has another liquid bowel movement collect Stool for C diff Continue hemodialysis per farm mechanic apprentice recommendations Replace electrolytes IV per protocol ADA/renal diet. SSI coverage. Glucometer checks a.c. and HS. Hypoglycemic precautions per. CBC in a.m. transfuse as needed Follow a.m. labs GI and DVT prophylaxis PT evaluation Case management consult for [facility] Disposition: SNF pending acceptance/authorization Plan of action discussed, all questions answered, agreed and understood the information provided. CLAYTON MTZ IV, MD Sep 23, 2024 17:23
[2024-09-23] MEDS: TORSEMIDE 20 MG TAB PO SCH (18:52)
--- NOTE | 2024-09-23 22:24 | PN ---
INFECTIOUS DISEASE PROGRESS NOTE Date of Service: Sep 23, 2024 SUBJECTIVE: This is a 69-year-old male patient who was admitted to the hospital with chief complaint of abdominal pain. A CT of the abdomen and pelvis showed Mild bowel dilatation with fluid-filled may be related to small bowel obstruction and a KUB showed Moderately distended small bowel loops in the right upper quadrant which could represent obstruction. General surgery evaluated patient and following. Patient was seen and examined at bedside in room 320. Patient reported continues with diarrhea but is less than yesterday. Continues with the Imodium as needed. Per report patient refused Physical therapy exercises today. Patient being dialyzed at time of or visit. No nausea or vomiting reported. We will continue follow patient's care. PHYSICAL EXAM EYES: Anicteric. Pupils equal and reactive. HENT: No oral thrush seen, moist Oral mucosa. NECK: Supple, no JVD or thyromegaly. LUNGS: Good air entry. No rales, no rhonchi. CARDIOVASCULAR: S1, S2 regular. No murmur heard. ABDOMEN: Soft, bowel sounds present, no organomegaly. Abdominal tenderness. CENTRAL NERVOUS SYSTEM: Awake, alert, oriented x 3. SKIN: No rashes, no swelling. LYMPHATICS: No peripheral lymphadenopathy MUSCULOSKELETAL: No joint swelling, erythema or tenderness. EXTREMITIES: No cyanosis or clubbing. Bilateral lower extremity edema. BACK: No deformity, no pressure ulcer. GENITOURINARY: Positive for dysuria. Vital Sign (Last 12 Hours) 09/23/24 09/23/24 09/23/24 09/23/24 12:00 13:00 13:45 14:00 Temp 97.5 97.9 97.9 Pulse 78 83 83 84 Resp 18 14 14 14 B/P (MAP) 115/50 125/56 128/61 125/66 Pulse Ox 100 O2 Delivery Room Air Room Air Room Air 09/23/24 09/23/24 09/23/24 09/23/24 14:15 14:30 14:45 15:00 Pulse 80 79 79 77 Resp 14 14 14 14 B/P (MAP) 129/60 119/60 124/56 120/57 O2 Delivery Room Air Room Air Room Air Room Air 09/23/24 09/23/24 09/23/24 09/23/24 15:15 15:30 15:45 16:00 Temp 97.9 Pulse 77 79 78 78 Resp 14 14 14 18 B/P (MAP) 114/56 118/61 121/56 121/56 Pulse Ox 100 O2 Delivery Room Air Room Air Room Air 09/23/24 09/23/24 09/23/24 09/23/24 16:00 16:15 16:30 16:45 Pulse 80 81 82 81 Resp 14 14 14 14 B/P (MAP) 120/58 110/57 112/56 112/58 O2 Delivery Room Air Room Air Room Air Room Air 09/23/24 09/23/24 09/23/24 09/23/24 17:00 17:15 17:28 20:00 Temp 97.9 Pulse 83 83 83 Resp 14 14 14 B/P (MAP) 109/55 105/56 113/55 Pulse Ox 97 O2 Delivery Room Air Room Air Room Air Room Air* O2 Flow Rate 0 FiO2 21 09/23/24 21:00 Temp 97.5 Pulse 86 Resp 18 B/P (MAP) 95/49 Pulse Ox 97 O2 Delivery Room Air Intake & Output (last 24hrs) 09/22/24 09/22/24 09/23/24 15:00 23:00 07:00 Intake Total 250 ml 251 ml Balance 250 ml 251 ml LABS: Laboratory: Test 09/23/24 19:58 09/23/24 06:43 09/22/24 06:05 Range/Units Whole Blood Glucose 252 #H 70-110 MG/DL White Blood Count 17.7 H 4.8-10.8 K/uL Red Blood Count 3.09 L 4.50-6.20 MIL/uL Hemoglobin 9.9 L 14.0-18.0 g/dL Hematocrit 30.0 L 42-54 % Mean Corpuscular Volume 97.1 79-99 fL Mean Corpuscular Hemoglobin 32.0 27.0-33.0 pg Mean Corpuscular Hemoglobin Concent 33.0 32.0-36.0 g/dL Red Cell Distribution Width 14.7 11.0-15.5 % Platelet Count 305 130-400 K/uL Mean Platelet Volume 9.3 7.5-10.5 fL Nucleated Red Blood Cells 0.0 0.0-0.19 % Sodium Level 140 136-145 mmol/L Potassium Level 4.4 3.5-5.1 mmol/L Chloride Level 99 L 101-111 mmol/L Carbon Dioxide Level 29 21-32 mmol/L Blood Urea Nitrogen 80 *H 7-18 mg/dL Creatinine 7.9 H 0.5-1.3 mg/dL Glomerular Filtration Rate Calc 7 >90 mL/min Random Glucose 101 70-105 mg/dL Total Calcium 10.2 H 8.5-10.1 mg/dL Phosphorus Level 7.5 H 2.5-4.9 mg/dL Vancomycin Level 20.5 20.0-30.0 mcg/mL Immature Granulocyte % (Auto) 1.8 H 0-1 % Neutrophils (%) (Auto) 72.0 40.0-77.0 % Lymphocytes (%) (Auto) 10.8 L 21.0-51.0 % Monocytes (%) (Auto) 11.5 3.0-13.0 % Eosinophils (%) (Auto) 3.4 0.0-8.0 % Basophils (%) (Auto) 0.5 0.0-5.0 % Neutrophils # (Auto) 12.9 H 1.8-7.7 K/uL Lymphocytes # (Auto) 1.9 1.0-4.8 K/uL Monocytes # (Auto) 2.1 H 0.1-1.0 K/uL Eosinophils # (Auto) 0.60 0.00-0.70 K/uL Basophils # (Auto) 0.09 0.00-0.20 K/uL Absolute Immature Granulocyte (auto 0.32 0-1 K/uL Troponin I High Sensitivity 288 *H 4-75 ng/L C ASSESSMENT: Multifocal pneumonia. Gram-negative sepsis. Dysuria. Bilateral lower extremity swelling, negative for DVT. Abdominal pain, resolved. Leukocytosis. Small bowel obstruction versus ileus, resolved. Sigmoid Diverticulosis. Diabetes mellitus. End-stage renal disease, on dialysis. Diarrhea. Debility. PLAN: All antibiotics has been discontinued. Continue with Imodium as needed for diarrhea. Continue GI prophylaxis. Continue dialysis as recommended by room worker. Continue nutritional support. Continue monitoring glucose levels. Physical therapy to evaluate and treat. This case was reviewed and discussed with my supervising physician and the above assessment and plan was formulated and agreed upon. ATTESTATION BY PHYSICIAN I have seen and examined the patient. I reviewed the documentation, medical decision making, and treatment plan as noted by the mid-level provider above. I agree with the findings and plan of care. YUMIKO LINN MD, [facility] Sep 23, 2024 22:24
--- NOTE | 2024-09-23 22:31 | PN ---
NEPHROLOGY NOTE SUBJECTIVE: The patient has been evaluated and seen for dialysis and seen several times. The patient has renal failure, anemia, multiple other comorbidities. No other associated finding. The patient has generalized weakness. The patient has underlying multiple other comorbidities. Problems are renal failure, anemia underlying, fall, atrial fibrillation. The patient has anasarca and previous small-bowel obstruction versus ileus. PHYSICAL EXAMINATION: GENERAL: Pale, no other distress or deformities, lying in bed. VITAL SIGNS: Blood pressure is 118/70, respiratory rate is 18, afebrile. HEENT: Head is atraumatic. Pupils are round and reactive. Sclerae are anicteric. Conjunctivae not pale. Oral mucosa is not dry. NECK: Supple. No masses or bruits. Thyroid is palpable. Neck has no bruits. CHEST: Shows equal to thoracic percussion note being resonant in all areas. LABORATORY DATA: We have reviewed the labs in detail. Old records reviewed. PROBLEMS: Renal failure, anemia, multiple other comorbidities. PLAN: To continue dialysis support. Continue monitoring of renal function. Continued monitoring of electrolytes. Intake, output, and weight will be monitored. Nonsteroidal drugs will be avoided. Doses of medicine to be adjusted and we will follow up closely. The patient was evaluated and seen for dialysis and seen multiple times. Condition remained critical and guarded. TID: [id number] RECEIPT: [id number]
--- NOTE | 2024-09-23 23:25 | PN ---
NEPHROLOGY NOTE SUBJECTIVE: The patient has been evaluated and seen for dialysis and seen multiple times. The patient has fluid overload, renal failure, anemia, small bowel obstruction, and ____ obstruction. Multiple other comorbidities are present. OBJECTIVE:. VITAL SIGNS: The patient's blood pressure 137/80, respiratory rate 18. NECK: Supple. No masses or bruits. Thyroid is palpable. Neck has no bruits. BACK: No tenderness or back deformities LYMPHATIC: With no lymph node swelling in neck. LABORATORY DATA: Labs have been reviewed. Old records reviewed. PROBLEMS: Renal failure and anemia. The patient has fluid overload, anasarca, small bowel obstruction. PLAN: Continued monitoring. Follow up on renal function. Follow up on electrolytes. Intake, output, and weight will be monitored. The patient was evaluated and seen for dialysis multiple times. Extended the dialysis treatment and extra fluid removed. TID: [id number] RECEIPT: [id number]
[2024-09-24 00:31] VITALS: BP 122/55; PULSE 85; RESP 18; TEMP 97.8
[2024-09-24 04:00] VITALS: BP 105/46; PULSE 83; RESP 18; TEMP 97.8
[2024-09-24 05:18] LABS: HEMATOCRIT 27.8 % (42-54); MEAN CORPUSCULAR HEMOGLOBIN 32.3 pg (27.0-33.0); MEAN CORPUSCULAR HGB CONC 33.8 g/dL (32.0-36.0); MEAN CORPUSCULAR VOLUME 95.5 fL (79-99); RED BLOOD CELL COUNT(AUTO) 2.91 MIL/uL (4.50-6.20); WHITE BLOOD COUNT (AUTO) 16.3 K/uL (4.8-10.8)
[2024-09-24 05:40] LABS: ALBUMIN 1.7 g/dL (3.5-5.0); BILIRUBIN,TOTAL 0.9 mg/dL (0.2-1.0); PHOSPHORUS 5.7 mg/dL (2.5-4.9); TOTAL PROTEIN, SERUM 5.9 g/dL (6.0-8.3)
[2024-09-24 08:00] VITALS: BP 94/45; PULSE 87; RESP 18; TEMP 98
[2024-09-24 08:40] VITALS: O2SAT 97
--- NOTE | 2024-09-24 09:51 | PN ---
NEPHROLOGY PROGRESS NOTE Date/Time Patient Seen: Sep 24, 2024 Reason for Consultation: 09:50 SUBJECTIVE: This is a 69-year-old male with a past medical history of end-stage renal disease on hemodialysis Thursday, diabetes mellitus type 2, hypertension, hyperlipidemia, coronary artery disease, anemia. Patient presented to emergency room with complaints of abdominal pain Chest x-ray showed prominent interstitial markings with a possible superimposed infiltrate CT of the abdomen/pelvis showed mild bowel dilation with fluid filled may be related to small-bowel obstruction. He continues tolerated dialysis without difficulty. He continues on IV antibiotics as per ID. Case management and coordinating SNF placement. He was seen in the medical floor, in no acute distress Family at the bedside Prognosis remains guarded REVIEW OF SYSTEMS: GENERAL: Positive for abdominal pain NEUROLOGIC: Negative for any blurry vision, blind spots, double vision, facial asymmetry, dysphagia, dysarthria, hemiparesis, hemisensory deficits, vertigo, ataxia. HEENT: Negative for any head trauma, neck trauma, neck stiffness, photophobia, phonophobia, sinusitis, rhinitis. CARDIAC: Negative for any chest pain, dyspnea on exertion, paroxysmal nocturnal dyspnea, peripheral edema. PULMONARY: Negative for any shortness of breath, wheezing, COPD, or TB exposure. GASTROINTESTINAL: Negative for any abdominal pain, nausea, vomiting, bright red blood per rectum, melena. GENITOURINARY: Negative for any dysuria, hematuria, incontinence. INTEGUMENTARY: Negative for any rashes, cuts, insect bites. RHEUMATOLOGIC: Negative for any joint pains, photosensitive rashes, history of vasculitis or kidney problems. HEMATOLOGIC: Negative for any abnormal bruising, frequent infections or bleeding. PHYSICAL EXAM: GENERAL: Alert and oriented x 3. No acute distress. Well-nourished. EYES: EOMI. Anicteric. HENT: Moist mucous membranes. No scleral icterus. No cervical lymphadenopathy. LUNGS: Clear to auscultation bilaterally. No accessory muscle use. CARDIOVASCULAR: Regular rate and rhythm. 2/6 LSB murmur. No JVD. ABDOMEN: obese, soft, tender to lower abd, hypoactive bowel sounds, no masses, no organomegaly EXTREMITIES: 2+ edema. Non-tender. SKIN: No rashes or lesions. Warm. NEUROLOGIC: No focal neurological deficits. CN II-XII grossly intact, but not individually tested. PSYCHIATRIC: Cooperative. Appropriate mood and affect. LABORATORY: [ ] Hematology Labs: Test 09/24/24 04:48 Range/Units White Blood Count 16.3 H 4.8-10.8 K/uL Red Blood Count 2.91 L 4.50-6.20 MIL/uL Hemoglobin 9.4 L 14.0-18.0 g/dL Hematocrit 27.8 L 42-54 % Mean Corpuscular Volume 95.5 79-99 fL Mean Corpuscular Hemoglobin 32.3 27.0-33.0 pg Mean Corpuscular Hemoglobin Concent 33.8 32.0-36.0 g/dL Red Cell Distribution Width 15.0 11.0-15.5 % Platelet Count 294 130-400 K/uL Mean Platelet Volume 9.6 7.5-10.5 fL Nucleated Red Blood Cells 0.0 0.0-0.19 % Chemistry Labs: Test 09/24/24 05:48 09/24/24 04:48 Range/Units Whole Blood Glucose 115 #H 70-110 MG/DL Sodium Level 134 L 136-145 mmol/L Potassium Level 4.0 3.5-5.1 mmol/L Chloride Level 96 L 101-111 mmol/L Carbon Dioxide Level 29 21-32 mmol/L Blood Urea Nitrogen 55 #H 7-18 mg/dL Creatinine 6.0 H 0.5-1.3 mg/dL Glomerular Filtration Rate Calc 9 >90 mL/min Random Glucose 116 H 70-105 mg/dL Total Calcium 9.4 8.5-10.1 mg/dL Phosphorus Level 5.7 H 2.5-4.9 mg/dL Total Bilirubin 0.9 0.2-1.0 mg/dL Aspartate Amino Transf (AST/SGOT) 124 H 10-37 U/L Alanine Aminotransferase (ALT/SGPT) 169 H 12-78 U/L Alkaline Phosphatase 124 50-136 U/L Total Protein 5.9 L 6.0-8.3 g/dL Albumin 1.7 L 3.5-5.0 g/dL DIAGNOSTICS / RADIOLOGY: REASON: intermittent weakness to right arm rule out cerebrovascular accident ORDERING PHYSICIAN: PRAKASH HAMPTON PROCEDURE: HEAD WO - CT HEAD/BRAIN W/O CONTRAST CT HEAD/BRAIN W/O CONTRAST HISTORY: Weakness COMPARISON: None TECHNIQUE: Multiple sequential axial images of the head were obtained from the base of the skull through vertex. Patient was not given contrast through intravenous route. FINDINGS: The ventricles and extraventricular CSF spaces are dilated consistent with cerebral atrophy. Nonspecific white matter changes seen. There is no midline shift, mass effect or herniation. No acute intracranial bleed is seen. Visualized portion of the paranasal sinuses are grossly within normal limits. There is atherosclerosis. IMPRESSION: 1. No acute intracranial bleed is seen. 2. Atrophy with white matter changes. CT was performed with one or more following dose reduction techniques: automated exposure control, adjustment of the mA and kv according to patient's size, or use of a iterative reconstruction technique. DICTATED BY: LUIS ROBERTS MD DATE: 09/21/24 192 REASON: Altered mental status ORDERING PHYSICIAN: MICHAEL SAHU MD PROCEDURE: HEAD WO - CT HEAD/BRAIN W/O CONTRAST CT HEAD/BRAIN W/O CONTRAST HISTORY: Altered mental status COMPARISON: None TECHNIQUE: Multiple sequential axial images of the head were obtained from the base of the skull through vertex. Patient was not given contrast through intravenous route. FINDINGS: The ventricles and extraventricular CSF spaces are dilated consistent with cerebral atrophy. Nonspecific white matter changes seen. There is atherosclerosis. There is no midline shift, mass effect or herniation. No acute intracranial bleed is seen. Visualized portion of the paranasal sinuses are grossly within normal limits. IMPRESSION: 1. No acute intracranial bleed is seen. CT was performed with one or more following dose reduction techniques: automated exposure control, adjustment of the mA and kv according to patient's size, or use of a iterative reconstruction technique. DICTATED BY: LUIS ROBERTS MD DATE: 09/12/24 1251 REASON: diffused abd pain ORDERING PHYSICIAN: MARK PARHAM PROCEDURE: ABD PEL WO - CT ABDOMEN/PELVIS W/O CONTRAST CT ABDOMEN/PELVIS W/O CONTRAST HISTORY: Diffuse abdominal pain COMPARISON: 09/05/2023 TECHNIQUE: Multiple sequential axial images of the abdomen and pelvis were obtained from the dome of the diaphragm through symphysis pubis. Patient was not given contrast through intravenous route. Oral contrast was not given. FINDINGS: No pleural effusion is seen bilaterally. There is no evidence of parenchymal disease or pulmonary nodule of the visualized lower lungs. Degenerative changes of the thoracolumbar spine are present. The heart is borderline enlarged. Coronary arterial calcifications are seen. Liver measures 19 cm. Spleen measures 11 cm. Stomach is poorly distended. There is small bowel dilatation with fluid-filled may be related to enteritis. The liver, spleen, adrenal glands and pancreas are unremarkable. There is no evidence of hydronephrosis bilaterally. There are bilateral renal vascular calcifications with possible small renal pelvic stones. Bilateral renal atrophy is seen. Fecal material is seen in the colon. There is diverticulosis. There are normal size retroperitoneal and mesenteric lymph nodes. Tiny ascites is seen. Atherosclerotic changes are present. Pelvic sidewalls are symmetric bilaterally. Bladder is poorly distended. IMPRESSION: 1. Mild bowel dilatation with fluid-filled may be related to small bowel obstruction. Tiny ascites. Diverticulosis. CT was performed with one or more following dose reduction techniques: automated exposure control, adjustment of the mA and kv according to patient's size, or use of a iterative reconstruction technique. DICTATED BY: LUIS ROBERTS MD DATE: 09/12/24 1026 REASON: Shortness of breath ORDERING PHYSICIAN: MICHAEL SAHU MD PROCEDURE: CXR1VW - CHEST 1VW CHEST 1VW HISTORY: Shortness of breath COMPARISON: 09/01/2023 FINDINGS: A frontal projection of the chest was obtained. Prominent interstitial markings are seen with possible superimposed infiltrates. Poststernotomy changes are seen. The heart is enlarged. Degenerative changes of the thoracolumbar spine are present. Degenerative changes are seen. No evidence of aortic calcification is seen. IMPRESSION: 1. Prominent interstitial markings are seen with possible superimposed infiltrates. DICTATED BY: LUIS ROBERTS MD DATE: 09/12/24 0957 PROCEDURE: ECHO [facility] - ECHO 2-D COMPLETE APPROVED REPORT EXAM: Two-dimensional and M-mode echocardiogram with Doppler and color Doppler. INDICATION ICD: Congestive heart failure 2D Dimensions RVDd 6.1 cm LVEF(%) 52.4 (>50%) LVED Vol(simp.) 238.0 mL IVSd 1.0 (0.7-1.1cm) FS(%) 27 % LVES Vol(simp.) 165.0 mL LVDd 6.2 (3.8-5.6cm) LA (2D) 5.7 (1.6-4.0cm) LVEF(%, simp.) 31 % PWd 1.1 (0.7-1.1cm) Ao Root(2D) 3.4 (2.0-3.7cm) LA ESV INDEX (4CH) 79.50 mL/m2 IVSs 1.3 cm LVOT diam 2.9 (1.8-2.4cm) LA ESV INDEX (2CH) 53.70 mL/m2 LVDs 4.5 (2.5-4.0cm) LA ESV INDEX (BP) 68.80 mL/m2 PWs 2.1 cm M-Mode Dimensions EPSS 1.7 cm LA (MM) 5.5 (1.6-4.0cm) Ao Root(MM) 3.5 (2.0-3.7cm) Aortic Valve AoV VTI 0.6 m Ao Mean GR 19.0 mmHg LVOT VTI 0.15 m YESENIA (VMAX) 1.6 cm2 YESENIA (VTI) 1.6 cm2 Mitral Valve MV E Vmax 104.3 cm/s DECEL Time 137 ms MV A Vmax 64.0 cm/s P 1/2 T 72 ms E/A ratio 1.6 MVA (PHT) 3.1 cm2 MR Max PG 103 mmHg TDI E/E' Medial 20.5 E/E' Lateral 9.5 Medial E' Peak V 5.10 cm/s Lateral E' Peak V 11.00 cm/s Tricuspid Valve TR Vmax 3.2 m/s RAP (EST) 8 mmHg RVSP 48.9 mmHg TR Peak GR 40.9 mmHg Left Ventricle The left ventricle is moderately dilated. Global hypokinesia. Mild concentric left ventricular hypertrophy.. LVEF is 31%. The left ventricular diastolic function is indeterminate. Right Ventricle The right ventricle is severely dilated. Right ventricular systolic function is severely reduced. Atria The left atrium is severely dilated. The right atrium is severely dilated. Aortic Valve Aortic valve is trileaflet.The aortic valve is mildly thickened. No aortic reg urgitation is present. There is mild aortic valvular stenosis. Calculated aortic valve area is 1.6 cm2 with maximum pressure gradient of 30 mmHg and mean pressure gradient of 19 mmHg. Mitral Valve The mitral valve is mildly thickened. There is mild mitral valve regurgitation noted. There is no mitral valve stenosis. Tricuspid Valve The tricuspid valve is normal in structure. There is mild tricuspid valve regurgitation noted. RVSP 49mmHg. Pulmonic Valve The pulmonary valve is normal in structure. There is no pulmonic valvular regurgitation. Great Vessels The aortic root is normal in size. IVC is not visualized. Pericardium There is no pericardial effusion. Other Information Quality : Adequate Conclusion LVEF is 31%. Global hypokinesia. The left ventricle is moderately dilated. The right ventricle is severely dilated. Right ventricular systolic function is severely reduced. The left atrium is severely dilated. The right atrium is severely dilated. There is mild aortic valvular stenosis. Calculated aortic valve area is 1.6 cm2 with maximum pressure gradient of 30 mmHg and mean pressure gradient of 19 mmHg. There is mild tricuspid valve regurgitation noted. RVSP 49mmHg. DICTATED BY: MARQUEZ LEE MD DATE: 09/12/24 1332 ELECTRONICALLY SIGNED BY: MARQUEZ LEE MD DATE: 09/12/24 8104 ASSESSMENT: Anemia End-stage renal disease Anemia Abdominal pain Small-bowel obstruction HFpEF LVEF 45 to 50% Uncontrolled Diabetes mellitus Hyperlipidemia Uncontrolled hypertension Coronary artery disease PLAN: Labs and Diagnostics/ Radiology personally reviewed and interpreted by myself and supervising physician We have reviewed dialysis and external records in detail Continue dialysis schedule Thursday He will continue with the aggressive fluid removal Case management coordinating SNF placement Fluid restriction was advised. Continue with torsemide 100 mg p.o. daily. 1.5 L fluid restriction Continue to monitor H&H Epogen on dialysis days, as needed Continue with frequent monitoring of renal function, anemia, and electrolytes Order CBC, BMP, and electrolytes in the morning May use Dilaudid 0.5 mg IV every 6 hours as needed for severe pain Monitor blood pressure adjust medication doses as needed Maintain normotensive state Strict intake, output, and daily weight should be monitored Please renally adjust medications. Avoid nephrotoxics and nonsteroidal drugs. We will continue to monitor the patient closely We have discussed with the other team physicians in detail about the care plan ATTESTATION BY PHYSICIAN I have seen and examined the patient. I reviewed the documentation, medical decision making, and treatment plan as noted by the mid-level provider above. I agree with the findings and plan of care. MICHELLE MUNSON MD, [facility] Sep 24, 2024 09:51
--- NOTE | 2024-09-24 10:18 | PN ---
INFECTIOUS DISEASE PROGRESS NOTE Date of Service: Sep 24, 2024 SUBJECTIVE: This is a 69-year-old male patient who was admitted to the hospital with chief complaint of abdominal pain. A CT of the abdomen and pelvis showed Mild bowel dilatation with fluid-filled may be related to small bowel obstruction and a KUB showed Moderately distended small bowel loops in the right upper quadrant which could represent obstruction. General surgery evaluated patient and following. Patient was seen and examined at bedside in room 320. Patient is awake, alert and oriented x3. Patient is having lunch. Denying pain, nausea and vomiting at this time. Patient was dialyzed yesterday and 3.7 L removed. Patient reported that he is feeling a lot better and was able to get up to the restroom earlier today and waiting for physical therapy to walk him. From Infectious Disease standpoint patient is cleared to be discharged to home when ready. No antibiotics needed on discharge. PHYSICAL EXAM EYES: Anicteric. Pupils equal and reactive. HENT: No oral thrush seen, moist Oral mucosa. NECK: Supple, no JVD or thyromegaly. LUNGS: Good air entry. No rales, no rhonchi. CARDIOVASCULAR: S1, S2 regular. No murmur heard. ABDOMEN: Soft, bowel sounds present, no organomegaly. Abdominal tenderness, resolving. CENTRAL NERVOUS SYSTEM: Awake, alert, oriented x 3. SKIN: No rashes, no swelling. LYMPHATICS: No peripheral lymphadenopathy MUSCULOSKELETAL: No joint swelling, erythema or tenderness. EXTREMITIES: No cyanosis or clubbing. Bilateral lower extremity edema. BACK: No deformity, no pressure ulcer. GENITOURINARY: Positive for dysuria, resolved. Vital Sign (Last 12 Hours) 09/24/24 09/24/24 09/24/24 00:31 04:00 08:00 Temp 97.9 97.9 98.1 Pulse 85 83 87 Resp 18 18 18 B/P (MAP) 122/55 105/46 94/45 Pulse Ox 98 95 97 O2 Delivery Room Air Room Air Room Air FiO2 21 Intake & Output (last 24hrs) 09/23/24 09/23/24 09/24/24 15:00 23:00 07:00 Intake Total 440 ml 220 ml Output Total 7400 ml Balance 440 ml -7180 ml LABS: Laboratory: Test 09/24/24 05:48 09/24/24 04:48 09/23/24 06:43 Range/Units Whole Blood Glucose 115 #H 70-110 MG/DL White Blood Count 16.3 H 4.8-10.8 K/uL Red Blood Count 2.91 L 4.50-6.20 MIL/uL Hemoglobin 9.4 L 14.0-18.0 g/dL Hematocrit 27.8 L 42-54 % Mean Corpuscular Volume 95.5 79-99 fL Mean Corpuscular Hemoglobin 32.3 27.0-33.0 pg Mean Corpuscular Hemoglobin Concent 33.8 32.0-36.0 g/dL Red Cell Distribution Width 15.0 11.0-15.5 % Platelet Count 294 130-400 K/uL Mean Platelet Volume 9.6 7.5-10.5 fL Nucleated Red Blood Cells 0.0 0.0-0.19 % Sodium Level 134 L 136-145 mmol/L Potassium Level 4.0 3.5-5.1 mmol/L Chloride Level 96 L 101-111 mmol/L Carbon Dioxide Level 29 21-32 mmol/L Blood Urea Nitrogen 55 #H 7-18 mg/dL Creatinine 6.0 H 0.5-1.3 mg/dL Glomerular Filtration Rate Calc 9 >90 mL/min Random Glucose 116 H 70-105 mg/dL Total Calcium 9.4 8.5-10.1 mg/dL Phosphorus Level 5.7 H 2.5-4.9 mg/dL Total Bilirubin 0.9 0.2-1.0 mg/dL Aspartate Amino Transf (AST/SGOT) 124 H 10-37 U/L Alanine Aminotransferase (ALT/SGPT) 169 H 12-78 U/L Alkaline Phosphatase 124 50-136 U/L Total Protein 5.9 L 6.0-8.3 g/dL Albumin 1.7 L 3.5-5.0 g/dL Vancomycin Level 20.5 20.0-30.0 mcg/mL ASSESSMENT: Multifocal pneumonia. Gram-negative sepsis. Dysuria. Bilateral lower extremity swelling, negative for DVT. Abdominal pain, resolved. Leukocytosis. Small bowel obstruction versus ileus, resolved. Sigmoid Diverticulosis. Diabetes mellitus. End-stage renal disease, on dialysis. Diarrhea. Debility. PLAN: From Infectious Disease standpoint patient is cleared to be discharged to home. No antibiotics needed on discharge. This case was reviewed and discussed with my supervising physician and the above assessment and plan was formulated and agreed upon. ATTESTATION BY PHYSICIAN I have seen and examined the patient. I reviewed the documentation, medical decision making, and treatment plan as noted by the mid-level provider above. I agree with the findings and plan of care. YUMIKO LINN MD, [facility] Sep 24, 2024 10:18
[2024-09-24 12:00] VITALS: BP 127/56; PULSE 83; RESP 18; TEMP 97.9
[2024-09-24 16:00] VITALS: BP 119/53; PULSE 85; RESP 18; TEMP 98.2
== END 2024-09-24 18:05 | DRG 871 ==
LOC: EDH 09:00 → EDHIP 12:17 → 2AH 09-13 21:41 → 3CH 09-15 16:15
PROVIDERS: ADMIT Internal Medicine; ATTEND Internal Medicine
PROC: 5A09357 Assistance with Respiratory Ventilation, Less than 24 Consecutive Hours, Continuous Positive Airway Pressure (ICD-10-PCS; 2024-09-13)
PROC: 5A1D70Z Performance of Urinary Filtration, Intermittent, Less than 6 Hours Per Day (ICD-10-PCS; 2024-09-14)
PROC: 5A1D70Z Performance of Urinary Filtration, Intermittent, Less than 6 Hours Per Day (ICD-10-PCS; principal; 2024-09-16)
PROC: 5A1D70Z Performance of Urinary Filtration, Intermittent, Less than 6 Hours Per Day (ICD-10-PCS; 2024-09-19)
PROC: 5A1D70Z Performance of Urinary Filtration, Intermittent, Less than 6 Hours Per Day (ICD-10-PCS; 2024-09-21)
PROC: 5A1D70Z Performance of Urinary Filtration, Intermittent, Less than 6 Hours Per Day (ICD-10-PCS; 2024-09-23)
DX: A41.50 Gram-negative sepsis, unspecified (principal); I21.A1 Myocardial infarction type 2; I50.43 Acute on chronic combined systolic (congestive) and diastolic (congestive) heart failure; N18.6 End stage renal disease; J18.9 Pneumonia, unspecified organism; K56.609 Unspecified intestinal obstruction, unspecified as to partial versus complete obstruction; I13.2 Hypertensive heart and chronic kidney disease with heart failure and with stage 5 chronic kidney disease, or end stage renal disease; I25.810 Atherosclerosis of coronary artery bypass graft(s) without angina pectoris; E87.20 Acidosis, unspecified; R17 Unspecified jaundice; K56.7 Ileus, unspecified; E46 Unspecified protein-calorie malnutrition; I42.9 Cardiomyopathy, unspecified; R18.8 Other ascites; D63.1 Anemia in chronic kidney disease; E11.22 Type 2 diabetes mellitus with diabetic chronic kidney disease; I25.10 Atherosclerotic heart disease of native coronary artery without angina pectoris; E78.00 Pure hypercholesterolemia, unspecified; K80.20 Calculus of gallbladder without cholecystitis without obstruction; K37 Unspecified appendicitis; E11.65 Type 2 diabetes mellitus with hyperglycemia; Z20.822 Contact with and (suspected) exposure to COVID-19; E11.649 Type 2 diabetes mellitus with hypoglycemia without coma; E11.51 Type 2 diabetes mellitus with diabetic peripheral angiopathy without gangrene; E87.5 Hyperkalemia; I35.0 Nonrheumatic aortic (valve) stenosis; K57.30 Diverticulosis of large intestine without perforation or abscess without bleeding; R74.01 Elevation of levels of liver transaminase levels; E03.9 Hypothyroidism, unspecified; K21.9 Gastro-esophageal reflux disease without esophagitis; E66.9 Obesity, unspecified; I27.20 Pulmonary hypertension, unspecified; K52.9 Noninfective gastroenteritis and colitis, unspecified; I48.91 Unspecified atrial fibrillation; N20.0 Calculus of kidney; Z53.20 Procedure and treatment not carried out because of patient's decision for unspecified reasons; I25.2 Old myocardial infarction; Z99.2 Dependence on renal dialysis; M79.89 Other specified soft tissue disorders; Z83.3 Family history of diabetes mellitus; Z82.49 Family history of ischemic heart disease and other diseases of the circulatory system; Z90.49 Acquired absence of other specified parts of digestive tract; Z79.899 Other long term (current) drug therapy
CPT/HCPCS: 36415; 36600; 70450; 71045; 74018; 74176; 74178; 78582; 80048; 80053; 80076; 80202; 82140; 82435; 82550; 82803; 82947; 82948; 83036; 83605; 83690; 83735; 83880; 84100; 84132; 84145; 84295; 84484; 85018; 85025; 85027; 85378; 85610; 85730; 86632; 86704; 86706; 86738; 87040; 87340; 87426; 87804; 87880; 90935; 93005; 93306; 93880; 93970; 94660; 96365; 96367; 96375; 96376; 99285; A9540; A9558; G0378; J0500; J1200; J1644; J1815; J2270; J2405; J2543; J3475; J3490; J7040; J7070; Q9963; Q9967; J3370

== ENCOUNTER 2024-11-20 13:56 | Emergency (ER) | payer OTHER ==
[~2024-11-20] VITALS: Ht 172.7 cm; Wt 104.3 kg
[~2024-11-20 13:56] MED LIST changes: -ASPI-1197 PO; -CINA30TA5 PO; -FENO145T26 PO; +FENO150C4 PO; +FOLI0.8T22 PO; -FURO40SO PO; +FURO40TA5 PO; -FURO80TA3 PO; -INSLAN SQ; -LISI2.5T13 PO; -ROSU40TA21 PO; +ROSU40TA88 PO; +SACU1TAB PO; -SEMA0.258 SQ; -SUCR500T PO; -[UNRECOGNIZED DRUG - CODE] PO
[2024-11-20 14:36] LABS: BASOPHILS # (AUTO) 0.07 K/uL (0.00-0.20); BASOPHILS % (AUTO) 0.8 % (0.0-5.0); EOSINOPHILS # (AUTO) 0.26 K/uL (0.00-0.70); HEMATOCRIT 32.2 % (42-54); IMMATURE GRANULOCYTE ABSOLUTE 0.03 K/uL (0-1); LYMPHOCYTES # (AUTO) 2.1 K/uL (1.0-4.8); LYMPHOCYTES % (AUTO) 23.7 % (21.0-51.0); MEAN CORPUSCULAR HEMOGLOBIN 33.6 pg (27.0-33.0); MEAN CORPUSCULAR HGB CONC 31.7 g/dL (32.0-36.0); MEAN CORPUSCULAR VOLUME 105.9 fL (79-99); MONOCYTES % (AUTO) 11.6 % (3.0-13.0); NEUTROPHILS # (AUTO) 5.3 K/uL (1.8-7.7); NEUTROPHILS % (AUTO) 60.6 % (40.0-77.0); PLATELET COUNT (AUTO) 173 K/uL (130-400); RED BLOOD CELL COUNT(AUTO) 3.04 MIL/uL (4.50-6.20); RED CELL DISTRIBUTION WIDTH 17.8 % (11.0-15.5); WHITE BLOOD COUNT (AUTO) 8.7 K/uL (4.8-10.8)
[2024-11-20 14:46] LABS: INR 1.54 (0.85-1.15); PROTHROMBIN TIME 15.6 SEC (9.6-11.6)
[2024-11-20 14:47] LABS: PARTIAL THROMBOPLASTIN TIME 34.9 SEC (26.3-35.5)
[2024-11-20 14:48] LABS: CREATININE 6.2 mg/dL (0.5-1.3); POTASSIUM 4.9 mmol/L (3.5-5.1)
[2024-11-20 15:00] LABS: B-TYPE NATRIURETIC PEPTIDE > 5000 pg/mL (0-100)
[2024-11-20 15:02] LABS: MAGNESIUM 2.2 mg/dL (1.80-2.40)
--- NOTE | 2024-11-20 15:10 | HMCIMG ---
CHEST 1VW HISTORY: Chest pain COMPARISON: 09/12/2024 FINDINGS: A frontal projection of the chest was obtained. Mild bilateral pulmonary infiltrates are seen may be related to mild pulmonary vascular congestion with possible superimposed pneumonitis. Poststernotomy changes are seen. The heart is enlarged. Degenerative changes of the thoracolumbar spine are present. All the lines and tubes are again seen in place. No evidence of aortic calcification is seen. IMPRESSION: 1. Mild bilateral pulmonary infiltrates are seen may be related to mild pulmonary vascular congestion with possible superimposed pneumonitis.
--- NOTE | 2024-11-20 15:21 | ERN ---
General Chief Complaint: Weakness Stated Complaint: GENERAL BODY WEAKNESS Time Seen by MD: 13:58 Source: patient History of Present Illness Initial Comments PATIENT IS A 69-YEAR-OLD MALE COMING IN TO BE EVALUATED FOR GENERALIZED BODY WEAKNESS. PATIENT WAS CONCERNED BECAUSE THE WEAKNESS HAS PROGRESSIVELY GOTTEN WORSE. I ALSO STATES HE FELT DEHYDRATED. Allergies: Coded Allergies: No Known Drug Allergies (Unverified Allergy, Unknown, 06/01/15) Home Meds Reported Medications Metoprolol Succinate (Metoprolol Succinate) 100 Mg Tab.er.24h, 1 TAB PO DAILY for 30 Days, #30 TAB 0 Refills 09/12/24 Rosuvastatin Calcium (Rosuvastatin Calcium) 40 Mg Tablet, 1 TAB PO HS for high cholesterol for 30 Days, #30 TAB 0 Refills 09/12/24 Folic Acid/Vitamin B Comp W-C (Shahla-Renetta Tablet) 0.8 Mg Tablet, 1 TAB PO DAILY for 30 Days, #30 TAB 0 Refills 09/12/24 Fenofibrate (Fenofibrate) 150 Mg Capsule, 145 MG PO DAILY, CAP 09/12/24 Levothyroxine Sodium (Levothyroxine) 50 Mcg Capsule, 1 CAP PO DAILY for 30 Days, #30 CAP 0 Refills 09/12/24 Sacubitril/Valsartan (Entresto 24 mg-26 mg Tablet) 24 Mg-26 Mg Tablet, 1 TAB PO BID for 30 Days, #60 TAB 0 Refills 09/12/24 Furosemide (Furosemide) 40 Mg Tablet, 1 TAB PO HS for 30 Days, #30 TAB 0 Refills 09/12/24 Furosemide (Furosemide) 40 Mg Tablet, 2 TAB PO DAILY for 30 Days, #30 TAB 0 Refills 09/12/24 Montelukast Sodium (Montelukast Sodium) 10 Mg Tablet, 1 TAB PO HS for 30 Days, #30 TAB 0 Refills 09/12/24 Past Medical History Past Medical History: CAD, Diabetes-Type II, Heart Disease, Hypertension, Renal Failure Past Surgical History: CABG Surgical History Other: , KNEE SX, LEFT 2ND FINGER PARTIAL AMPUTATIO Family History Family History: DM, HTN Social History Social History: Negative, Lives with family ROS Dictation CONSTITUTIONAL: NO CHILLS, NO FEVER, WEAKNESS, NO DIAPHORESIS, NO MALAISE. HEAD/FACE: NO SIGNS OF TRAUMA. EENT: NO EYE PAIN, NO BLURRED VISION, NO TEARING, NO DOUBLE VISION, NO EAR PAIN, NO EAR DISCHARGE, NO NOSE PAIN, NO NASAL CONGESTION, NO THROAT PAIN, NO THROAT SWELLING, NO MOUTH PAIN. RESPIRATORY: NO COUGH, NO ORTHOPNEA, NO SOB, NO STRIDOR, NO WHEEZING. CARDIOVASCULAR: NO CHEST PAIN, NO EDEMA, NO PALPITATIONS, NO SYNCOPE. GASTROINTESTINAL/ABDOMINAL: NO ABDOMINAL PAIN, NO CONSTIPATION, NO DIARRHEA, NO NAUSEA, NO VOMITING. GENITOURINARY: NO ABNORMAL DISCHARGE, NO DYSURIA, NO FREQUENT URINATION, NO HEMATURIA. NO COMPLAINTS OF PAIN IN THE GENITALS. MUSCULOSKELETAL: NO BACK PAIN, NO GOUT, NO JOINT PAIN, NO JOINT SWELLING, NO MUSCLE PAIN, NO MUSCLE STIFFNESS, NO NECK PAIN. INTEGUMENTARY: NO CHANGE IN COLOR, NO CHANGE IN HAIR/NAILS, NO DRYNESS, NO LESION, NO LUMPS, NO RASH. NEUROLOGICAL/PSYCH: NO ANXIETY, NOT DEPRESSED, NO EMOTIONAL PROBLEM, NO HEADACHE, NO NUMBNESS, NO PRE-EXISTING DEFICIT, NO HISTORY OF SEIZURES, NO TREMORS, NO WEAKNESS. HEMATOLOGIC/LYMPHATIC: NOT ANEMIC, NO HISTORY OF BLOOD CLOTS, NO APPARENT BLEEDING, NO BRUISING, GLANDS NOT SWOLLEN. ALL SYSTEMS NEGATIVE, EXCEPT NOTED. Physical Exam Physical Exam Dictation VITAL SIGNS: REVIEWED. GENERAL APPEARANCE: ALERT, ORIENTED X3, NO ACUTE DISTRESS, OBESE. HEAD AND FACE: NON-TRAUMATIC. EYES: PERRL, PINK CONJUNCTIVAS, EYELID NO TRAUMA, ANTERIOR CHAMBER CLEAR. EARS: PINNAS INTACT AND NO SIGNS OF TRAUMA OR ERYTHEMA. EAR CANALS CLEAR AND NO DISCHARGE. TMS NO ERYTHEMA. NOSE: NO DISCHARGE, NO BLEEDING. OROPHARYNX: MOUTH NORMAL, TEETH NO CARIES, TONGUE PINK. PHARYNX CLEAR, NO ERYTHEMA. TONSILS NO EXUDATES, NO ABSCESSES NOTED. MUCOUS MEMBRANE MOIST. NECK: SUPPLE, NON-TENDER, NO THYROMEGALY, NO MASSES, NO JVD, NO BRUITS. BREAST: DEFERRED. CHEST: NO TENDERNESS, NO CREPITUS, NO PARADOXICAL MOVEMENT, NO RETRACTIONS. LUNGS: CLEAR, WELL-VENTILATED, SYMMETRIC, NO RALES, NO WHEEZING, NO RHONCHI, NO STRIDOR, GOOD BREATH SOUNDS BILATERALLY. HEART: REGULAR RATE, REGULAR RHYTHM, NO MURMUR, NO GALLOPS. VASCULAR: NO PERIPHERAL EDEMA. ABDOMEN: SOFT, POSITIVE BOWEL SOUNDS, NONDISTENDED, NO GUARDING, NONTENDER, NO REBOUND, NO MASSES NO HEPATOMEGALY, NO SPLENOMEGALY, NO NAYLOR'S SIGN, NO HERNIAS. RECTAL: DEFERRED. GENITAL: DEFERRED. NEUROLOGICAL: NORMAL SPEECH, GROSS MOTOR FUNCTION INTACT, GROSS SENSORY FUNCTION INTACT. MUSCULOSKELETAL: NECK NONTENDER, FULL RANGE OF MOTION, BACK NONTENDER, FULL RANGE OF MOTION. EXTREMITIES: NONTENDER, FULL RANGE OF MOTION. SKIN: COLOR PINK, DRY, NO TURGOR, NO RASH, NO LACERATIONS, NO ABRASIONS, NO CONTUSIONS. LYMPHATICS: DEFERRED. Results Laboratory and Microbiology Lab and Micro Result Laboratory Tests Test 11/20/24 14:19 White Blood Count 8.7 K/uL (4.8-10.8) Red Blood Count 3.04 MIL/uL (4.50-6.20) L Hemoglobin 10.2 g/dL (14.0-18.0) L Hematocrit 32.2 % (42-54) L Mean Corpuscular Volume 105.9 fL (79-99) H Mean Corpuscular Hemoglobin 33.6 pg (27.0-33.0) H Mean Corpuscular Hemoglobin Concent 31.7 g/dL (32.0-36.0) L Red Cell Distribution Width 17.8 % (11.0-15.5) H Platelet Count 173 K/uL (130-400) Mean Platelet Volume 10.1 fL (7.5-10.5) Immature Granulocyte % (Auto) 0.3 % (0-1) Neutrophils (%) (Auto) 60.6 % (40.0-77.0) Lymphocytes (%) (Auto) 23.7 % (21.0-51.0) Monocytes (%) (Auto) 11.6 % (3.0-13.0) Eosinophils (%) (Auto) 3.0 % (0.0-8.0) Basophils (%) (Auto) 0.8 % (0.0-5.0) Neutrophils # (Auto) 5.3 K/uL (1.8-7.7) Lymphocytes # (Auto) 2.1 K/uL (1.0-4.8) Monocytes # (Auto) 1.0 K/uL (0.1-1.0) Eosinophils # (Auto) 0.26 K/uL (0.00-0.70) Basophils # (Auto) 0.07 K/uL (0.00-0.20) Absolute Immature Granulocyte (auto 0.03 K/uL (0-1) Nucleated Red Blood Cells 0.0 % (0.0-0.19) Red Blood Cell Morphology See comments Prothrombin Time 15.6 SEC (9.6-11.6) H Prothromb Time International Ratio 1.54 (0.85-1.15) H Activated Partial Thromboplast Time 34.9 SEC (26.3-35.5) Sodium Level 132 mmol/L (136-145) L Potassium Level 4.9 mmol/L (3.5-5.1) Chloride Level 95 mmol/L (101-111) L Carbon Dioxide Level 30 mmol/L (21-32) Blood Urea Nitrogen 48 mg/dL (7-18) H Creatinine 6.2 mg/dL (0.5-1.3) H Glomerular Filtration Rate Calc 9 mL/min (>90) Random Glucose 133 mg/dL (70-105) H Total Calcium 10.1 mg/dL (8.5-10.1) Magnesium Level 2.20 mg/dL (1.80-2.40) Total Creatine Kinase 614 U/L (21-232) #*H Troponin I High Sensitivity 199 ng/L (4-75) *H B-Type Natriuretic Peptide > 5000 pg/mL (0-100) H Labs Reviewed?: Yes EKG/XRAY/US/CT/MRI EKG Comment 11/20/2024 TIME 2:27 P.M. VENTRICULAR RATE [address] WAVE ELEVATION OR DEPRESSION X-RAY Comment [address] [place] [id number] [place] [id number] IMAGING REPORT Signed PATIENT: BEN LUQUE MR#: [id number] : 1955 SEX: M AGE: 69 LOCATION: [facility] ORDER 05 STATUS: REG ER REPORT#: [id number] SERVICE 03 REASON: CP ORDERING PHYSICIAN: LO LEOS MD PROCEDURE: CXR1VW - CHEST 1VW CHEST 1VW HISTORY: Chest pain COMPARISON: 09/12/2024 FINDINGS: A frontal projection of the chest was obtained. Mild bilateral pulmonary infiltrates are seen may be related to mild pulmonary vascular congestion with possible superimposed pneumonitis. Poststernotomy changes are seen. The heart is enlarged. Degenerative changes of the thoracolumbar spine are present. All the lines and tubes are again seen in place. No evidence of aortic calcification is seen. IMPRESSION: 1. Mild bilateral pulmonary infiltrates are seen may be related to mild pulmonary vascular congestion with possible superimposed pneumonitis. DICTATED BY: LUIS ROBERTS MD DATE: 11/20/24 1506 ELECTRONICALLY SIGNED BY: LUIS ROBERTS MD DATE: 11/20/24 1510 [facility] MDM: DIFFERENTIAL DIAGNOSIS: ACS, ELEVATED CK, DEHYDRATION, RATIONALE: TESTS CONSIDERED AND ORDERED SECONDARY TO SHARED DECISION MAKING INCLUDE: LABS, ECG AND RADIOLOGY PREVIOUS OUTSIDE RECORDS REVIEWED: OLD ER VISITS. RISK OF COMPLICATION AND/OR MORBIDITY OR MORTALITY OF PATIENT MANAGEMENT: NONE MEDICATIONS-PER MEDICATION RECONCILIATION NEED FOR HOSPITALIZATION: PATIENT DOES MEET CRITERIA FOR HOSPITALIZATION. NEED FOR EMERGENCY MAJOR/MINOR SURGERY: NO THERE ARE NO SOCIAL CONCERNS WITH THIS PATIENT. PRESCRIPTION DRUG MANAGEMENT PRESCRIPTIONS WILL INCLUDE SYMPTOMATIC CARE PATIENT'S PRIOR EXTERNAL MEDICAL RECORDS FROM OTHER ER VISITS WERE REVIEWED BY ME INDICATED. PRIOR TESTING AND RESULTS FROM PREVIOUS VISITS WERE REVIEWED. PRIOR TESTS WERE TAKEN INTO ACCOUNT WITH MEDICAL DECISION MAKING AND RESOURCE UTILIZATION, INDEPENDENT HISTORIAN/HISTORIANS WERE USED TO OBTAIN COMPLETE MEDICAL HISTORY. I INDEPENDENTLY INTERPRETED THE TEST THAT WERE PERFORMED, RESULTS WERE REVIEWED BY ME AND CONSIDERED FINDINGS ON RADIOLOGY IF ORDERED. MEDICAL MANAGEMENT AND EXAMINATION INTERPRETATION DISCUSSIONS WERE HAD BY ME WITH OTHER QUALIFIED HEALTHCARE PROFESSIONALS INDICATED FOR THE PATIENT'S CARE. PATIENT WILL BE ADMITTED UNDER THE CARE OF HOSPITALIST GROUP FOR ONGOING MANAGEMENT OF ACS WITH ACUTE ON CHRONIC CHF EXACERBATION ELEVATED CK. ED Course Orders Procedure Category Date Status Time Cbc With Differential LAB 11/20/24 Complete 14:04 Prothrombin Time With LAB 11/20/24 Complete INR 14:04 B-Type Natriuretic LAB 11/20/24 Complete Peptide 14:04 Chest 1vw RAD 11/20/24 Resulted 14:04 12 Lead Ekg Tracing- EKG 11/20/24 Complete Technical 14:04 Magnesium LAB 11/20/24 Complete 14:04 Creatine Kinase, Total LAB 11/20/24 Complete 14:04 Troponin I High LAB 11/20/24 Complete Sensitivity 14:04 Urinalysis Profile LAB 11/20/24 Logged 14:04 Partial LAB 11/20/24 Complete Thromboplastin Time 14:04 Basic Metabolic Panel LAB 11/20/24 Complete 14:04 Vital Signs Date Time Temp Pulse Resp B/P (MAP) Pulse Ox O2 Delivery O2 Flow Rate FiO2 11/20/24 13:58 97.5 55 18 144/31 93 Room Air 0 Critical Care Note Comments CRITICAL CARE PROCEDURE NOTE AUTHORIZED AND PERFORMED BY: ME TOTAL CRITICAL CARE TIME: APPROXIMATELY 36 MINUTES DUE TO A HIGH PROBABILITY OF CLINICALLY SIGNIFICANT, LIFE THREATENING DETERIORATION, THE PATIENT REQUIRED MY HIGHEST LEVEL OF PREPAREDNESS TO INTERVENE EMERGENTLY AND I PERSONALLY SPENT THIS CRITICAL CARE TIME DIRECTLY AND PERSONALLY MANAGING THE PATIENT. THIS CRITICAL CARE TIME INCLUDED OBTAINING A HISTORY; EXAMINING THE PATIENT; PULSE OXIMETRY; ORDERING AND REVIEW OF STUDIES; ARRANGING URGENT TREATMENT WITH DEVELOPMENT OF A MANAGEMENT PLAN; EVALUATION OF PATIENT'S RESPONSE TO TREATMENT; FREQUENT REASSESSMENT; AND, DISCUSSIONS WITH OTHER PROVIDERS. THIS CRITICAL CARE TIME WAS PERFORMED TO ASSESS AND MANAGE THE HIGH PROBABILITY OF IMMINENT, LIFE-THREATENING DETERIORATION THAT COULD RESULT IN MULTI-ORGAN FAILURE. IT WAS EXCLUSIVE OF SEPARATELY BILLABLE PROCEDURES AND TREATING OTHER PATIENTS AND TEACHING TIME. PLEASE SEE MDM SECTION AND THE REST OF THE NOTE FOR FURTHER INFORMATION ON PATIENT ASSESSMENT AND TREATMENT. DX & DISP Disposition: Inpatient Decision to Admit Time: 15:46 Departure Impression: Primary Impression: Acute exacerbation of chronic heart failure Additional Impressions: ACS (acute coronary syndrome), Elevated CK Condition: Stable Referrals: LARRY MORENO (PCP) LO LEOS MD Nov 20, 2024 15:21
--- NOTE | 2024-11-20 15:23 | EKG ---
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
--- NOTE | 2024-11-20 17:52 | HMCIMG ---
CT HEAD/BRAIN W/O CONTRAST HISTORY: Weakness COMPARISON: None TECHNIQUE: Multiple sequential axial images of the head were obtained from the base of the skull through vertex. Patient was not given contrast through intravenous route. FINDINGS: The ventricles and extraventricular CSF spaces are dilated consistent with cerebral atrophy. Nonspecific white matter changes seen. There is no midline shift, mass effect or herniation. No acute intracranial bleed is seen. Visualized portion of the paranasal sinuses are grossly within normal limits. IMPRESSION: 1. No acute intracranial bleed is seen. 2. Atrophy with white matter changes. CT was performed with one or more following dose reduction techniques: automated exposure control, adjustment of the mA and kv according to patient's size, or use of a iterative reconstruction technique.
[2024-11-20] MEDS ORDERED: GADOTERATE MEGLUMINE 10 MMOL/20 ML VIAL IV ONE (18:14)
--- NOTE | 2024-11-20 18:56 | HMCIMG ---
MR SPINAL CANAL, THORAC WO CON HISTORY: Neuropathy COMPARISON: None TECHNIQUE: MRI of the thoracic spine was performed utilizing multiple pulse sequences in axial, coronal and sagittal plane. Patient was not given contrast through intravenous route. FINDINGS: Decreased signal intensity is seen throughout the visualized bony structures suggestive marrow replacement process diffusely. No loss of vertebral height is seen. Degenerative disc signals are present at all thoracic spine levels. The thoracic cord is of normal signal intensity without cord compression or impingement. Minimal thoracic spine spondylosis is seen. There are motion artifacts degrading the image quality. There is no focal disc herniation or neural foraminal stenosis. IMPRESSION: 1. No focal disc herniation or neural foraminal stenosis is seen. No evidence of cord compression is seen.
--- NOTE | 2024-11-20 19:04 | HMCIMG ---
MR SPINAL CANAL, LUMB W/WO CON HISTORY: Neuropathy COMPARISON: None TECHNIQUE: MRI of the lumbar spine was performed utilizing pulse sequences in axial , coronal and sagittal plane. Patient was given 20 cc of Clariscan through intravenous route. FINDINGS: Decreased bone density is seen throughout the lumbar spine may be related to marrow infiltrative/replacement disease homogeneously. Endplate degenerative changes with disc space narrowing and irregularity noted involving the L5-S1 level. No loss of vertebral height is seen. There is straightening of normal lumbar curvature which may be related to muscle spasm or positioning. Degenerative disc signals are present at L4-5 and L5-S1 levels. Visualized distal conus is unremarkable. No abnormal enhancement is seen. At the L4-5 level, there is spondylotic disc with bilateral ligamentum flavum hypertrophy causing anterior thecal sac compression with bilateral lateral recess stenosis and minimal bilateral neural foraminal stenosis. The thecal sac measures approximately 9.6 mm in its anterior posterior dimension. At the L5-S1 level, there is spondylotic disc with central disc protrusion/herniation causing anterior thecal sac compression with bilateral lateral recess stenosis and bilateral neural foraminal stenosis. The thecal sac measures approximately 9.9 mm in its anterior posterior dimension. IMPRESSION: 1. DJD with lumbar spine spondylosis predominantly involving the L4-5 and L5-S1 levels as described above. Mild grade 1 anterolisthesis is seen at the L5-S1 level with disc protrusion/herniation. Endplate degenerative changes with disc irregularity is seen of the L5-S1 level.
--- NOTE | 2024-11-20 19:57 | CONS ---
The patient was brought to the Emergency Room with weakness. The patient has fallen several times. The patient was supposed to see a neurosurgeon for his back problems. The patient has underlying diabetes, hypertension, coronary artery disease, end-stage renal disease and multiple other comorbidities. HISTORY OF PRESENT ILLNESS: The patient has been falling, has weakness. The patient has coronary artery disease, cardiomyopathy with recurrent hospitalization. He has underlying diabetes, hypertension and hyperlipidemia. The patient has recurrent sepsis. He has been treated for pneumonia. He has underlying history of cardiomyopathy, ejection fraction of around 30%. The patient has multiple other comorbidities. Now the patient is on dialysis 3 times a week. The patient has elevated cardiac enzymes, followed by electromechanical engineer. PAST MEDICAL HISTORY: As above, significant for coronary artery disease, ileus, end-stage renal disease, diabetes, hypertension, hyperlipidemia, anemia, multiple other comorbidities, intestinal obstruction, now recurrent falls, weakness, and back problems. PAST SURGICAL HISTORY: CABG, left knee surgery, AV accesses, partial amputation of the toe. SOCIAL HISTORY: No smoking, alcohol or drug abuse. FAMILY HISTORY: Unremarkable for present contacts and no kidney cyst or stone. REVIEW OF SYSTEMS: CONSTITUTIONAL: Generalized weakness with no fever, chills or rigors. HEENT: With no headache, oral ulcers, sore throat or difficulty swallowing. RESPIRATORY: With no cough, expectoration, hemoptysis or pleuritic pain. CARDIOVASCULAR: Has shortness of breath. No orthopnea or PND. GASTROINTESTINAL: Negative for nausea, vomiting or diarrhea. Previous intestinal obstruction. GENITOURINARY: Negative for dysuria or hematuria. DERMATOLOGICAL: No rashes or pruritus. NEUROLOGIC: No seizure or syncope. ENDOCRINE: No polyuria, polydipsia or polyphagia. PSYCHIATRIC: Negative for anxiety, depression or hallucinations. NEUROLOGIC: No seizure or syncope. LYMPHATIC AND HEMATOPOIETIC: No bleeding tendencies noted in lymph node areas. PHYSICAL EXAMINATION: GENERAL: Pale, sick looking, lying in bed. VITAL SIGNS: Blood pressure 144/31, pulse 55, respiratory rate is 18, afebrile. HEENT: Head is atraumatic, normocephalic. Pupils are round and reactive. Sclerae are anicteric. Conjunctivae not pale. Oral mucosa is not dry. NECK: Supple. No masses or bruits. Thyroid is palpable. Neck has no bruits. CHEST: Shows equal thoracic percussion note being resonant in all areas. CARDIAC: Regular rhythm, no rub, no S3, S4. No parasternal heave. ABDOMEN: No guarding or tenderness. Bowel sounds are normoactive. No free fluid. No rebound, rigidity, or tenderness. EXTREMITIES: With no edema. No cyanosis or clubbing. SKIN: No other petechial rashes noted on inspection and palpation. LYMPHATIC: No lymph node swelling in neck area. NEUROLOGIC: The patient is awake, alert, nonfocal. No cranial nerve palsies. The patient has back problems. Recent MRI done and labs have been reviewed. Labs have shown hemoglobin low up to 10.2, hematocrit is 32, sodium low up to 132, BUN of 40, creatinine 6.4. CK is elevated. Troponin is elevated. The patient has coagulation PT, PTT normal. The patient has old records reviewed in detail. Imaging studies are personally reviewed with MRI spine has been ordered again. Head CT has been negative, just the atrophy and chest x-ray has shown increased marking, personally reviewed. Previous abdominal pelvic CT has been done, which was reviewed. An echocardiogram done in the past has shown ejection fraction of around 30%. I have reviewed the imaging studies personally. EKG was personally reviewed, nonspecific changes only. Ventricular rate 54. PROBLEMS: * Include the patient is admitted with weakness, found to have elevated cardiac enzymes. * Has underlying CHF with acute on chronic systolic heart failure. * The patient may have underlying non-ST elevation myocardial infarction. * The patient has back problems, recurrent falls, generalized weakness, possible spinal problems, being worked up. * End-stage renal disease, on dialysis. * Diabetic nephropathy. * Neuropathy. * Hypertension. * Anemia. * Hyperlipidemia. * The patient is critically ill and there have been multiple comorbidities. PLAN: * This patient is being admitted to coronary unit. * Will have a cardiac evaluation. * We will do dialysis on schedule. * The patient will have a fluid restricted. * The patient will have DVT and GI prophylaxis. * IV Dilaudid can be used for pain 0.5 q. 6. * Adjust doses of medicine. * Avoid nephrotoxic drugs. * Continue thyroid replacement with monitoring of TSH. * We have discussed with Dr. Sanchez. If neurosurgical evaluation is needed, the patient will have to be in a place where it could be done, though at this time, further workup is in progress. The patient will need to avoid any salt at this time. Overall condition is critical and guarded and follow up on CBC, CMP. Labs and x-rays were personally reviewed and interpreted. External records, old records were also reviewed and interpreted personally. We will follow up closely. I thank you for this patient. Condition is critical. TID: [id number] RECEIPT: [id number]
--- NOTE | 2024-11-20 20:15 | NUR ---
TRANSFER CALL PLACED TO [facility] PATHOLOGICAL TECHNICIAN TO INITIATE TRANSFER FOR NEUROSURGERY SERVICES.
--- NOTE | 2024-11-20 20:39 | NUR ---
TRANSFER PT. ACCEPTED BY ANSELMO RESENDEZ MD FOR TRANSFER TO [facility] ER. REPORT: [phone].
--- NOTE | 2024-11-20 22:19 | NUR ---
REPORT GIVEN TO PRASANTH CATALAN FROM [facility] ER TO ER TRANSFER
[2024-11-21 01:30] VITALS: BP 139/41; PULSE 52; RESP 18; TEMP 98.2; O2SAT 97
--- NOTE | 2024-11-21 01:35 | NUR ---
PATIENT LEAVING VIA EMS AT THIS TIME, IS IN NO DISTRESS
--- NOTE | 2024-11-21 16:53 | CONS ---
[facility] CONSULTATION NOTE Date of Service: Nov 20, 2024 Reason for Consultation: Evaluation for need for admission Requesting Physician: Dr. Leos I saw this patient close to 1615 in ER Room 17 HISTORY OF PRESENT ILLNESS: Date of service: 11/20/2024, patient was seen in ER room 17 This is a 69-year-old male with underlying history of hypertension, hyperl ipidemia, ESRD, coronary artery disease with underlying history of advanced ischemic cardiomyopathy with LV EF of 31% with mild aortic valve stenosis, type 2 diabetes mellitus, obesity who presented to the ER for further evaluation of generalized weakness. Patient states that he was previously hospitalized in [facility] on 09/12/2024 for small-bowel obstruction. Patient during the hospitalization was also found to have non ST-elevation SD and was found to have on 2D echocardiogram, LV EF of 31%. Patient was treated conservatively with bowel obstruction eventually resolving and he was discharged from the facility on 0 09/24/2024 to nursing facility. Plan by Cardiology was per outpatient ischemic evaluation with cardiac catheterization. Patient's family was present at bedside who assisted with further history. 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 Patient has been having subacute worsening of his mobility since his hospitalization and was needing walker to ambulate a fter he was discharged from [facility] facility. Over the last two weeks, patient has been having progressive lower back pain with significant weakness of the lower extremities. Family has been calling ambulance to have him get scheduled dialysis in [place]. Family reports that patient had a near fall on Thursday when he was ambulating where patient states that his legs all almost gave out from weakness. Patient has been extremely weak and has been mostly sedentary in bed per patient's and daughter over the last two weeks. 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 Family reports that patient was supposed to see a neurosurgeon as outpatient on November 17, but the appointment got cancelled due to an emergency for the neurosurgeon. Patient denies active chest pain or shortness of breath. He has been receiving scheduled dialysis and his last hemodialysis was on Thursday, normal scheduled for hemodialysis was on Thursday, Thursday and Thursday. Family reports that patient history pending ischemic evaluation by Cardiology as well. He has been compliant with home medications. REVIEW OF SYSTEMS CONSTITUTIONAL: generalized fatigue NEUROLOGICAL: weakness with ambulation, recurrent falls, lower back pain ENT: No hearing loss, otalgia, otorrhea, rhinitis, rhinorrhea, hoarseness, or sore throat. CARDIOVASCULAR: Denies any exertional angina, dyspnea on exertion, orthopnea, paroxysmal nocturnal dyspnea, palpitations, life-threatening arrhythmias, claudication. PULMONARY: Denies any shortness of breath, cough, phlegm/sputum, hemoptysis, pleuritic chest pain. SLEEP: Denies morning headaches, daytime somnolence or napping. Denies difficulty falling asleep, staying asleep, waking from sleep. Denies knowledge of snoring. GASTROINTESTINAL: Denies any type of dysphagia to either liquids or solids. Denies nausea, vomiting, pyrosis, early satiety, abdominal pain, diarrhea, constipation, or changes in stool consistency or caliber. Denies coffee-ground emesis, hematemesis, hematochezia, or melanotic stools. GENITOURINARY: Denies frequency, urgency, nocturia, hematuria or incontinence (Storage/Irritative symptoms.) Low urinary stream, straining to void, urinary intermittency or hesitancy, splitting of the voiding stream, terminal dribbling. ENDOCRINOLOGIC: Denies polyuria, polydipsia, polyphagia or heat/cold intolerances. HEMATOLOGIC: Denies thrombophilia/previous clots, or coagulopathy/bleeding disorders. ONCOLOGIC: Denies personal history of malignancy. DERMATOLOGIC: Denies rashes or pruritus. PSYCHIATRIC: Denies any suicidal or homicidal ideation. Denies hallucinations. PAST MEDICAL HISTORY: [Hypertension, hyperlipidemia, Coronary Artery Disease, Ischemic Cardiomyopathy with LVEF of 31 % (09/24),recent hx of hospitalization in [facility] for bowel obstruction, 09/24, ESRD on HD Thursday, cholelithiasis] PAST SURGICAL HISTORY: [ CABG six years ago, right knee cartilage replacement, appendectomy, cholecystectomy, left hand finger amputation ] PAST SOCIAL HISTORY: [ Patient denies smoking. Patient denies drug illicit. Patient drinks occasionally. ] FAMILY HISTORY: [ Patient lives at home with the family. Patient is independent. ] Coded Allergies: No Known Drug Allergies (Unverified Allergy, Unknown, 06/01/15) PHYSICAL EXAM GENERAL APPEARANCE: The patient is awake, alert, on 2L of Nasal canula NEUROLOGICAL: Cranial nerves II-XII grossly intact. strength is 4/5 of bilateral lower extremities, 5/5 in upper extremities, lower extremity reflexes are diminished HEENT: Face is symmetric. Pupils are equal and reactive. Extraocular movements are intact. NECK: Supple. No JVD. No thyromegaly. No submental, submandibular, pre-/postauricular, occipital or supraclavicular lymphadenopathy. CHEST: Normal chest expansion. No Telemetry. LUNGS: Absence of any rales, rhonchi or any wheezing. CARDIOVASCULAR: Regular. S1 and S2 normal. No appreciable rubs, murmurs or gallops. ABDOMEN: Soft, nontender, and nondistended. There is no rebound, voluntary guarding, or rigidity. : Deferred. No Palomares. EXTREMITIES: 1+ pitting edema noted of the bilateral lower extremities Vital Sign (Last 24 Hours) 11/21/24 01:30 Temp 98.2 Pulse 52 Resp 18 B/P (MAP) 139/41 Pulse Ox 97 O2 Delivery Room Air* O2 Flow Rate 0 FiO2 21 LABS: Laboratory: Test 11/20/24 14:19 Range/Units White Blood Count 8.7 4.8-10.8 K/uL Red Blood Count 3.04 L 4.50-6.20 MIL/uL Hemoglobin 10.2 L 14.0-18.0 g/dL Hematocrit 32.2 L 42-54 % Mean Corpuscular Volume 105.9 H 79-99 fL Mean Corpuscular Hemoglobin 33.6 H 27.0-33.0 pg Mean Corpuscular Hemoglobin Concent 31.7 L 32.0-36.0 g/dL Red Cell Distribution Width 17.8 H 11.0-15.5 % Platelet Count 173 130-400 K/uL Mean Platelet Volume 10.1 7.5-10.5 fL Immature Granulocyte % (Auto) 0.3 0-1 % Neutrophils (%) (Auto) 60.6 40.0-77.0 % Lymphocytes (%) (Auto) 23.7 21.0-51.0 % Monocytes (%) (Auto) 11.6 3.0-13.0 % Eosinophils (%) (Auto) 3.0 0.0-8.0 % Basophils (%) (Auto) 0.8 0.0-5.0 % Neutrophils # (Auto) 5.3 1.8-7.7 K/uL Lymphocytes # (Auto) 2.1 1.0-4.8 K/uL Monocytes # (Auto) 1.0 0.1-1.0 K/uL Eosinophils # (Auto) 0.26 0.00-0.70 K/uL Basophils # (Auto) 0.07 0.00-0.20 K/uL Absolute Immature Granulocyte (auto 0.03 0-1 K/uL Nucleated Red Blood Cells 0.0 0.0-0.19 % Red Blood Cell Morphology See comments Prothrombin Time 15.6 H 9.6-11.6 SEC Prothromb Time International Ratio 1.54 H 0.85-1.15 Activated Partial Thromboplast Time 34.9 26.3-35.5 SEC Sodium Level 132 L 136-145 mmol/L Potassium Level 4.9 3.5-5.1 mmol/L Chloride Level 95 L 101-111 mmol/L Carbon Dioxide Level 30 21-32 mmol/L Blood Urea Nitrogen 48 H 7-18 mg/dL Creatinine 6.2 H 0.5-1.3 mg/dL Glomerular Filtration Rate Calc 9 >90 mL/min Random Glucose 133 H 70-105 mg/dL Total Calcium 10.1 8.5-10.1 mg/dL Magnesium Level 2.20 1.80-2.40 mg/dL Total Creatine Kinase 614 #*H 21-232 U/L Troponin I High Sensitivity 199 *H 4-75 ng/L B-Type Natriuretic Peptide > 5000 H 0-100 pg/mL DIAGNOSTICS / RADIOLOGY: SERVICE 1404 REASON: CP ORDERING PHYSICIAN: LO LEOS MD PROCEDURE: CXR1VW - CHEST 1VW CHEST 1VW HISTORY: Chest pain COMPARISON: 09/12/2024 FINDINGS: A frontal projection of the chest was obtained. Mild bilateral pulmonary infiltrates are seen may be related to mild pulmonary vascular congestion with possible superimposed pneumonitis. Poststernotomy changes are seen. The heart is enlarged. Degenerative changes of the thoracolumbar spine are present. All the lines and tubes are again seen in place. No evidence of aortic calcification is seen. IMPRESSION: 1. Mild bilateral pulmonary infiltrates are seen may be related to mild pulmonary vascular congestion with possible superimposed pneumonitis. DICTATED BY: LUIS ROBERTS MD DATE: 11/20/24 1506 ELECTRONICALLY SIGNED BY: LUIS ROBERTS MD DATE: 11/20/24 1510 ASSESSMENT: Worsening subacute acute on chronic bilateral lower extremity weakness x 2 weeks, POA Recent history of fall, POA History of disc herniation with nerve root impingement involving L5-S1 with significant spondyloarthropathy of L4 on CT of lumbar spine recently, POA History of ESRD on M, W, F, hemodialysis, POA Elevated troponin, POA History of NSTEMI in 08/2024, POA Debility/deconditioning, POA History of advanced ischemic cardiomyopathy with known LVEF of 31%, 2D echo, 08/2024 Macrocytic anemia, POA Anemia of renal disease, POA History of coronary artery disease with prior history of coronary artery bypass grafting, POA Type 2 diabetes mellitus, POA Hypertension, POA Hyperlipidemia, POA Obesity, POA History for lower back pain awaiting Neurosurgery evaluation as outpatient, POA PLAN: 69-year-old male with underlying history of ESRD, diabetes, hypertension, hyperlipidemia, obesity, with advanced ischemic cardiomyopathy presenting to the hospital with worsening lower extremity weakness, fall, known history of disc herniation with nerve root impingement of L5-S1. Family has been needing to call ambulance for patient to have outpatient hemodialysis due to significant weakness of the lower extremity. Patient recently had a fall as well on Thursday, two days ago prior to coming to the ER today. I have recommended to obtain MRI lumbar spine without contrast to assess the severity of the disc herniation as well as nerve root impingement. [facility] does not have either a neurosurgeon or in-house neurologist on-call today. We can definitely take care of this patient's dialysis needs and I have already spoken with patient's primary display maker as well and patient will definitely need cardiac evaluation with regards to elevated troponin. I discussed with family that, we wont be able to do much with regards to the weakness of the lower extremities due to no neurosurgery or in-house neurologist with regards to clinical treatment. If patient has significant findings of nerve root impingement on MRI lumbar spine without contrast, I have recommended that this patient be transferred to [facility] for higher level of care for neurology/neurosurgical evaluation. Patient will definitely need Nephrology and Cardiology input as well while he is admitted in [facility]. I discussed with family that patient's primary cardiology service also round in [facility]. Patient to continue with scheduled hemodialysis tomorrow With regards to macrocytic anemia, patient will benefit further evaluation with a vitamin B12, TSH, folic acid, we can also obtain iron panel with regards to his underlying renal failure. This can be worked up by hospitalist service in [facility] once admitted there. For now, I will hold off on admitting this patient as [facility] does not have in-house Neurology or neurosurgeon available to further assess this patient's care. All orders and care will be per ER physician/service until patient is evaluated for transfer to [facility]. Date of service: 11/20/2024 Plan of care was discussed with patient's , and daughter at bedside, They are agreeable with the plan of care for the patient, JUVENTINO Batista MD, MD Nov 21, 2024 16:53
== END 2024-11-21 01:35 | disposition short-term general hospital (02) ==
LOC: EDH 13:56
DX: I13.0 Hypertensive heart and chronic kidney disease with heart failure and stage 1 through stage 4 chronic kidney disease, or unspecified chronic kidney disease (principal); E11.22 Type 2 diabetes mellitus with diabetic chronic kidney disease; I25.10 Atherosclerotic heart disease of native coronary artery without angina pectoris; N18.9 Chronic kidney disease, unspecified; I50.9 Heart failure, unspecified; I24.9 Acute ischemic heart disease, unspecified; I11.0 Hypertensive heart disease with heart failure; R74.8 Abnormal levels of other serum enzymes; M51.27 Other intervertebral disc displacement, lumbosacral region; M47.817 Spondylosis without myelopathy or radiculopathy, lumbosacral region; M48.07 Spinal stenosis, lumbosacral region; Z79.890 Hormone replacement therapy; Z79.899 Other long term (current) drug therapy; Z90.49 Acquired absence of other specified parts of digestive tract; Z95.1 Presence of aortocoronary bypass graft; Z96.651 Presence of right artificial knee joint; Z99.2 Dependence on renal dialysis
CPT/HCPCS: 72158; 99291; 70450; 82550; 83735; 84484; 80048; 83880; 85025; 85610; 85730; 36415; 71045; 72146; 93005; A9575